=== PATIENT | male | born 1970 | race Two or more races ===

== ENCOUNTER 2025-07-19 03:53 | Inpatient (IN) | payer MEDICAID, OTHER ==
[~2025-07-19] VITALS: Ht 182.9 cm; Wt 95.5 kg
--- NOTE | 2025-07-19 04:25 | ED.PDOC ---
Musculoskeletal HPI Comments 55-year-old male who came to ER for wound check. Patient denies any medical problems. States 3 days ago, he was working on somebody's yard, cleaning up the yard of debris, when he had multiple cuts/lacerations on his legs due to the debris. Claims he became febrile, and he had episodes of nausea vomiting and diarrhea afterwards. Noted also gradually worsening bipedal edema, left > right, with weeping wounds on the left lower extremity. Chief Complaint: Wound Check Time Seen by MD: 04:24 Reviewed Notes: Nurses Notes Allergies: Coded Allergies: Ciprofloxacin (Verified Allergy, Unknown, 07/19/25) Moxifloxacin (Verified Allergy, Unknown, 07/19/25) Quinolones (Verified Allergy, Unknown, 07/19/25) Information Source: Patient Mode of Arrival: Wheelchair Location: Bilateral Extremity Location: Leg Timing: Days (2) Past Medical History PAST MEDICAL HISTORY: Denies Surgical History: Denies all surgeries Family History Family History: Reviewed,noncontributory to illness Social History Smoker: Non-Smoker Alcohol: Denies ETOH Use Drugs: Denies Drug Use Lives In: Home Constitutional: denies: chills, diaphoresis, fatigue, fever, malaise, sweats, weakness, others EENTM: denies: blurred vision, double vision, ear bleeding, ear discharge, ear drainage, ear pain, ear ringing, eye pain, eye redness, hearing loss, mouth pain, mouth swelling, nasal discharge, nose bleeding, nose congestion, nose pain, photophobia, tearing, throat pain, throat swelling, voice changes, others Respiratory: denies: cough, hemoptysis, orthopnea, SOB at rest, shortness of breath, SOB with excertion, stridor, wheezing, others Cardiovascular: denies: chest pain, dizzy spells, diaphoresis, Dyspnea on exertion, edema, irregular heart beat, left arm pain, lightheadedness, palpitations, PND, syncope, others Gastrointestinal: denies: abdomen distended, abdominal pain, blood streaked bowels, constipated, diarrhea, dysphagia, difficulty swallowing, hematemesis, melena, nausea, poor appetite, poor fluid intake, rectal bleeding, rectal pain, vomiting, others Genitourinary: denies: burning, dysuria, flank pain, frequency, hematuria, incontinence, penile discharge, penile sore, pain, testicle pain, testicle swelling, urgency, others Neurological: denies: dizziness, fainting, headache, left sided numbness, left sided weakness, numbness, paresthesia, pre-existing deficit, right sided numbness, right sided weakness, seizure, speech problems, tingling, tremors, weakness, others Musculoskeletal: reports: others (Bilateral leg edema left >right); denies: back pain, gout, joint pain, joint swelling, muscle pain, muscle stiffness, neck pain Integumetry: reports: wounds (Weeping wounds left lower leg); denies: bruises, change in color, change in hair/nails, dryness, laceration, lesions, lumps, rash, others Allergic/Immunocompromised: denies: Difficulty Healing, Frequent Infections, Hives, Itching, others Hematologic/Lymphatic: denies: anemia, blood clots, easy bleeding, easy bruising, swollen glands, others Endocrine: denies: excessive hunger, excessive sweating, excessive thirst, excessive urination, flushing, intolerance to cold, intolerance to heat, unexplained weight gain, unexplained weight loss, others Psychiatric: denies: anxiety, bipolar disorder, depression, hopeless, panic disorder, schizophrenia, sleepless, suicidal, others Physical Exam General Appearance: No Apparent Distress, Normal HEENT: Normal ENT Inspection, Pharynx Normal, TMs Normal Neck: Full Range of Motion, Non-Tender, Normal, Normal Inspection Respiratory: Chest Non-Tender, Lungs Clear, No Accessory Muscle Use, No Respiratory Distress, Normal Breath Sounds Cardiovascular: No Edema, No JVD, No Murmur, No Gallop, Normal Peripheral Pulses, Regular Rate/Rhythm Breast Exam: Deferred Gastrointestinal: No Organomegaly, Non Tender, No Pulsatile Mass, Normal Bowel Sounds, Soft Genitalia: Deferred Pelvic: Deferred Rectal: Deferred Extremities: Leg edema (Bilateral), No calf tenderness, Normal capillary refill, Normal range of motion, Pedal edema, Swelling (Bilateral legs), Other (Weeping wounds left lower leg) Musculoskeletal : Apperance: Normal Neurologic: Alert, collateral specialist II-XII nml as Tested, No Motor Deficits, Normal Affect, Normal Mood, No Sensory Deficits Cerebellar Function: Normal Reflexes: Normal Skin: Dry, Normal Color, Warm Lymphatic: No Adenopathy Was a procedure done? Was a procedure done?: No Differential Diagnosis EXT Differential Diagnosis: Cellulitis, CHF, Deep Vein Thrombosis, Septic X-Ray, Labs, Meds, VS Vital Signs Date Time Temp Pulse Resp B/P (MAP) Pulse Ox O2 Delivery O2 Flow Rate FiO2 07/19/25 03:55 98.7 104 18 114/83 93 98.7 Lab Test 07/19/25 04:33 Range/Units White Blood Count 19.8 H 4.4-10.8 10^3/uL Red Blood Count 5.25 4.5-5.90 10^6/uL Hemoglobin 14.4 13.5-17.5 g/dL Hematocrit 43.5 41.0-53.0 % Mean Corpuscular Volume 82.9 80.0-100.0 fL Mean Corpuscular Hemoglobin 27.4 L 28.0-32.0 pg Mean Corpuscular Hemoglobin Concent 33.0 32.0-36.0 g/dL Red Cell Distribution Width 15.0 H 11.8-14.3 % Platelet Count 546 H 140-450 10^3/uL Mean Platelet Volume 7.0 6.9-10.8 fL Neutrophils (%) (Auto) 37.0-80.0 % Lymphocytes (%) (Auto) 10.0-50.0 % Monocytes (%) (Auto) 0.0-12.0 % Basophils (%) (Auto) 0.0-2.0 % Neutrophils # (Auto) 1.6-8.6 10 ^3/uL Lymphocytes # (Auto) 0.4-5.4 10 ^3/uL Monocytes # (Auto) 0-1.3 10 ^3/uL Differential Total Cells Counted Pending Neutrophils % (Manual) Pending Band Neutrophils % (Manual) Pending Lymphocytes % (Manual) Pending Monocytes % (Manual) Pending Eosinophils % (Manual) Pending Basophils % (Manual) Pending Metamyelocytes % (manual) Pending Myelocytes % (Manual) Pending Promyelocytes % (Manual) Pending Blast Cells % (Manual) Pending Reactive Lymphocytes Pending Platelet Estimate Pending Prothrombin Time 11.8 9.3-11.8 sec Prothrombin Time INR 1.13 0.9-1.15 Activated Partial Thromboplast Time 26.2 24.5-34.5 SEC Sodium Level 134 L 136-145 mmol/L Potassium Level 3.6 3.5-5.1 mmol/L Chloride Level 96 L 98-107 mmol/L Carbon Dioxide Level 27 20-31 mmol/L Anion Gap 11 5-15 Blood Urea Nitrogen 16 9-23 mg/dL Creatinine 0.87 0.700-1.30 mg/dL Glomerular Filtration Rate Calc 101 >90 mL/min BUN/Creatinine Ratio 18.4 10.0-20.0 Serum Glucose 105 74-106 mg/dL Lactic Acid Level 2.6 *H 0.4-2.0 mmol/L Calcium Level 8.8 8.7-10.4 mg/dL Magnesium Level 2.5 1.6-2.6 mg/dL Total Bilirubin 0.3 0.2-1.0 mg/dL Aspartate Amino Transferase (AST) 30 13-40 U/L Alanine Aminotransferase (ALT) 25 7-40 U/L Alkaline Phosphatase 139 H 46-116 U/L Troponin I High Sensitivity < 3 L </=54 ng/L B-Type Natriuretic Peptide 10.31 0-100 pg/mL Total Protein 7.8 5.7-8.2 g/dL Albumin 4.0 3.2-4.8 g/dL Time of 1ST Reevaluation: 04:18 Reevaluation 1ST: Unchanged Patient Education/Counseling: Diagnosis, Treatment Family Education/Counseling: No Family Present Sepsis Sepsis Reasesment Focused Exam Orders: Laboratory Tests 07/19/25 04:33: Lactic Acid Level 2.6 Departure 1 Departure Time of Disposition: 05:34 Impression: Primary Impression: Cellulitis of left leg Additional Impression: Venous stasis dermatitis of both lower extremities Disposition: ADMITTED INPATIENT Admit to: Med Surg Condition: Guarded Comments 55-year-old male with a history of venous stasis dermatitis now with left leg redness and swelling for the last few days with some skin breakdown. Lab review shows a high white blood cell count of 19.8. Lactic acid is elevated 2.6. Patient was given IV fluids and IV antibiotics Ancef and vancomycin. Patient will need admission for supportive care and further workup. Critical Care Note Critical Care Time?: Yes (35 min-critical care time only) Critical care comment: Total critical care time: Approximately 36 minutes Due to a high probability of clinically significant, life threatening deterioration, the patient required my highest level of preparedness to intervene emergently and I personally spent this critical care time directly and personally managing the patient. This critical care time included obtaining a history; examining the patient; pulse oximetry; ordering and review of studies; arranging urgent treatment with development of a management plan; evaluation of patient's response to treatment; frequent reassessment; and, discussions with other providers. This critical care time was performed to assess and manage the high probability of imminent, life-threatening deterioration that could result in multi-organ failure. It was exclusive of separately billable procedures and treating other patients. Stability Stability form required: No Heart Score Heart Score: Heart Score Response (Comments) Value History N/A 0 EKG N/A 0 Age N/A 0 Risk Factors N/A 0 Troponin N/A 0 Total 0 I personally scribed for JESUS ALBERTO LANDON MD ([email or web address]) on 07/19/25 at 04:25. Electronically submitted by Francis Rubin ([email or web address]). JESUS ALBERTO LANDON MD Jul 19, 2025 04:25
[2025-07-19 04:53] LABS: Mean Corpuscular Hemoglobin 27.4 pg (28.0-32.0); Mean Corpuscular Volume 82.9 fL (80.0-100.0)
[2025-07-19 04:54] LABS: Hematocrit 43.5 % (41.0-53.0); Hemoglobin 14.4 g/dL (13.5-17.5)
[2025-07-19 05:12] LABS: Alanine Aminotransferase 25 U/L (7-40); Albumin 4.0 g/dL (3.2-4.8); Anion Gap 11 (5-15); BUN/Creatinine Ratio 18.4 (10.0-20.0); Blood Urea Nitrogen 16 mg/dL (9-23); Calcium 8.8 mg/dL (8.7-10.4); Carbon Dioxide 27 mmol/L (20-31); Glucose 105 mg/dL (74-106); INR 1.13 (0.9-1.15); Magnesium 2.5 mg/dL (1.6-2.6); Partial Thromboplastin Time 26.2 SEC (24.5-34.5); Potassium 3.6 mmol/L (3.5-5.1); Prothrombin Time 11.8 sec (9.3-11.8); Total Protein 7.8 g/dL (5.7-8.2)
[2025-07-19 05:17] LABS: Alkaline Phosphatase 139 U/L (46-116); Bilirubin, Total 0.3 mg/dL (0.2-1.0); Chloride 96 mmol/L (98-107); Lactic Acid w/Reflex 2.6 mmol/L (0.4-2.0); Sodium 134 mmol/L (136-145)
[2025-07-19 06:30] LABS: Total Cells Counted 100.0 (100)
--- NOTE | 2025-07-19 07:26 | DVH ---
Left lower extremity venous duplex Clinical History: swelling pain Comparison: None Findings: Duplex Doppler evaluation of the deep venous systems of both left lower extremity from the common fem oral veins to the popliteal veins including color Doppler and spectral/pulsed waveform analysis was p erformed. LEFT SIDE: The common femoral vein demonstrates appropriate compressibility and waveform variability. There is compressibility/patency of the great saphenous vein at the proximal thigh. The femoral vein demonstrates appropriate compressibility and waveform variability. The deep femoral vein demonstrates appropriate compressibility and waveform variability. The popliteal vein demonstrates appropriate compressibility and waveform variability. There is normal compressibility at the tibioperoneal trunk. There is a calcified structure causing shadowing in the left popliteal fossa. There is a left groin lymph node which is enlarged measuring 4.2 x 1.3 x 3.5 cm. Impression: 1. No left femoropopliteal venous thrombosis. 2. Enlarged left groin lymph node measuring 4.2 x 1.3 x 3.5 cm. 3. Calcified structure causing shadowing in the left popliteal fossa.
[2025-07-19] MEDS: ceFAZolin 1GM/50ML 50 ML IV ONE (07:48)
[2025-07-19 08:00] VITALS: PULSE 104; RESP 13
[2025-07-19] MEDS: SODIUM CHLORIDE 0.9% 2,450 ML IV ONE (08:22)
[2025-07-19] MEDS: VANCOMYCIN 1GM/250ML KIT 250 ML IV ONE (08:22)
[2025-07-19] MEDS: SODIUM CHLORIDE 0.9% 1,000 ML IV ONE (12:02)
[2025-07-19 13:05] VITALS: PULSE 92; RESP 18
[2025-07-19] MEDS ORDERED: ACETAMINOPHEN 325 MG TAB PO PRN (13:30)
[2025-07-19] MEDS ORDERED: DOCUSATE SOD 100 MG CAP PO PRN (13:30)
[2025-07-19] MEDS ORDERED: ONDANSETRON HCL 4 MG/2 ML VIAL IV PRN (13:30)
[2025-07-19] MEDS ORDERED: MORPHINE SULFATE INJ 2 MG/ml SYRG IV PRN (13:30)
--- NOTE | 2025-07-19 13:44 | DVHHP2 ---
History of Present Illness Reason for Visit: bilateral lower extremity swelling History of Present Illness Bob Srivastava is a 55-year-old male with no significant past medical history, who came to the hospital for bilateral lower extremities swelling and wounds. Patient states he was cleaning up a friend's yard on Tuesday or Tuesday, when he scratched his left leg. He states the swelling started a couple days later and continued to worsen prompting him to come to the hospital. Heme/Onc: Cancer (left testicle) Past Surgical History: Other (left testicle, right eye, bilateral knees), Tonsillectomy Smoke: <1 pack per day (vape) ALCOHOL: occassional Drugs: Marijuana, Other (methamphetamine, fentanyl) Lives: Alone Domestic Violence: Neg Review of Systems Constitutional: No: Fever, Chills, Sweats, Weakness, Malaise, Other Eyes: No: Pain, Vision change, Conjunctivae inflammation, Eyelid inflammation, Other, Redness ENT: No: Ear pain, Ear discharge, Nose pain, Nose discharge, Nose congestion, Mouth pain, Mouth swelling, Throat pain, Throat swelling, Other Respiratory: No: Cough, Dry, Shortness of breath, SOB with excertion, Wheezing, Hemoptysis, Pleuritic Pain, Sputum, Wheezing, Other Cardiovascular: Edema (bilateral lower extremities, redness); No: Chest Pain, Palpitations, Orthopnea, Paroxysmal Noc. Dyspnea, Lt Headedness, Other Gastrointestinal: No: Nausea, Vomiting, Abdominal Pain, Diarrhea, Constipation, Melena, Hematochezia, Other Genitourinary: No Dysuria, No Frequency, No Incontinence, No Hematuria, No Retention, No Other Musculoskeletal: No: other, neck pain, shoulder pain, arm pain, back pain, hand pain, leg pain, foot pain Skin: Lesions (bilateral lower extremities redness, edema, open wounds, blisters); No: Rash, Jaundice, Bruising, Other Neurological: No: Weakness, Numbness, Incoordination, Change in speech, Confusion, Seizures, Other Allergies: Coded Allergies: Ciprofloxacin (Verified Allergy, Unknown, 07/19/25) Moxifloxacin (Verified Allergy, Unknown, 07/19/25) Quinolones (Verified Allergy, Unknown, 07/19/25) Exam Vital Signs Vital Signs Date Time Temp Pulse Resp B/P (MAP) Pulse Ox O2 Delivery O2 Flow Rate FiO2 07/19/25 08:00 98.5 104 13 142/78 (99) 98.5 07/19/25 08:00 Room Air* 0 21 07/19/25 03:55 93 General Appearance: Alert, Oriented X3, Cooperative, moderate distress HEENT: Atraumatic, PERRLA Respiratory: Clear to auscultation, Normal air movement Cardiovascular: Regular rate, Normal S1, Normal S2, No murmurs Abdominal: Normal bowel sounds, Soft, No tenderness Extremities: No clubbing, No cyanosis, Other (bilateral lower extremities redness, edema, open wounds, blisters) Skin: No rashes, No breakdown, No significant lesion (bilateral lower extremity edema, redness, and open wounds. blisters to left foot. wound to left arm) Neuro: Normal gait, Normal speech, Strength at 5/5 X4 ext Psych/Mental Status: Mental status NL Labs/Xrays Labs Test 07/19/25 08:13 07/19/25 05:32 07/19/25 04:33 Range/Units Troponin I High Sensitivity < 3 L </=54 ng/L Lactic Acid Level 2.7 *H 0.4-2.0 mmol/L White Blood Count 19.8 H 4.4-10.8 10^3/uL Red Blood Count 5.25 4.5-5.90 10^6/uL Hemoglobin 14.4 13.5-17.5 g/dL Hematocrit 43.5 41.0-53.0 % Mean Corpuscular Volume 82.9 80.0-100.0 fL Mean Corpuscular Hemoglobin 27.4 L 28.0-32.0 pg Mean Corpuscular Hemoglobin Concent 33.0 32.0-36.0 g/dL Red Cell Distribution Width 15.0 H 11.8-14.3 % Platelet Count 546 H 140-450 10^3/uL Mean Platelet Volume 7.0 6.9-10.8 fL Neutrophils (%) (Auto) 37.0-80.0 % Lymphocytes (%) (Auto) 10.0-50.0 % Monocytes (%) (Auto) 0.0-12.0 % Basophils (%) (Auto) 0.0-2.0 % Neutrophils # (Auto) 1.6-8.6 10 ^3/uL Lymphocytes # (Auto) 0.4-5.4 10 ^3/uL Monocytes # (Auto) 0-1.3 10 ^3/uL Differential Total Cells Counted 100.0 100 Neutrophils % (Manual) 76 37.0-80.0 Band Neutrophils % (Manual) 1 Lymphocytes % (Manual) 18 10.0-50.0 Monocytes % (Manual) 5 0-12 Eosinophils % (Manual) 0 0-7 Basophils % (Manual) 0 0.0-2.0 Metamyelocytes % (manual) 0 Myelocytes % (Manual) 0 Promyelocytes % (Manual) 0 Blast Cells % (Manual) 0 Reactive Lymphocytes 0 Platelet Estimate Increased Prothrombin Time 11.8 9.3-11.8 sec Prothrombin Time INR 1.13 0.9-1.15 Activated Partial Thromboplast Time 26.2 24.5-34.5 SEC Sodium Level 134 L 136-145 mmol/L Potassium Level 3.6 3.5-5.1 mmol/L Chloride Level 96 L 98-107 mmol/L Carbon Dioxide Level 27 20-31 mmol/L Anion Gap 11 5-15 Blood Urea Nitrogen 16 9-23 mg/dL Creatinine 0.87 0.700-1.30 mg/dL Glomerular Filtration Rate Calc 101 >90 mL/min BUN/Creatinine Ratio 18.4 10.0-20.0 Serum Glucose 105 74-106 mg/dL Calcium Level 8.8 8.7-10.4 mg/dL Magnesium Level 2.5 1.6-2.6 mg/dL Total Bilirubin 0.3 0.2-1.0 mg/dL Aspartate Amino Transferase (AST) 30 13-40 U/L Alanine Aminotransferase (ALT) 25 7-40 U/L Alkaline Phosphatase 139 H 46-116 U/L B-Type Natriuretic Peptide 10.31 0-100 pg/mL Total Protein 7.8 5.7-8.2 g/dL Albumin 4.0 3.2-4.8 g/dL Left lower extremity venous duplex LEFT SIDE: The common femoral vein demonstrates appropriate compressibility and waveform variability. There is compressibility/patency of the great saphenous vein at the proximal thigh. The femoral vein demonstrates appropriate compressibility and waveform variability. The deep femoral vein demonstrates appropriate compressibility and waveform variability. The popliteal vein demonstrates appropriate compressibility and waveform variability. There is normal compressibility at the tibioperoneal trunk. There is a calcified structure causing shadowing in the left popliteal fossa. There is a left groin lymph node which is enlarged measuring 4.2 x 1.3 x 3.5 cm. Impression: 1. No left femoropopliteal venous thrombosis. 2. Enlarged left groin lymph node measuring 4.2 x 1.3 x 3.5 cm. 3. Calcified structure causing shadowing in the left popliteal fossa. SEPSIS Sepsis Screen Date sepsis recognized/suspect: Jul 19, 2025 Time Sepsis recognized/suspect: 08 Recent Procedure: No On Antibiotic Therapy: No Respiratory Rate >20: No Heart Rate >90: Yes Temp<36 C (96.8 F) or >38.3 C: No SBP <90 or MAP <65 mmHG: No New Acute Mental Status Change: No Is the patient on CPAP, BIPAP,: No Physician Orders Drug Screen (07/19/25 13:17) Admit (07/19/25 13:17) Code Status (07/19/25 13:17) 2 Gm Sodium Diet (07/19/25 Lunch) Hydrocodone-Acet 5/325mg Tab ([place] 5/32 (07/19/25 13:30) Ondansetron Hcl (Zofran) (07/19/25 13:30) Docusate Sodium Capsule (Colace Capsule) (07/19/25 13:30) Enoxaparin Sodium (Lovenox) (07/20/25 10:00) Complete Blood Count (07/20/25 04:00) Comprehensive Metabolic Panel (07/20/25 04:00) Condition: Serious (07/19/25 13:17) Acetaminophen Tablet (Tylenol Tablet) (07/19/25 13:30) Morphine Sulfate Injection (07/19/25 13:30) Furosemide Injection (Lasix Injection) (07/19/25 13:30) Furosemide Injection (Lasix Injection) (07/20/25 10:00) Ceftriaxone Ivpb Rocephin (07/20/25 09:00) Clindamycin Ivpb Cleocin (07/19/25 14:00) Vital Signs Date Time Temp Pulse Resp B/P (MAP) Pulse Ox O2 Delivery O2 Flow Rate FiO2 07/19/25 08:00 98.5 104 13 142/78 (99) 98.5 07/19/25 08:00 104 13 Room Air* 0 21 Laboratory Tests Test 07/19/25 04:33 07/19/25 05:32 Lactic Acid Level 2.6 mmol/L (0.4-2.0) *H 2.7 mmol/L (0.4-2.0) *H White Blood Count 19.8 10^3/uL (4.4-10.8) H Medications Medications Dose Ordered Sig/Mustapha Route Start Time Stop Time Status Last Admin Dose Admin Cefazolin Sodium 50 ml @ 100 mls/hr ONCE ONCE IV 07/19/25 04:30 07/19/25 04:59 DC 07/19/25 07:48 100 MLS/HR Sodium Chloride 1,000 ml @ 150 mls/hr Q6H40M ONCE IV 07/19/25 06:45 07/19/25 13:24 DC 07/19/25 12:02 150 MLS/HR Sodium Chloride 2,450 ml @ 2,450 mls/hr ONCE ONCE IV 07/19/25 06:45 07/19/25 07:44 DC 07/19/25 08:22 2,450 MLS/HR Vancomycin HCl 250 ml @ 250 mls/hr ONCE ONCE IV 07/19/25 04:30 07/19/25 05:29 DC 07/19/25 08:22 250 MLS/HR Assessment/Plan Assessment/Plan Assessment: Cellulitis of both lower extremities, Leukocytosis, Lactic acidosis, Plan: Admit to Med-Surg, Wound care consult, Wound culture, IV antibiotics, IV hydration, Consider infectious disease consult, Plan discussed with: Patient My Orders Orders - CESAR RAMIREZ Procedure Category Date Status Time Drug Screen LAB 07/19/25 Verified 13:17 Admit ADMIT 07/19/25 Verified 13:17 Code Status CODE 07/19/25 Verified 13:17 2 Gm Sodium Diet DIET 07/19/25 Verified Lunch Hydrocodone-Acet PHA 07/19/25 Verified 5/325mg Tab ([place] 13:30 Ondansetron Hcl PHA 07/19/25 Verified (Zofran) 13:30 Docusate Sodium PHA 07/19/25 Verified Capsule (Colace 13:30 Enoxaparin Sodium PHA 07/20/25 Verified (Lovenox) 10:00 Complete Blood Count LAB 07/20/25 Verified 04:00 Comprehensive LAB 07/20/25 Verified Metabolic Panel 04:00 Condition: Serious CHANTEL 07/19/25 Verified 13:17 Acetaminophen Tablet PHA 07/19/25 Verified (Tylenol Tablet) 13:30 Morphine Sulfate PHA 07/19/25 Verified Injection 13:30 Furosemide Injection PHA 07/19/25 Verified (Lasix Injection) 13:30 Furosemide Injection PHA 07/20/25 Verified (Lasix Injection) 10:00 Ceftriaxone Ivpb PHA 07/20/25 Verified Rocephin 09:00 Clindamycin Ivpb PHA 07/19/25 Verified Cleocin 14:00 Date of Service: Jul 19, 2025 Billing Provider: CESAR RAMIREZ Common Visit Codes: [id number] INP/OBS CARE (MOD) CESAR RAMIREZ Jul 19, 2025 13:44
[2025-07-19 13:59] LABS: Amphetamine Screen, Urine Pos (NEGATIVE); Barbiturate Scree,Urine Neg (NEGATIVE); Benzodiazephine Screen, Urine Neg (NEGATIVE); Cocaine Screen, Urine Neg (NEGATIVE); Opiate Scree,Urine Neg (NEGATIVE); Phencyclidine Screen, Urine Neg (NEGATIVE)
[2025-07-19 14:00] LABS: Cannabinoid Screen, Urine Neg (NEGATIVE)
[2025-07-19] MEDS: CLINDAMYCIN 300MG IV 50 ML IV SCH (15:19)
[2025-07-19] MEDS: FUROSEMIDE 40 MG/4 ML VIAL IV ONE (15:22)
[2025-07-19 18:30] VITALS: BP 101/68; PULSE 106; RESP 18; TEMP 99; O2SAT 94; O2SAT 97
[2025-07-19] MEDS: HYDROcodone-ACET 5/325MG TAB PO PRN (18:56)
[2025-07-19 21:00] VITALS: BP 122/69; PULSE 100; RESP 18; TEMP 98.4; O2SAT 97
[2025-07-20 00:47] VITALS: BP 124/83; PULSE 94; RESP 18; TEMP 98.5; O2SAT 98
[2025-07-20 04:58] VITALS: BP 110/70; PULSE 103; RESP 19; TEMP 98.5; O2SAT 100
[2025-07-20 06:29] LABS: Alanine Aminotransferase 20 U/L (7-40); Alkaline Phosphatase 107 U/L (46-116); Anion Gap 9 (5-15); BUN/Creatinine Ratio 15.9 (10.0-20.0); Bilirubin, Total 0.3 mg/dL (0.2-1.0); Blood Urea Nitrogen 11 mg/dL (9-23); Carbon Dioxide 26 mmol/L (20-31); Chloride 101 mmol/L (98-107); Potassium 3.7 mmol/L (3.5-5.1); Total Protein 6.5 g/dL (5.7-8.2)
[2025-07-20 06:31] LABS: Albumin 3.2 g/dL (3.2-4.8); Calcium 8.2 mg/dL (8.7-10.4); Glucose 115 mg/dL (74-106); Hematocrit 37.7 % (41.0-53.0); Hemoglobin 12.4 g/dL (13.5-17.5); Mean Corpuscular Hemoglobin 27.0 pg (28.0-32.0); Mean Corpuscular Volume 82.0 fL (80.0-100.0); Nucleated Red Blood Cells % 0.0 %; Sodium 136 mmol/L (136-145)
[2025-07-20 08:00] VITALS: PULSE 89; RESP 100; O2SAT 100
[2025-07-20 08:10] VITALS: BP 124/78; PULSE 89; RESP 18; TEMP 98.8; O2SAT 100
[2025-07-20] MEDS: FUROSEMIDE 40 MG/4 ML VIAL IV SCH (10:00)
[2025-07-20] MEDS: ENOXAPARIN SOD 40 MG/0.4 ML SYRINGE SC SCH (10:02)
[2025-07-20 11:12] LABS: Lactic Acid w/Reflex 2.2 mmol/L (0.4-2.0)
[2025-07-20 12:10] VITALS: BP 127/77; PULSE 97; RESP 18; TEMP 98; O2SAT 96
--- NOTE | 2025-07-20 14:08 | DVHPN2 ---
Changes from previous H/P or p: No Changes Eyes: No Pain, No Vision change, No Conjunctivae inflammation, No Eyelid inflammation, No Other, No Redness ENT: No Ear pain, No Ear discharge, No Nose pain, No Nose discharge, No Nose congestion, No Mouth pain, No Mouth swelling, No Throat pain, No Throat swelling, No Other Cardiovascular: No Chest Pain, No Palpitations, No Orthopnea, No Paroxysmal Noc. Dyspnea; Edema (bilateral lower extremities, redness); No Lt Headedness, No Other Respiratory: No Cough, No Dry, No Shortness of breath, No SOB with excertion, No Wheezing, No Hemoptysis, No Pleuritic Pain, No Sputum, No Other Gastrointestinal: No Nausea, No Vomiting, No Abdominal Pain, No Diarrhea, No Constipation, No Melena, No Hematochezia, No Other Genitourinary: No Dysuria, No Frequency, No Incontinence, No Hematuria, No Retention, No Other Musculoskeletal: No other, No neck pain, No shoulder pain, No arm pain, No back pain, No hand pain, No leg pain, No foot pain Skin: No Rash; Lesions (bilateral lower extremities redness, edema, open wounds, blisters); No Jaundice, No Bruising, No Other Objective Vitals Vital Signs Date Time Temp Pulse Resp B/P (MAP) Pulse Ox O2 Delivery O2 Flow Rate FiO2 07/20/25 12:10 98.0 97 18 127/77 (94) 96 98.0 07/20/25 08:00 Nasal Cannula* 2 28 Intake/Output Intake and Output 07/20/25 06:59 Intake Total 3250 ml Output Total 300 ml Balance 2950 ml Intake Oral 250 ml IV Total 3000 ml Output Urine Total 300 ml Medications Current Medications Medications Dose Ordered Sig/Mustapha Route Start Time Stop Time Status Last Admin Dose Admin Acetaminophen/ Hydrocodone Bitart 1 tab Q4HP PRN PO 07/19/25 13:30 07/20/25 02:49 1 TAB Ondansetron HCl 4 mg Q4HP PRN IV 07/19/25 13:30 Docusate Sodium 100 mg BIDPRN PRN PO 07/19/25 13:30 Enoxaparin Sodium 40 mg DAILY SC 07/20/25 10:00 07/20/25 10:02 40 MG Acetaminophen 650 mg Q6HP PRN PO 07/19/25 13:30 Morphine Sulfate 2 mg Q4HPRN PRN IV 07/19/25 13:30 Furosemide 40 mg DAILY IV 07/20/25 10:00 07/20/25 10:00 40 MG Ceftriaxone Sodium 50 ml @ 100 mls/hr DAILY@09 IV 07/20/25 09:00 07/20/25 09:58 100 MLS/HR Clindamycin Phosphate 50 ml @ 50 mls/hr Q8HR IV 07/19/25 14:00 07/20/25 05:42 50 MLS/HR Laboratory Results Laboratory Tests 07/20/25 05:48 Chemistry Test 07/20/25 05:48 Albumin 3.2 g/dL (3.2-4.8) Calcium Level 8.2 mg/dL (8.7-10.4) L Total Protein 6.5 g/dL (5.7-8.2) LFT Test 07/20/25 05:48 Alanine Aminotransferase (ALT) 20 U/L (7-40) Alkaline Phosphatase 107 U/L (46-116) Aspartate Amino Transferase (AST) 22 U/L (13-40) Total Bilirubin 0.3 mg/dL (0.2-1.0) Microbiology Microbiology Date/Time Source Procedure Growth Status 07/19/25 04:33 Blood Blood Culture - Preliminary NO GROWTH AFTER 24 HOURS OF INCUBATION. Resulted Labs and/or images reviewed: Labs reviewed by me, Image(s) reviewed by me Assessment/Plan Assessment/Plan Cellulitis bilateral lower extremities: Rocephin clindamycin Acute dehydration: IV fluids Acute metabolic and lactic acidosis Amphetamine positive: Counseled Time spent 50 minutes Patient is thinking of leaving AMA Consequences and complications explained to the patient Plan discussed with: Patient Date of Service: Jul 20, 2025 Billing Provider: SUSHILA NOLAN MD Common Visit Codes: [id number] INP/OBS CARE(HIGH) SUSHILA NOLAN MD Jul 20, 2025 14:08
--- NOTE | 2025-07-21 08:20 | DVHDS2 ---
Discharge Summary Date of Admission Jul 19, 2025 at 13:17 Date of Discharge: Jul 20, 2025 Admitting Diagnosis Cellulitis bilateral lower extremities Wounds: Cellulitis bilateral lower extremities Labs/Diagnostic Data: Laboratory Results Test 07/20/25 10:18 07/20/25 05:48 07/19/25 13:31 07/19/25 08:13 Lactic Acid Level 2.2 mmol/L (0.4-2.0) White Blood Count 16.9 10^3/uL (4.4-10.8) Red Blood Count 4.60 10^6/uL (4.5-5.90) Hemoglobin 12.4 g/dL (13.5-17.5) Hematocrit 37.7 % (41.0-53.0) Mean Corpuscular Volume 82.0 fL (80.0-100.0) Mean Corpuscular Hemoglobin 27.0 pg (28.0-32.0) Mean Corpuscular Hemoglobin Concent 32.9 g/dL (32.0-36.0) Red Cell Distribution Width 14.6 % (11.8-14.3) Platelet Count 549 10^3/uL (140-450) Mean Platelet Volume 6.8 fL (6.9-10.8) Neutrophils (%) (Auto) 80.3 % (37.0-80.0) Lymphocytes (%) (Auto) 11.5 % (10.0-50.0) Monocytes (%) (Auto) 7.5 % (0.0-12.0) Eosinophils (%) (Auto) 0.4 % (0.0-7.0) Basophils (%) (Auto) 0.3 % (0.0-2.0) Neutrophils # (Auto) 13.5 10 ^3/uL (1.6-8.6) Lymphocytes # (Auto) 1.9 10 ^3/uL (0.4-5.4) Monocytes # (Auto) 1.3 10 ^3/uL (0-1.3) Eosinophils # (Auto) 0.1 10 ^3/uL (0-0.8) Basophils # (Auto) 0.1 10 ^3/uL (0-0.2) Nucleated Red Blood Cells 0.0 % Sodium Level 136 mmol/L (136-145) Potassium Level 3.7 mmol/L (3.5-5.1) Chloride Level 101 mmol/L (98-107) Carbon Dioxide Level 26 mmol/L (20-31) Anion Gap 9 (5-15) Blood Urea Nitrogen 11 mg/dL (9-23) Creatinine 0.69 mg/dL (0.700-1.30) Glomerular Filtration Rate Calc 108 mL/min (>90) BUN/Creatinine Ratio 15.9 (10.0-20.0) Serum Glucose 115 mg/dL (74-106) Calcium Level 8.2 mg/dL (8.7-10.4) Total Bilirubin 0.3 mg/dL (0.2-1.0) Aspartate Amino Transferase (AST) 22 U/L (13-40) Alanine Aminotransferase (ALT) 20 U/L (7-40) Alkaline Phosphatase 107 U/L (46-116) Total Protein 6.5 g/dL (5.7-8.2) Albumin 3.2 g/dL (3.2-4.8) Urine Opiates Screen Neg (NEGATIVE) Urine Fentanyl Screen Pos (NEGATIVE) Urine Barbiturates Screen Neg (NEGATIVE) Urine Phencyclidine Screen Neg (NEGATIVE) Urine Amphetamines Screen Pos (NEGATIVE) Urine Benzodiazepines Screen Neg (NEGATIVE) Urine Cocaine Screen Neg (NEGATIVE) Urine Cannabinoids Screen Neg (NEGATIVE) Troponin I High Sensitivity < 3 ng/L (</=54) Test 07/19/25 04:33 Differential Total Cells Counted 100.0 (100) Neutrophils % (Manual) 76 (37.0-80.0) Band Neutrophils % (Manual) 1 Lymphocytes % (Manual) 18 (10.0-50.0) Monocytes % (Manual) 5 (0-12) Eosinophils % (Manual) 0 (0-7) Basophils % (Manual) 0 (0.0-2.0) Metamyelocytes % (manual) 0 Myelocytes % (Manual) 0 Promyelocytes % (Manual) 0 Blast Cells % (Manual) 0 Reactive Lymphocytes 0 Platelet Estimate Increased Prothrombin Time 11.8 sec (9.3-11.8) Prothrombin Time INR 1.13 (0.9-1.15) Activated Partial Thromboplast Time 26.2 SEC (24.5-34.5) Magnesium Level 2.5 mg/dL (1.6-2.6) B-Type Natriuretic Peptide 10.31 pg/mL (0-100) Other Laboratory Tests 07/20/25 05:48 Brief Hx & Hospital Course: 55-year-old male admitted for bilateral lower extremities found to [place] the [place] [id number] patient has had severe cellulitis bilateral lower extremities also metabolic acidosis started on Rocephin and clindamycin tested positive for amphetamine patient was counseled. The patient expressed a desire to leave AMA. Consequences and complications including possible explained to the patient and he verbalized understanding and he left AMA General condition satisfactory at the time of leaving AMA Consults/Reason for consult None Operations or Procedures None Condition at Discharge: Fair Final Diagnosis/Problems List Sepsis secondary to Cellulitis bilateral lower extremities: Rocephin clindamycin Acute dehydration: IV fluids Acute metabolic and lactic acidosis Amphetamine positive: Counseled Discharge Disposition: AMA Discharge Instruct/Medications Diet comment: Not applicable Patient left AMA Activity comment: Not applicable Patient left Follow Up/Referral: Not applicable Patient left AMA Medications: Not applicable Patient left AMA 39 (Time taken for discharge summary 39 minutes) Discharge Statement: "Patient was advised to return to the ER or call 911 if any headaches, dizziness, shortness of breath, chest pain, abdominal pain, bleeding, fevers, or worsening of medical condition. Patient was counseled about treatment plan, medications, possible side effects, patientverbalized understanding. All questions were answered to the best of my ability. This discharge took greater then 30 minutes in planning, reviewing documentation, counseling the patient, and discussing with other team members." ASSESSMENT ASSESSMENT Hospital Course Left AMA Assessment Date of Service: Jul 21, 2025 Billing Provider: SUSHILA NOLAN MD Common Visit Codes: 63355-LBN/OBS DISCH DAY >30min SUSHILA NOLAN MD Jul 21, 2025 08:20
== END 2025-07-20 14:38 | disposition left against medical advice (07) | DRG 720 ==
LOC: ER 03:53 → OVERFLOW 13:17 → WEST WING 18:30
PROVIDERS: ADMIT Nurse Practitioner Family; ATTEND Nurse Practitioner Family
DX: A41.9 Sepsis, unspecified organism (principal); E87.21 Acute metabolic acidosis; L03.115 Cellulitis of right lower limb; E86.0 Dehydration; L03.116 Cellulitis of left lower limb; Z53.29 Procedure and treatment not carried out because of patient's decision for other reasons; I87.2 Venous insufficiency (chronic) (peripheral); Z88.1 Allergy status to other antibiotic agents; Z87.891 Personal history of nicotine dependence
CPT/HCPCS: 36415; 80053; 80307; 83605; 83735; 83880; 84484; 85007; 85025; 85027; 85610; 85730; 87040; 93971; 96361; 96365; 99291; G0378; J3490

== ENCOUNTER 2025-08-02 21:07 | Inpatient (IN) | payer MEDICAID ==
[~2025-08-02] VITALS: Ht 182.9 cm; Wt 83.6 kg
--- NOTE | 2025-08-02 21:22 | ED.PDOC ---
GI ASSESSMENT HPI Comments 55 y/o M is BIBA from private residence for c/c of GI bleed. Per EMS personnel report, neighbor called after checking on the patient, again, after last seeing him well 3x days ago for bilateral leg swelling. On scene, EMS states on finding the patient on the floor covered in black vomitus and stools, which the patient reports on having for the past few days. Patient also c/o of chest pain and shortness of breath. Additional history of patient leaving AMA for a recent hospital admission for cellulitis. Past medical history: Testicular cancer, COPD, hernia, current cellulitis Past surgical history: bilateral shoulder and knee orthopedic surgeries July 19, 2025 Admission for Cellulitis of both lower extremities. 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 Brought in by ambulance from home after the neighbor found him on the floor with black stool everywhere around him. Patient appeared pale tachycardic. Patient was slightly combative. Upon arrival to the ED EKGs shows some ischemic findings and slight tachycardia. Patient appears very pale and complains of some nonspecific abdominal pain. Patient left the hospital against medical advice few days ago. Patient is awake Alert and was consented for blood transfusion. Emergency blood transfusion was initiated given the patient's vitals and color and history of GI bleed. Unknown if the patient is on blood thinners or not. Insole And Outsole Preparer were unable to draw blood. IV access was established for blood transfusion but no blood was collected. Phlebotomy said they can not collect blood until 2 hours after the blood transfusion is completed. REVIEW OF SYSTEMS: CONSTITUTIONAL: Denies acute: fever, diaphoresis, chills, HEAD: Denies acute: headache, photophobia Eyes: Denies acute: Double vision, vision loss, eye pain, eye discharge. EARS: Denies acute: tinnitus, hearing loss, ear discharge, ear pain, THROAT: Denies acute: sore throat, swelling, difficulty swallowing , pain with swallowing, change in voice. NECK: Denies acute: neck pain, neck swelling, stiff neck. HEART: Denies acute : chest pain, palpitations, LUNGS: Denies acute: wheezing, cough, hemoptysis ABDOMEN: Denies acute: , Nausea, Vomiting, diarrhea, , hematemesis, SKIN: Denies acute: rash, redness, lesions, itchiness. EXTREMITIES: Denies acute: calf pain, numbness, tingling, weakness, denies pain in extremity. Denies acute: Low back pain. Neuro: Denies acute: focal neurological deficit, motor or sensory focal neurological deficit, tremors, seizure like activity, confusion, dizziness, change in mental status, loss of bowel or bladder function, cauda equina like symptoms. : Denies acute: dysuria, hematuria, flank pain, increase in urinary frequency. PSYCH: Denies acute: hallucination, suicidal ideation, homicidal ideation. PHYSICAL EXAM: General: ---moderate to severe-----acute distress, awake and alert. Head: normocephalic, atraumatic. No raccoon's eyes, no walsh sign. Neck: supple, trachea is midline, no swelling. Throat: Normal phonation. Dry oral mucosa Eyes:, no erythema, no purulent discharge, no proptosis, no icterus. Heart: regular tachycardic, no significant murmur appreciated. Lungs: moderate apparent respiratory distress, Able to speak in full sentences. No wheezing, no rhonchi, no crackles. No stridors Clear to auscultation bilaterally. Abdomen: Right lower quadrant tender to palpation, non distended, soft, no guarding, no rebound, + bowel sounds. Neuro: Awake, Alert, oriented to name, combative and not cooperative. Pulling off his non-rebreather mask. Skin: no petechia, no purpura, no cyanosis, noted-pale, not jaundice. Lower extremities: --2/4 bilateral - Pitting edema no deformity, no focal swelling, no calf TTP. Makes eye contact. moves all four extremities. Face: no apparent facial droop. ED COURSE: DISCLAIMER: This medical document was created using an electronic medical record system with voice recognition software and computerized dictation system. Although this document has been carefully reviewed, there might still be some phonetic and typographical errors. Occasional wrong-word or "sound-alike" substitutions may have occurred due to the inherent limitations of voice recognition software. These areas are purely typographical due to imperfections of the software programs and do not reflect any compromise in the patient's medical care. Please read the chart carefully and recognize, using context, where these substitutions have occurred. Time Seen by MD: 21:15 Reviewed Notes: Nurses Notes, Medications, Allergies Allergies: Coded Allergies: Ciprofloxacin (Verified Allergy, Unknown, 07/19/25) Moxifloxacin (Verified Allergy, Unknown, 07/19/25) Quinolones (Verified Allergy, Unknown, 07/19/25) Information Source: Patient, Emergency Med Personnel Mode of Arrival: EMS Past Medical History PAST MEDICAL HISTORY: Denies Surgical History: Denies all surgeries Family History Family History: Reviewed,noncontributory to illness Social History Smoker: Non-Smoker Alcohol: Denies ETOH Use Drugs: Denies Drug Use Lives In: Home Was a procedure done? Was a procedure done?: Yes Sedation Sedation?: Yes Informed consent obtained: Yes Sedation start time: 00:00 Sedation end time: 00:00 Sedation total time: Ongoing Sedation provider statement: Etomidate 20 mg and rocuronium 100 mg were used for intubation Intubation Indication: Respiratory Insufficiency, Altered Mental Status Prep: Preoxygenation Pretreated with: Sedation Medicated with: Other (Rocuronium and etomidate) Intubation Approach: Orotracheal Informed consent obtained: No Risks/benefits/alt described: No UTO Consent Patient is somewhat altered and in respiratory distress and hypoxic GI differential Dx Differential Diagnosis: Other (As far as dyspnea: DDx include ACS, unstable angina, anxiety, PE, pneumothroax, neoplasm, cardiac ischemia, COPD, asthma, CHF, pleural effusion, tobacco abuse, pneumonia, hypoxia, hypercapnia, anemia., infection/sepsis., pulmonary edema. Asthma, Cardiac tamponade, infection. As far as abdominal pain: Insert abdominal pain as far as rectal bleeding: Diverticulitis, colitis, fistula, neoplasm, hemorrhoids, anal fissures, constipation, Crohn's disease, ulcerative colitis) X-Ray, Labs, Meds, VS Vital Signs Date Time Temp Pulse Resp B/P (MAP) Pulse Ox O2 Delivery O2 Flow Rate FiO2 08/02/25 23:30 116 20 149/66 (93) 99 08/02/25 23:17 139/76 08/02/25 23:15 139/76 08/02/25 23:15 118 15 141/78 (99) 99 08/02/25 23:00 147/87 (107) 08/02/25 22:50 118 20 139/76 (97) 100 100 08/02/25 22:00 111 36 141/78 (99) 91 08/02/25 21:53 98.0 108 21 112/72 (85) 95 98.0 08/02/25 21:45 97.8 106 34 111/62 (78) 90 97.8 08/02/25 21:36 97.7 112 35 92/53 (66) 87 97.7 08/02/25 21:30 89 Simple Mask* 10 99 08/02/25 21:22 94.6 106 24 96/89 86 94.6 08/02/25 21:13 110 Lab Test 08/02/25 21:30 08/02/25 00:00 Range/Units Blood Gas Specimen Type Arterial Blood Gas Sample Site Right radial Blood Gas Patient Temperature 37.0 Arterial Blood Date Drawn [id number] Arterial Blood pH 7.398 7.350-7.450 Arterial Blood Partial Pressure CO2 < 14.1 *L 35.0-48.0 mmHg Arterial Blood Partial Pressure O2 281.1 H 83.0-108.0 mmHg Aleksandr Test Modified Blood Gas Total Hemoglobin < 4.90 *L 13.5-17.5 g/dL Blood Gas Modality Mask - nrb FiO2 % 100.0 Blood Gas Critical Value Read Back Yes Blood Gas Notified Whom adarsh Au Blood Gas Notified Time [id number] Blood Gas Notified By Elsa thompson, abdi Urine Color Light-yellow Yellow Urine Clarity Clear Clear Urine pH 5.0 5.0-9.0 Urine Specific [place] 1.018 1.001-1.035 Urine Protein 1+ H Negative Urine Ketones 1+ H Negative Urine Blood 1+ H Negative /uL Urine Nitrite Negative Negative Urine Bilirubin Negative Negative Urine Urobilinogen Normal Negative mg/dL Urine Leukocyte Esterase Negative Negative /uL Urine RBC 5 0 - 3 /hpf Urine Microscopic WBC 4 H 0-3 /HPF Urine Squamous Epithelial Cells None seen <5 /hpf Urine Bacteria None seen None Seen /hpf Urine Hyaline Casts Mod 0 - 2 /lpf Urine Mucus Few None Seen Urine Glucose Normal Normal mg/dL Current Medications Medications (Trade) Dose Ordered Sig/Mustapha Route Start Time Stop Time Status Last Admin Sodium Chloride 1,000 ml @ 1,000 mls/hr Q1H ONCE IV 1031/25 21:30 08/02/25 22:29 DC 08/02/25 21:30 Pantoprazole Sodium (Protonix) 80 mg ONCE ONCE IV 08/02/25 21:30 08/02/25 21:31 DC 08/02/25 21:35 Octreotide Acetate 100 mcg/ Sodium Chloride 51 ml @ 204 mls/hr ONCE ONCE IV 08/02/25 21:30 08/02/25 21:44 DC 08/03/25 01:25 Octreotide Acetate 500 mcg/ Sodium Chloride 100 ml @ 10 mls/hr Q10H IV 08/02/25 21:30 08/03/25 02:05 Sodium Chloride (Saline Lock Ns) 10 ml Q8HR IV 08/02/25 22:00 08/02/25 22:00 Lorazepam (Ativan Inj) 0.5 mg ONCE ONCE IV 08/02/25 22:00 08/02/25 22:01 DC 08/02/25 22:05 Midazolam HCl 100 ml @ 1 mls/hr Q24H IV 08/02/25 23:15 08/02/25 23:17 Rocuronium [place] 100 mg ONCE ONCE IV 08/02/25 23:15 08/02/25 23:16 DC 08/02/25 23:15 Etomidate 20 mg ONCE ONCE IV 08/02/25 23:15 08/02/25 23:16 DC 08/02/25 23:15 Time of 1ST Reevaluation: 21:15 Reevaluation 1ST: Unchanged Patient Education/Counseling: Diagnosis, Treatment Family Education/Counseling: No Family Present Comments MDM: patient presented with the above HPI.--rectal bleeding and respiratory distress----workup was initiated. patient was found with the above mentioned diagnosis. the following medications were ordered: please refer to order lists of meds and tests obtained by myself Dr. Fofana. Patient ED course and VS have been stabilized. Patient has been reassessed in the ED and remained in a stable condition. Pertinent incidental findings were discussed with the patient and/or family. Patient/family voices understanding and is agreeable with plan. Patient has been observed in the ED adequate length of time to insure improvement/stability. Escalation of care considered: Consideration of escalation to observation or admission Sepsis protocol was initiated. In the setting of rectal bleeding and patient is looking very pale, Protonix and octreotide were ordered and fluids. Patient was given emergent blood transfusion at least 2 units of packed red blood cells. Labs draws were delayed. Patient was placed on non-rebreather mask but continued to be agitated and not cooperative. Ativan was given to help him with his agitation. A decision was made to intubate the patient to secure his airway and for better oxygenation. Etomidate and rocuronium were used. Patient was intubated with a GlideScope successful intubation from 1st attempt. No complications. Sepsis protocol initiated including Zosyn. Patient was placed on Versed drip for sedation. CT scan of the abdomen and pelvis obtained. Later a central line was placed in right femoral vein with ultrasound guidance. Please see the resident's notes. Patient was ADMITTED to the medicine team for further evaluation and treatment of their presentation. All the reports of any imaging studies that were ordered by myself were reviewed by myself. SEPSIS Sepsis Screen Physician Orders Chest Portable (08/02/25 21:18) Accucheck (08/02/25:18) Blood Culture (08/02/25:18) Notify Md If Map <65 Or Bp<90 (08/02/25 21:18) If Map<65 Start Vasopressor (08/02/25 21:18) Sepsis Reassesment After Fluid (08/02/25 22:18) Type And Screen (08/02/25:19) Ct Ab Pel Wo Con-No Oral Or Iv (08/02/25 21:19) Sodium Chl 0.9% (So... W/Octreotide Acet (08/02/25 21:30) Abg W/ Co-Ox (08/02/25 21:22) Allergies (08/02/25 21:42) Code Status (08/02/25 21:42) Sodium Chloride Lock (Saline Lock Ns) (08/02/25 22:00) Oxygen Per Hour (08/02/25 21:42) Hydrocodone-Acet 5/325mg Tab ([place] 5/32 (08/02/25 21:45) Ondansetron Hcl (Zofran) (08/02/25 21:45) Docusate Sodium Capsule (Colace Capsule) (08/02/25 21:45) Condition: Serious (08/02/25 21:42) Acetaminophen Tablet (Tylenol Tablet) (08/02/25 21:45) Clear Liq Diet (08/03/25 Breakfast) Bedrest With Bathroom Privileg (08/02/25 21:42) Maintain Bed Rest (08/02/25 21:42) Sequential Compression Device (08/02/25 ) Midazolam Drip 100 Mg/100ml Ns (Versed D (08/02/25 23:15) Rass Sedation Scale Q1HR (08/02/25 23:08) Chest Portable (08/02/25 23:08) Ventilator Orders (08/02/25 23:10) Abg W/ Co-Ox (08/02/25 23:55) Respiratory Culture W/ Gs (08/02/25 23:10) Communication Order (08/02/25 23:18) Vital Signs Date Time Temp Pulse Resp B/P (MAP) Pulse Ox O2 Delivery O2 Flow Rate FiO2 08/02/25 23:30 116 20 149/66 (93) 99 08/02/25 23:17 139/76 08/02/25 23:15 139/76 08/02/25 23:15 118 15 141/78 (99) 99 08/02/25 23:00 147/87 (107) 08/02/25 22:50 118 20 139/76 (97) 100 100 08/02/25 22:00 111 36 141/78 (99) 91 08/02/25 21:53 98.0 108 21 112/72 (85) 95 98.0 08/02/25 21:45 97.8 106 34 111/62 (78) 90 97.8 08/02/25 21:36 97.7 112 35 92/53 (66) 87 97.7 08/02/25 21:30 89 Simple Mask* 10 99 08/02/25 21:22 94.6 106 24 96/89 86 94.6 08/02/25 21:13 110 Medications Medications Dose Ordered Sig/Mustapha Route Start Time Stop Time Status Last Admin Dose Admin Etomidate 20 mg ONCE ONCE IV 08/02/25 23:15 08/02/25 23:16 DC 08/02/25 23:15 Lorazepam 0.5 mg ONCE ONCE IV 08/02/25 22:00 08/02/25 22:01 DC 08/02/25 22:05 Midazolam HCl 100 ml @ 1 mls/hr Q24H IV 08/02/25 23:15 08/02/25 23:17 Octreotide Acetate 100 mcg/ Sodium Chloride 51 ml @ 204 mls/hr ONCE ONCE IV 08/02/25 21:30 08/02/25 21:44 DC 08/03/25 01:25 Octreotide Acetate 500 mcg/ Sodium Chloride 100 ml @ 10 mls/hr Q10H IV 08/02/25 21:30 08/03/25 02:05 Pantoprazole Sodium 80 mg ONCE ONCE IV 08/02/25 21:30 08/02/25 21:31 DC 08/02/25 21:35 Rocuronium [place] 100 mg ONCE ONCE IV 08/02/25 23:15 08/02/25 23:16 DC 08/02/25 23:15 Sodium Chloride 10 ml Q8HR IV 08/02/25 22:00 08/02/25 22:00 Sodium Chloride 1,000 ml @ 1,000 mls/hr Q1H ONCE IV 08/02/25 21:30 08/02/25 22:29 DC 08/02/25 21:30 Departure 1 Departure Time of Disposition: 22:53 Impression: Primary Impression: Acute respiratory distress Additional Impressions: Symptomatic anemia GI bleed Sepsis Elevated lactic acid level Leukocytosis Elevated brain natriuretic peptide (BNP) level Disposition: ADMITTED INPATIENT Admit to: ICU Condition: Critical Discharged With: Self Critical Care Note Critical Care Time?: Yes (90 min-critical care time only) Heart Score Heart Score: Heart Score Response (Comments) Value History Moderate Suspicious 1 EKG Normal 0 Age 45-64 1 Risk Factors >3 or Hx ASHD 2 Troponin Normal limit 0 Total 4 I personally scribed for ARNIE FOFANA DO ([email or web address]) on 08/02/25 at 21:22. Electronically submitted by Rodo Singh ([email or web address]). I personally scribed for ARNIE FOFANA DO ([email or web address]) on 08/02/25 at 21:47. Electronically submitted by Rodo Singh ([email or web address]). I personally scribed for ARNIE FOFANA DO ([email or web address]) on 08/02/25 at 21:57. Electronically submitted by Rodo Singh ([email or web address]). I personally scribed for ARNIE FOFANA DO ([email or web address]) on 08/02/25 at 22:34. Electronically submitted by Rodo Singh ([email or web address]). ARNIE FOFANA DO Aug 02, 2025 21:22
[2025-08-02 21:30] VITALS: O2SAT 89
[2025-08-02] MEDS: SODIUM CHLORIDE 0.9% 1,000 ML IV ONE (21:30)
[2025-08-02] MEDS: PANTOPRAZOLE 40 MG/10 ML VIAL INJ IV ONE (21:35)
[2025-08-02] MEDS ORDERED: HYDROcodone-ACET 5/325MG TAB PO PRN (21:45)
[2025-08-02] MEDS ORDERED: DOCUSATE SOD 100 MG CAP PO PRN (21:45)
[2025-08-02] MEDS ORDERED: ONDANSETRON HCL 4 MG/2 ML VIAL IV PRN (21:45)
[2025-08-02] MEDS: SODIUM CHLOR 0.9% PF (SALINE LOCK) 10ML VIAL/SYR IV SCH (22:00)
[2025-08-02] MEDS: LORazepam 2MG/ML-1ML VIAL ONE (22:02)
[2025-08-02] MEDS: LORazepam 2MG/ML-1ML VIAL IV ONE (22:05)
--- NOTE | 2025-08-02 22:38 | DVH ---
CHEST RADIOGRAPH Indication: sepsis Technique: Single frontal view of the chest was obtained COMPARISON: None FINDINGS: Cardiac silhouette is mildly enlarged. Mild diffuse prominence of the pulmonary vasculature. Bones a nd soft tissues demonstrate no significant abnormality. IMPRESSION: Cardiomegaly with pulmonary venous congestion. No evidence for a lobar pneumonia.
[2025-08-02 22:50] VITALS: BP 139/76; PULSE 118; RESP 20; O2SAT 100
[2025-08-02] MEDS: MIDAZOLAM DRIP 100 mg/100mL NS 100 ML IV ONE (23:13)
[2025-08-02] MEDS: ETOMIDATE (2MG/ML) 20ML VIAL IV ONE ×2 (23:13→23:15)
[2025-08-02] MEDS: ROCURONIUM 10MG/ML 10ML VIAL IV ONE ×2 (23:13→23:15)
[2025-08-02] MEDS ORDERED: ROCURONIUM 10MG/ML 10ML VIAL IV ONE (23:15)
[2025-08-02] MEDS ORDERED: ETOMIDATE (2MG/ML) 20ML VIAL IV ONE (23:15)
[2025-08-02] MEDS: MIDAZOLAM DRIP 100 mg/100mL NS 100 ML IV SCH (23:17)
[2025-08-02 23:37] LABS: Urine Protein, UAD 1+ (Negative)
--- NOTE | 2025-08-02 23:43 | DVHHP2 ---
History of Present Illness Reason for Visit: Acute respiratory distress History of Present Illness The patient is a 55-year-old male with past medical history of hernia, cellulitis, COPD, and testicular cancer presented to [facility] ED for evaluation GI bleed. As reported by EMS, patient was found on the floor with black vomitus and stool everywhere around him, became pale, tachycardia, bilateral leg swelling, so neighbor called 911. Patient left against medical advice for a recent hospital admission for cellulitis. Patient is awake Alert and was consented for blood transfusion. Emergency blood transfusion was initiated given the patient's vitals, pale skin color, and history of GI bleed. Patient was seen and evaluated in the ED combative, pulling of IV lines, hitting staff, unstable and was subsequently intubated. Laboratory data shows WBC 22.7, hemoglobin 5.5, hematocrit 18.4, platelets 453, sodium 142, potassium 4.0, BUN 27, creatinine 0.94, glucose 131, calcium 7.6, BNP 779.49, lactic acid 7.1, AST 61, ALT 30, PT 14.0, INR 1.36, APTT 22.3, blood pressure 96/89, heart rate 106, temperature 95, O2 saturation 92% on oxygen. Chest x-ray revealing cardiomegaly with pulmonary vascular congestion, no evidence for lobar pneumonia. Please see medication orders section in the computer. On my assessment, patient is fully intubated, no diaphoresis, diarrhea, vomiting, fever, no chills. Patient was admitted for further evaluation and medical management. Past Medical History Testicular cancer, COPD, Hernia, Current cellulitis Past Surgical History Bilateral shoulder and knee orthopedic surgeries Family History Reviewed, noncontributory to the management of this case. Past Social History The patient lives at home, denies smoking, alcohol or illicit drugs abuse. Review of Systems Constitutional: Yes: Weakness; No: Fever, Chills, Sweats, Malaise, Other Eyes: No: Pain, Vision change, Conjunctivae inflammation, Eyelid inflammation, Other, Redness ENT: No: Ear pain, Ear discharge, Nose pain, Nose discharge, Nose congestion, Mouth pain, Mouth swelling, Throat pain, Throat swelling, Other Respiratory: Shortness of breath; No: Cough, Dry, SOB with excertion, Wheezing, Hemoptysis, Pleuritic Pain, Sputum, Wheezing, Other Cardiovascular: No: Chest Pain, Palpitations, Orthopnea, Paroxysmal Noc. Dyspnea, Edema, Lt Headedness, Other Gastrointestinal: No: Nausea, Vomiting, Abdominal Pain, Diarrhea, Constipation, Melena, Hematochezia, Other Genitourinary: No Dysuria, No Frequency, No Incontinence, No Hematuria, No Retention, No Other Musculoskeletal: No: other, neck pain, shoulder pain, arm pain, back pain, hand pain, leg pain, foot pain Skin: No: Rash, Lesions, Jaundice, Bruising, Other Neurological: No: Weakness, Numbness, Incoordination, Change in speech, Confusion, Seizures, Other Allergies: Coded Allergies: Ciprofloxacin (Verified Allergy, Unknown, 07/19/25) Moxifloxacin (Verified Allergy, Unknown, 07/19/25) Quinolones (Verified Allergy, Unknown, 07/19/25) Medications Current Medications Medications Dose Ordered Sig/Mustapha Route Start Time Stop Time Status Last Admin Dose Admin Octreotide Acetate 500 mcg/ Sodium Chloride 100 ml @ 10 mls/hr Q10H IV 08/02/25 21:30 Sodium Chloride 10 ml Q8HR IV 08/02/25 22:00 08/02/25 22:00 10 ML Acetaminophen/ Hydrocodone Bitart 1 tab Q4HP PRN PO 08/02/25 21:45 Ondansetron HCl 4 mg Q4HP PRN IV 08/02/25 21:45 Docusate Sodium 100 mg BIDPRN PRN PO 08/02/25 21:45 Acetaminophen 650 mg Q6HP PRN PO 08/02/25 21:45 Midazolam HCl 100 ml @ 1 mls/hr Q24H IV 08/02/25 23:15 08/02/25 23:17 5 MLS/HR Exam Vital Signs Vital Signs Date Time Temp Pulse Resp B/P (MAP) Pulse Ox O2 Delivery O2 Flow Rate FiO2 08/02/25 23:17 139/76 08/02/25 22:50 118 20 100 100 08/02/25 21:22 94.6 94.6 General Appearance: Other (Patient is fully intubated) HEENT: Atraumatic, PERRLA, EOMI, Mucous membr. moist/pink Respiratory: Normal air movement, Other (On ventilator) Cardiovascular: Regular rate, Normal S1, Normal S2, No murmurs Abdominal: Normal bowel sounds, Soft, No tenderness, No hepatospenomegaly, No masses Extremities: No clubbing, No cyanosis, No edema, Normal pulses, No tendernes s/swelling Skin: No rashes, No breakdown Neuro: Normal tone, Reflexes 2+, Other (Generalized weakness) Psych/Mental Status: Mood NL, Other (Altered mental status) Labs/Xrays Labs Test 08/02/25 21:30 08/02/25 00:00 Range/Units Blood Gas Specimen Type Arterial Blood Gas Sample Site Right radial Blood Gas Patient Temperature 37.0 Arterial Blood Date Drawn [id number] Arterial Blood pH 7.398 7.350-7.450 Arterial Blood Partial Pressure CO2 < 14.1 *L 35.0-48.0 mmHg Arterial Blood Partial Pressure O2 281.1 H 83.0-108.0 mmHg Aleksandr Test Modified Blood Gas Total Hemoglobin < 4.90 *L 13.5-17.5 g/dL Blood Gas Modality Mask - nrb FiO2 % 100.0 Blood Gas Critical Value Read Back Yes Blood Gas Notified Whom adarsh Au Blood Gas Notified Time [id number] Blood Gas Notified By Elsa thompson rrt Urine Color Light-yellow Yellow Urine Clarity Clear Clear Urine pH 5.0 5.0-9.0 Urine Specific [place] 1.018 1.001-1.035 Urine Protein 1+ H Negative Urine Ketones 1+ H Negative Urine Blood 1+ H Negative /uL Urine Nitrite Negative Negative Urine Bilirubin Negative Negative Urine Urobilinogen Normal Negative mg/dL Urine Leukocyte Esterase Negative Negative /uL Urine RBC 5 0 - 3 /hpf Urine Microscopic WBC 4 H 0-3 /HPF Urine Squamous Epithelial Cells None seen <5 /hpf Urine Bacteria None seen None Seen /hpf Urine Hyaline Casts Mod 0 - 2 /lpf Urine Mucus Few None Seen Urine Glucose Normal Normal mg/dL PATIENT: JESUS ALBERTO MCDONNELL ACCT: [id number] UNIT: [id number] : 1970 LOC: ER ROOM / BED: / AGE / SEX: 55 / M ADM STATUS: REG ER SERVICE 17 ORDERING PHYSICIAN: ARNIE FOFANA DO PROCEDURE(s): CXRP - CHEST PORTABLE REASON: sepsis ORDER NUMBER(s): [id number], ACCESSION NUMBER(s): [id number] CHEST RADIOGRAPH Indication: sepsis Technique: Single frontal view of the chest was obtained COMPARISON: None FINDINGS: Cardiac silhouette is mildly enlarged. Mild diffuse prominence of the pulmonary vasculature. Bones and soft tissues demonstrate no significant abnormality. IMPRESSION: Cardiomegaly with pulmonary venous congestion. No evidence for a lobar pneumonia. SEPSIS Sepsis Screen Date sepsis recognized/suspect: Aug 02, 2025 Time Sepsis recognized/suspect: 2125 Recent Procedure: No On Antibiotic Therapy: No Respiratory Rate >20: Yes Heart Rate >90: Yes Temp<36 C (96.8 F) or >38.3 C: No SBP <90 or MAP <65 mmHG: No New Acute Mental Status Change: No Is the patient on CPAP, BIPAP,: No Physician Orders Complete Blood Count (08/02/25 21:18) Comprehensive Metabolic Panel (08/02/25 21:18) PTPTT (08/02/25 21:18) Chest Portable (08/02/25:18) Accucheck (08/02/25:18) Blood Culture (08/02/25:18) Lactic Acid W/ Reflex Order (08/02/25 22:00) Lactic Acid W/ Reflex Order (08/03/25 00:00) Notify Md If Map <65 Or Bp<90 (08/02/25 21:18) If Map<65 Start Vasopressor (08/02/25 21:18) Sepsis Reassesment After Fluid (08/02/25 22:18) Type And Screen (08/02/25 21:19) Ct Ab Pel Wo Con-No Oral Or Iv (08/02/25 21:19) Sodium Chl 0.9% (So... W/Octreotide Acet (08/02/25 21:30) B-Type Natriuretic Peptide (08/02/25 21:20) Abg W/ Co-Ox (08/02/25 21:22) Electrocardigram (08/02/25 21:37) Electrocardigram (08/02/25 22:37) Allergies (08/02/25 21:42) Code Status (08/02/25 21:42) Sodium Chloride Lock (Saline Lock Ns) (08/02/25 22:00) Oxygen Per Hour (08/02/25 21:42) Hydrocodone-Acet 5/325mg Tab ([place] 5/32 (08/02/25 21:45) Ondansetron Hcl (Zofran) (08/02/25 21:45) Docusate Sodium Capsule (Colace Capsule) (08/02/25 21:45) Complete Blood Count (08/03/25 04:00) Comprehensive Metabolic Panel (08/03/25 04:00) Condition: Serious (08/02/25 21:42) Acetaminophen Tablet (Tylenol Tablet) (08/02/25 21:45) Clear Liq Diet (08/03/25 Breakfast) Bedrest With Bathroom Privileg (08/02/25 21:42) Maintain Bed Rest (08/02/25 21:42) Sequential Compression Device (08/02/25 ) Packedcells -Active Bleeding (08/02/25:25) Midazolam Drip 100 Mg/100ml Ns (Vers[place] D (08/02/25 23:15) Rass Sedation Scale Q1HR (08/02/25 23:08) Chest Portable (08/02/25 23:08) Ventilator Orders (08/02/25 23:10) Abg W/ Co-Ox (08/02/25 23:55) Respiratory Culture W/ Gs (08/02/25 23:10) Communication Order (08/02/25 23:18) Admit (08/02/25 23:42) Nitroglycerin Sublingual (Ntrostat Subli (08/02/25 23:45) Morphine Sulfate Injection (08/02/25 23:45) Stat Ekg For Chest Pain (08/02/25 23:42) Notify Md Of Changes From Base (08/02/25 23:42) Material Handler Floorperson For 24 Hours (08/02/25 23:42) Emergency Dysrhythmia Protocol (08/02/25 23:42) Rhythm Strips Once Every Shift (08/02/25 23:42) Oxygen By Nasal Cannula (08/02/25 23:42) Vital Signs Date Time Temp Pulse Resp B/P (MAP) Pulse Ox O2 Delivery O2 Flow Rate FiO2 08/02/25 23:17 139/76 08/02/25 23:15 139/76 08/02/25 22:50 118 20 139/76 (97) 100 100 08/02/25 21:22 94.6 106 24 96/89 86 94.6 08/02/25 21:13 110 Medications Medications Dose Ordered Sig/Mustapha Route Start Time Stop Time Status Last Admin Dose Admin Etomidate 20 mg ONCE ONCE IV 08/02/25 23:15 08/02/25 23:16 DC 08/02/25 23:15 20 MG Lorazepam 0.5 mg ONCE ONCE IV 08/02/25 22:00 08/02/25 22:01 DC 08/02/25 22:05 0.5 MG Midazolam HCl 100 ml @ 1 mls/hr Q24H IV 08/02/25 23:15 08/02/25 23:17 5 MLS/HR Pantoprazole Sodium 80 mg ONCE ONCE IV 08/02/25 21:30 08/02/25 21:31 DC 08/02/25 21:35 80 MG Rocuronium [place] 100 mg ONCE ONCE IV 08/02/25 23:15 08/02/25 23:16 DC 08/02/25 23:15 100 MG Sodium Chloride 10 ml Q8HR IV 08/02/25 22:00 08/02/25 22:00 10 ML Sodium Chloride 1,000 ml @ 1,000 mls/hr Q1H ONCE IV 08/02/25 21:30 08/02/25 22:29 DC 08/02/25 21:30 1,000 MLS/HR Assessment/Plan Assessment/Plan Acute respiratory distress Symptomatic anemia GI bleed Electrolyte imbalance Sepsis, unspecified organism Cellulitis of both lower extremities Generalized weakness Acute exacerbation of congestive heart failure Plan 1. Admit to intensive care unit 2. Breathing treatment 3. Pain control management 4. IV antibiotic management 5. Management of fluids and electrolytes 6. Consultation for pulmonology 7. Diagnostic test chest x-ray 8. DVT prophylaxis-on SCDs 9. Repeat labs CBC, CMP in a.m. 10. Home medication reviewed and reconciled 11. Continue with current medical management 12. Treatment plan discussed with patient and RN. Patient verbalized understanding. Plan discussed with: Patient, Other (RN) My Orders Orders - JONG WARREN DNP Procedure Category Date Status Time Allergies CHANTEL 08/02/25 In Process 21:42 Code Status CODE 08/02/25 Transmitted 21:42 Sodium Chloride Lock PHA 08/02/25 In Process (Saline Lock Ns) 22:00 Oxygen Per Hour RT 08/02/25 Transmitted 21:42 Hydrocodone-Acet PHA 08/02/25 In Process 5/325mg Tab ([place] 21:[address] [facility] 08/02/25 In Process (Zofran) 21:[address] [facility] 08/02/25 In Process Capsule (Colace 21:45 Complete Blood Count LAB 08/03/25 Verified 04:00 Comprehensive LAB 08/03/25 Verified Metabolic Panel 04:00 Condition: Serious [facility] 08/02/25 In Process 21:[address] [facility] 08/02/25 In Process (Tylenol Tablet) 21:45 Clear Liq Diet DIET 08/03/25 Transmitted Breakfast Bedrest With Bathroom [facility] 08/02/25 In Process Privileg 21:42 Maintain Bed Rest [facility] 08/02/25 In Process 21:42 Sequential [facility] 08/02/25 In Process Compression Device Admit ADMIT 08/02/25 Verified 23:[address] [facility] 08/02/25 Verified Sublingual (Ntrostat 23:[address] [facility] 08/02/25 Verified Injection 23:45 Stat Ekg For Chest [facility] 08/02/25 Verified Pain 23:42 Notify Md Of Changes [facility] 08/02/25 Verified From Base 23:42 Material Handler Floorperson For [facility] 08/02/25 Verified 24 Hours 23:42 Emergency Dysrhythmia [facility] 08/02/25 Verified Protocol 23:42 Rhythm Strips Once [facility] 08/02/25 Verified Every Shift 23:42 Oxygen By Nasal 08/02/25 Verified Cannula 23:42 Problem List: (1) Acute respiratory distress (2) Symptomatic anemia (3) GI bleed (4) Electrolyte imbalance (5) Sepsis, unspecified organism (6) Cellulitis of both lower extremities (7) Generalized weakness (8) Acute exacerbation of congestive heart failure Date of Service: Aug 02, 2025 Billing Provider: JONG WARREN DNP Common Visit Codes: [id number] INP/OBS CARE (HIGH) JONG WARREN DNP Aug 02, 2025 23:43
[2025-08-02] MEDS ORDERED: MORPHINE SULFATE INJ 2 MG/ml SYRG IV PRN (23:45)
[2025-08-02] MEDS ORDERED: NITROGLYCERIN 0.4 MG SL TAB SL PRN (23:45)
--- NOTE | 2025-08-02 23:47 | DVH ---
CHEST RADIOGRAPH Indication: POST INTUBATION Technique: Single frontal view of the chest was obtained COMPARISON: XY CHEST PORTABLE on DOS: 08/02/25 FINDINGS: Tracheostomy tube tip terminates approximately 5.9 cm above the demarco. Mild patchy opacity along the periphery of the left lung, minimally changed. Cardiac silhouette and h tuan are within normal limits. Bones and soft tissues demonstrate no significant abnormality. IMPRESSION: Tracheostomy tube in appropriate position.
[2025-08-03] VITALS (41 sets, daily range): BP systolic 93–145; BP diastolic 56–91; PULSE 71–112; RESP 19–80; TEMP 96.9–99.1; O2SAT 100
[2025-08-03 00:08] LABS: Base Excess -13.2 mmol/L (-2.0-3.0)
[2025-08-03] MEDS: OCTREOTIDE ACETATE 100 MCG in SODIUM CHL 0.9% 50 ML IV ONE (01:25)
[2025-08-03 01:30] LABS: Hematocrit 18.4 % (41.0-53.0); Mean Corpuscular Hemoglobin 28.6 pg (28.0-32.0); Mean Corpuscular Volume 94.8 fL (80.0-100.0); Nucleated Red Blood Cells % 1.0 %
[2025-08-03] MEDS: OCTREOTIDE ACETATE 100 MCG/ML VL ONE (01:36)
[2025-08-03] MEDS: OCTREOTIDE ACETATE 500 MCG/ML VL ONE (01:36)
[2025-08-03 01:43] LABS: Alanine Aminotransferase 30 U/L (7-40); Albumin 3.3 g/dL (3.2-4.8); Alkaline Phosphatase 75 U/L (46-116); Anion Gap 16 (5-15); BUN/Creatinine Ratio 28.7 (10.0-20.0); Potassium 4.0 mmol/L (3.5-5.1); Sodium 142 mmol/L (136-145); Total Protein 6.0 g/dL (5.7-8.2)
[2025-08-03 01:44] LABS: Bilirubin, Total 0.4 mg/dL (0.2-1.0); INR 1.36 (0.9-1.15); Partial Thromboplastin Time 22.3 SEC (24.5-34.5); Prothrombin Time 14.0 sec (9.3-11.8)
[2025-08-03 01:46] LABS: Blood Urea Nitrogen 27 mg/dL (9-23); Calcium 7.6 mg/dL (8.7-10.4); Carbon Dioxide 17 mmol/L (20-31); Chloride 109 mmol/L (98-107); Glucose 131 mg/dL (74-106)
[2025-08-03 01:47] LABS: Lactic Acid w/Reflex 7.1 mmol/L (0.4-2.0)
[2025-08-03] MEDS ORDERED: VANCOMYCIN PER PHARMACY 0 MG IV SCH (02:00)
[2025-08-03 02:04] LABS: Hemoglobin 5.5 g/dL (13.5-17.5)
[2025-08-03] MEDS: OCTREOTIDE ACETATE 500 MCG in SODIUM CHL 0.9% 99 ML IV SCH (02:05)
[2025-08-03] MEDS: PROPOFOL 100 ML IV SCH (02:44)
--- NOTE | 2025-08-03 03:59 | ECG ---
[facility] Test Date: 2025-08-02 Test Time: 21:11:52 Pat Name: JESUS ALBERTO MCDONNELL Department: [facility] ED Room: [address] [place] [address] Gender: M Marketing Account Manager: ALY : 1970 Requested By: ARNEI FOFANA Order Number: [id number] Reading MD: Roel Stanley Measurements Intervals [place] Rate: 106 P: 59 MA: 150 QRS: 55 QRSD: 105 T: 61 QT: 354 QTc: 471 Interpretive Statements Sinus tachycardia Ventricular premature complex Aberrant conduction of SV complex(es) Posterior infarct, old Borderline ST depression, anterolateral leads Electronically Signed On 08-06-2025 13:30:50 PST by Roel Stanley Please click the below link to view image of tracing.
--- NOTE | 2025-08-03 03:59 | ECG ---
[facility] Test Date: 2025-08-02 Test Time: 21:13:18 Pat Name: JESUS ALBERTO MCDONNELL Department: [facility] ED Room: [address] [place] [address] Gender: M [employer] Furnace Operator: ALY : 1970 Requested By: ARNIE FOFANA Order Number: [id number] Reading MD: Roel Stanley Measurements Intervals [place] Rate: 110 P: 59 IL: 145 QRS: 63 QRSD: 101 T: 67 QT: 354 QTc: 480 Interpretive Statements Sinus tachycardia Multiple premature complexes, vent & supraven Nonspecific ST depression, anterior leads Borderline prolonged QT interval Electronically Signed On 08-06-2025 13:30:53 PST by Roel Stanley Please click the below link to view image of tracing.
[2025-08-03] MEDS: VANCOMYCIN 1GM/250ML KIT 250 ML IV ONE ×2 (04:00→05:07)
[2025-08-03] MEDS: fentaNYL Drip 2500mCg/250mlNS 250 ML IV SCH (04:00)
[2025-08-03 04:07] LABS: Hematocrit 14.9 % (41.0-53.0); Mean Corpuscular Hemoglobin 28.7 pg (28.0-32.0); Mean Corpuscular Volume 90.8 fL (80.0-100.0); Nucleated Red Blood Cells % 1.1 %
[2025-08-03 04:08] LABS: Hemoglobin 4.7 g/dL (13.5-17.5)
[2025-08-03 04:22] LABS: Alanine Aminotransferase 25 U/L (7-40); Alkaline Phosphatase 67 U/L (46-116); Anion Gap 11 (5-15); BUN/Creatinine Ratio 30.2 (10.0-20.0); Bilirubin, Total 0.4 mg/dL (0.2-1.0); Carbon Dioxide 22 mmol/L (20-31); Potassium 4.2 mmol/L (3.5-5.1); Sodium 142 mmol/L (136-145)
[2025-08-03 04:39] LABS: Albumin 3.0 g/dL (3.2-4.8); Blood Urea Nitrogen 29 mg/dL (9-23); Calcium 7.3 mg/dL (8.7-10.4); Chloride 109 mmol/L (98-107); Glucose 128 mg/dL (74-106); Total Protein 5.4 g/dL (5.7-8.2)
[2025-08-03] MEDS: FUROSEMIDE 40 MG/4 ML VIAL IV ONE (05:14)
[2025-08-03] MEDS: PIPERACILLIN-TAZOB 3.375GM 100 ML IV ONE (05:19)
[2025-08-03] MEDS: PIPERACILLIN-TAZOB 3.375GM 100 ML IV SCH (06:25)
[2025-08-03] MEDS: FUROSEMIDE 40 MG/4 ML VIAL IV SCH (09:55)
--- NOTE | 2025-08-03 10:12 | DVHINCON2 ---
Date Seen: Aug 03, 2025 Referring Physician SHERYL Del Castillo Reason for Consultation CHF exacerbation History of Present Illness This is a 55-year-old male patient who presents to emergency room with chief complaint of gastrointestinal bleed. At the time of assessment, the patient is mechanically ventilated and chemically sedated thus unable to answer any questions. History obtained from medical records and bedside RN as there is no family at bedside. Per documentation, the patient was brought in via EMS after a neighbor called 911 after finding the patient altered and on the floor covered in black vomitus and stool. Upon emergency room arrival, patient was intubated for airway protection. Cardiology has been consulted at this time for CHF exacerbation. Initial twelve lead electrocardiogram reveals sinus tachycardia with nonspecific ST segment depression to anteroseptal leads, PACs, and baseline wander (in lead V1). Initial BNP level of 779.49pg/mL. Significant past medical history includes COPD, recurrence of cellulitis, testicular cancer, and polysubstance abuse. No further medical history able to be obtained at this time given patient is intubated and sedated and no family contacts are listed in patient's chart. Of note, the patient was seen at this facility on 07/19/2025 for lower extremity cellulitis but left against medical advice. Past Medical History Past medical history reviewed. No other significant than mentioned above. Past Surgical History Bilateral shoulder and knee orthopedic surgeries Family History: Patient reports no known family medical history. Family History Unable to obtain Social History Previous visit on 07/19/2025 reveals a toxicology screen positive for amphetamines and fentanyl Allergies: Coded Allergies: Ciprofloxacin (Verified Allergy, Unknown, 07/19/25) Moxifloxacin (Verified Allergy, Unknown, 07/19/25) Quinolones (Verified Allergy, Unknown, 07/19/25) Home Meds Unable to obtain Current Medications Current Medications Medications (Trade) Dose Ordered Sig/Mustapha Route PRN Reason Start Time Stop Time Status Last Admin Octreotide Acetate 500 mcg/ Sodium Chloride 100 ml @ 10 mls/hr Q10H IV 08/02/25 21:30 08/03/25 02:05 Sodium Chloride (Saline Lock Ns) 10 ml Q8HR IV 08/02/25 22:00 08/03/25 05:55 Acetaminophen/ Hydrocodone Bitart ([place] 5/325MG Tab) 1 tab Q4HP PRN PO MODERATE PAIN (4-6 PAIN SCALE) 08/02/25 21:45 Ondansetron HCl (Zofran) 4 mg Q4HP PRN IV NAUSEA / VOMITING 08/02/25 21:45 Docusate Sodium (Colace Capsule) 100 mg BIDPRN PRN PO FOR CONSTIPATION 08/02/25 21:45 Acetaminophen (Tylenol Tablet) 650 mg Q6HP PRN PO PAIN SCALE 1-3 OR TEMP>100.4 08/02/25 21:45 Midazolam HCl 100 ml @ 1 mls/hr Q24H IV 08/02/25 23:15 08/03/25 06:32 Nitroglycerin (Ntrostat Sublingual) 0.4 mg Q5MINP PRN SL FOR CHEST PAIN 08/02/25 23:45 Morphine Sulfate 2 mg Q30M PRN IV FOR CHEST PAIN 08/02/25 23:45 Piperacillin Sod/ Tazobactam Sod 100 ml @ 25 mls/hr Q8HR IV 08/03/25 06:00 08/03/25 06:25 Vancomycin HCl 0 ml @ 0 mls/hr PER PHARMACY IV 08/03/25 02:00 Furosemide (Lasix Injection) 40 mg DAILY IV 08/03/25 10:00 Propofol 100 ml @ 2.886 mls/ hr Q24H IV 08/03/25 02:30 08/03/25 06:05 Fentanyl Citrate 250 ml @ 2.5 mls/hr Q24H IV 08/03/25 04:00 08/03/25 04:00 Vancomycin HCl 100 ml @ 100 mls/hr Q12H IV 08/03/25 16:00 Review of Systems Constitutional: No symptom reported Ears, Nose, & Throat: No symptom reported Eyes: No symptom reported Neurological: ALOC Pulmonary/Respiratory: No symptoms reported Cardiovascular: No symptom reported Gastrointestinal: No symptom reported Genitourinary: No symptom reported Musculoskeletal: No symptom reported Skin: No symptom reported Psychiatric: No symptom reported Endocrine: No symptom reported Hematologic/Lymphatic: No symptom reported Vital Signs Vital Signs Date Time Temp Pulse Resp B/P (MAP) Pulse Ox O2 Delivery O2 Flow Rate FiO2 08/03/25 09:00 110/70 08/03/25 08:15 97.4 88 22 97.4 08/03/25 08:02 100 50 08/02/25 21:30 Simple Mask* 10 Physical Exam General Appearance: Calm, relaxed. Pulmonary/Respiratory: Clear, bilateral breaths sounds. Cardiovascular/Chest: Regular rate and rhythm. Peripheral Pulses: 2+ Radial (R). 2+ Radial (L). Abdominal Exam: Normal bowel sounds. Ankle Exam: 2+ pitting edema Lower extremities: 2+ pitting edema Neuro/Mental Status: Chemically sedated Thoughts/Psych: Deferred Appearance: No acute distress. Skin Exam: Bilateral lower extremity redness Labs/Diagnostic Data Labs Test 08/03/25 03:35 08/03/25 03:31 08/03/25 02:54 08/03/25 00:55 Range/Units White Blood Count 18.8 H 4.4-10.8 10^3/uL Red Blood Count 1.65 L 4.5-5.90 10^6/uL Hemoglobin 4.7 *L 13.5-17.5 g/dL Hematocrit 14.9 #L 41.0-53.0 % Mean Corpuscular Volume 90.8 # 80.0-100.0 fL Mean Corpuscular Hemoglobin 28.7 28.0-32.0 pg Mean Corpuscular Hemoglobin Concent 31.6 L 32.0-36.0 g/dL Red Cell Distribution Width 16.1 H 11.8-14.3 % Platelet Count 414 140-450 10^3/uL Mean Platelet Volume 6.7 L 6.9-10.8 fL Neutrophils (%) (Auto) 81.2 H 37.0-80.0 % Lymphocytes (%) (Auto) 9.8 L 10.0-50.0 % Monocytes (%) (Auto) 8.8 0.0-12.0 % Eosinophils (%) (Auto) 0.0 0.0-7.0 % Basophils (%) (Auto) 0.2 0.0-2.0 % Neutrophils # (Auto) 15.2 H 1.6-8.6 10 ^3/uL Lymphocytes # (Auto) 1.8 0.4-5.4 10 ^3/uL Monocytes # (Auto) 1.7 H 0-1.3 10 ^3/uL Eosinophils # (Auto) 0 0-0.8 10 ^3/uL Basophils # (Auto) 0 0-0.2 10 ^3/uL Nucleated Red Blood Cells 1.1 % Sodium Level 142 136-145 mmol/L Potassium Level 4.2 3.5-5.1 mmol/L Chloride Level 109 H 98-107 mmol/L Carbon Dioxide Level 22 20-31 mmol/L Anion Gap 11 5-15 Blood Urea Nitrogen 29 H 9-23 mg/dL Creatinine 0.96 0.700-1.30 mg/dL Glomerular Filtration Rate Calc 92 >90 mL/min BUN/Creatinine Ratio 30.2 H 10.0-20.0 Serum Glucose 128 H 74-106 mg/dL Calcium Level 7.3 L 8.7-10.4 mg/dL Total Bilirubin 0.4 0.2-1.0 mg/dL Aspartate Amino Transferase (AST) 53 H 13-40 U/L Alanine Aminotransferase (ALT) 25 7-40 U/L Alkaline Phosphatase 67 46-116 U/L Creatine Kinase 783 H 46-171 U/L Total Protein 5.4 L 5.7-8.2 g/dL Albumin 3.0 L 3.2-4.8 g/dL Lactic Acid Level 4.0 *H 0.4-2.0 mmol/L Prothrombin Time 14.0 H 9.3-11.8 sec Prothrombin Time INR 1.36 H 0.9-1.15 Activated Partial Thromboplast Time 22.3 L 24.5-34.5 SEC B-Type Natriuretic Peptide 779.49 0-100 pg/mL Test 08/02/25 23:55 08/02/25 00:00 Range/Units Blood Gas Specimen Type Arterial Blood Gas Sample Site Right radial Blood Gas Patient Temperature 37.0 Arterial Blood Date Drawn [id number] Arterial Blood pH 7.222 *L 7.350-7.450 Arterial Blood Partial Pressure CO2 33.1 L 35.0-48.0 mmHg Arterial Blood Partial Pressure O2 448.5 *H 83.0-108.0 mmHg Arterial Blood HCO3 13.3 L 21.0-28.0 mmol/L Arterial Blood Oxygen Saturation 99.7 H 94.0-98.0 % Arterial Blood Base Excess -13.2 L -2.0-3.0 mmol/L Arterial Blood Oxyhemoglobin 97.7 94.0-98.0 % Arterial Blood Carboxyhemoglobin 1.1 0.5-1.5 % Arterial Blood Methemoglobin 0.9 0.0-1.5 % Aleksandr Test Modified Blood Gas Total Hemoglobin 5.50 *L 13.5-17.5 g/dL Blood Gas Set Respiration Rate 20.0 Blood Gas Modality Vent - ac Blood Gas Spontaneous Rate 20 FiO2 % 100.0 Blood Gas Tidal Volume 500.0 Blood Gas PEEP or CPAP 5.0 Blood Gas Critical Value Read Back Yes Blood Gas Notified Whom adarsh Au Blood Gas Notified Time [id number] Blood Gas Notified By Elsa thompson, abdi Urine Color Light-yellow Yellow Urine Clarity Clear Clear Urine pH 5.0 5.0-9.0 Urine Specific [place] 1.018 1.001-1.035 Urine Protein 1+ H Negative Urine Ketones 1+ H Negative Urine Blood 1+ H Negative /uL Urine Nitrite Negative Negative Urine Bilirubin Negative Negative Urine Urobilinogen Normal Negative mg/dL Urine Leukocyte Esterase Negative Negative /uL Urine RBC 5 0 - 3 /hpf Urine Microscopic WBC 4 H 0-3 /HPF Urine Squamous Epithelial Cells None seen <5 /hpf Urine Bacteria None seen None Seen /hpf Urine Hyaline Casts Mod 0 - 2 /lpf Urine Mucus Few None Seen Urine Glucose Normal Normal mg/dL Assessment Rule out structural heart disease Severe anemia Sepsis COPD Polysubstance abuse Plan/Recommendation We will continue with the following plan/recommendations (Dr. Doe): We will proceed with obtaining a transthoracic echocardiogram to evaluate cardiac function. Patient's hemoglobin severely low at this time, patient currently receiving 1 unit of PRBCs at time of assessment. We will recommend to closely monitor hemoglobin and hematocrit and transfuse as needed. Pending stool occult, consider GI consultation. Chest x-ray reveals cardiomegaly with pulmonary venous congestion, diurese as tolerated. Continue with close cardiac surveillance. Antibiotics per primary care team. Further recommendations per clinical course and progression. Thank you for allowing us to care for this patient. Please call with any questions or concerns. Critical care time spent: 44 minutes This medical document was created using an electronic medical record system with voice recognition software and computerized dictation system. Although this document has been carefully reviewed, there might still be some phonetic and typographical errors. Occasional wrong-word or ``sound-alike substitutions may have occurred due to the inherent limitations of voice recognition software. These areas are purely typographical due to imperfections of the software programs and do not reflect any compromise in the patient's medical care. Please read the chart carefully and recognize, using context, where these subst itutions have occurred. Plan discussed with: Other (Bedside RN) NYHA Physical activity limitations: NA Date of Service: Aug 03, 2025 Billing Provider: JOSE BLAIR Cardiology Common Codes: [id number] INP/OBS CARE (High) Cardiology Consultation Codes: [id number] CONSULT <45MIN JOSE BLAIR Aug 03, 2025 10:12
[2025-08-03 10:20] LABS: Cholesterol 136.0 mg/dL (< 200)
[2025-08-03 10:22] LABS: HDL Cholesterol 25.0 mg/dL (40-59); Magnesium 2.7 mg/dL (1.6-2.6)
--- NOTE | 2025-08-03 10:24 | DVH ---
Exam: CT CT AB PEL WO CON-NO ORAL OR IV History: GI bleed. Comparison Study: None Technique: Multidetector spiral CT of the abdomen and pelvis was performed from lung bases to pubic s ymphysis. Imaging was performed without intravenous contrast. Coronal and sagittal multiplanar reform ats were obtained from the axial data set by the technologist. Radiation Dose : 1. Abdomen/Pelvis: CTDIvol 19.91 mGy, DLP 1059.3 mGy*cm. Findings: Evaluation of vasculature and solid organs is limited due to lack of intravenous contrast use. Lung Bases: Bilateral lower lobe atelectasis. Visualized portions of the heart and pericardium are un remarkable. Liver: The liver is normal in size. No focal lesions. Gallbladder and Biliary Tree: The gallbladder is unremarkable. No intrahepatic or extrahepatic biliar y ductal dilatation. Spleen: Unremarkable Pancreas: The pancreas is grossly unremarkable. Adrenal Glands: Unremarkable Kidneys: Kidneys are unremarkable without calculi or hydronephrosis. GI tract: The enteric tube terminates in the stomach. No evidence of small bowel wall thickening or a bnormal dilatation to suggest bowel obstruction. Colonic diverticulosis without acute diverticulitis. There is a catheter or wire in the rectosigmoid colon. The appendix is dilated measuring 10 mm with mild Fat stranding. Peritoneum/mesentery/retroperitoneum. No evidence of free intraperitoneal air. No ascites. No evidenc e of suspicious lymphadenopathy. Abdominal Wall: Fat containing umbilical and paraumbilical hernias noted. There is a fat containing l eft inguinal hernia. Vasculature: The visualized abdominal aorta is normal in size and caliber. Evaluation of abdominal a nd pelvic vessels is limited due to lack of intravenous contrast. Urinary Bladder: There is a [place] catheter present. Pelvic Organs: Unremarkable Musculoskeletal: No aggressive focal bony lesions, acute fractures or dislocation. IMPRESSION: 1. Dilated appendix with mild fat stranding. Findings could represent acute appendicitis. Correlati on with clinical symptoms and laboratory volumes recommended. CT with enteric contrast may be obtaine d if clinically warranted. 2. Colonic diverticulosis without acute diverticulitis.
[2025-08-03 13:08] LABS: Base Excess -0.8 mmol/L (-2.0-3.0)
[2025-08-03 14:30] LABS: Hematocrit 21.7 % (41.0-53.0); Hemoglobin 7.1 g/dL (13.5-17.5); Mean Corpuscular Hemoglobin 29.6 pg (28.0-32.0); Mean Corpuscular Volume 90.2 fL (80.0-100.0); Nucleated Red Blood Cells % 1.1 %
[2025-08-03 14:40] LABS: Triglycerides 182.0 mg/dL (< 150)
--- NOTE | 2025-08-03 15:05 | DVH ---
CHEST RADIOGRAPH Indication: OG TUBE PLACEMENT VERIFICATION MECHANICALLY VENTILATED PT Technique: Single frontal view of the chest was obtained COMPARISON: XY CHEST PORTABLE on DOS: 08/02/25, XY CHEST PORTABLE on DOS: 08/02/25 FINDINGS: Lines and Tubes: Endotracheal tube and enteric catheter in satisfactory position. Lungs: Clear Pleura: No effusion.No pneumothorax. Cardiomediastinal contours: Unremarkable Bones: Unremarkable IMPRESSION: Endotracheal tube and enteric catheter in satisfactory position.
[2025-08-03] MEDS: VANCOMYCIN 750MG KIT 100 ML IV SCH (16:00)
--- NOTE | 2025-08-03 19:14 | DVHPN2 ---
Subjective In bed intubated and sedated Reviewed: H&P Changes from previous H/P or p: No Changes Eyes: No Pain, No Vision change, No Conjunctivae inflammation, No Eyelid inflammation, No Other, No Redness ENT: No Ear pain, No Ear discharge, No Nose pain, No Nose discharge, No Nose congestion, No Mouth pain, No Mouth swelling, No Throat pain, No Throat swelling, No Other Cardiovascular: No Chest Pain, No Palpitations, No Orthopnea, No Paroxysmal Noc. Dyspnea, No Edema, No Lt Headedness, No Other Respiratory: No Cough, No Dry; Shortness of breath; No SOB with excertion, No Wheezing, No Hemoptysis, No Pleuritic Pain, No Sputum, No Other Gastrointestinal: No Nausea, No Vomiting, No Abdominal Pain, No Diarrhea, No Constipation, No Melena, No Hematochezia, No Other Genitourinary: No Dysuria, No Frequency, No Incontinence, No Hematuria, No Retention, No Other Musculoskeletal: No other, No neck pain, No shoulder pain, No arm pain, No back pain, No hand pain, No leg pain, No foot pain Skin: No Rash, No Lesions, No Jaundice, No Bruising, No Other Objective Vitals Vital Signs Date Time Temp Pulse Resp B/P (MAP) Pulse Ox O2 Delivery O2 Flow Rate FiO2 08/03/25 17:30 79 20 106/64 (78) 100 08/03/25 16:03 30 08/03/25 12:00 98.0 98.0 08/03/25 07:30 Mechanical Ventilator+ 08/02/25 21:30 10 Intake/Output Intake and Output 08/03/25 05:00 Intake Total 1351 ml Output Total 0 ml Balance 1351 ml Intake Oral 0 ml IV Total 151 ml Tube Feeding 0 ml Blood Product 1200 ml Other 0 ml Output Urine Total 0 ml Stool Total 0 ml Urine/Stool Mix 0 ml Gastric Drainage Total 0 ml Emesis 0 ml Chest Tube Drainage Total 0 ml Drainage Total 0 ml Other 0 ml General Appearance: Other (intubated and sedated) Lungs: Clear to auscultation Cardiovascular: Regular rate, Normal S1, Normal S2 Abdomen: Normal bowel sounds Medications Current Medications Medications Dose Ordered Sig/[place] Route Start Time Stop Time Status Last Admin Dose Admin Octreotide Acetate 500 mcg/ Sodium Chloride 100 ml @ 10 mls/hr Q10H IV 08/02/25 21:30 08/03/25 17:30 10 MLS/HR Sodium Chloride 10 ml Q8HR IV 08/02/25 22:00 08/03/25 14:00 10 ML Acetaminophen/ Hydrocodone Bitart 1 tab Q4HP PRN PO 08/02/25 21:45 Ondansetron HCl 4 mg Q4HP PRN IV 08/02/25 21:45 Docusate Sodium 100 mg BIDPRN PRN PO 08/02/25 21:45 Acetaminophen 650 mg Q6HP PRN PO 08/02/25 21:45 Midazolam HCl 100 ml @ 1 mls/hr Q24H IV 08/02/25 23:15 08/03/25 06:32 9 MLS/HR Nitroglycerin 0.4 mg Q5MINP PRN SL 08/02/25 23:45 Morphine Sulfate 2 mg Q30M PRN IV 08/02/25 23:45 Piperacillin Sod/ Tazobactam Sod 100 ml @ 25 mls/hr Q8HR IV 08/03/25 06:00 08/03/25 14:00 25 MLS/HR Vancomycin HCl 0 ml @ 0 mls/hr PER PHARMACY IV 08/03/25 02:00 Furosemide 40 mg DAILY IV 08/03/25 10:00 08/03/25 09:55 40 MG Propofol 100 ml @ 2.886 mls/ hr Q24H IV 08/03/25 02:30 08/03/25 14:43 17.316 MLS/HR Fentanyl Citrate 250 ml @ 2.5 mls/hr Q24H IV 08/03/25 04:00 08/03/25 04:00 5 MLS/HR Vancomycin HCl 100 ml @ 100 mls/hr Q12H IV 08/03/25 16:00 08/03/25 16:00 100 MLS/HR Pantoprazole Sodium 40 mg BID IV 08/03/25 22:00 Laboratory Results Laboratory Tests 08/03/25 03:35 08/03/25 14:13 Chemistry Test 08/03/25 00:55 08/03/25 03:35 Albumin 3.3 g/dL (3.2-4.8) 3.0 g/dL (3.2-4.8) L Calcium Level 7.6 mg/dL (8.7-10.4) L 7.3 mg/dL (8.7-10.4) L Total Protein 6.0 g/dL (5.7-8.2) 5.4 g/dL (5.7-8.2) L Magnesium Level 2.7 mg/dL (1.6-2.6) H Coagulation Test 08/03/25 00:55 Prothrombin Time 14.0 sec (9.3-11.8) H Prothrombin Time INR 1.36 (0.9-1.15) H Activated Partial Thromboplast Time 22.3 SEC (24.5-34.5) L Lipid panel Test 08/03/25 03:35 Cholesterol Level 136 mg/dL (< 200) HDL Cholesterol 25 mg/dL (40-59) L Triglycerides Level 182 mg/dL (< 150) H Cardiac Markers Test 08/03/25 00:55 B-Type Natriuretic Peptide 779.49 pg/mL (0-100) LFT Test 08/03/25 00:55 08/03/25 03:35 Alanine Aminotransferase (ALT) 30 U/L (7-40) 25 U/L (7-40) Alkaline Phosphatase 75 U/L (46-116) 67 U/L (46-116) Aspartate Amino Transferase (AST) 61 U/L (13-40) H 53 U/L (13-40) H Total Bilirubin 0.4 mg/dL (0.2-1.0) 0.4 mg/dL (0.2-1.0) HgA1c, TSH Test 08/03/25 03:31 08/03/25 03:35 Hemoglobin A1c 5.3 % A1C (<5.7) Thyroid Stimulating Hormone (TSH) 0.36 uIU/mL (0.55-4.78) L Urinalysis Test 08/02/25 00:00 Urine Color Light-yellow (Yellow) Urine Clarity Clear (Clear) Urine pH 5.0 (5.0-9.0) Urine Specific [place] 1.018 (1.001-1.035) Urine Protein 1+ (Negative) H Urine Ketones 1+ (Negative) H Urine Blood 1+ /uL (Negative) H Urine Nitrite Negative (Negative) Urine Bilirubin Negative (Negative) Urine Urobilinogen Normal mg/dL (Negative) Urine Leukocyte Esterase Negative /uL (Negative) Urine RBC 5 /hpf (0 - 3) Urine Microscopic WBC 4 /HPF (0-3) H Urine Squamous Epithelial Cells None seen /hpf (<5) Urine Bacteria None seen /hpf (None Seen) Urine Hyaline Casts Mod /lpf (0 - 2) Urine Mucus Few (None Seen) Urine Glucose Normal mg/dL (Normal) Blood Gas Results Test 08/02/25 21:30 08/02/25 23:55 08/03/25 13:04 Arterial Blood pH 7.398 (7.350-7.450) 7.222 (7.350-7.450) 7.473 (7.350-7.450) FiO2 % 100.0 100.0 40.0 Assessment/Plan Assessment/Plan Acute respiratory distress Symptomatic anemia GI bleed Electrolyte imbalance Sepsis, unspecified organism Cellulitis of both lower extremities Generalized weakness Acute exacerbation of congestive heart failure Continue mechanical intubation S/P 2 U PRBC repeat CBC GI consulted IV vanco and zosyn IV protonix IV octreotide Critical care time 90 minutes Plan discussed with: Other (nurse) My Orders Orders - AIDA ACOSTA MD Procedure Category Date Status Time * Gi [facility] CONS 08/03/25 Transmitted 13:03 Chest Portable XY 08/03/25 Resulted 14:32 Date of Service: Aug 03, 2025 Billing Provider: AIDA ACOSTA MD Common Visit Codes: [id number] CARE 30-74 MIN AIDA ACOSTA MD Aug 03, 2025 19:14
--- NOTE | 2025-08-03 21:50 | DVHINCON2 ---
Date of service: Aug 03, 2025 Referring Physician SHERYL Del Castillo Reason for Consultation Acute hypoxic respiratory failure requiring mechanical ventilator History of Present Illness A 55-year-old man with past medical history of COPD, testicular cancer, hernia and cellulitis who presented to the ED on 08/02/25 for evaluation of GI bleed. As reported by EMS, patient was found on the floor with black vomitus and stool everywhere around him, became pale, tachycardic, bilateral leg swelling noted, so neighbor called 911. Of note, pt left against medical advice during a recent hospital admission for cellulitis. Patient was awake, alert on presentation and was consented for blood transfusion. Emergency blood transfusion was initiated given the patient's vitals, pale skin color, and history of GI bleed. He was seen and evaluated in the ED combative, pulling of IV lines, hitting staff, unstable and was subsequently intubated. Laboratory data shows WBC 22.7, hemoglobin 5.5, hematocrit 18.4, platelets 453, sodium 142, potassium 4.0, BUN 27, creatinine 0.94, glucose 131, calcium 7.6, BNP 779.49, lactic acid 7.1, AST 61, ALT 30, PT 14.0, INR 1.36, APTT 22.3. Initial vitals showing blood pressure 96/89, heart rate 106, temperature 95, O2 saturation 92% on oxygen. Chest x-ray revealing cardiomegaly with pulmonary vascular congestion, no evidence for lobar pneumonia. Patient was admitted for further care. Pulmonary consultation is requested for evaluation and management of acute hypoxic respiratory failure requiring mechanical ventilator. Review of Systems: Unable to obtain d/t intubated status Past Medical History Testicular cancer, COPD, Hernia, Current cellulitis Past Surgical History Bilateral shoulder and knee orthopedic surgeries Medications: Reviewed. Allergies: Ciprofloxacin Moxifloxacin Quinolones Family History: No family history of premature CAD. No family history of lung disorders. Social History: Nonsmoker. No alcohol or illicit drug use. Family History: Patient reports no known family medical history. Allergies: Coded Allergies: Ciprofloxacin (Verified Allergy, Unknown, 07/19/25) Moxifloxacin (Verified Allergy, Unknown, 07/19/25) Quinolones (Verified Allergy, Unknown, 07/19/25) Current Medications Current Medications Medications (Trade) Dose Ordered Sig/[place]apha Route PRN Reason Start Time Stop Time Status Last Admin Sodium Chloride (Saline Lock Ns) 10 ml Q8HR IV 08/02/25 22:00 08/03/25 14:00 Acetaminophen/ Hydrocodone Bitart ([place] 5/325MG Tab) 1 tab Q4HP PRN PO MODERATE PAIN (4-6 PAIN SCALE) 08/02/25 21:45 Ondansetron HCl (Zofran) 4 mg Q4HP PRN IV NAUSEA / VOMITING 08/02/25 21:45 Docusate Sodium (Colace Capsule) 100 mg BIDPRN PRN PO FOR CONSTIPATION 08/02/25 21:45 Acetaminophen (Tylenol Tablet) 650 mg Q6HP PRN PO PAIN SCALE 1-3 OR TEMP>100.4 08/02/25 21:45 Midazolam HCl 100 ml @ 1 mls/hr Q24H IV 08/02/25 23:15 08/03/25 06:32 Nitroglycerin (Ntrostat Sublingual) 0.4 mg Q5MINP PRN SL FOR CHEST PAIN 08/02/25 23:45 Morphine Sulfate 2 mg Q30M PRN IV FOR CHEST PAIN 08/02/25 23:45 Piperacillin Sod/ Tazobactam Sod 100 ml @ 25 mls/hr Q8HR IV 08/03/25 06:00 08/03/25 14:00 Vancomycin HCl 0 ml @ 0 mls/hr PER PHARMACY IV 08/03/25 02:00 Furosemide (Lasix Injection) 40 mg DAILY IV 08/03/25 10:00 08/03/25 09:55 Propofol 100 ml @ 2.886 mls/ hr Q24H IV 08/03/25 02:30 08/03/25 20:54 Fentanyl Citrate 250 ml @ 2.5 mls/hr Q24H IV 08/03/25 04:00 08/03/25 04:00 Vancomycin HCl 100 ml @ 100 mls/hr Q12H IV 08/03/25 16:00 08/03/25 16:00 Pantoprazole Sodium (Protonix) 40 mg BID IV 08/03/25 22:00 Vital Signs Vital Signs Date Time Temp Pulse Resp B/P (MAP) Pulse Ox O2 Delivery O2 Flow Rate FiO2 08/03/25 20:01 76 20 104/66 (79) 100 30 08/03/25 12:00 98.0 98.0 08/03/25 07:30 Mechanical Ventilator+ 08/02/25 21:30 10 Physical Exam Gen.: Patient lying in bed in medical ICU. Sedated, intubated on mechanical v entilator. Head: Normocephalic, atraumatic. Eyes: PERRLA. Ears: Normal external anatomy. Throat: Endotracheal tube and orogastric tube in place. Neck: Supple, trachea midline. Chest: Transmitted breath sounds bilaterally. Decreased air entry bilaterally. N o wheezing. Bibasilar crackles. Cardiovascular: Positive S1, positive S2. Regular rate and rhythm. Abdomen: Positive bowel sounds in all 4 quadrants. Soft, nontender, nondistended. : [place] in place. Normal external genitalia. Rectal: Deferred. Skin: Warm, dry. Intact. Extremities: 2+ radial pulses bilaterally. No lower extremity edema. Neuro: Sedated. Labs/Diagnostic Data Labs Test 08/03/25 14:13 08/03/25 13:04 08/03/25 03:35 08/03/25 03:31 Range/Units White Blood Count 13.0 #H 4.4-10.8 10^3/uL Red Blood Count 2.41 L 4.5-5.90 10^6/uL Hemoglobin 7.1 #L 13.5-17.5 g/dL Hematocrit 21.7 #L 41.0-53.0 % Mean Corpuscular Volume 90.2 80.0-100.0 fL Mean Corpuscular Hemoglobin 29.6 28.0-32.0 pg Mean Corpuscular Hemoglobin Concent 32.8 32.0-36.0 g/dL Red Cell Distribution Width 15.6 H 11.8-14.3 % Platelet Count 377 140-450 10^3/uL Mean Platelet Volume 6.4 L 6.9-10.8 fL Neutrophils (%) (Auto) 79.4 37.0-80.0 % Lymphocytes (%) (Auto) 13.4 10.0-50.0 % Monocytes (%) (Auto) 6.9 0.0-12.0 % Eosinophils (%) (Auto) 0.2 0.0-7.0 % Basophils (%) (Auto) 0.1 0.0-2.0 % Neutrophils # (Auto) 10.3 H 1.6-8.6 10 ^3/uL Lymphocytes # (Auto) 1.7 0.4-5.4 10 ^3/uL Monocytes # (Auto) 0.9 0-1.3 10 ^3/uL Eosinophils # (Auto) 0 0-0.8 10 ^3/uL Basophils # (Auto) 0 0-0.2 10 ^3/uL Nucleated Red Blood Cells 1.1 % Blood Gas Specimen Type Arterial Blood Gas Sample Site Left radial Blood Gas Patient Temperature 37.0 Arterial Blood Date Drawn [id number] Arterial Blood pH 7.473 H 7.350-7.450 Arterial Blood Partial Pressure CO2 31.5 L 35.0-48.0 mmHg Arterial Blood Partial Pressure O2 136.6 H 83.0-108.0 mmHg Arterial Blood HCO3 22.6 21.0-28.0 mmol/L Arterial Blood Oxygen Saturation 98.5 H 94.0-98.0 % Arterial Blood Base Excess -0.8 -2.0-3.0 mmol/L Arterial Blood Oxyhemoglobin 96.4 94.0-98.0 % Arterial Blood Carboxyhemoglobin 1.2 0.5-1.5 % Arterial Blood Methemoglobin 0.9 0.0-1.5 % Aleksandr Test Modified Blood Gas Total Hemoglobin 7.00 L 13.5-17.5 g/dL Blood Gas Set Respiration Rate 20.0 Blood Gas Modality Vent - ac FiO2 % 40.0 Blood Gas Tidal Volume 500.0 Blood Gas PEEP or CPAP 5.0 Sodium Level 142 136-145 mmol/L Potassium Level 4.2 3.5-5.1 mmol/L Chloride Level 109 H 98-107 mmol/L Carbon Dioxide Level 22 20-31 mmol/L Anion Gap 11 5-15 Blood Urea Nitrogen 29 H 9-23 mg/dL Creatinine 0.96 0.700-1.30 mg/dL Glomerular Filtration Rate Calc 92 >90 mL/min BUN/Creatinine Ratio 30.2 H 10.0-20.0 Serum Glucose 128 H 74-106 mg/dL Calcium Level 7.3 L 8.7-10.4 mg/dL Magnesium Level 2.7 H 1.6-2.6 mg/dL Total Bilirubin 0.4 0.2-1.0 mg/dL Aspartate Amino Transferase (AST) 53 H 13-40 U/L Alanine Aminotransferase (ALT) 25 7-40 U/L Alkaline Phosphatase 67 46-116 U/L Creatine Kinase 783 H 46-171 U/L Total Protein 5.4 L 5.7-8.2 g/dL Albumin 3.0 L 3.2-4.8 g/dL Triglycerides Level 182 H < 150 mg/dL Cholesterol Level 136 < 200 mg/dL LDL Cholesterol 90 < 100 mg/dL HDL Cholesterol 25 L 40-59 mg/dL Thyroid Stimulating Hormone (TSH) 0.36 L 0.55-4.78 uIU/mL Hemoglobin A1c 5.3 <5.7 % A1C Test 08/03/25 02:54 08/03/25 00:55 08/02/25 23:55 08/02/25 00:00 Range/Units Lactic Acid Level 4.0 *H 0.4-2.0 mmol/L Prothrombin Time 14.0 H 9.3-11.8 sec Prothrombin Time INR 1.36 H 0.9-1.15 Activated Partial Thromboplast Time 22.3 L 24.5-34.5 SEC B-Type Natriuretic Peptide 779.49 0-100 pg/mL Blood Gas Spontaneous Rate 20 Blood Gas Critical Value Read Back Yes Blood Gas Notified Whom adarsh Au Blood Gas Notified Time [id number] Blood Gas Notified By Elsa thompson rrt Urine Color Light-yellow Yellow Urine Clarity Clear Clear Urine pH 5.0 5.0-9.0 Urine Specific [place] 1.018 1.001-1.035 Urine Protein 1+ H Negative Urine Ketones 1+ H Negative Urine Blood 1+ H Negative /uL Urine Nitrite Negative Negative Urine Bilirubin Negative Negative Urine Urobilinogen Normal Negative mg/dL Urine Leukocyte Esterase Negative Negative /uL Urine RBC 5 0 - 3 /hpf Urine Microscopic WBC 4 H 0-3 /HPF Urine Squamous Epithelial Cells None seen <5 /hpf Urine Bacteria None seen None Seen /hpf Urine Hyaline Casts Mod 0 - 2 /lpf Urine Mucus Few None Seen Urine Glucose Normal Normal mg/dL Microbiology Date/Time Source Procedure Growth Status 08/03/25 00:30 Blood Blood Culture - Preliminary Resulted Assessment Impression: Acute hypoxic respiratory failure On mechanical ventilator Gastrointestinal hemorrhage Sepsis Cellulitis Acute CHF exacerbation Plan: s/p intubation on mechanical ventilator. On AC mode; RR 20, VT 500, PEEP 5, FiO2 40% Titrate FIO2 to keep O2 saturation above 90%. VAP bundle. Daily ABG and CXR while intubated Sedate for ventilator synchrony - on Versed, Propofol, Fentanyl Obtain STAT ABG. Continue bronchodilators. Continue antibiotics. Follow up cultures. Pressors for hemodynamic support Titrate to keep mean arterial pressure greater than 65 mmHg. S/p 2 units PRBC transfusion Monitor hemoglobin Transfuse if less than 7.0 g/dL. Follow up Cardiology recommendations Follow up GI recommendations. On Sandostatin drip + Protonix 40 mg IVP BID Monitor renal function Monitor electrolytes. Supplement as necessary. Monitor ins and outs. GI prophylaxis. DVT prophylaxis. Prognosis: Poor given patient's multiple co-morbidities. Condition: Critical Rest of plan per hospitalist and other consultants. A total of 35 minutes of critical care time was spent reviewing the patient record, examining the patient, making a diagnostic and therapeutic plan, discussing this plan with the medical personnel, following up on diagnostic studies and following the patient for clinical stability excluding any and all procedures. At least 50% of this time was spent in direct, [id number] contact. Thank you, SHERYL Del Castillo, for allowing me to participate in this patient's care. Further recommendations will depend on the patient's clinical course. Please do not hesitate to contact me if you have any questions or concerns. This medical document was created using an electronic medical record system with [employer] computerized dictation system. Although these documentations are being carefully reviewed, there may still be some phonetic and typographical changes. The errors are purely typographical, due to imperfection on the software program, and do not reflect any compromise in the patient's medical care. Plan discussed with: Other (MADDY Rowe/SHERYL Del Castillo/) Visit Coding Pulmonary Billing Provider: KARL CORONADO MD Date of Service if different f: Aug 03, 2025 Common Visit Codes: 73078-[id number] CARE 30-74 MIN KARL CORONADO MD Aug 03, 2025 21:50
[2025-08-03] MEDS: PANTOPRAZOLE 40 MG/10 ML VIAL INJ IV SCH (22:02)
--- NOTE | 2025-08-03 22:07 | DVHSR ---
APPROVED REPORT EXAM: Two-dimensional and M-mode echocardiogram with Doppler and color Doppler. Blood Pressure: 107/68 mmHg INDICATION CHF exacerbation RISK FACTORS Height: 6'0", Weight: 212 DIMENSIONS LVDd5.5 (3.8-5.7cm)LA (2D)4.5 (1.9-4.0cm)Aortic Root4.1 (2.0-3.7cm) LVDs4.2 (2.5-4.0cm)LA (MM) (1.9-4.0cm)Aortic Cusp Exc1.7 (1.5-2.0cm) EF (%) 50.0 (55-70%)Rt. Atrium4.4 (1.9-4.0cm)Asc. Aorta cm IVSd1.2 (0.7-1.1cm)RV (D) (1.8-2.4cm) PWd1.1 (0.7-1.1cm) Mitral Valve MitralMitral Stenosis E wave1.20m/sMV Mean GR.mmHg A wave1.06m/sMV Peak GR.mmHg E/A ratio1.12D MVAcm2 DECEL [id number] 1/2 Tim[place] Aortic Valve Aortic ValveAortic Stenosis V10.87m/Giselle Mean GR.4mmHg V21.45m/Giselle Peak GR.8mmHg LVOT Diameter2.4 (1.8-2.4cm)Doppler AVA2.71cm2 Pulmonic Valve V20.98m/s Tricuspid Valve TR Velocity2.63m/s [id number] Other Information Technically limited study due to body habitus, patient position and on vent. Conclusion MILD LVH AND MILD LV DIASTOLIC DYSFUNCTION LV EF IS 50% AND IS LOW NORMAL MODERATELY DILATED RV AND RA MILD PULMONARY HYPERTENSION RVSP IS 36 MM OF HG AND IS HIGH STUDY REVEAL RV FAILURE NORMAL VALVES MODERATE DEGREE MR NO EFFUSION
--- NOTE | 2025-08-03 22:42 | DVHINCON2 ---
Date Seen: Aug 03, 2025 Referring Physician SHERYL Del Castillo Reason for Consultation CHF exacerbation History of Present Illness This is a 55-year-old male with a past medical history of COPD, recurrence of cellulitis, testicular cancer, and polysubstance abuse who presents to ED with complaint of gastrointestinal bleed. At the time of assessment, the patient is mechanically ventilated and chemically sedated thus unable to answer any questions. History obtained from medical records and bedside RN as there is no family at bedside. Per documentation, the patient was brought in via EMS after a neighbor called 911 after finding the patient altered and on the floor covered in black vomitus and stool. Upon arrival, patient was intubated for airway protection. Initial twelve lead electrocardiogram reveals sinus tachycardia with nonspecific ST segment depression to anteroseptal leads, PACs, and baseline wander (in lead V1). Initial BNP level of 779.49pg/mL. Chest x-ray showed cardiomegaly with pulmonary venous congestion. No further medical history able to be obtained at this time given patient is intubated and sedated and no family contacts are listed in patient's chart. Of note, the patient was seen at this facility on 07/19/2025 for lower extremity cellulitis but left against medical advice.Cardiology has been consulted at this time for CHF exacerbation. Past Medical History Past medical history reviewed. No other significant than mentioned above. Family History: Patient reports no known family medical history. Allergies: Coded Allergies: Ciprofloxacin (Verified Allergy, Unknown, 07/19/25) Moxifloxacin (Verified Allergy, Unknown, 07/19/25) Quinolones (Verified Allergy, Unknown, 07/19/25) Current Medications Current Medications Medications (Trade) Dose Ordered Sig/[place] Route PRN Reason Start Time Stop Time Status Last Admin Octreotide Acetate 500 mcg/ Sodium Chloride 100 ml @ 10 mls/hr Q10H IV 08/02/25 21:30 08/03/25 02:05 Sodium Chloride (Saline Lock Ns) 10 ml Q8HR IV 08/02/25 22:00 08/03/25 05:55 Acetaminophen/ Hydrocodone Bitart ([place] 5/325MG Tab) 1 tab Q4HP PRN PO MODERATE PAIN (4-6 PAIN SCALE) 08/02/25 21:45 Ondansetron HCl (Zofran) 4 mg Q4HP PRN IV NAUSEA / VOMITING 08/02/25 21:45 Docusate Sodium (Colace Capsule) 100 mg BIDPRN PRN PO FOR CONSTIPATION 08/02/25 21:45 Acetaminophen (Tylenol Tablet) 650 mg Q6HP PRN PO PAIN SCALE 1-3 OR TEMP>100.4 08/02/25 21:45 Midazolam HCl 100 ml @ 1 mls/hr Q24H IV 08/02/25 23:15 08/03/25 06:32 Nitroglycerin (Ntrostat Sublingual) 0.4 mg Q5MINP PRN SL FOR CHEST PAIN 08/02/25 23:45 Morphine Sulfate 2 mg Q30M PRN IV FOR CHEST PAIN 08/02/25 23:45 Piperacillin Sod/ Tazobactam Sod 100 ml @ 25 mls/hr Q8HR IV 08/03/25 06:00 08/03/25 06:25 Vancomycin HCl 0 ml @ 0 mls/hr PER PHARMACY IV 08/03/25 02:00 Furosemide (Lasix Injection) 40 mg DAILY IV 08/03/25 10:00 08/03/25 09:55 Propofol 100 ml @ 2.886 mls/ hr Q24H IV 08/03/25 02:30 08/03/25 10:00 Fentanyl Citrate 250 ml @ 2.5 mls/hr Q24H IV 08/03/25 04:00 08/03/25 04:00 Vancomycin HCl 100 ml @ 100 mls/hr Q12H IV 08/03/25 16:00 Review of Systems Constitutional: No symptom reported Ears, Nose, & Throat: No symptom reported Eyes: No symptom reported Neurological: ALOC Pulmonary/Respiratory: No symptoms reported Cardiovascular: No symptom reported Gastrointestinal: No symptom reported Genitourinary: No symptom reported Musculoskeletal: No symptom reported Skin: No symptom reported Psychiatric: No symptom reported Endocrine: No symptom reported Hematologic/Lymphatic: No symptom reported Vital Signs Vital Signs Date Time Temp Pulse Resp B/P (MAP) Pulse Ox O2 Delivery O2 Flow Rate FiO2 08/03/25 10:00 99/60 08/03/25 08:15 97.4 88 22 97.4 08/03/25 08:02 100 50 08/02/25 21:30 Simple Mask* 10 Physical Exam GENERAL: Ill appearing, intubated on ventilator. EYES: PERRL, EOMI. Anicteric. HENT: Moist mucous membranes. LUNGS: Decreased breath sounds. CARDIOVASCULAR: Regular rate and rhythm. ABDOMEN: Soft, nontender and nondistended. EXTREMITIES: 2+ BLE pitting edema. SKIN: Warm, dry. Bilateral lower extremity redness Labs/Diagnostic Data Labs Test 08/03/25 03:35 08/03/25 03:31 08/03/25 02:54 08/03/25 00:55 Range/Units White Blood Count 18.8 H 4.4-10.8 10^3/uL Red Blood Count 1.65 L 4.5-5.90 10^6/uL Hemoglobin 4.7 *L 13.5-17.5 g/dL Hematocrit 14.9 #L 41.0-53.0 % Mean Corpuscular Volume 90.8 # 80.0-100.0 fL Mean Corpuscular Hemoglobin 28.7 28.0-32.0 pg Mean Corpuscular Hemoglobin Concent 31.6 L 32.0-36.0 g/dL Red Cell Distribution Width 16.1 H 11.8-14.3 % Platelet Count 414 140-450 10^3/uL Mean Platelet Volume 6.7 L 6.9-10.8 fL Neutrophils (%) (Auto) 81.2 H 37.0-80.0 % Lymphocytes (%) (Auto) 9.8 L 10.0-50.0 % Monocytes (%) (Auto) 8.8 0.0-12.0 % Eosinophils (%) (Auto) 0.0 0.0-7.0 % Basophils (%) (Auto) 0.2 0.0-2.0 % Neutrophils # (Auto) 15.2 H 1.6-8.6 10 ^3/uL Lymphocytes # (Auto) 1.8 0.4-5.4 10 ^3/uL Monocytes # (Auto) 1.7 H 0-1.3 10 ^3/uL Eosinophils # (Auto) 0 0-0.8 10 ^3/uL Basophils # (Auto) 0 0-0.2 10 ^3/uL Nucleated Red Blood Cells 1.1 % Sodium Level 142 136-145 mmol/L Potassium Level 4.2 3.5-5.1 mmol/L Chloride Level 109 H 98-107 mmol/L Carbon Dioxide Level 22 20-31 mmol/L Anion Gap 11 5-15 Blood Urea Nitrogen 29 H 9-23 mg/dL Creatinine 0.96 0.700-1.30 mg/dL Glomerular Filtration Rate Calc 92 >90 mL/min BUN/Creatinine Ratio 30.2 H 10.0-20.0 Serum Glucose 128 H 74-106 mg/dL Calcium Level 7.3 L 8.7-10.4 mg/dL Magnesium Level 2.7 H 1.6-2.6 mg/dL Total Bilirubin 0.4 0.2-1.0 mg/dL Aspartate Amino Transferase (AST) 53 H 13-40 U/L Alanine Aminotransferase (ALT) 25 7-40 U/L Alkaline Phosphatase 67 46-116 U/L Creatine Kinase 783 H 46-171 U/L Total Protein 5.4 L 5.7-8.2 g/dL Albumin 3.0 L 3.2-4.8 g/dL Cholesterol Level 136 < 200 mg/dL LDL Cholesterol 90 < 100 mg/dL HDL Cholesterol 25 L 40-59 mg/dL Thyroid Stimulating Hormone (TSH) 0.36 L 0.55-4.78 uIU/mL Hemoglobin A1c 5.3 <5.7 % A1C Lactic Acid Level 4.0 *H 0.4-2.0 mmol/L Prothrombin Time 14.0 H 9.3-11.8 sec Prothrombin Time INR 1.36 H 0.9-1.15 Activated Partial Thromboplast Time 22.3 L 24.5-34.5 SEC B-Type Natriuretic Peptide 779.49 0-100 pg/mL Test 08/02/25 23:55 08/02/25 00:00 Range/Units Blood Gas Specimen Type Arterial Blood Gas Sample Site Right radial Blood Gas Patient Temperature 37.0 Arterial Blood Date Drawn [id number] Arterial Blood pH 7.222 *L 7.350-7.450 Arterial Blood Partial Pressure CO2 33.1 L 35.0-48.0 mmHg Arterial Blood Partial Pressure O2 448.5 *H 83.0-108.0 mmHg Arterial Blood HCO3 13.3 L 21.0-28.0 mmol/L Arterial Blood Oxygen Saturation 99.7 H 94.0-98.0 % Arterial Blood Base Excess -13.2 L -2.0-3.0 mmol/L Arterial Blood Oxyhemoglobin 97.7 94.0-98.0 % Arterial Blood Carboxyhemoglobin 1.1 0.5-1.5 % Arterial Blood Methemoglobin 0.9 0.0-1.5 % Aleksandr Test Modified Blood Gas Total Hemoglobin 5.50 *L 13.5-17.5 g/dL Blood Gas Set Respiration Rate 20.0 Blood Gas Modality Vent - ac Blood Gas Spontaneous Rate 20 FiO2 % 100.0 Blood Gas Tidal Volume 500.0 Blood Gas PEEP or CPAP 5.0 Blood Gas Critical Value Read Back Yes Blood Gas Notified Whom adarsh Au Blood Gas Notified Time [id number] Blood Gas Notified By Elsa thompson rrt Urine Color Light-yellow Yellow Urine Clarity Clear Clear Urine pH 5.0 5.0-9.0 Urine Specific [place] 1.018 1.001-1.035 Urine Protein 1+ H Negative Urine Ketones 1+ H Negative Urine Blood 1+ H Negative /uL Urine Nitrite Negative Negative Urine Bilirubin Negative Negative Urine Urobilinogen Normal Negative mg/dL Urine Leukocyte Esterase Negative Negative /uL Urine RBC 5 0 - 3 /hpf Urine Microscopic WBC 4 H 0-3 /HPF Urine Squamous Epithelial Cells None seen <5 /hpf Urine Bacteria None seen None Seen /hpf Urine Hyaline Casts Mod 0 - 2 /lpf Urine Mucus Few None Seen Urine Glucose Normal Normal mg/dL Assessment Rule out structural heart disease. Severe anemia. Sepsis. COPD. Polysubstance abuse. Plan/Recommendation I agree with your ongoing assessment and care of plan. Patient has been seen by Lilia Corea NP on my behalf, her and I discussed the plan with the patient. We will proceed with obtaining a transthoracic echocardiogram to evaluate cardiac function. Patient's hemoglobin severely low at this time, patient currently receiving 1 unit of PRBCs at time of assessment. We will recommend to closely monitor hemoglobin and hematocrit and transfuse as needed. Pending stool occult, consider GI consultation. Chest x-ray reveals cardiomegaly with pulmonary venous congestion, diurese as tolerated. Continue with close cardiac surveillance. Antibiotics per primary care team. Further recommendations per clinical course and progression. Additional plan as per the hospital course. Plan discussed with: Other NYHA Physical activity limitations: NA Date of Service: Aug 03, 2025 Billing Provider: ADAM MELO MD Cardiology Common Codes: 56897-[id number] INP/OBS CARE (High), [id number] CARE 30-74 MIN, [id number] CARE-EACH +30MIN ADAM MELO MD Aug 03, 2025 12:41
[2025-08-04] VITALS (113 sets, daily range): BP systolic 86–124; BP diastolic 53–81; PULSE 72–100; RESP 18–22; TEMP 97.3–100; O2SAT 98–100
[2025-08-04] MEDS: OCTREOTIDE ACETATE 100 MCG/ML VL ONE (03:07)
[2025-08-04 04:41] LABS: Hematocrit 19.1 % (41.0-53.0); Mean Corpuscular Hemoglobin 29.5 pg (28.0-32.0); Mean Corpuscular Volume 87.4 fL (80.0-100.0); Nucleated Red Blood Cells % 0.7 %
[2025-08-04 04:44] LABS: Hemoglobin 6.5 g/dL (13.5-17.5)
[2025-08-04 05:05] LABS: Alanine Aminotransferase 21 U/L (7-40); Alkaline Phosphatase 71 U/L (46-116); Anion Gap 9 (5-15); BUN/Creatinine Ratio 16.8 (10.0-20.0); Blood Urea Nitrogen 16 mg/dL (9-23); Carbon Dioxide 24 mmol/L (20-31); Sodium 144 mmol/L (136-145)
[2025-08-04 05:06] LABS: Bilirubin, Total 0.6 mg/dL (0.2-1.0)
[2025-08-04 05:20] LABS: Albumin 2.8 g/dL (3.2-4.8); Calcium 6.9 mg/dL (8.7-10.4); Chloride 111 mmol/L (98-107); Glucose 112 mg/dL (74-106); Potassium 3.5 mmol/L (3.5-5.1); Total Protein 5.2 g/dL (5.7-8.2)
--- NOTE | 2025-08-04 05:29 | DVH ---
CHEST RADIOGRAPH Indication: intubated Technique: Single frontal view of the chest was obtained Comparison: XY CHEST PORTABLE on DOS: 08/03/25, XY CHEST PORTABLE on DOS: 08/02/25, XY CHEST PORTABLE on DOS: 08/02/25 IMPRESSION: Heart is prominent size with mild pulmonary vascular congestion. No sizable effusion or pneumothorax. Support lines and tubes appear unchanged in satisfactory position. No significant interval change.
[2025-08-04 09:25] LABS: Base Excess -0.9 mmol/L (-2.0-3.0)
[2025-08-04] MEDS ORDERED: DOCUSATE ORAL LIQUID 100 MG/10 ML UD GT PRN (11:30)
[2025-08-04] MEDS: CALCIUM GLUC 1,000mg/50ml-NS 50 ML IV SCH (13:13)
[2025-08-04 13:51] LABS: Hematocrit 30.6 % (41.0-53.0); Hemoglobin 9.7 g/dL (13.5-17.5)
--- NOTE | 2025-08-04 13:57 | DVHINCON2 ---
Date of service: Aug 04, 2025 History of Present Illness Per HPI - "55-year-old male with past medical history of hernia, cellulitis, COPD, and testicular cancer presented to [facility] ED for evaluation GI bleed. As reported by EMS, patient was found on the floor with black vomitus and stool everywhere around him, became pale, tachycardia, bilateral leg swelling, so neighbor called 911. Patient left against medical advice for a recent hospital admission for cellulitis. Patient is awake Alert and was consented for blood transfusion. Emergency blood transfusion was initiated given the patient's vitals, pale skin color, and history of GI bleed. Patient was seen and evaluated in the ED combative, pulling of IV lines, hitting staff, unstable and was subsequently intubated. Laboratory data shows WBC 22.7, hemoglobin 5.5, hematocrit 18.4, platelets 453, sodium 142, potassium 4.0, BUN 27, creatinine 0.94, glucose 131, calcium 7.6, BNP 779.49, lactic acid 7.1, AST 61, ALT 30, PT 14.0, INR 1.36, APTT 22.3, blood pressure 96/89, heart rate 106, temperature 95, O2 saturation 92% on oxygen. Chest x-ray revealing cardiomegaly with pulmonary vascular congestion, no evidence for lobar pneumonia" RN bedside. Hx obtained from RN and chart review. No evidence of GI bleed since admission. No BM and OGT suction has no residual per RN. He was intubated due to resp distress. Has hx of polysubstance abuse. Hb 5.5 on admission, had 2U PRBC transfusion Past Medical History Reviewed Past Surgical History Reviewed Family History: Patient reports no known family medical history. Allergies: Coded Allergies: Ciprofloxacin (Verified Allergy, Unknown, 07/19/25) Moxifloxacin (Verified Allergy, Unknown, 07/19/25) Quinolones (Verified Allergy, Unknown, 07/19/25) Current Medications Current Medications Medications (Trade) Dose Ordered Sig/[place]apha Route PRN Reason Start Time Stop Time Status Last Admin Vancomycin HCl 100 ml @ 100 mls/hr Q12H IV 08/03/25 16:00 08/04/25 04:12 Pantoprazole Sodium (Protonix) 40 mg BID IV 08/03/25 22:00 08/04/25 09:43 Docusate Sodium (Colace Liquid) 100 mg BID PRN GT FOR CONSTIPATION 08/04/25 11:30 Furosemide (Lasix Injection) 20 mg DAILY IV 08/05/25 10:00 Mupirocin (Bactroban 2% Ointment) 1 applic BID EACHNOSTRI 08/04/25 22:00 08/09/25 21:59 Calcium Gluconate/ Sodium Chloride 50 ml @ 100 mls/hr Q30M IV 08/04/25 13:00 08/04/25 13:59 08/04/25 13:37 Review of Systems Unable to obtain due to clinical condition Vital Signs Vital Signs Date Time Temp Pulse Resp B/P (MAP) Pulse Ox O2 Delivery O2 Flow Rate FiO2 08/04/25 13:19 105/53 08/04/25 13:15 77 20 100 08/04/25 11:54 98.2 98.2 08/04/25 09:51 30 08/04/25 09:40 Mechanical Ventilator+ 08/02/25 21:30 10 Physical Exam GE: intubated and sedated CVS: S1S2+ Lungs - clear Abdomen: soft, nondistended, BS+ Labs/Diagnostic Data Labs Test 08/04/25 13:35 08/04/25 07:32 08/04/25 03:42 08/03/25 03:35 Range/Units Blood Gas Specimen Type Arterial Blood Gas Sample Site Right radial Blood Gas Patient Temperature 37.0 Arterial Blood Date Drawn [id number] Arterial Blood pH 7.461 H 7.350-7.450 Arterial Blood Partial Pressure CO2 32.5 L 35.0-48.0 mmHg Arterial Blood Partial Pressure O2 108.6 H 83.0-108.0 mmHg Arterial Blood HCO3 22.6 21.0-28.0 mmol/L Arterial Blood Oxygen Saturation 97.5 94.0-98.0 % Arterial Blood Base Excess -0.9 -2.0-3.0 mmol/L Arterial Blood Oxyhemoglobin 95.9 94.0-98.0 % Arterial Blood Carboxyhemoglobin 0.9 0.5-1.5 % Arterial Blood Methemoglobin 0.7 0.0-1.5 % Aleksandr Test Modified Blood Gas Total Hemoglobin 7.20 L 13.5-17.5 g/dL Blood Gas Set Respiration Rate 20.0 Blood Gas Modality Vent - ac FiO2 % 30.0 Blood Gas Tidal Volume 500.0 Blood Gas PEEP or CPAP 5.0 White Blood Count 11.0 H 4.4-10.8 10^3/uL Red Blood Count 2.19 L 4.5-5.90 10^6/uL Mean Corpuscular Volume 87.4 80.0-100.0 fL Mean Corpuscular Hemoglobin 29.5 28.0-32.0 pg Mean Corpuscular Hemoglobin Concent 33.8 32.0-36.0 g/dL Red Cell Distribution Width 15.4 H 11.8-14.3 % Platelet Count 356 140-450 10^3/uL Mean Platelet Volume 6.4 L 6.9-10.8 fL Neutrophils (%) (Auto) 79.6 37.0-80.0 % Lymphocytes (%) (Auto) 12.3 10.0-50.0 % Monocytes (%) (Auto) 7.0 0.0-12.0 % Eosinophils (%) (Auto) 0.6 0.0-7.0 % Basophils (%) (Auto) 0.5 0.0-2.0 % Neutrophils # (Auto) 8.7 H 1.6-8.6 10 ^3/uL Lymphocytes # (Auto) 1.3 0.4-5.4 10 ^3/uL Monocytes # (Auto) 0.8 0-1.3 10 ^3/uL Eosinophils # (Auto) 0.1 0-0.8 10 ^3/uL Basophils # (Auto) 0.1 0-0.2 10 ^3/uL Nucleated Red Blood Cells 0.7 % Sodium Level 144 136-145 mmol/L Potassium Level 3.5 3.5-5.1 mmol/L Chloride Level 111 H 98-107 mmol/L Carbon Dioxide Level 24 20-31 mmol/L Anion Gap 9 5-15 Blood Urea Nitrogen 16 # 9-23 mg/dL Creatinine 0.95 0.700-1.30 mg/dL Glomerular Filtration Rate Calc 93 >90 mL/min BUN/Creatinine Ratio 16.8 10.0-20.0 Serum Glucose 112 H 74-106 mg/dL Calcium Level 6.9 L 8.7-10.4 mg/dL Total Bilirubin 0.6 0.2-1.0 mg/dL Aspartate Amino Transferase (AST) 36 13-40 U/L Alanine Aminotransferase (ALT) 21 7-40 U/L Alkaline Phosphatase 71 46-116 U/L Total Protein 5.2 L 5.7-8.2 g/dL Albumin 2.8 L 3.2-4.8 g/dL Magnesium Level 2.7 H 1.6-2.6 mg/dL Creatine Kinase 783 H 46-171 U/L Triglycerides Level 182 H < 150 mg/dL Cholesterol Level 136 < 200 mg/dL LDL Cholesterol 90 < 100 mg/dL HDL Cholesterol 25 L 40-59 mg/dL Thyroid Stimulating Hormone (TSH) 0.36 L 0.55-4.78 uIU/mL Test 08/03/25 03:31 08/03/25 02:54 08/03/25 00:55 08/02/25 23:55 Range/Units Hemoglobin A1c 5.3 <5.7 % A1C Lactic Acid Level 4.0 *H 0.4-2.0 mmol/L Prothrombin Time 14.0 H 9.3-11.8 sec Prothrombin Time INR 1.36 H 0.9-1.15 Activated Partial Thromboplast Time 22.3 L 24.5-34.5 SEC B-Type Natriuretic Peptide 779.49 0-100 pg/mL Blood Gas Spontaneous Rate 20 Blood Gas Critical Value Read Back Yes Blood Gas Notified Whom adarsh Au Blood Gas Notified Time [id number] Blood Gas Notified By Elsa thompson rrt Test 08/02/25 00:00 Range/Units Urine Color Light-yellow Yellow Urine Clarity Clear Clear Urine pH 5.0 5.0-9.0 Urine Specific [place] 1.018 1.001-1.035 Urine Protein 1+ H Negative Urine Ketones 1+ H Negative Urine Blood 1+ H Negative /uL Urine Nitrite Negative Negative Urine Bilirubin Negative Negative Urine Urobilinogen Normal Negative mg/dL Urine Leukocyte Esterase Negative Negative /uL Urine RBC 5 0 - 3 /hpf Urine Microscopic WBC 4 H 0-3 /HPF Urine Squamous Epithelial Cells None seen <5 /hpf Urine Bacteria None seen None Seen /hpf Urine Hyaline Casts Mod 0 - 2 /lpf Urine Mucus Few None Seen Urine Glucose Normal Normal mg/dL Microbiology Date/Time Source Procedure Growth Status 08/04/25 06:15 Nose MRSA Screen - Final Methicillin Resistant S.aureus Complete 08/03/25 00:55 Blood Blood Culture - Preliminary NO GROWTH AFTER 24 HOURS OF INCUBATION. Resulted 08/02/25 23:50 Sputum Endotracheal Wash Gram Stain Pending Resulted 08/02/25 23:50 Sputum Endotracheal Wash Respiratory Culture - Preliminary Resulted Assessment #Melena, coffee ground emesis #Anemia #Acute encephalopathy #Acute resp failure, on vent #Dilated appendix with fat stranding on CTAP and leukocytosis #Polysubstance abuse #Umbilical & inguinal hernia Monitor Hb, keep >7 Dc Octreotide, no biochemical or radiologic evidence of cirrhosis Start PPI drip Surgery eval recommended to check CTAP findings on appendix, concern for sepsis Plan EGD, timing per Dr Alicia, based on his clinical status Care plan discussed with RN bedside in ER Thank you for the consult. Plan discussed with: Other GERSON HANNON MD Aug 04, 2025 13:56
--- NOTE | 2025-08-04 18:04 | DVHPN2 ---
Subjective In bed intubated and sedated Reviewed: H&P Changes from previous H/P or p: No Changes Eyes: No Pain, No Vision change, No Conjunctivae inflammation, No Eyelid inflammation, No Other, No Redness ENT: No Ear pain, No Ear discharge, No Nose pain, No Nose discharge, No Nose congestion, No Mouth pain, No Mouth swelling, No Throat pain, No Throat swelling, No Other Cardiovascular: No Chest Pain, No Palpitations, No Orthopnea, No Paroxysmal Noc. Dyspnea, No Edema, No Lt Headedness, No Other Respiratory: No Cough, No Dry; Shortness of breath; No SOB with excertion, No Wheezing, No Hemoptysis, No Pleuritic Pain, No Sputum, No Other Gastrointestinal: No Nausea, No Vomiting, No Abdominal Pain, No Diarrhea, No Constipation, No Melena, No Hematochezia, No Other Genitourinary: No Dysuria, No Frequency, No Incontinence, No Hematuria, No Retention, No Other Musculoskeletal: No other, No neck pain, No shoulder pain, No arm pain, No back pain, No hand pain, No leg pain, No foot pain Skin: No Rash, No Lesions, No Jaundice, No Bruising, No Other Objective Vitals Vital Signs Date Time Temp Pulse Resp B/P (MAP) Pulse Ox O2 Delivery O2 Flow Rate FiO2 08/04/25 17:45 84 20 106/67 (80) 100 08/04/25 16:17 30 08/04/25 16:15 98.3 98.3 08/04/25 15:40 Mechanical Ventilator+ 08/02/25 21:30 10 Intake/Output Intake and Output 08/04/25 04:59 Intake Total 3858.160 ml Output Total 2350 ml Balance 1508.160 ml Intake Oral 0 ml IV Total 1758.160 ml Blood Product 1200 ml Other 900 ml Output Urine Total 2350 ml General Appearance: Other (intubated and sedated) Lungs: Clear to auscultation Cardiovascular: Regular rate, Normal S1, Normal S2 Abdomen: Normal bowel sounds Medications Current Medications Medications Dose Ordered Sig/Mustapha Route Start Time Stop Time Status Last Admin Dose Admin Octreotide Acetate 500 mcg/ Sodium Chloride 100 ml @ 10 mls/hr Q10H IV 08/02/25 21:30 08/04/25 13:51 10 MLS/HR Sodium Chloride 10 ml Q8HR IV 08/02/25 22:00 08/04/25 14:13 10 ML Acetaminophen/ Hydrocodone Bitart 1 tab Q4HP PRN PO 08/02/25 21:45 Ondansetron HCl 4 mg Q4HP PRN IV 08/02/25 21:45 Acetaminophen 650 mg Q6HP PRN PO 08/02/25 21:45 Midazolam HCl 100 ml @ 1 mls/hr Q24H IV 08/02/25 23:15 08/04/25 11:06 10 MLS/HR Nitroglycerin 0.4 mg Q5MINP PRN SL 08/02/25 23:45 Morphine Sulfate 2 mg Q30M PRN IV 08/02/25 23:45 Piperacillin Sod/ Tazobactam Sod 100 ml @ 25 mls/hr Q8HR IV 08/03/25 06:00 08/04/25 14:15 25 MLS/HR Vancomycin HCl 0 ml @ 0 mls/hr PER PHARMACY IV 08/03/25 02:00 Propofol 100 ml @ 2.886 mls/ hr Q24H IV 08/03/25 02:30 08/04/25 13:19 8.658 MLS/HR Fentanyl Citrate 250 ml @ 2.5 mls/hr Q24H IV 08/03/25 04:00 08/04/25 01:56 12.5 MLS/HR Vancomycin HCl 100 ml @ 100 mls/hr Q12H IV 08/03/25 16:00 08/04/25 04:12 100 MLS/HR Pantoprazole Sodium 40 mg BID IV 08/03/25 22:00 08/04/25 09:43 40 MG Docusate Sodium 100 mg BID PRN GT 08/04/25 11:30 Furosemide 20 mg DAILY IV 08/05/25 10:00 Mupirocin 1 applic BID EACHNOSTRI 08/04/25 22:00 08/09/25 21:59 Laboratory Results Laboratory Tests 08/04/25 03:42 08/04/25 13:35 Chemistry Test 08/04/25 03:42 Albumin 2.8 g/dL (3.2-4.8) L Calcium Level 6.9 mg/dL (8.7-10.4) L Total Protein 5.2 g/dL (5.7-8.2) L LFT Test 08/04/25 03:42 Alanine Aminotransferase (ALT) 21 U/L (7-40) Alkaline Phosphatase 71 U/L (46-116) Aspartate Amino Transferase (AST) 36 U/L (13-40) Total Bilirubin 0.6 mg/dL (0.2-1.0) Urinalysis Test 08/02/25 00:00 Urine Color Light-yellow (Yellow) Urine Clarity Clear (Clear) Urine pH 5.0 (5.0-9.0) Urine Specific [place] 1.018 (1.001-1.035) Urine Protein 1+ (Negative) H Urine Ketones 1+ (Negative) H Urine Blood 1+ /uL (Negative) H Urine Nitrite Negative (Negative) Urine Bilirubin Negative (Negative) Urine Urobilinogen Normal mg/dL (Negative) Urine Leukocyte Esterase Negative /uL (Negative) Urine RBC 5 /hpf (0 - 3) Urine Microscopic WBC 4 /HPF (0-3) H Urine Squamous Epithelial Cells None seen /hpf (<5) Urine Bacteria None seen /hpf (None Seen) Urine Hyaline Casts Mod /lpf (0 - 2) Urine Mucus Few (None Seen) Urine Glucose Normal mg/dL (Normal) Blood Gas Results Test 08/04/25 07:32 Arterial Blood pH 7.461 (7.350-7.450) FiO2 % 30.0 Microbiology Microbiology Date/Time Source Procedure Growth Status 08/04/25 06:15 Nose MRSA Screen - Final Methicillin Resistant S.aureus Complete 08/03/25 00:55 Blood Blood Culture - Preliminary NO GROWTH AFTER 24 HOURS OF INCUBATION. Resulted 08/02/25 23:50 Sputum Endotracheal Wash Gram Stain Pending Resulted 08/02/25 23:50 Sputum Endotracheal Wash Respiratory Culture - Preliminary Resulted Assessment/Plan Assessment/Plan Acute respiratory distress Symptomatic anemia GI bleed Electrolyte imbalance Sepsis, unspecified organism Cellulitis of both lower extremities Generalized weakness Acute exacerbation of congestive heart failure Continue mechanical intubation S/P 2 U PRBC>Hb dropped 6.5>2U PRBC repeat CBC GI consulted IV vanco and zosyn IV protonix IV octreotide Critical care time 90 minutes Plan discussed with: Other (nurse) My Orders Orders - AIDA ACOSTA MD Procedure Category Date Status Time Docusate Sodium PHA 08/04/25 In Process Liquid (Colace Liquid) 11:30 Furosemide Injection PHA 08/05/25 In Process (Lasix Injection) 10:00 Mupirocin 2% Oint PHA 08/04/25 In Process Mrsa Nares (Bactroban 22:00 Potassium LAB 08/04/25 Logged 22:00 Date of Service: Aug 04, 2025 Billing Provider: AIDA ACOSTA MD Common Visit Codes: [id number] CARE 30-74 MIN AIDA CAOSTA MD Aug 04, 2025 18:04
[2025-08-04] MEDS: PANTOPRAZOLE 80 MG in SODIUM CHL 0.9% 100 ML IV ONE (20:13)
[2025-08-04] MEDS: PANTOPRAZOLE 40mg/50ML NS AE 50 ML IV SCH (20:56)
[2025-08-04] MEDS: MUPIROCIN 2% OINT 15gm or 22gm FOR MRSA NARES EACHNOSTRI SCH (22:14)
--- NOTE | 2025-08-04 22:59 | DVHPN2 ---
Progress Note - Dictate Date Seen: Aug 04, 2025 Medical Necessity Reason Pt with a Central, PICC or Fol: No Subjective Patient was seen and evaluated in follow up in the ICU. Patient is intubated and sedated on ventilator. 30% FiO2. HGB 9.7, HCT 30.6, WBC 11, CA 6.9. Chest x-ray shows heart is prominent size with mild pulmonary vascular congestion. vital signs Vital Sign Date Time Temp Pulse Resp B/P (MAP) Pulse Ox O2 Delivery O2 Flow Rate FiO2 08/04/25 20:41 113/79 08/04/25 20:18 79 20 100 30 08/04/25 17:40 Mechanical Ventilator+ 08/04/25 16:15 98.3 98.3 08/02/25 21:30 10 Total Intake and Output 08/03/25 08/03/25 08/04/25 15:00 23:00 07:00 Intake Total 2230.528 ml 532.632 ml 527.0 ml Output Total 2350 ml 1100 ml Balance -119.472 ml 532.632 ml -573.0 ml medications Current Medications Medications Dose Ordered Sig/Mustapha Route Start Time Stop Time Status Last Admin Dose Admin Sodium Chloride 10 ml Q8HR IV 08/02/25 22:00 08/04/25 14:13 10 ML Acetaminophen/ Hydrocodone Bitart 1 tab Q4HP PRN PO 08/02/25 21:45 Ondansetron HCl 4 mg Q4HP PRN IV 08/02/25 21:45 Acetaminophen 650 mg Q6HP PRN PO 08/02/25 21:45 Midazolam HCl 100 ml @ 1 mls/hr Q24H IV 08/02/25 23:15 08/04/25 20:38 10 MLS/HR Nitroglycerin 0.4 mg Q5MINP PRN SL 08/02/25 23:45 Morphine Sulfate 2 mg Q30M PRN IV 08/02/25 23:45 Piperacillin Sod/ Tazobactam Sod 100 ml @ 25 mls/hr Q8HR IV 08/03/25 06:00 08/04/25 14:15 25 MLS/HR Vancomycin HCl 0 ml @ 0 mls/hr PER PHARMACY IV 08/03/25 02:00 Propofol 100 ml @ 2.886 mls/ hr Q24H IV 08/03/25 02:30 08/04/25 20:12 8.658 MLS/HR Fentanyl Citrate 250 ml @ 2.5 mls/hr Q24H IV 08/03/25 04:00 08/04/25 20:41 12.5 MLS/HR Vancomycin HCl 100 ml @ 100 mls/hr Q12H IV 08/03/25 16:00 08/04/25 04:12 100 MLS/HR Pantoprazole Sodium 40 mg BID IV 08/03/25 22:00 08/04/25 09:43 40 MG Docusate Sodium 100 mg BID PRN GT 08/04/25 11:30 Furosemide 20 mg DAILY IV 08/05/25 10:00 Mupirocin 1 applic BID EACHNOSTRI 08/04/25 22:00 08/09/25 21:59 Pantoprazole Sodium 50 ml @ 10 mls/hr Q5H IV 08/04/25 18:45 08/04/25 20:56 10 MLS/HR objective GENERAL: Ill appearing, intubated on ventilator. EYES: PERRL, EOMI. Anicteric. HENT: Moist mucous membranes. LUNGS: Decreased breath sounds. CARDIOVASCULAR: Regular rate and rhythm. ABDOMEN: Soft, nontender and nondistended. EXTREMITIES: 2+ BLE pitting edema. SKIN: Warm, dry. Bilateral lower extremity redness laboratory and microbiology Laboratory Tests 08/04/25 13:35 08/04/25 03:42 Test 08/04/25 03:42 Range/Units Serum Glucose 112 H 74-106 mg/dL Problem List Rule out structural heart disease. Severe anemia. Sepsis. COPD. Polysubstance abuse. Assessment/Plan Continued all current supportive medical care. Morphine and [place] for pain management. Diuretics with Lasix. Nitro SL. GI prophylactics. IV antibiotics as ordered. Additional plan as per the hospital course. Critical care time of 45 minutes provided to include time spent evaluation of patient at bedside, when appropriate patient/family education for diagnosis, treatment plan, review of pertinent medical information and discussion of care with specialty providers and PCP. Mechanical ventilator parameters, treatment and adjustments have personally been reviewed by me and treatment plan by multiple coil winder has also been reviewed. Plan discussed with: Other CC Plasma Assessment Blood Product Administration S: [id number] ADAM MELO MD Aug 04, 2025 21:15
--- NOTE | 2025-08-04 23:54 | DVHPN2 ---
Subjective DOS: 08/04/2025 Patient seen and examined at bedside. Sedated, intubated on mechanical ventilator. Overnight events reviewed. Reviewed: H&P Changes from previous H/P or p: No Changes Eyes: No Pain, No Vision change, No Conjunctivae inflammation, No Eyelid inflammation, No Other, No Redness ENT: No Ear pain, No Ear discharge, No Nose pain, No Nose discharge, No Nose congestion, No Mouth pain, No Mouth swelling, No Throat pain, No Throat swelling, No Other Cardiovascular: No Chest Pain, No Palpitations, No Orthopnea, No Paroxysmal Noc. Dyspnea, No Edema, No Lt Headedness, No Other Respiratory: No Cough, No Dry; Shortness of breath; No SOB with excertion, No Wheezing, No Hemoptysis, No Pleuritic Pain, No Sputum, No Other Gastrointestinal: No Nausea, No Vomiting, No Abdominal Pain, No Diarrhea, No Constipation, No Melena, No Hematochezia, No Other Genitourinary: No Dysuria, No Frequency, No Incontinence, No Hematuria, No Retention, No Other Musculoskeletal: No other, No neck pain, No shoulder pain, No arm pain, No back pain, No hand pain, No leg pain, No foot pain Skin: No Rash, No Lesions, No Jaundice, No Bruising, No Other Objective Vitals Vital Signs Date Time Temp Pulse Resp B/P (MAP) Pulse Ox O2 Delivery O2 Flow Rate FiO2 08/04/25 23:30 84 20 96/58 (71) 100 08/04/25 22:20 30 08/04/25 22:00 Mechanical Ventilator+ 08/04/25 20:00 97.3 97.3 08/02/25 21:30 10 Intake/Output Intake and Output 08/04/25 07:00 Intake Total 3290.160 ml Output Total 3450 ml Balance -159.840 ml Intake Oral 0 ml IV Total 1490.160 ml Blood Product 1200 ml Other 600 ml Output Urine Total 3450 ml Exam Gen.: Patient lying in bed in medical ICU. Sedated, intubated on mechanical ventilator. Head: Normocephalic, atraumatic. Eyes: PERRLA. Ears: Normal external anatomy. Throat: Endotracheal tube and orogastric tube in place. Neck: Supple, trachea midline. Chest: Transmitted breath sounds bilaterally. Decreased air entry bilaterally. No wheezing. Bibasilar crackles. Cardiovascular: Positive S1, positive S2. Regular rate and rhythm. Abdomen: Positive bowel sounds in all 4 quadrants. Soft, nontender, nondistended. : O[place] in place. Normal external genitalia. Rectal: Deferred. Skin: Warm, dry. Intact. Extremities: 2+ radial pulses bilaterally. No lower extremity edema. Neuro: Sedated. General Appearance: Other (intubated and sedated) Lungs: Clear to auscultation Cardiovascular: Regular rate, Normal S1, Normal S2 Abdomen: Normal bowel sounds Medications Current Medications Medications Dose Ordered Sig/Mustapha Route Start Time Stop Time Status Last Admin Dose Admin Sodium Chloride 10 ml Q8HR IV 08/02/25 22:00 08/04/25 22:13 10 ML Acetaminophen/ Hydrocodone Bitart 1 tab Q4HP PRN PO 08/02/25 21:45 Ondansetron HCl 4 mg Q4HP PRN IV 08/02/25 21:45 Acetaminophen 650 mg Q6HP PRN PO 08/02/25 21:45 Midazolam HCl 100 ml @ 1 mls/hr Q24H IV 08/02/25 23:15 08/04/25 20:38 10 MLS/HR Nitroglycerin 0.4 mg Q5MINP PRN SL 08/02/25 23:45 Morphine Sulfate 2 mg Q30M PRN IV 08/02/25 23:45 Piperacillin Sod/ Tazobactam Sod 100 ml @ 25 mls/hr Q8HR IV 08/03/25 06:00 08/04/25 22:13 25 MLS/HR Vancomycin HCl 0 ml @ 0 mls/hr PER PHARMACY IV 08/03/25 02:00 Propofol 100 ml @ 2.886 mls/ hr Q24H IV 08/03/25 02:30 08/04/25 20:12 8.658 MLS/HR Fentanyl Citrate 250 ml @ 2.5 mls/hr Q24H IV 08/03/25 04:00 08/04/25 20:41 12.5 MLS/HR Vancomycin HCl 100 ml @ 100 mls/hr Q12H IV 08/03/25 16:00 08/04/25 04:12 100 MLS/HR Pantoprazole Sodium 40 mg BID IV 08/03/25 22:00 08/04/25 22:15 40 MG Docusate Sodium 100 mg BID PRN GT 08/04/25 11:30 Furosemide 20 mg DAILY IV 08/05/25 10:00 Mupirocin 1 applic BID EACHNOSTRI 08/04/25 22:00 08/09/25 21:59 08/04/25 22:14 1 APPLIC Pantoprazole Sodium 50 ml @ 10 mls/hr Q5H IV 08/04/25 18:45 08/04/25 20:56 10 MLS/HR Laboratory Results Laboratory Tests 08/04/25 03:42 08/04/25 13:35 08/04/25 22:11 Chemistry Test 08/04/25 03:42 Albumin 2.8 g/dL (3.2-4.8) L Calcium Level 6.9 mg/dL (8.7-10.4) L Total Protein 5.2 g/dL (5.7-8.2) L LFT Test 08/04/25 03:42 Alanine Aminotransferase (ALT) 21 U/L (7-40) Alkaline Phosphatase 71 U/L (46-116) Aspartate Amino Transferase (AST) 36 U/L (13-40) Total Bilirubin 0.6 mg/dL (0.2-1.0) Urinalysis Test 08/02/25 00:00 Urine Color Light-yellow (Yellow) Urine Clarity Clear (Clear) Urine pH 5.0 (5.0-9.0) Urine Specific [place] 1.018 (1.001-1.035) Urine Protein 1+ (Negative) H Urine Ketones 1+ (Negative) H Urine Blood 1+ /uL (Negative) H Urine Nitrite Negative (Negative) Urine Bilirubin Negative (Negative) Urine Urobilinogen Normal mg/dL (Negative) Urine Leukocyte Esterase Negative /uL (Negative) Urine RBC 5 /hpf (0 - 3) Urine Microscopic WBC 4 /HPF (0-3) H Urine Squamous Epithelial Cells None seen /hpf (<5) Urine Bacteria None seen /hpf (None Seen) Urine Hyaline Casts Mod /lpf (0 - 2) Urine Mucus Few (None Seen) Urine Glucose Normal mg/dL (Normal) Blood Gas Results Test 08/04/25 07:32 Arterial Blood pH 7.461 (7.350-7.450) FiO2 % 30.0 Microbiology Microbiology Date/Time Source Procedure Growth Status 08/04/25 06:15 Nose MRSA Screen - Final Methicillin Resistant S.aureus Complete 08/03/25 00:55 Blood Blood Culture - Preliminary NO GROWTH AFTER 24 HOURS OF INCUBATION. Resulted 08/02/25 23:50 Sputum Endotracheal Wash Gram Stain Pending Resulted 08/02/25 23:50 Sputum Endotracheal Wash Respiratory Culture - Preliminary Resulted Assessment/Plan Assessment/Plan Impression: Acute hypoxic respiratory failure On mechanical ventilator Gastrointestinal hemorrhage Sepsis Cellulitis Acute CHF exacerbation Events: Remains on vent support On AC mode; RR 20, VT 500, PEEP 5, FiO2 30% Sedated on Propofol, Versed, Fentanyl S/p 2 units PRBC transfusion Monitor hemoglobin Transfuse if less than 7.0 g/dL. On Sandostatin drip + Protonix 40 mg IVP BID GI recommendations appreciated. Lasix 40 mg IVP given - put out 3 liters. Monitor BP Monitor renal function Continue bronchodilators. Continue antibiotics. Follow up cultures. Labs and imaging reviewed. Rest of plan as noted below. Plan: s/p intubation on mechanical ventilator. On AC mode; RR 20, VT 500, PEEP 5, FiO2 30% Titrate FIO2 to keep O2 saturation above 90%. VAP bundle. Daily ABG and CXR while intubated Sedate for ventilator synchrony - on Versed, Propofol, Fentanyl Obtain STAT ABG. Continue bronchodilators. Continue antibiotics. Follow up cultures. Pressors for hemodynamic support Titrate to keep mean arterial pressure greater than 65 mmHg. Monitor hemoglobin Transfuse if less than 7.0 g/dL. Follow up Cardiology recommendations Follow up GI recommendations. On Sandostatin drip + Protonix 40 mg IVP BID Monitor renal function Monitor electrolytes. Supplement as necessary. Monitor ins and outs. GI prophylaxis. DVT prophylaxis. Prognosis: Poor given patient's multiple co-morbidities. Condition: Critical Rest of plan per hospitalist and other consultants. A total of 35 minutes of critical care time was spent reviewing the patient record, examining the patient, making a diagnostic and therapeutic plan, discussing this plan with the medical personnel, following up on diagnostic studies and following the patient for clinical stability excluding any and all procedures. At least 50% of this time was spent in direct, [id number] contact. Thank you, SHERYL Del Castillo, for allowing me to participate in this patient's care. Further recommendations will depend on the patient's clinical course. Please do not hesitate to contact me if you have any questions or concerns. This medical document was created using an electronic medical record system with [address] dictation system. Although these documentations are being carefully reviewed, there may still be some phonetic and typographical changes. The errors are purely typographical, due to imperfection on the software program, and do not reflect any compromise in the patient's medical care. Plan discussed with: Other (MADDY Pappas) My Orders Orders - KARL CORONADO MD Procedure Category Date Status Time Abg W/ Co-Ox RT 08/04/25 Logged 05:11 Visit Coding Pulmonary Billing Provider: KARL CORONADO MD Date of Service if different f: Aug 04, 2025 Common Visit Codes: [id number] INP/OBS CARE(HIGH), 03011-[id number] CARE 30-74 MIN KARL CORONADO MD Aug 04, 2025 23:54
[2025-08-05] VITALS (109 sets, daily range): BP systolic 88–120; BP diastolic 54–77; PULSE 73–92; RESP 11–24; TEMP 97.3–99.7; O2SAT 96–100
[2025-08-05 07:24] LABS: Base Excess -0.1 mmol/L (-2.0-3.0)
[2025-08-05] MEDS: FUROSEMIDE 40 MG/4 ML VIAL IV SCH (11:17)
[2025-08-05 11:39] LABS: Hematocrit 29.4 % (41.0-53.0); Hemoglobin 9.5 g/dL (13.5-17.5); Mean Corpuscular Hemoglobin 28.8 pg (28.0-32.0); Mean Corpuscular Volume 89.5 fL (80.0-100.0); Nucleated Red Blood Cells % 0.3 %
[2025-08-05 11:48] LABS: Chloride 112 mmol/L (98-107); Potassium 3.4 mmol/L (3.5-5.1); Sodium 149 mmol/L (136-145)
[2025-08-05 11:50] LABS: Calcium 7.2 mg/dL (8.7-10.4)
[2025-08-05 11:53] LABS: BUN/Creatinine Ratio 18.4 (10.0-20.0); Blood Urea Nitrogen 16 mg/dL (9-23); Glucose 94 mg/dL (74-106)
[2025-08-05 11:59] LABS: Anion Gap 12 (5-15); Carbon Dioxide 25 mmol/L (20-31)
[2025-08-05] MEDS: VANCOMYCIN 1GM/250ML KIT 250 ML IV SCH (13:00)
[2025-08-05 13:27] LABS: Free T4 (Free Thyroxine) 0.84 ng/dL (0.89-1.76)
[2025-08-05 13:29] LABS: Free T3 1.68 pg/mL (2.3-4.2)
--- NOTE | 2025-08-05 14:49 | DVHPN2 ---
Consult Progress Note Date Seen: Aug 05, 2025 Subjective Other Systems: No overnight cardiac events reported Objective vital signs Vital Sign Date Time Temp Pulse Resp B/P (MAP) Pulse Ox O2 Delivery O2 Flow Rate FiO2 08/05/25 12:44 85 08/05/25 12:30 18 102/66 (78) 100 08/05/25 12:24 30 08/05/25 12:00 Mechanical Ventilator+ 08/05/25 12:00 98.8 98.8 Total Intake and Output 08/04/25 08/04/25 08/05/25 15:00 23:00 07:00 Intake Total 1382.316 ml 312.790 ml 496.264 ml Output Total 3500 ml 450 ml Balance 1382.316 ml -3187.210 ml 46.264 ml medications Current Medications Medications Dose Ordered Sig/Mustapha Route Start Time Stop Time Status Last Admin Dose Admin Sodium Chloride 10 ml Q8HR IV 08/02/25 22:00 08/05/25 14:26 Acetaminophen 650 mg Q6HP PRN PO 08/02/25 21:45 Midazolam HCl 100 ml @ 1 mls/hr Q24H IV 08/02/25 23:15 08/05/25 02:55 Piperacillin Sod/ Tazobactam Sod 100 ml @ 25 mls/hr Q8HR IV 08/03/25 06:00 08/05/25 14:26 Vancomycin HCl 0 ml @ 0 mls/hr PER PHARMACY IV 08/03/25 02:00 Propofol 100 ml @ 2.886 mls/ hr Q24H IV 08/03/25 02:30 08/05/25 06:27 Fentanyl Citrate 250 ml @ 2.5 mls/hr Q24H IV 08/03/25 04:00 08/04/25 20:41 Docusate Sodium 100 mg BID PRN GT 08/04/25 11:30 Furosemide 20 mg DAILY IV 08/05/25 10:00 08/05/25 11:17 Mupirocin 1 applic BID EACHNOSTRI 08/04/25 22:00 08/09/25 21:59 08/05/25 10:00 Pantoprazole Sodium 50 ml @ 10 mls/hr Q5H IV 08/04/25 18:45 08/05/25 11:15 Vancomycin HCl 250 ml @ 250 mls/hr Q8H IV 08/05/25 13:00 08/05/25 13:00 Dextrose 1,000 ml @ 60 mls/hr [id number] IV 08/05/25 13:45 Examination: GENERAL:Abnormal, LUNGS:Abnormal (Endotracheally intubated 30% FiO2), CVS:Normal (NSR. Off vasopressors), NEURO:Abnormal (Chemically sedated) laboratory and microbiology Laboratory Tests 08/05/25 10:50 Test 08/05/25 10:50 Range/Units Serum Glucose 94 74-106 mg/dL Problem List/Assessment/Plan Problem List/Assessment/Plan Sepsis with associated lower extremity cellulitis D novel decompensated HFpEF, NYHA Class III Mitral valve regurgitation, moderate degree Acute on chronic hypoxic respiratory failure Severe anemia status post multiple PRBCs transfusions Gastrointestinal hemorrhage Dyslipidemia, newly diagnosed Polysubstance abuse Plan/Recommendation (Dr. Doe) A transthoracic echocardiogram revealed revealed LVEF 50% with mild LVH and mild LV diastolic dysfunction, moderately dilated RV and RA, study revealed RV failure, moderate degree of mitral regurgitation. [place] criteria is positive for the diagnosis of heart failure. Continue preload reduction as tolerated strict I&Os, daily weight, and fluid restrictions. Replete electrolytes as necessary. Initiate lipid-lowering agent. Continue to monitor hemoglobin and hematocrit closely and transfuse as needed. Continue GI recommendations. Antibiotics per primary care team. Not a candidate for invasive cardiac ischemic workup. Kindly call if in need of further recommendations. Thank you for allowing us to care for this patient. Critical care time spent: 30 minutes. This medical document was created using an electronic medical record system with voice recognition software and computerized dictation system. Although this document has been carefully reviewed, there might still be some phonetic and typographical errors. Occasional wrong-word or ``sound-alike substitutions may have occurred due to the inherent limitations of voice recognition software. These areas are purely typographical due to imperfections of the software programs and do not reflect any compromise in the patient's medical care. Please read the chart carefully and recognize, using context, where these substitutions have occurred. Plan discussed with: Other CC Plasma Assessment Blood Product Administration S: 08:00 Date of Service: Aug 05, 2025 Billing Provider: PÉREZ SANDHU Cardiology Common Codes: 99373-[id number] CARE 30-74 MIN PÉREZ SANDHU Aug 05, 2025 14:49
[2025-08-05] MEDS: POTASSIUM CHL 20MEQ/100ML 100 ML IV ONE (15:31)
[2025-08-05] MEDS: D5W 5% 1,000 ML IV SCH (15:34)
--- NOTE | 2025-08-05 16:00 | DVHPN2 ---
Progress Note Date Seen: Aug 05, 2025 Resident Creating Document: DANIELITO SUAREZ RESIDENT Medical Necessity Reason Pt with a Central, PICC or Fol: No Subjective Review of Systems Patient seen and examined at bedside Sedated and on mechanical ventilation H&H improved after transfusion yesterday, a total of 5 PRBC transfusions have been given Objective vital signs Vital Sign Date Time Temp Pulse Resp B/P (MAP) Pulse Ox O2 Delivery O2 Flow Rate FiO2 08/05/25 14:22 86 18 102/71 (81) 98 30 08/05/25 12:00 Mechanical Ventilator+ 08/05/25 12:00 98.8 98.8 Total Intake and Output 08/04/25 08/04/25 08/05/25 14:59 22:59 06:59 Intake Total 1426.316 ml 273.632 ml 508.264 ml Output Total 3500 ml 450 ml Balance 1426.316 ml -3226.368 ml 58.264 ml medications Current Medications Medications Dose Ordered Sig/Mustapha Route Start Time Stop Time Status Last Admin Dose Admin Sodium Chloride 10 ml Q8HR IV 08/02/25 22:00 08/05/25 14:26 10 ML Acetaminophen 650 mg Q6HP PRN PO 08/02/25 21:45 Midazolam HCl 100 ml @ 1 mls/hr Q24H IV 08/02/25 23:15 08/05/25 02:55 7 MLS/HR Piperacillin Sod/ Tazobactam Sod 100 ml @ 25 mls/hr Q8HR IV 08/03/25 06:00 08/05/25 14:26 25 MLS/HR Vancomycin HCl 0 ml @ 0 mls/hr PER PHARMACY IV 08/03/25 02:00 Propofol 100 ml @ 2.886 mls/ hr Q24H IV 08/03/25 02:30 08/05/25 06:27 8.658 MLS/HR Fentanyl Citrate 250 ml @ 2.5 mls/hr Q24H IV 08/03/25 04:00 08/04/25 20:41 12.5 MLS/HR Docusate Sodium 100 mg BID PRN GT 08/04/25 11:30 Mupirocin 1 applic BID EACHNOSTRI 08/04/25 22:00 08/09/25 21:59 08/05/25 10:00 1 APPLIC Pantoprazole Sodium 50 ml @ 10 mls/hr Q5H IV 08/04/25 18:45 08/05/25 11:15 10 MLS/HR Vancomycin HCl 250 ml @ 250 mls/hr Q8H IV 08/05/25 13:00 08/05/25 13:00 250 MLS/HR Dextrose 1,000 ml @ 60 mls/hr [id number] IV 08/05/25 13:45 Examination Gen - mild conjunctival pallor, no scleral icterus Skin - Patients skin is warm and dry. HEENT - normocephalic, atraumatic, dry mucous membranes. Neck - supple, no lymphadenopathy Pulmonary - B/L equal breath sounds cardiovascular - regular S1,S2 heard GI - soft abdomen. Bowel sounds normoactive. Neurological - Patient is sedated and on mechanical ventilation laboratory and microbiology Laboratory Tests 08/05/25 10:50 Test 08/05/25 10:50 Range/Units Serum Glucose 94 74-106 mg/dL Microbiology Date/Time Source Procedure Growth Status 08/04/25 06:15 Nose MRSA Screen - Final Methicillin Resistant S.aureus Complete 08/03/25 00:55 Blood Blood Culture - Preliminary NO GROWTH AFTER 48 HOURS OF INCUBATION. Resulted 08/02/25 23:50 Sputum Endotracheal Wash Gram Stain - Final Resulted 08/02/25 23:50 Respiratory Culture - Preliminary Methicillin Resistant S.aureus Resulted Problem List/Assessment/Plan Problem List/Assessment/Plan Coffee-ground emesis Melena Severe anemia likely from GI bleed Possible peptic ulcer disease Possible appendicitis Colonic diverticulosis Containing Umbilical hernia and left inguinal hernia MRSA pneumonia History of COPD Polysubstance use Hypernatremia ? Euthyroid sick syndrome Plan - continue on Protonix drip - monitor H&H and keep hemoglobin above 7 and transfuse PRBC as needed - keep NPO - we will plan EGD later this week likely on Tuesday when the patient is hemodynamically stable Rest of the management as per the primary team Plan discussed with Dr. Alicia Plan discussed with: Other (MADDY Chaudhari) CC Plasma Assessment Blood Product Administration S: 08:00 DANIELITO SUAREZ RESIDENT Aug 05, 2025 16:00
[2025-08-05] MEDS: FUROSEMIDE 20 MG/2 ML VIAL IV ONE (16:18)
[2025-08-05] MEDS: D5W/SOD CHL 0.45% 1,000 ML IV SCH (16:55)
--- NOTE | 2025-08-05 19:12 | DVHPNRES ---
Progress Note Date Seen: Aug 05, 2025 Resident Creating Document: LEANNA GONZALEZ RESIDENT Medical Necessity Reason Pt with a Central, PICC or Fol: No Subjective Review of Systems Patient is a 55-year-old male with past medical history of cellulitis, testicular cancer, history of hernia, recurrent pneumonia, diastolic CHF presented to the ED with neighbor who brought him after he found him unconscious covered in black vomitus, stool everywhere. Patient was recently hospitalized for cellulitis and left AMA. Patient lives in a trailer, he was combative in the ED, unstable and was intubated on 08/03. According to father patient had recent hernia repair which was unsuccessful, patient also had multiple surgeries on shoulder, knee. Surgical history: Multiple surgeries on shoulder, knee, hernia repair Family history: Reviewed, noncontributory Personal history: Patient lives alone in a trailer, as per father denied smoking, alcohol use but used oxycodone after surgeries Patient seen in the ED. Patient is intubated, sedated, on no pressors, on propofol, Versed, fentanyl, Protonix drip. GI is consulted, possible EGD on Tuesday, lengthy discussion was made with father regarding patient's condition, and prognosis. Ordered hepatitis panel, ammonia. Objective vital signs Vital Sign Date Time Temp Pulse Resp B/P (MAP) Pulse Ox O2 Delivery O2 Flow Rate FiO2 08/05/25 17:30 86 19 120/77 (91) 99 08/05/25 16:05 30 08/05/25 16:00 98.5 98.5 08/05/25 16:00 Mechanical Ventilator+ Total Intake and Output 08/04/25 08/04/25 08/05/25 15:00 23:00 07:00 Intake Total 1382.316 ml 312.790 ml 531.264 ml Output Total 3500 ml 450 ml Balance 1382.316 ml -3187.210 ml 81.264 ml medications Current Medications Medications Dose Ordered Sig/Mustapha Route Start Time Stop Time Status Last Admin Dose Admin Sodium Chloride 10 ml Q8HR IV 08/02/25 22:00 08/05/25 14:26 10 ML Acetaminophen 650 mg Q6HP PRN PO 08/02/25 21:45 Midazolam HCl 100 ml @ 1 mls/hr Q24H IV 08/02/25 23:15 08/05/25 02:55 7 MLS/HR Piperacillin Sod/ Tazobactam Sod 100 ml @ 25 mls/hr Q8HR IV 08/03/25 06:00 08/05/25 14:26 25 MLS/HR Vancomycin HCl 0 ml @ 0 mls/hr PER PHARMACY IV 08/03/25 02:00 Propofol 100 ml @ 2.886 mls/ hr Q24H IV 08/03/25 02:30 08/05/25 16:54 8.658 MLS/HR Fentanyl Citrate 250 ml @ 2.5 mls/hr Q24H IV 08/03/25 04:00 08/05/25 16:12 2.5 MLS/HR Docusate Sodium 100 mg BID PRN GT 08/04/25 11:30 Mupirocin 1 applic BID EACHNOSTRI 08/04/25 22:00 08/09/25 21:59 08/05/25 10:00 1 APPLIC Pantoprazole Sodium 50 ml @ 10 mls/hr Q5H IV 08/04/25 18:45 08/05/25 16:15 10 MLS/HR Vancomycin HCl 250 ml @ 250 mls/hr Q8H IV 08/05/25 13:00 08/05/25 13:00 250 MLS/HR Atorvastatin Calcium 20 mg HS GT 08/05/25 22:00 Furosemide 20 mg DAILY IV 08/06/25 10:00 Dextrose/Sodium Chloride 1,000 ml @ 60 mls/hr [id number] IV 08/05/25 16:45 08/05/25 16:55 60 MLS/HR Examination General: Intubated, sedated HEENT: Normocephalic, atraumatic, moist mucous membranes Respiratory/pulmonary: Clear lungs bilaterally, vesicular murmurs present in almost all lung farr, no associated crackles or wheezes. Cardiovascular: Normal heart sounds S1 and S2 with no associated murmurs Abdomen: Abdomen nondistended, there is no pain to palpation in any of the abdominal quadrants, no palpable masses. Surgical scar Extremities: Bilateral pitting edema Peripheral Pulses: 3+ Radial (R). 3+ Radial (L). 3+ Dorsalis pedis (R). 3+ Dorsalis pedis(L) Skin: Bilateral lower extremity cellulitis, wound on left lower medial side. Neurological: Right eye blind, left eye 2+ and sluggish, gag and cough reflex present laboratory and microbiology Laboratory Tests 08/05/25 10:50 Test 08/05/25 10:50 Range/Units Serum Glucose 94 74-106 mg/dL Microbiology Date/Time Source Procedure Growth Status 08/04/25 06:15 Nose MRSA Screen - Final Methicillin Resistant S.aureus Complete 08/03/25 00:55 Blood Blood Culture - Preliminary NO GROWTH AFTER 48 HOURS OF INCUBATION. Resulted 08/02/25 23:50 Sputum Endotracheal Wash Gram Stain - Final Resulted 08/02/25 23:50 Respiratory Culture - Preliminary Methicillin Resistant S.aureus Resulted Problem List/Assessment/Plan Problem List/Assessment/Plan Neurology Acute metabolic encephalopathy likely due to sepsis - intubated, sedated Cardiology Acute decompensated HFpEF, NYHA Class III. Mitral valve regurgitation, moderate degree. Dyslipidemia - Echo showed EF of 50% with mild diastolic dysfunction, mild LVH, RVSP of 36 - Lasix 20 - Atorvastatin 20mg Respiratory Sepsis likely due to MRSA pneumonia Acute hypoxic respiratory failure MRSA pneumonia History of COPD -ventilator setting: AC mode, RR 18, TV 450, FiO2 30, peep 5 -MRSA positive in nares, sputum -IV vancomycin, Zosyn -blood, urine culture ordered GI upper GI bleed Sepsis likely from possible appendicitis Possible peptic ulcer disease Possible appendicitis Colonic diverticulosis Containing Umbilical hernia and left inguinal hernia - IV fluid - Protonix drip - GI consulted - possible EGD Planned on Tuesday - hepatitis panel ordered - ammonia ordered - CT abdomen is pelvis showed possible appendicitis, Colonic diverticulosis without acute diverticulitis. - Total of 5 PRBC given - monitor H&H - transfuse if hemoglobin less than 7 Renal/electrolytes Hypokalemia Hypernatremia Hypermagnesemia - monitor labs - replete potassium as needed Hematology Normocytic normochromic anemia Acute blood loss anemia due to upper GI bleed, hematemesis -GI on board -monitor H&H -transfuse if hemoglobin less than 7 -NPO Endocrine Hypothyroidism SKin/MSK Lower extremity cellulitis -IV vancomycin, Zosyn - wound consult Polysubstance abuse History of testicular cancer Lines / Tubes / Devices Airway: Intubated via ETT on 08/03 Vascular Access: Femoral line 08/03 Drips: Versed, Protonix, fentanyl, propofol Prophylaxis / Supportive Care DVT Prophylaxis: SCD GI Prophylaxis: Protonix Goals of care discussed with the patient family for more than 29 minutes: Full code state Patient care updated to father , addressed all concerns. Critical care time spent excluding procedures 81 minutes Plan discussed with Dr. Metz and RN Plan discussed with: Other (Father) My Orders My Orders Orders - LEANNA GONZALEZ Procedure Category Date Status Time Urine Bacterial JACQUELINE 08/05/25 Logged Culture 09:53 Ventilator Orders RT 08/05/25 Transmitted 12:00 D5w/Sod Chl 0.45% PHA 08/05/25 In Process (D5w 1/2ns) 16:45 Comprehensive LAB 08/05/25 In Process Hepatitis Panel 16:32 Ammonia LAB 08/05/25 In Process 16:32 CC Plasma Assessment Blood Product Administration S: 08:00 Date of Service: Aug 05, 2025 Billing Provider: SONIA METZ MD Common Visit Codes: 24430-UPYIFECQ CARE 30-74 MIN, 11815-[id number] CARE-EACH +30MIN LEANNA GONZALEZ Aug 05, 2025 19:12 SONIA METZ MD Aug 11, 2025 16:18
[2025-08-05] MEDS: ATORVASTATIN 20 MG TAB GT SCH (21:11)
[2025-08-06] VITALS (101 sets, daily range): BP systolic 80–126; BP diastolic 42–79; PULSE 68–92; RESP 15–43; TEMP 97.9–99.3; O2SAT 93–100
--- NOTE | 2025-08-06 00:20 | DVH ---
CHEST RADIOGRAPH Indication: on vent Technique: Single frontal view of the chest was obtained COMPARISON: XY CHEST PORTABLE on DOS: 08/04/25, XY CHEST PORTABLE on DOS: 08/03/25, XY CHEST PORTABLE o n DOS: 08/02/25, XY CHEST PORTABLE on DOS: 08/02/25 FINDINGS: Lines and Tubes: Slight interval advancement of endotracheal tube such that the tip now projects appr oximately 3.1 cm above the level of the demarco. Enteric catheter unchanged. Lungs: Clear Pleura: No effusion. No pneumothorax. Cardiomediastinal contours: Unremarkable Bones: Unremarkable IMPRESSION: 1. Interval advancement of endotracheal tube such that the tip now projects approximately 3.1 cm abov e the level of the demarco. Enteric catheter unchanged. 2. No evidence of acute cardiopulmonary process.
--- NOTE | 2025-08-06 00:31 | DVHPN2 ---
Consult Progress Note Date Seen: Aug 05, 2025 Subjective Other Systems: Patient was seen and evaluated in follow up in the ICU. Patient is intubated and sedated on ventilator. 30% FiO2. HGB 9.5, HCT 29.4, NA 149, K 3.4, CA 7.2. Serology panel is pending. MRSA is positive. Chest x-ray shows NAD. Objective vital signs Vital Sign Date Time Temp Pulse Resp B/P (MAP) Pulse Ox O2 Delivery O2 Flow Rate FiO2 08/05/25 22:45 80 15 103/70 (81) 100 08/05/25 22:27 30 08/05/25 22:00 Mechanical Ventilator+ 08/05/25 20:00 99.7 99.7 Total Intake and Output 08/05/25 08/05/25 08/06/25 15:00 23:00 07:00 Intake Total 629.264 ml 419.242 ml Output Total 2000 ml Balance 629.264 ml -1580.758 ml medications Current Medications Medications Dose Ordered Sig/Mustapha Route Start Time Stop Time Status Last Admin Dose Admin Sodium Chloride 10 ml Q8HR IV 08/02/25 22:00 08/05/25 21:11 10 ML Acetaminophen 650 mg Q6HP PRN PO 08/02/25 21:45 Midazolam HCl 100 ml @ 1 mls/hr Q24H IV 08/02/25 23:15 08/05/25 02:55 7 MLS/HR Piperacillin Sod/ Tazobactam Sod 100 ml @ 25 mls/hr Q8HR IV 08/03/25 06:00 08/05/25 21:11 25 MLS/HR Vancomycin HCl 0 ml @ 0 mls/hr PER PHARMACY IV 08/03/25 02:00 Propofol 100 ml @ 2.886 mls/ hr Q24H IV 08/03/25 02:30 08/05/25 20:53 17.316 MLS/HR Fentanyl Citrate 250 ml @ 2.5 mls/hr Q24H IV 08/03/25 04:00 08/05/25 16:12 2.5 MLS/HR Docusate Sodium 100 mg BID PRN GT 08/04/25 11:30 Mupirocin 1 applic BID EACHNOSTRI 08/04/25 22:00 08/09/25 21:59 08/05/25 21:11 1 APPLIC Pantoprazole Sodium 50 ml @ 10 mls/hr Q5H IV 08/04/25 18:45 08/05/25 21:42 10 MLS/HR Vancomycin HCl 250 ml @ 250 mls/hr Q8H IV 08/05/25 13:00 08/05/25 20:56 250 MLS/HR Atorvastatin Calcium 20 mg HS GT 08/05/25 22:00 08/05/25 21:11 20 MG Furosemide 20 mg DAILY IV 08/06/25 10:00 Dextrose/Sodium Chloride 1,000 ml @ 60 mls/hr [id number] IV 08/05/25 16:45 08/05/25 16:55 60 MLS/HR Examination: GENERAL:Abnormal, HEENT:Normal, NECK:Normal, LUNGS:Abnormal (Endotracheally intubated 30% FiO2), CVS:Normal (SR. Off vasopressors), ABDOMEN:Normal, MSK:Normal, NEURO:Abnormal (Chemically sedated) laboratory and microbiology Laboratory Tests 08/05/25 10:50 Test 08/05/25 10:50 Range/Units Serum Glucose 94 74-106 mg/dL Problem List/Assessment/Plan Problem List/Assessment/Plan Sepsis with associated lower extremity cellulitis. D novel decompensated HFpEF, NYHA Class III. Mitral valve regurgitation, moderate degree. Acute on chronic hypoxic respiratory failure. Severe anemia status post multiple PRBCs transfusions. Gastrointestinal hemorrhage. Dyslipidemia, newly diagnosed. Polysubstance abuse. Plan/Recommendation Continued all current supportive medical care. Patient has been seen by Tatianna Agudelo NP on my behalf. We have discussed the plan with the patient. A transthoracic echocardiogram revealed revealed LVEF 50% with mild LVH and mild LV diastolic dysfunction, moderately dilated RV and RA, study revealed RV failure, moderate degree of mitral regurgitation. [place] criteria is positive for the diagnosis of heart failure. Continue preload reduction as tolerated strict I&Os, daily weight, and fluid restrictions. Replete electrolytes as necessary. Initiate lipid-lowering agent. Continue to monitor hemoglobin and hematocrit closely and transfuse as needed. Continue GI recommendations. Antibiotics per primary care team. Not a candidate for invasive cardiac ischemic workup. Additional plan as per the hospital course. Plan discussed with: Other CC Plasma Assessment Blood Product Administration S: 08:00 Date of Service: Aug 05, 2025 Billing Provider: ADAM MELO MD Cardiology Common Codes: 69747-[facility] ADAM MELO MD Aug 06, 2025 00:31
[2025-08-06 04:47] LABS: Hematocrit 27.7 % (41.0-53.0); Hemoglobin 9.0 g/dL (13.5-17.5); Mean Corpuscular Hemoglobin 28.2 pg (28.0-32.0); Mean Corpuscular Volume 86.1 fL (80.0-100.0); Nucleated Red Blood Cells % 0.1 %
[2025-08-06 04:59] LABS: Alanine Aminotransferase 25 U/L (7-40); Alkaline Phosphatase 74 U/L (46-116); Anion Gap 7 (5-15); BUN/Creatinine Ratio 22.2 (10.0-20.0); Bilirubin, Total 0.7 mg/dL (0.2-1.0); Blood Urea Nitrogen 16 mg/dL (9-23); Carbon Dioxide 27 mmol/L (20-31); Magnesium 2.6 mg/dL (1.6-2.6); Sodium 144 mmol/L (136-145)
[2025-08-06 05:59] LABS: Albumin 2.9 g/dL (3.2-4.8); Calcium 7.7 mg/dL (8.7-10.4); Chloride 110 mmol/L (98-107); Glucose 120 mg/dL (74-106); Potassium 3.2 mmol/L (3.5-5.1); Total Protein 5.5 g/dL (5.7-8.2)
[2025-08-06 07:14] LABS: Base Excess 2.9 mmol/L (-2.0-3.0)
--- NOTE | 2025-08-06 07:57 | DVH ---
Bilateral Upper Extremity Arterial Duplex Clinical History: PURPLE/ BLUE FINGER TIPS Comparison: US LT LOWER DVT on DOS: 07/19/25 Technique: Duplex Doppler evaluation including color Doppler and spectral/pulsed waveform analysis of the upper extremity arteries was performed. Findings: RIGHT: Peak systolic velocities are as follows: Subclavian 126 cm/s Axillary 50 cm/s Brachial 72 cm/s Prox Radial n/a cm/s Distal Radial 58 cm/s Prox Ulnar n/a cm/s Distal Ulnar 40 cm/s The waveforms are triphasic with diastolic flow. LEFT: Peak systolic velocities are as follows: Subclavian 89 cm/s Axillary 53 cm/s Brachial 74 cm/s Prox Radial n/a cm/s Distal Radial 58 cm/s Prox Ulnar n/a cm/s Distal Ulnar 38 cm/s The waveforms are triphasic with diastolic flow. IMPRESSION: No hemodynamically significant stenosis based on peak systolic velocity criteria. REFERENCE VALUES, [facility] ([facility]) vascular Imaging Lab Criteria: Peak systolic velocity ranges (in cm/sec) are as follows: <150 cm/s - <20 % stenosis 150-200 cm/s - 20-49% stenosis 200-300 cm/s - 50-75% stenosis >300 cm/s -> 75% stenosis
[2025-08-06] MEDS: POTASSIUM PHOSPHATE 44 MEQ in D5W 5% 250 ML IV ONE (09:00)
[2025-08-06] MEDS ORDERED: FUROSEMIDE 20 MG/2 ML VIAL IV SCH (10:00)
[2025-08-06] MEDS: NOREPINEPHRINE 8 MG/250ML KIT 250 ML IV SCH (13:00)
--- NOTE | 2025-08-06 16:42 | DVHPNRES ---
Progress Note Date Seen: Aug 06, 2025 Resident Creating Document: LEANNA GONZALEZ RESIDENT Medical Necessity Reason Pt with a Central, PICC or Fol: No Subjective Review of Systems Patient is a 55-year-old male with past medical history of cellulitis, testicular cancer, history of hernia, recurrent pneumonia, diastolic CHF presented to the ED with neighbor who brought him after he found him unconscious covered in black vomitus, stool everywhere. Patient was recently hospitalized for cellulitis and left AMA. Patient lives in a trailer, he was combative in the ED, unstable and was intubated on 08/03. According to father patient had recent hernia repair which was unsuccessful, patient also had multiple surgeries on shoulder, knee. Surgical history: Multiple surgeries on shoulder, knee, hernia repair Family history: Reviewed, noncontributory Personal history: Patient lives alone in a trailer, as per father denied smoking, alcohol use but used oxycodone after surgeries 08/05/25:Patient seen in the ED. Patient is intubated, sedated, on no pressors, on propofol, Versed, fentanyl, Protonix drip. GI is consulted, possible EGD on Tuesday, lengthy discussion was made with father regarding patient's condition, and prognosis. Ordered hepatitis panel, ammonia. 08/06/2024: Patient seen in the ED. Patient is intubated, sedated, is on no pressors, patient's hands turned blue, black in the morning patient has return of blood flow but still fingers are blue. Patient is having green thick secretion on suction. Patient is on Protonix drip, Versed, fentanyl, propofol. Possible EGD tomorrow. Objective vital signs Vital Sign Date Time Temp Pulse Resp B/P (MAP) Pulse Ox O2 Delivery O2 Flow Rate FiO2 08/06/25 16:30 89 18 102/70 (81) 100 08/06/25 16:00 98.8 98.8 08/06/25 16:00 30 08/06/25 16:00 Mechanical Ventilator+ Total Intake and Output 08/05/25 08/05/25 08/06/25 14:59 22:59 06:59 Intake Total 642.264 ml 1197.080 ml 1151.416 ml Output Total 2000 ml 375 ml Balance 642.264 ml -802.920 ml 776.416 ml medications Current Medications Medications Dose Ordered Sig/Mustapha Route Start Time Stop Time Status Last Admin Dose Admin Sodium Chloride 10 ml Q8HR IV 08/02/25 22:00 08/06/25 13:40 10 ML Acetaminophen 650 mg Q6HP PRN PO 08/02/25 21:45 Midazolam HCl 100 ml @ 1 mls/hr Q24H IV 08/02/25 23:15 08/06/25 10:52 7 MLS/HR Piperacillin Sod/ Tazobactam Sod 100 ml @ 25 mls/hr Q8HR IV 08/03/25 06:00 08/06/25 13:49 25 MLS/HR Vancomycin HCl 0 ml @ 0 mls/hr PER PHARMACY IV 08/03/25 02:00 Propofol 100 ml @ 2.886 mls/ hr Q24H IV 08/03/25 02:30 08/06/25 15:55 17.316 MLS/HR Fentanyl Citrate 250 ml @ 2.5 mls/hr Q24H IV 08/03/25 04:00 08/06/25 05:53 17.5 MLS/HR Docusate Sodium 100 mg BID PRN GT 08/04/25 11:30 Mupirocin 1 applic BID EACHNOSTRI 08/04/25 22:00 08/09/25 21:59 08/06/25 08:57 1 APPLIC Pantoprazole Sodium 50 ml @ 10 mls/hr Q5H IV 08/04/25 18:45 08/06/25 14:51 10 MLS/HR Vancomycin HCl 250 ml @ 250 mls/hr Q8H IV 08/05/25 13:00 08/06/25 12:37 250 MLS/HR Atorvastatin Calcium 20 mg HS GT 08/05/25 22:00 08/05/25 21:11 20 MG Dextrose/Sodium Chloride 1,000 ml @ 60 mls/hr [id number] IV 08/05/25 16:45 08/06/25 08:55 60 MLS/HR Norepinephrine Bitartrate 250 ml @ 3.75 mls/hr Q24H IV 08/06/25 13:00 Examination General: Intubated, sedated HEENT: Normocephalic, atraumatic, moist mucous membranes Respiratory/pulmonary: Clear lungs bilaterally, vesicular murmurs present in almost all lung farr, no associated crackles or wheezes. Cardiovascular: Normal heart sounds S1 and S2 with no associated murmurs Abdomen: Abdomen nondistended, there is no pain to palpation in any of the abdominal quadrants, no palpable masses. Surgical scar Extremities: Bilateral pitting edema Peripheral Pulses: 3+ Radial (R). 3+ Radial (L). 3+ Dorsalis pedis (R). 3+ Dorsalis pedis(L) Skin: Bilateral lower extremity cellulitis, wound on left lower medial side. Neurological: Right eye blind, left eye 2+ and sluggish, gag and cough reflex present laboratory and microbiology Laboratory Tests 08/06/25 11:54 08/06/25 03:54 Test 08/06/25 03:54 Range/Units Serum Glucose 120 H 74-106 mg/dL Microbiology Date/Time Source Procedure Growth Status 08/05/25 10:00 Blood Blood Culture - Preliminary NO GROWTH AFTER 24 HOURS OF INCUBATION. Resulted 08/04/25 06:15 Nose MRSA Screen - Final Methicillin Resistant S.aureus Complete 08/02/25 23:50 Sputum Endotracheal Wash Gram Stain - Final Resulted 08/02/25 23:50 Respiratory Culture - Preliminary Methicillin Resistant S.aureus Resulted Problem List/Assessment/Plan Problem List/Assessment/Plan Neurology Acute metabolic encephalopathy likely due to sepsis - intubated, sedated Cardiology Acute decompensated HFpEF, NYHA Class III. Mitral valve regurgitation, moderate degree. Dyslipidemia - Echo showed EF of 50% with mild diastolic dysfunction, mild LVH, RVSP of 36 - Lasix 20 - Atorvastatin 20mg Respiratory Sepsis likely due to MRSA pneumonia Acute hypoxic respiratory failure MRSA pneumonia History of COPD -ventilator setting: AC mode, RR 18, TV 450, FiO2 30, peep 5 -MRSA positive in nares, sputum -IV vancomycin, Zosyn -blood, urine culture ordered GI upper GI bleed Sepsis likely from possible appendicitis Possible peptic ulcer disease Possible appendicitis Colonic diverticulosis Containing Umbilical hernia and left inguinal hernia - IV fluid - Protonix drip - GI consulted - possible EGD Planned on Tuesday - hepatitis panel ordered - ammonia ordered - CT abdomen is pelvis showed possible appendicitis, Colonic diverticulosis without acute diverticulitis. - Total of 5 PRBC given - monitor H&H - transfuse if hemoglobin less than 7 Renal/electrolytes Hypokalemia Hypernatremia Hypermagnesemia - monitor labs - replete potassium as needed Hematology Normocytic normochromic anemia Acute blood loss anemia due to upper GI bleed, hematemesis -GI on board -monitor H&H -transfuse if hemoglobin less than 7 -NPO Endocrine Hypothyroidism SKin/MSK Lower extremity cellulitis -IV vancomycin, Zosyn - wound consult Polysubstance abuse History of testicular cancer Lines / Tubes / Devices Airway: Intubated via ETT on 08/03 Vascular Access: Femoral line 08/03 Drips: Versed, Protonix, fentanyl, propofol Prophylaxis / Supportive Care DVT Prophylaxis: SCD GI Prophylaxis: Protonix Goals of care discussed with the patient family for more than 29 minutes: Full code state Patient care updated to father , addressed all concerns. Critical care time spent excluding procedures 82 minutes Plan discussed with Dr. Metz and RN Plan discussed with: Other (father) My Orders My Orders Orders - LEANNA GONZALEZ Procedure Category Date Status Time Abg W/ Co-Ox RT 08/06/25 Logged 04:00 Chest Xray 1 View XY 08/06/25 Resulted 04:00 * Wound Consult CONS 08/06/25 Transmitted CC Plasma Assessment Blood Product Administration S: 08:00 Date of Service: Aug 06, 2025 Billing Provider: SONIA METZ MD Common Visit Codes: 23275-[id number] CARE 30-74 MIN, [id number] CARE-EACH +30MIN LEANNA GONZALEZ Aug 06, 2025 16:42 SONIA METZ MD Aug 07, 2025 14:56
[2025-08-06] MEDS: SODIUM CHLORIDE 0.9% 250 ML IV ONE (17:08)
--- NOTE | 2025-08-06 17:42 | DVHPN2 ---
Progress Note Date Seen: Aug 06, 2025 Resident Creating Document: DANIELITO SUAREZ RESIDENT Medical Necessity Reason Pt with a Central, PICC or Fol: Yes The following are medically ne: Central Line, Otoole Catheter Subjective Review of Systems Patient seen and examined at the bedside H&H dropped slightly but no signs of active bleeding No vasopressors Minimal vent settings No bowel movement reported Objective vital signs Vital Sign Date Time Temp Pulse Resp B/P (MAP) Pulse Ox O2 Delivery O2 Flow Rate FiO2 08/06/25 17:30 88 18 102/66 (78) 100 08/06/25 16:00 98.8 98.8 08/06/25 16:00 30 08/06/25 16:00 Mechanical Ventilator+ Total Intake and Output 08/05/25 08/05/25 08/06/25 15:00 23:00 07:00 Intake Total 629.264 ml 1284.722 ml 1178.932 ml Output Total 2000 ml 375 ml Balance 629.264 ml -715.278 ml 803.932 ml medications Current Medications Medications Dose Ordered Sig/Mustapha Route Start Time Stop Time Status Last Admin Dose Admin Sodium Chloride 10 ml Q8HR IV 08/02/25 22:00 08/06/25 13:40 10 ML Acetaminophen 650 mg Q6HP PRN PO 08/02/25 21:45 Midazolam HCl 100 ml @ 1 mls/hr Q24H IV 08/02/25 23:15 08/06/25 10:52 7 MLS/HR Piperacillin Sod/ Tazobactam Sod 100 ml @ 25 mls/hr Q8HR IV 08/03/25 06:00 08/06/25 13:49 25 MLS/HR Vancomycin HCl 0 ml @ 0 mls/hr PER PHARMACY IV 08/03/25 02:00 Propofol 100 ml @ 2.886 mls/ hr Q24H IV 08/03/25 02:30 08/06/25 15:55 17.316 MLS/HR Fentanyl Citrate 250 ml @ 2.5 mls/hr Q24H IV 08/03/25 04:00 08/06/25 17:08 20 MLS/HR Docusate Sodium 100 mg BID PRN GT 08/04/25 11:30 Mupirocin 1 applic BID EACHNOSTRI 08/04/25 22:00 08/09/25 21:59 08/06/25 08:57 1 APPLIC Pantoprazole Sodium 50 ml @ 10 mls/hr Q5H IV 08/04/25 18:45 08/06/25 14:51 10 MLS/HR Vancomycin HCl 250 ml @ 250 mls/hr Q8H IV 08/05/25 13:00 08/06/25 12:37 250 MLS/HR Atorvastatin Calcium 20 mg HS GT 08/05/25 22:00 08/05/25 21:11 20 MG Dextrose/Sodium Chloride 1,000 ml @ 60 mls/hr [id number] IV 08/05/25 16:45 08/06/25 08:55 60 MLS/HR Norepinephrine Bitartrate 250 ml @ 3.75 mls/hr Q24H IV 08/06/25 13:00 Examination Gen - mild conjunctival pallor, no scleral icterus Skin - Patients skin is warm and dry. HEENT - normocephalic, atraumatic, dry mucous membranes. Neck - supple, no lymphadenopathy Pulmonary - B/L equal breath sounds cardiovascular - regular S1,S2 heard GI - soft abdomen. Bowel sounds normoactive. Neurological - Patient is sedated and on mechanical ventilation laboratory and microbiology Laboratory Tests 08/06/25 11:54 08/06/25 03:54 Test 08/06/25 03:54 Range/Units Serum Glucose 120 H 74-106 mg/dL Microbiology Date/Time Source Procedure Growth Status 08/05/25 10:00 Blood Blood Culture - Preliminary NO GROWTH AFTER 24 HOURS OF INCUBATION. Resulted 08/04/25 06:15 Nose MRSA Screen - Final Methicillin Resistant S.aureus Complete 08/02/25 23:50 Sputum Endotracheal Wash Gram Stain - Final Resulted 08/02/25 23:50 Respiratory Culture - Preliminary Methicillin Resistant S.aureus Resulted Problem List/Assessment/Plan Problem List/Assessment/Plan Coffee-ground emesis Melena Severe anemia likely from GI bleed Possible peptic ulcer disease Possible appendicitis Colonic diverticulosis Containing Umbilical hernia and left inguinal hernia MRSA pneumonia History of COPD Polysubstance use Hypernatremia ? Euthyroid sick syndrome Plan - continue on Protonix drip - monitor H&H and keep hemoglobin above 7 and transfuse PRBC as needed - keep NPO - EGD likely tomorrow Rest of the management as per the primary team Plan discussed with Dr. Alicia Plan discussed with: Other (RN Venus) CC Plasma Assessment Blood Product Administration S: 08:00 DANIELITO SUAERZ RESIDENT Aug 06, 2025 17:42
[2025-08-07] VITALS (95 sets, daily range): BP systolic 84–126; BP diastolic 51–77; PULSE 78–108; RESP 11–29; TEMP 93–100.4; O2SAT 93–100
--- NOTE | 2025-08-07 00:02 | DVHPN2 ---
Progress Note - Dictate Date Seen: Aug 06, 2025 Medical Necessity Reason Pt with a Central, PICC or Fol: Yes The following are medically ne: Central Line, Otoole Catheter Subjective Patient was seen and evaluated in follow up in the ICU. Patient is intubated and sedated on ventilator. 30% FiO2. WBC 14, HGB 9, HCT 27.7, K 3.2, CL 110, CA 7.7, AST 50. Chest x-ray is unchanged. vital signs Vital Sign Date Time Temp Pulse Resp B/P (MAP) Pulse Ox O2 Delivery O2 Flow Rate FiO2 08/06/25 19:00 88 20 105/62 (76) 100 08/06/25 18:00 Mechanical Ventilator+ 30 30 08/06/25 16:00 98.8 98.8 Total Intake and Output 08/05/25 08/05/25 08/06/25 15:00 23:00 07:00 Intake Total 629.264 ml 1284.722 ml 1178.932 ml Output Total 2000 ml 375 ml Balance 629.264 ml -715.278 ml 803.932 ml medications Current Medications Medications Dose Ordered Sig/Mustapha Route Start Time Stop Time Status Last Admin Dose Admin Sodium Chloride 10 ml Q8HR IV 08/02/25 22:00 08/06/25 13:40 10 ML Acetaminophen 650 mg Q6HP PRN PO 08/02/25 21:45 Midazolam HCl 100 ml @ 1 mls/hr Q24H IV 08/02/25 23:15 08/06/25 10:52 7 MLS/HR Piperacillin Sod/ Tazobactam Sod 100 ml @ 25 mls/hr Q8HR IV 08/03/25 06:00 08/06/25 13:49 25 MLS/HR Vancomycin HCl 0 ml @ 0 mls/hr PER PHARMACY IV 08/03/25 02:00 Propofol 100 ml @ 2.886 mls/ hr Q24H IV 08/03/25 02:30 08/06/25 15:55 17.316 MLS/HR Fentanyl Citrate 250 ml @ 2.5 mls/hr Q24H IV 08/03/25 04:00 08/06/25 17:08 20 MLS/HR Docusate Sodium 100 mg BID PRN GT 08/04/25 11:30 Mupirocin 1 applic BID EACHNOSTRI 08/04/25 22:00 08/09/25 21:59 08/06/25 08:57 1 APPLIC Pantoprazole Sodium 50 ml @ 10 mls/hr Q5H IV 08/04/25 18:45 08/06/25 14:51 10 MLS/HR Vancomycin HCl 250 ml @ 250 mls/hr Q8H IV 08/05/25 13:00 08/06/25 12:37 250 MLS/HR Atorvastatin Calcium 20 mg HS GT 08/05/25 22:00 08/05/25 21:11 20 MG Dextrose/Sodium Chloride 1,000 ml @ 60 mls/hr [id number] IV 08/05/25 16:45 08/06/25 08:55 60 MLS/HR Norepinephrine Bitartrate 250 ml @ 3.75 mls/hr Q24H IV 08/06/25 13:00 objective GENERAL: Ill appearing, intubated on ventilator. EYES: PERRL, EOMI. Anicteric. HENT: Moist mucous membranes. LUNGS: Decreased breath sounds. CARDIOVASCULAR: Regular rate and rhythm. ABDOMEN: Soft, nontender and nondistended. EXTREMITIES: 2+ BLE pitting edema. SKIN: Warm, dry. Bilateral lower extremity redness laboratory and microbiology Laboratory Tests 08/06/25 11:54 08/06/25 03:54 Test 08/06/25 03:54 Range/Units Serum Glucose 120 H 74-106 mg/dL Problem List Sepsis with associated lower extremity cellulitis. D novel decompensated HFpEF, NYHA Class III. Mitral valve regurgitation, moderate degree. Acute on chronic hypoxic respiratory failure. Severe anemia status post multiple PRBCs transfusions. Gastrointestinal hemorrhage. Dyslipidemia, newly diagnosed. Polysubstance abuse. Plan/Recommendation Continued all current supportive medical care. Patient has been seen by Tatianna Agudelo NP on my behalf. We have discussed the plan with the patient. A transthoracic echocardiogram revealed revealed LVEF 50% with mild LVH and mild LV diastolic dysfunction, moderately dilated RV and RA, study revealed RV failure, moderate degree of mitral regurgitation. [place] criteria is positive for the diagnosis of heart failure. Continue preload reduction as tolerated strict I&Os, daily weight, and fluid restrictions. Replete electrolytes as necessary. Initiate lipid-lowering agent. Continue to monitor hemoglobin and hematocrit closely and transfuse as needed. Continue GI recommendations. Antibiotics per primary care team. Not a candidate for invasive cardiac ischemic workup. Additional plan as per the hospital course. Assessment/Plan Continued all current supportive medical care. Morphine and [place] for pain management. Nitro SL. GI prophylactics. IV antibiotics as ordered. Additional plan as per the hospital course. Critical care time of 45 minutes provided to include time spent evaluation of patient at bedside, when appropriate patient/family education for diagnosis, treatment plan, review of pertinent medical information and discussion of care with specialty providers and PCP. Mechanical ventilator parameters, treatment and adjustments have personally been reviewed by me and treatment plan by outreach educator has also been reviewed. Plan discussed with: Other CC Plasma Assessment Blood Product Administration S: 08:00 ADAM MELO MD Aug 06, 2025 19:27
[2025-08-07 03:30] LABS: Hematocrit 28.1 % (41.0-53.0); Hemoglobin 9.1 g/dL (13.5-17.5); Mean Corpuscular Hemoglobin 28.2 pg (28.0-32.0); Mean Corpuscular Volume 86.8 fL (80.0-100.0); Nucleated Red Blood Cells % 0.1 %
[2025-08-07 03:53] LABS: Alanine Aminotransferase 23 U/L (7-40); Alkaline Phosphatase 78 U/L (46-116); Anion Gap 11 (5-15); BUN/Creatinine Ratio 16.9 (10.0-20.0); Blood Urea Nitrogen 12 mg/dL (9-23); Carbon Dioxide 26 mmol/L (20-31); Glucose 91 mg/dL (74-106); Sodium 144 mmol/L (136-145)
[2025-08-07 03:54] LABS: Bilirubin, Total 0.6 mg/dL (0.2-1.0)
[2025-08-07 03:57] LABS: Albumin 2.6 g/dL (3.2-4.8); Calcium 7.5 mg/dL (8.7-10.4); Chloride 107 mmol/L (98-107); Potassium 3.5 mmol/L (3.5-5.1); Total Protein 5.1 g/dL (5.7-8.2)
--- NOTE | 2025-08-07 04:51 | DVH ---
CHEST RADIOGRAPH Indication: on vent Technique: Single frontal view of the chest was obtained COMPARISON: XY CHEST XRAY 1 VIEW on DOS: 08/05/25, XY CHEST PORTABLE on DOS: 08/04/25, XY CHEST PORTABLE on DOS: 08/03/25, US ECHO 2D MODE CARDIAC DOP on DOS: 08/03/25, XY CHEST PORTABLE on DOS: 08/02/25 FINDINGS: Lines and Tubes: Slight interval retraction of endotracheal tube such that the tip now projects approximately 4.6 cm above level of the demarco. Enteric catheter unchanged. Lungs: Minimal left pleural effusion and minor left basilar pulmonary airspace disease. No pneumothorax. Cardiomediastinal contours: Unremarkable Bones: Unremarkable IMPRESSION: 1. Slight interval retraction of endotracheal tube such that the tip now projects approximately 4.6 cm above level of the demarco. Enteric catheter unchanged. 2. Minimal left pleural effusion and basilar pulmonary airspace disease.
[2025-08-07 06:18] LABS: Base Excess -0.2 mmol/L (-2.0-3.0)
[2025-08-07 10:35] LABS: INR 1.03 (0.9-1.15); Partial Thromboplastin Time 27.7 SEC (24.5-34.5); Prothrombin Time 10.9 sec (9.3-11.8)
[2025-08-07 11:08] LABS: Magnesium 2.3 mg/dL (1.6-2.6)
[2025-08-07 12:16] LABS: Hepatitis A Total Antibody Positive (Negative); Hepatitis B Surface Antigen Negative (Negative); Hepatitis C Antibody Negative (Negative)
[2025-08-07] MEDS ORDERED: EPINEPHrine HCL 1 MG/10 ML SYRG ONE (12:19)
[2025-08-07] MEDS ORDERED: SODIUM CHLORIDE LOCK 0 ML ONE (12:20)
[2025-08-07] MEDS ORDERED: MIDAZOLAM HCL 5 MG/ML-1ML VIAL ONE (12:20)
[2025-08-07] MEDS ORDERED: diphenhydrAMINE HCL 50 MG/1 ML VL ONE (12:20)
[2025-08-07] MEDS ORDERED: fentaNYL CITRATE 100 MCG/2 ML VL ONE (12:21)
[2025-08-07] MEDS: LIDOCAINE 1% (LOCAL ANESTH.) PF 5ml SDV ID ONE (12:40)
--- NOTE | 2025-08-07 13:17 | DVHPNRES ---
Progress Note Date Seen: Aug 07, 2025 Resident Creating Document: LEANNA GONZALEZ RESIDENT Medical Necessity Reason Pt with a Central, PICC or Fol: Yes The following are medically ne: Central Line, Otoole Catheter Subjective Review of Systems Patient is a 55-year-old male with past medical history of cellulitis, testicular cancer, history of hernia, recurrent pneumonia, diastolic CHF presented to the ED with neighbor who brought him after he found him unconscious covered in black vomitus, stool everywhere. Patient was recently hospitalized for cellulitis and left AMA. Patient lives in a trailer, he was combative in the ED, unstable and was intubated on 08/03. According to father patient had recent hernia repair which was unsuccessful, patient also had multiple surgeries on shoulder, knee. Surgical history: Multiple surgeries on shoulder, knee, hernia repair Family history: Reviewed, noncontributory Personal history: Patient lives alone in a trailer, as per father denied smoking, alcohol use but used oxycodone after surgeries 08/05/25:Patient seen in the ED. Patient is intubated, sedated, on no pressors, on propofol, Versed, fentanyl, Protonix drip. GI is consulted, possible EGD on Tuesday, lengthy discussion was made with father regarding patient's condition, and prognosis. Ordered hepatitis panel, ammonia. 08/06/2025: Patient seen in the ED. Patient is intubated, sedated, is on no pressors, patient's hands turned blue, black in the morning patient has return of blood flow but still fingers are blue. Patient is having green thick secretion on suction. Patient is on Protonix drip, Versed, fentanyl, propofol. Possible EGD tomorrow. 08/07/25: Patient seen in ICU. Patient is intubated, sedated is not on any pressors, patient is on Pradaxa., Versed, fentanyl. Bedside EGD done today, PICC line was placed. Lasix 20 give, and urinalysis. Cpap in the morning. Objective vital signs Vital Sign Date Time Temp Pulse Resp B/P (MAP) Pulse Ox O2 Delivery O2 Flow Rate FiO2 08/07/25 13:02 84 20 95/55 (68) 100 30 08/07/25 12:30 98.6 209.5 08/07/25 10:00 Mechanical Ventilator+ Total Intake and Output 08/06/25 08/06/25 08/07/25 15:00 23:00 07:00 Intake Total 1199.528 ml 1069.528 ml 667.212 ml Output Total 350 ml 760 ml Balance 1199.528 ml 719.528 ml -92.788 ml medications Current Medications Medications Dose Ordered Sig/Mustapha Route Start Time Stop Time Status Last Admin Dose Admin Sodium Chloride 10 ml Q8HR IV 08/02/25 22:00 08/07/25 06:00 10 ML Acetaminophen 650 mg Q6HP PRN PO 08/02/25 21:45 Midazolam HCl 100 ml @ 1 mls/hr Q24H IV 08/02/25 23:15 08/07/25 10:49 8 MLS/HR Piperacillin Sod/ Tazobactam Sod 100 ml @ 25 mls/hr Q8HR IV 08/03/25 06:00 08/07/25 05:26 25 MLS/HR Vancomycin HCl 0 ml @ 0 mls/hr PER PHARMACY IV 08/03/25 02:00 Propofol 100 ml @ 2.886 mls/ hr Q24H IV 08/03/25 02:30 08/07/25 11:36 17.316 MLS/HR Fentanyl Citrate 250 ml @ 2.5 mls/hr Q24H IV 08/03/25 04:00 08/07/25 05:03 22.5 MLS/HR Docusate Sodium 100 mg BID PRN GT 08/04/25 11:30 Mupirocin 1 applic BID EACHNOSTRI 08/04/25 22:00 08/09/25 21:59 08/07/25 09:16 1 APPLIC Pantoprazole Sodium 50 ml @ 10 mls/hr Q5H IV 08/04/25 18:45 08/07/25 11:36 10 MLS/HR Vancomycin HCl 250 ml @ 250 mls/hr Q8H IV 08/05/25 13:00 08/07/25 05:21 250 MLS/HR Atorvastatin Calcium 20 mg HS GT 08/05/25 22:00 08/06/25 22:39 20 MG Dextrose/Sodium Chloride 1,000 ml @ 60 mls/hr [id number] IV 08/05/25 16:45 08/07/25 03:11 60 MLS/HR Norepinephrine Bitartrate 250 ml @ 3.75 mls/hr Q24H IV 08/06/25 13:00 Examination General: Intubated, sedated HEENT: Normocephalic, atraumatic, moist mucous membranes Respiratory/pulmonary: Clear lungs bilaterally, vesicular murmurs present in almost all lung farr, no associated crackles or wheezes. Cardiovascular: Normal heart sounds S1 and S2 with no associated murmurs Abdomen: Abdomen nondistended, there is no pain to palpation in any of the abdominal quadrants, no palpable masses. Surgical scar Extremities: Bilateral pitting edema Peripheral Pulses: 3+ Radial (R). 3+ Radial (L). 3+ Dorsalis pedis (R). 3+ Dorsalis pedis(L) Skin: Bilateral lower extremity cellulitis, wound on left lower medial side. Neurological: Right eye blind, left eye 2+ and sluggish, gag and cough reflex present laboratory and microbiology Laboratory Tests 08/07/25 11:50 08/07/25 03:00 Test 08/07/25 03:00 Range/Units Serum Glucose 91 74-106 mg/dL Microbiology Date/Time Source Procedure Growth Status 08/05/25 10:00 Blood Blood Culture - Preliminary NO GROWTH AFTER 48 HOURS OF INCUBATION. Resulted 08/04/25 06:15 Nose MRSA Screen - Final Methicillin Resistant S.aureus Complete 08/02/25 23:50 Sputum Endotracheal Wash Gram Stain - Final Complete 08/02/25 23:50 Respiratory Culture - Final Methicillin Resistant S.aureus Presumptive Christy albicans Complete Problem List/Assessment/Plan Problem List/Assessment/Plan Neurology Acute metabolic encephalopathy likely due to sepsis - intubated, sedated Cardiology Acute decompensated HFpEF, NYHA Class III. Mitral valve regurgitation, moderate degree. Dyslipidemia - Echo showed EF of 50% with mild diastolic dysfunction, mild LVH, RVSP of 36 - Lasix 20 - Atorvastatin 20mg Respiratory Sepsis likely due to MRSA pneumonia Acute hypoxic respiratory failure MRSA pneumonia History of COPD -ventilator setting: AC mode, RR 18, TV 450, FiO2 30, peep 5 -MRSA positive in nares, sputum -IV vancomycin, Zosyn -blood, urine culture ordered GI upper GI bleed Sepsis likely from possible appendicitis Possible peptic ulcer disease Possible appendicitis Colonic diverticulosis Containing Umbilical hernia and left inguinal hernia - IV fluid - Protonix drip - GI consulted - possible EGD Planned on Tuesday - hepatitis panel ordered - ammonia ordered - CT abdomen is pelvis showed possible appendicitis, Colonic diverticulosis without acute diverticulitis. 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 Renal/electrolytes Neurology Acute metabolic encephalopathy likely due to sepsis - intubated, sedated Cardiology Acute decompensated HFpEF, NYHA Class III. Mitral valve regurgitation, moderate degree. Dyslipidemia - Echo showed EF of 50% with mild diastolic dysfunction, mild LVH, RVSP of 36 - Lasix 20 - Atorvastatin 20mg Respiratory Sepsis likely due to MRSA pneumonia Acute hypoxic respiratory failure MRSA pneumonia History of COPD -ventilator setting: AC mode, RR 18, TV 450, FiO2 30, peep 5 -MRSA positive in nares, sputum -IV vancomycin, Zosyn -blood, urine culture ordered GI upper GI bleed Sepsis likely from possible appendicitis Possible peptic ulcer disease Possible appendicitis Colonic diverticulosis Containing Umbilical hernia and left inguinal hernia - IV fluids - Protonix drip - GI consulted - possible EGD Planned on Tuesday - hepatitis panel ordered - ammonia ordered - CT abdomen is pelvis showed possible appendicitis, Colonic diverticulosis without acute diverticulitis. - Total of 5 PRBC given - monitor H&H - transfuse if hemoglobin less than 7 Renal/electrolytes Hypokalemia Hypernatremia Hypermagnesemia - monitor labs - replete potassium as needed Hematology Normocytic normochromic anemia Acute blood loss anemia due to upper GI bleed, hematemesis -GI on board -monitor H&H -transfuse if hemoglobin less than 7 -NPO Endocrine Hypothyroidism SKin/MSK Lower extremity cellulitis -IV vancomycin, Zosyn -wound consult Polysubstance abuse History of testicular cancer Lines / Tubes / Devices Airway: Intubated via ETT on 08/03 Vascular Access: Femoral line 08/03, PICC line placed(11/5) Drips: Versed, Protonix, fentanyl, propofol Prophylaxis / Supportive Care DVT Prophylaxis: SCD GI Prophylaxis: Protonix Goals of care discussed with the patient family for more than 29 minutes: Full code state Patient care updated to father , addressed all concerns. Critical care time spent excluding procedures 81 minutes Plan discussed with Dr. Metz and RN Plan discussed with: Other (Father, RN ) My Orders My Orders Orders - LEANNA GONZALEZ Procedure Category Date Status Time Chest Xray 1 View XY 08/07/25 Resulted 04:00 Abg W/ Co-Ox RT 08/07/25 Logged 04:00 * Picc Line Consult CONS 08/07/25 Transmitted 08:56 Dietary Evaluation Review Comments: 1. Tube feeding if GI accessible, Vital High Protein@60ml/hr providing 126g Protein, 1440kcal, 1204ml free water. 2. TPN per pharmacy to meet Pt's energy and protein needs, if GI/EN not medically feasible. 3. Advance to diet texture as tolerated after extubation and passing CONSERVATION TECHNICIAN eval 4. Offer Ensure Clear TID, if pt is can tolerate PO clear liquid diet Expected Outcomes/Goals: Replenish serum protein through nutrition support. Increaed physical strength CC Plasma Assessment Blood Product Administration S: 08:00 Date of Service: Aug 07, 2025 Billing Provider: SONIA METZ MD Common Visit Codes: 78648-[id number] CARE 30-74 MIN, [id number] CARE-EACH +30MIN LEANNA GONZALEZ Aug 07, 2025 13:17 SONIA METZ MD Aug 08, 2025 11:46
--- NOTE | 2025-08-07 13:27 | DVHOP2 ---
Operative Report DATE OF OPERATION: 08/07/25 PROCEDURE: Upper Endoscopy with biopsy. PREOPERATIVE INDICATION: The patient is a 55 -year-old male undergoing endoscopy for upper GI bleed and anemia POSTOPERATIVE DIAGNOSES: 1. 4 cm sliding-type hiatal hernia with acute erosive esophagitis long segment Barretts extending into the distal 8-10 cm of the esophagus from which biopsies were obtained 2. Moderate gastroduodenitis with multiple erosions 3. There was a 1 cm duodenal bulb ulcer Hai classification C with no visible vessel and another 5 mm pre-pyloric antral gastric ulcer 4. Otherwise normal examination up to the 2nd and 3rd part of the duodenum with good bile drainage and no active bleeding at this time except for oozing from scope pressure PROCEDURE PERFORMED BY: Melonie Alicia GI NURSE: Lesli SCOPE: Olympus videoendoscope. ASA CLASS: 3 PREOPERATIVE MEDICATIONS: Patient was previously sedated and intubated PROCEDURE IN DETAIL: After obtaining an informed consent, the patient was placed on left lateral decubitus position. The patient was then sedated with the above medications. A bite block was placed between his teeth. The endoscope was then passed through the oropharynx, into the esophagus, and through the stomach and pylorus up to the second and third part of the duodenum. The endoscope was then withdrawn. The 2nd and 3rd part of the duodenum were normal. Duodenal bulb and postbulbar area showed duodenitis with erosions There was a 1 cm duodenal bulb ulcer on the posterior superior surface Hai classification C with no visible vessel except for some oozing at the edges from scope pressure The pre-pyloric area antrum showed gastritis with erosions and there was a 5 mm pre-pyloric antral gastric ulcer. This was Hai classification C with no visible vessel There was no fresh or old blood in the upper GI tract and there was good bile drainage. Duodenal and gastric biopsies were obtained. The endoscope was then withdrawn into distal esophagus where he had a 4 cm sliding-type hiatal hernia with some acute erosive esophagitis from which biopsies were obtained Patient also had long segment Barretts extending into distal 8 cm of the esopha joceline from which biopsies were obtained. The remaining proximal esophagus and oropharynx were unremarkable The patient tolerated the procedure well without difficulty. COMPLICATIONS : None SPECIMENS: Duodenal biopsies Gastric biopsies Esophageal biopsies DISPOSITION: Stable Continue to monitor in ICU PLAN: 1. Await for biopsy result 2. Continue Protonix drip for another 24 hours and then change to Protonix 40 IV q.12 3. Monitor labs 4. Okay to reinsert NG tube and start trickle tube feedings 5. Carafate suspension 1 g via NG tube 4 times a day 6. Attempt at extubation pending his respiratory stabilization MELONIE ALICIA MD Aug 07, 2025 13:27
[2025-08-07] MEDS: FUROSEMIDE 20 MG/2 ML VIAL IV ONE (15:37)
[2025-08-07] MEDS: PANTOPRAZOLE 40mg/50ML NS AE 50 ML IV SCH (15:37)
--- NOTE | 2025-08-07 15:37 | DVH ---
CHEST RADIOGRAPH Indication: OG TUbe Placement. Technique: XY CHEST PORTABLE COMPARISON: None FINDINGS: Nasogastric tube projects towards the distal stomach/ pylorus. Endotracheal tube tip projects 4.5 cm above the demarco. Right PICC line tip projects over SVC. The cardiac silhouette is enlarged. The lungs demonstrate bilateral patchy airspace opacities. The pulmonary vasculature is prominent. Small to moderate left pleural effusion. There is no pneumothorax. IMPRESSION: As above
[2025-08-07 15:46] LABS: Urine Protein, UAD TRACE (Negative)
[2025-08-07] MEDS: SUCRALFATE 1 GM/10 ML ORAL SUSP GT SCH (16:36)
[2025-08-07] MEDS: SODIUM CHLOR 0.9% PF (SALINE LOCK) 10ML VIAL/SYR IV SCH (20:35)
[2025-08-08] VITALS (64 sets, daily range): BP systolic 104–150; BP diastolic 56–90; PULSE 97–115; RESP 12–29; TEMP 98.6–99.8; O2SAT 94–100
--- NOTE | 2025-08-08 | DVHPN2 ---
Progress Note - Dictate Date Seen: Aug 07, 2025 Medical Necessity Reason Pt with a Central, PICC or Fol: Yes The following are medically ne: Central Line, Otoole Catheter Subjective Patient was seen and evaluated in follow up in the ICU. Patient is intubated and sedated on ventilator. 30% FiO2. Patient is pending EGD with Dr.N Alicia. WBC 13, HGB 9.1, HCT 28.1, CA 7.5. Chest x-ray shows slight interval retraction of endotracheal tube such that the tip now projects approximately 4.6 cm above level of the demarco, minimal left pleural effusion and basilar pulmonary airspace disease. vital signs Vital Sign Date Time Temp Pulse Resp B/P (MAP) Pulse Ox O2 Delivery O2 Flow Rate FiO2 08/07/25 12:30 98.6 81 16 95/59 (71) 98 209.5 08/07/25 12:00 30 08/07/25 10:00 Mechanical Ventilator+ Total Intake and Output 08/06/25 08/06/25 08/07/25 15:00 23:00 07:00 Intake Total 1199.528 ml 1069.528 ml 667.212 ml Output Total 350 ml 760 ml Balance 1199.528 ml 719.528 ml -92.788 ml medications Current Medications Medications Dose Ordered Sig/Mustapha Route Start Time Stop Time Status Last Admin Dose Admin Sodium Chloride 10 ml Q8HR IV 08/02/25 22:00 08/07/25 06:00 10 ML Acetaminophen 650 mg Q6HP PRN PO 08/02/25 21:45 Midazolam HCl 100 ml @ 1 mls/hr Q24H IV 08/02/25 23:15 08/07/25 10:49 8 MLS/HR Piperacillin Sod/ Tazobactam Sod 100 ml @ 25 mls/hr Q8HR IV 08/03/25 06:00 08/07/25 05:26 25 MLS/HR Vancomycin HCl 0 ml @ 0 mls/hr PER PHARMACY IV 08/03/25 02:00 Propofol 100 ml @ 2.886 mls/ hr Q24H IV 08/03/25 02:30 08/07/25 11:36 17.316 MLS/HR Fentanyl Citrate 250 ml @ 2.5 mls/hr Q24H IV 08/03/25 04:00 08/07/25 05:03 22.5 MLS/HR Docusate Sodium 100 mg BID PRN GT 08/04/25 11:30 Mupirocin 1 applic BID EACHNOSTRI 08/04/25 22:00 08/09/25 21:59 08/07/25 09:16 1 APPLIC Pantoprazole Sodium 50 ml @ 10 mls/hr Q5H IV 08/04/25 18:45 08/07/25 11:36 10 MLS/HR Vancomycin HCl 250 ml @ 250 mls/hr Q8H IV 08/05/25 13:00 08/07/25 05:21 250 MLS/HR Atorvastatin Calcium 20 mg HS GT 08/05/25 22:00 08/06/25 22:39 20 MG Dextrose/Sodium Chloride 1,000 ml @ 60 mls/hr [id number] IV 08/05/25 16:45 08/07/25 03:11 60 MLS/HR Norepinephrine Bitartrate 250 ml @ 3.75 mls/hr Q24H IV 08/06/25 13:00 objective GENERAL: Ill appearing, intubated on ventilator. EYES: PERRL, EOMI. Anicteric. HENT: Moist mucous membranes. LUNGS: Decreased breath sounds. CARDIOVASCULAR: Regular rate and rhythm. ABDOMEN: Soft, nontender and nondistended. EXTREMITIES: 2+ BLE pitting edema. SKIN: Warm, dry. Bilateral lower extremity redness laboratory and microbiology Laboratory Tests 08/07/25 03:00 Test 08/07/25 03:00 Range/Units Serum Glucose 91 74-106 mg/dL Problem List Sepsis with associated lower extremity cellulitis. D novel decompensated HFpEF, NYHA Class III. Mitral valve regurgitation, moderate degree. Acute on chronic hypoxic respiratory failure. Severe anemia status post multiple PRBCs transfusions. Gastrointestinal hemorrhage. Dyslipidemia, newly diagnosed. Polysubstance abuse. Plan/Recommendation Continued all current supportive medical care. Patient has been seen by Tatianna Agudelo NP on my behalf. We have discussed the plan with the patient. A transthoracic echocardiogram revealed revealed LVEF 50% with mild LVH and mild LV diastolic dysfunction, moderately dilated RV and RA, study revealed RV failure, moderate degree of mitral regurgitation. [place] criteria is positive for the diagnosis of heart failure. Continue preload reduction as tolerated strict I&Os, daily weight, and fluid restrictions. Replete electrolytes as necessary. Initiate lipid-lowering agent. Continue to monitor hemoglobin and hematocrit closely and transfuse as needed. Continue GI recommendations. Antibiotics per primary care team. Not a candidate for invasive cardiac ischemic workup. Additional plan as per the hospital course. Assessment/Plan Continued all current supportive medical care. Morphine and [place] for pain management. Nitro SL. GI prophylactics. IV antibiotics as ordered. Additional plan as per the hospital course. Critical care time of 45 minutes provided to include time spent evaluation of patient at bedside, when appropriate patient/family education for diagnosis, treatment plan, review of pertinent medical information and discussion of care with specialty providers and PCP. Mechanical ventilator parameters, treatment and adjustments have personally been reviewed by me and treatment plan by wood room supervisor has also been reviewed. Dietary Evaluation Review Comments: 1. Tube feeding if GI accessible, Vital High Protein@60ml/hr providing 126g Protein, 1440kcal, 1204ml free water. 2. TPN per pharmacy to meet Pt's energy and protein needs, if GI/EN not medically feasible. 3. Advance to diet texture as tolerated after extubation and passing DIAMOND MERCHANT eval 4. Offer Ensure Clear TID, if pt is can tolerate PO clear liquid diet Expected Outcomes/Goals: Replenish serum protein through nutrition support. Increaed physical strength Plan discussed with: Other CC Plasma Assessment Blood Product Administration S: 08:00 ADAM MELO MD Aug 07, 2025 12:51
[2025-08-08 03:11] LABS: Alanine Aminotransferase 27 U/L (7-40); Alkaline Phosphatase 79 U/L (46-116); Anion Gap 8 (5-15); BUN/Creatinine Ratio 12.7 (10.0-20.0); Carbon Dioxide 26 mmol/L (20-31); Glucose 100 mg/dL (74-106); Magnesium 2.4 mg/dL (1.6-2.6); Potassium 3.5 mmol/L (3.5-5.1); Total Protein 6.0 g/dL (5.7-8.2)
[2025-08-08 03:12] LABS: Bilirubin, Total 0.5 mg/dL (0.2-1.0)
[2025-08-08 03:13] LABS: Albumin 3.1 g/dL (3.2-4.8); Blood Urea Nitrogen 9 mg/dL (9-23); Calcium 8.0 mg/dL (8.7-10.4); Chloride 113 mmol/L (98-107); Sodium 147 mmol/L (136-145)
[2025-08-08 03:17] LABS: Hematocrit 30.6 % (41.0-53.0); Hemoglobin 9.8 g/dL (13.5-17.5); Mean Corpuscular Hemoglobin 27.8 pg (28.0-32.0); Mean Corpuscular Volume 86.8 fL (80.0-100.0); Nucleated Red Blood Cells % 0.1 %
--- NOTE | 2025-08-08 06:00 | DVH ---
CHEST RADIOGRAPH Indication: on vent Technique: Single frontal view of the chest was obtained COMPARISON: XY CHEST PORTABLE on DOS: 08/07/25, XY CHEST XRAY 1 VIEW on DOS: 08/07/25, XY CHEST XRAY 1 VIEW on DOS: 08/05/25, XY CHEST PORTABLE on DOS: 08/04/25, XY CHEST PORTABLE on DOS: 08/03/25 FINDINGS: Lines and Tubes: Unchanged. Lungs: Clear Pleura: No effusion. No pneumothorax. Cardiomediastinal contours: Unremarkable Bones: Unremarkable IMPRESSION: 1. No acute cardiopulmonary disease. 2. Lines and tubes unchanged.
[2025-08-08 06:39] LABS: Base Excess 1.6 mmol/L (-2.0-3.0)
[2025-08-08] MEDS: PANTOPRAZOLE 40 MG/10 ML VIAL INJ IV SCH (09:02)
[2025-08-08 11:16] LABS: Base Excess 1.3 mmol/L (-2.0-3.0)
--- NOTE | 2025-08-08 11:42 | DVHPN2 ---
Progress Note Date Seen: Aug 08, 2025 Resident Creating Document: DANIELITO SUAREZ RESIDENT Medical Necessity Reason Pt with a Central, PICC or Fol: Yes The following are medically ne: Central Line, Otoole Catheter Subjective Review of Systems Patient seen and examined at the bedside Status post EGD yesterday H&H is stable and improving, no signs of active bleeding Spontaneous breathing trial today Objective vital signs Vital Sign Date Time Temp Pulse Resp B/P (MAP) Pulse Ox O2 Delivery O2 Flow Rate FiO2 08/08/25 10:45 99.0 110 18 137/84 (101) 97 210.2 08/08/25 10:00 Mechanical Ventilator+ 30 30 Total Intake and Output 08/07/25 08/07/25 08/08/25 15:00 23:00 07:00 Intake Total 742.528 ml 685.756 ml 463.974 ml Output Total 3700 ml 1800 ml Balance 742.528 ml -3014.244 ml -1336.026 ml medications Current Medications Medications Dose Ordered Sig/Mustapha Route Start Time Stop Time Status Last Admin Dose Admin Sodium Chloride 10 ml Q8HR IV 08/02/25 22:00 08/08/25 04:37 10 ML Acetaminophen 650 mg Q6HP PRN PO 08/02/25 21:45 Midazolam HCl 100 ml @ 1 mls/hr Q24H IV 08/02/25 23:15 08/08/25 00:23 6 MLS/HR Piperacillin Sod/ Tazobactam Sod 100 ml @ 25 mls/hr Q8HR IV 08/03/25 06:00 08/08/25 04:37 25 MLS/HR Vancomycin HCl 0 ml @ 0 mls/hr PER PHARMACY IV 08/03/25 02:00 Propofol 100 ml @ 2.886 mls/ hr Q24H IV 08/03/25 02:30 08/08/25 07:46 2.886 MLS/HR Fentanyl Citrate 250 ml @ 2.5 mls/hr Q24H IV 08/03/25 04:00 08/08/25 05:29 7.5 MLS/HR Docusate Sodium 100 mg BID PRN GT 08/04/25 11:30 Mupirocin 1 applic BID EACHNOSTRI 08/04/25 22:00 08/09/25 21:59 08/08/25 09:02 1 APPLIC Atorvastatin Calcium 20 mg HS GT 08/05/25 22:00 08/07/25 20:29 20 MG Dextrose/Sodium Chloride 1,000 ml @ 60 mls/hr [id number] IV 08/05/25 16:45 08/07/25 16:39 60 MLS/HR Norepinephrine Bitartrate 250 ml @ 3.75 mls/hr Q24H IV 08/06/25 13:00 Sucralfate 1 gm QID@0600,1130,1700,2200 GT 08/07/25 17:00 08/08/25 04:37 1 GM Pantoprazole Sodium 40 mg BID IV 08/08/25 10:00 08/08/25 09:02 40 MG Sodium Chloride 10 ml QSHIFT@10,22 IV 08/07/25 22:00 08/08/25 09:02 10 ML Vancomycin HCl 250 ml @ 250 mls/hr Q12H IV 08/08/25 11:00 Examination Gen - mild conjunctival pallor, no scleral icterus Skin - Patients skin is warm and dry. HEENT - normocephalic, atraumatic, dry mucous membranes. Neck - supple, no lymphadenopathy Pulmonary - B/L equal breath sounds cardiovascular - regular S1,S2 heard GI - soft abdomen. Bowel sounds normoactive. Neurological - Patient is sedated and on mechanical ventilation laboratory and microbiology Laboratory Tests 08/08/25 02:36 Test 08/08/25 02:36 Range/Units Serum Glucose 100 74-106 mg/dL Microbiology Date/Time Source Procedure Growth Status 08/07/25 00:05 Urine - Catheterized Urine Culture - Preliminary No growth Resulted 08/05/25 10:00 Blood Blood Culture - Preliminary NO GROWTH AFTER 72 HOURS OF INCUBATION. Resulted 08/04/25 06:15 Nose MRSA Screen - Final Methicillin Resistant S.aureus Complete 08/02/25 23:50 Sputum Endotracheal Wash Gram Stain - Final Complete 08/02/25 23:50 Respiratory Culture - Final Methicillin Resistant S.aureus Presumptive Christy albicans Complete Problem List/Assessment/Plan Problem List/Assessment/Plan Coffee-ground emesis and melena Hiatal hernia with a acute erosive esophagitis long segment Bolanos's Duodenal bulb ulcer for jen classification C Pre-pyloric antral gastric ulcer Severe anemia likely from duodenal ulcer Possible appendicitis Colonic diverticulosis MRSA pneumonia History of COPD Polysubstance use Hypernatremia ?Euthyroid sick syndrome Plan - continue on Protonix 40 mg IV b.i.d. - monitor H&H and keep hemoglobin above 7 and transfuse PRBC as needed - with the patient is extubated, swallow evaluation to be done and patient will be started on clear liquid diet, if fails CPAP trial can be started on tube feedings at 10 mL/hour and advanced as tolerated Rest of the management as per the primary team Plan discussed with Dr. Alicia Plan discussed with: Other (MADDY Ceja) Dietary Evaluation Review Comments: 1. Tube feeding if GI accessible, Vital High Protein@60ml/hr providing 126g Protein, 1440kcal, 1204ml free water. 2. TPN per pharmacy to meet Pt's energy and protein needs, if GI/EN not medically feasible. 3. Advance to diet texture as tolerated after extubation and passing FOOTWEAR SALES ASSOCIATE eval 4. Offer Ensure Clear TID, if pt is can tolerate PO clear liquid diet Expected Outcomes/Goals: Replenish serum protein through nutrition support. Increaed physical strength CC Plasma Assessment Blood Product Administration S: 08:00 DANIELITO SUAREZ RESIDENT Aug 08, 2025 11:42
[2025-08-08] MEDS: FUROSEMIDE 20 MG/2 ML VIAL ONE (12:08)
[2025-08-08] MEDS: FUROSEMIDE 20 MG/2 ML VIAL IV ONE (12:09)
[2025-08-08] MEDS: POTASSIUM CHL 20MEQ/100ML 100 ML IV SCH (12:39)
[2025-08-08] MEDS: VANCOMYCIN 1GM/250ML KIT 250 ML IV SCH (12:39)
--- NOTE | 2025-08-08 13:15 | DVHPN2 ---
Progress Note - Dictate Date Seen: Aug 08, 2025 Medical Necessity Reason Pt with a Central, PICC or Fol: Yes The following are medically ne: Central Line, Otoole Catheter Subjective Patient was seen and evaluated in follow up in the ICU. Patient is intubated and sedated on ventilator. 30% FiO2. Patient underwent upper endoscopy with biopsy by Dr. Bessie Alicia which showed 4 cm sliding-type hiatal hernia with acute erosive esophagitis long segment Barretts extending into the distal 8-10 cm of the esophagus from which biopsies were obtained, moderate gastroduodenitis with multiple erosions, 1 cm duodenal bulb ulcer Hai classification C with no visible vessel and another 5 mm pre-pyloric antral gastric ulcer. Otherwise normal examination up to the 2nd and 3rd part of the duodenum with good bile drainage and no active bleeding at this time except for oozing from scope pressure. WBC 11.4, HGB 9.8, HCT 30.6, NA 147, AST 44. Chest x-ray shows NAD. vital signs Vital Sign Date Time Temp Pulse Resp B/P (MAP) Pulse Ox O2 Delivery O2 Flow Rate FiO2 08/08/25 12:09 135/82 08/08/25 12:04 98 08/08/25 12:03 17 08/08/25 10:45 99.0 110 210.2 08/08/25 10:00 Mechanical Ventilator+ 30 30 Total Intake and Output 08/07/25 08/07/25 08/08/25 15:00 23:00 07:00 Intake Total 742.528 ml 685.756 ml 463.974 ml Output Total 3700 ml 1800 ml Balance 742.528 ml -3014.244 ml -1336.026 ml medications Current Medications Medications Dose Ordered Sig/Mustapha Route Start Time Stop Time Status Last Admin Dose Admin Sodium Chloride 10 ml Q8HR IV 08/02/25 22:00 08/08/25 04:37 10 ML Acetaminophen 650 mg Q6HP PRN PO 08/02/25 21:45 Midazolam HCl 100 ml @ 1 mls/hr Q24H IV 08/02/25 23:15 08/08/25 00:23 6 MLS/HR Piperacillin Sod/ Tazobactam Sod 100 ml @ 25 mls/hr Q8HR IV 08/03/25 06:00 08/08/25 04:37 25 MLS/HR Vancomycin HCl 0 ml @ 0 mls/hr PER PHARMACY IV 08/03/25 02:00 Propofol 100 ml @ 2.886 mls/ hr Q24H IV 08/03/25 02:30 08/08/25 07:46 2.886 MLS/HR Fentanyl Citrate 250 ml @ 2.5 mls/hr Q24H IV 08/03/25 04:00 08/08/25 05:29 7.5 MLS/HR Docusate Sodium 100 mg BID PRN GT 08/04/25 11:30 Mupirocin 1 applic BID EACHNOSTRI 08/04/25 22:00 08/09/25 21:59 08/08/25 09:02 1 APPLIC Atorvastatin Calcium 20 mg HS GT 08/05/25 22:00 08/07/25 20:29 20 MG Norepinephrine Bitartrate 250 ml @ 3.75 mls/hr Q24H IV 08/06/25 13:00 Sucralfate 1 gm QID@0600,1130,1700,2200 GT 08/07/25 17:00 08/08/25 04:37 1 GM Pantoprazole Sodium 40 mg BID IV 08/08/25 10:00 08/08/25 09:02 40 MG Sodium Chloride 10 ml QSHIFT@10,22 IV 08/07/25 22:00 08/08/25 09:02 10 ML Vancomycin HCl 250 ml @ 250 mls/hr Q12H IV 08/08/25 11:00 Potassium Chloride 100 ml @ 50 mls/hr Q2H IV 08/08/25 11:45 08/08/25 15:44 objective GENERAL: Ill appearing, intubated on ventilator. EYES: PERRL, EOMI. Anicteric. HENT: Moist mucous membranes. LUNGS: Decreased breath sounds. CARDIOVASCULAR: Regular rate and rhythm. ABDOMEN: Soft, nontender and nondistended. EXTREMITIES: 2+ BLE pitting edema. SKIN: Warm, dry. Bilateral lower extremity redness laboratory and microbiology Laboratory Tests 08/08/25 02:36 Test 08/08/25 02:36 Range/Units Serum Glucose 100 74-106 mg/dL Problem List Sepsis with associated lower extremity cellulitis. D novel decompensated HFpEF, NYHA Class III. Mitral valve regurgitation, moderate degree. Acute on chronic hypoxic respiratory failure. Severe anemia status post multiple PRBCs transfusions. Gastrointestinal hemorrhage. Dyslipidemia, newly diagnosed. Polysubstance abuse. Plan/Recommendation Continued all current supportive medical care. Patient has been seen by Tatianna Agudelo NP on my behalf. We have discussed the plan with the patient. A transthoracic echocardiogram revealed revealed LVEF 50% with mild LVH and mild LV diastolic dysfunction, moderately dilated RV and RA, study revealed RV failure, moderate degree of mitral regurgitation. Brewster criteria is positive for the diagnosis of heart failure. Continue preload reduction as tolerated strict I&Os, daily weight, and fluid restrictions. Replete electrolytes as necessary. Initiate lipid-lowering agent. Continue to monitor hemoglobin and hematocrit closely and transfuse as needed. Continue GI recommendations. Antibiotics per primary care team. Not a candidate for invasive cardiac ischemic workup. Additional plan as per the hospital course. Assessment/Plan Continued all current supportive medical care. Lipitor. Vasopressors for hemodynamic support. GI prophylactics. IV antibiotics as ordered. Additional plan as per the hospital course. Critical care time of 45 minutes provided to include time spent evaluation of patient at bedside, when appropriate patient/family education for diagnosis, treatment plan, review of pertinent medical information and discussion of care with specialty providers and PCP. Mechanical ventilator parameters, treatment and adjustments have personally been reviewed by me and treatment plan by telegraphic instrument supervisor has also been reviewed. Dietary Evaluation Review Comments: 1. Tube feeding if GI accessible, Vital High Protein@60ml/hr providing 126g Protein, 1440kcal, 1204ml free water. 2. TPN per pharmacy to meet Pt's energy and protein needs, if GI/EN not medically feasible. 3. Advance to diet texture as tolerated after extubation and passing HOT DIP PLATER eval 4. Offer Ensure Clear TID, if pt is can tolerate PO clear liquid diet Expected Outcomes/Goals: Replenish serum protein through nutrition support. Increaed physical strength Plan discussed with: Other CC Plasma Assessment Blood Product Administration S: 08:00 ADAM MELO MD Aug 08, 2025 12:33
--- NOTE | 2025-08-08 17:12 | DVHPNRES ---
Progress Note Date Seen: Aug 08, 2025 Resident Creating Document: LEANNA GONZALEZ RESIDENT Medical Necessity Reason Pt with a Central, PICC or Fol: Yes The following are medically ne: Central Line, Otoole Catheter Subjective Review of Systems Patient is a 55-year-old male with past medical history of cellulitis, testicular cancer, history of hernia, recurrent pneumonia, diastolic CHF presented to the ED with neighbor who brought him after he found him unconscious covered in black vomitus, stool everywhere. Patient was recently hospitalized for cellulitis and left AMA. Patient lives in a trailer, he was combative in the ED, unstable and was intubated on 08/03. According to father patient had recent hernia repair which was unsuccessful, patient also had multiple surgeries on shoulder, knee. Surgical history: Multiple surgeries on shoulder, knee, hernia repair Family history: Reviewed, noncontributory Personal history: Patient lives alone in a trailer, as per father denied smoking, alcohol use but used oxycodone after surgeries 08/05/25:Patient seen in the ED. Patient is intubated, sedated, on no pressors, on propofol, Versed, fentanyl, Protonix drip. GI is consulted, possible EGD on Tuesday, lengthy discussion was made with father regarding patient's condition, and prognosis. Ordered hepatitis panel, ammonia. 08/06/2025: Patient seen in the ED. Patient is intubated, sedated, is on no pressors, patient's hands turned blue, black in the morning patient has return of blood flow but still fingers are blue. Patient is having green thick secretion on suction. Patient is on Protonix drip, Versed, fentanyl, propofol. Possible EGD tomorrow. 08/07/25: Patient seen in ICU. Patient is intubated, sedated is not on any pressors, patient is on Pradaxa., Versed, fentanyl. Bedside EGD done today, PICC line was placed. Lasix 20 give, and urinalysis. Cpap in the morning. 08/08/2025: Patient seen in ICU. Patient was extubated today successfully, on 3 L oxygen. Off pressors, Lasix 20 given, patient is more alert following commands. Objective vital signs Vital Sign Date Time Temp Pulse Resp B/P (MAP) Pulse Ox O2 Delivery O2 Flow Rate FiO2 08/08/25 16:15 99.5 111 20 136/87 (103) 98 211.1 08/08/25 16:00 Nasal Cannula* 3 32 Total Intake and Output 08/07/25 08/07/25 08/08/25 15:00 23:00 07:00 Intake Total 742.528 ml 685.756 ml 463.974 ml Output Total 3700 ml 1800 ml Balance 742.528 ml -3014.244 ml -1336.026 ml medications Current Medications Medications Dose Ordered Sig/Mustapha Route Start Time Stop Time Status Last Admin Dose Admin Sodium Chloride 10 ml Q8HR IV 08/02/25 22:00 08/08/25 14:03 10 ML Acetaminophen 650 mg Q6HP PRN PO 08/02/25 21:45 Midazolam HCl 100 ml @ 1 mls/hr Q24H IV 08/02/25 23:15 08/08/25 00:23 6 MLS/HR Piperacillin Sod/ Tazobactam Sod 100 ml @ 25 mls/hr Q8HR IV 08/03/25 06:00 08/08/25 14:12 25 MLS/HR Vancomycin HCl 0 ml @ 0 mls/hr PER PHARMACY IV 08/03/25 02:00 Propofol 100 ml @ 2.886 mls/ hr Q24H IV 08/03/25 02:30 08/08/25 07:46 2.886 MLS/HR Fentanyl Citrate 250 ml @ 2.5 mls/hr Q24H IV 08/03/25 04:00 08/08/25 05:29 7.5 MLS/HR Docusate Sodium 100 mg BID PRN GT 08/04/25 11:30 Mupirocin 1 applic BID EACHNOSTRI 08/04/25 22:00 08/09/25 21:59 08/08/25 09:02 1 APPLIC Atorvastatin Calcium 20 mg HS GT 08/05/25 22:00 08/07/25 20:29 20 MG Norepinephrine Bitartrate 250 ml @ 3.75 mls/hr Q24H IV 08/06/25 13:00 Sucralfate 1 gm QID@0600,1130,1700,2200 GT 08/07/25 17:00 08/08/25 04:37 1 GM Pantoprazole Sodium 40 mg BID IV 08/08/25 10:00 11/6/25 09:02 40 MG Sodium Chloride 10 ml QSHIFT@10,22 IV 08/07/25 22:00 08/08/25 09:02 10 ML Vancomycin HCl 250 ml @ 250 mls/hr Q12H IV 08/08/25 11:00 08/08/25 12:39 250 MLS/HR Examination General: Extubated, opening eyes and following commands HEENT: Normocephalic, atraumatic, moist mucous membranes Respiratory/pulmonary: Clear lungs bilaterally, vesicular murmurs present in almost all lung farr, no associated crackles or wheezes. Cardiovascular: Normal heart sounds S1 and S2 with no associated murmurs Abdomen: Abdomen nondistended, there is no pain to palpation in any of the abdominal quadrants, no palpable masses. Surgical scar Extremities: Bilateral pitting edema Peripheral Pulses: 3+ Radial (R). 3+ Radial (L). 3+ Dorsalis pedis (R). 3+ Dorsalis pedis(L) Skin: Bilateral lower extremity cellulitis, wound on left lower medial side. Neurological: Right eye blind, left eye 2+ and sluggish, gag and cough reflex present laboratory and microbiology Laboratory Tests 08/08/25 02:36 Test 08/08/25 02:36 Range/Units Serum Glucose 100 74-106 mg/dL Microbiology Date/Time Source Procedure Growth Status 08/07/25 00:05 Urine - Catheterized Urine Culture - Preliminary No growth Resulted 08/05/25 10:00 Blood Blood Culture - Preliminary NO GROWTH AFTER 72 HOURS OF INCUBATION. Resulted 08/04/25 06:15 Nose MRSA Screen - Final Methicillin Resistant S.aureus Complete 08/02/25 23:50 Sputum Endotracheal Wash Gram Stain - Final Complete 08/02/25 23:50 Respiratory Culture - Final Methicillin Resistant S.aureus Presumptive Christy albicans Complete Problem List/Assessment/Plan Problem List/Assessment/Plan Neurology Acute metabolic encephalopathy likely due to sepsis - intubated, sedated Cardiology Acute decompensated HFpEF, NYHA Class III. Mitral valve regurgitation, moderate degree. Dyslipidemia - Echo showed EF of 50% with mild diastolic dysfunction, mild LVH, RVSP of 36 - Lasix 20 - Atorvastatin 20mg Respiratory Sepsis likely due to MRSA pneumonia Acute hypoxic respiratory failure MRSA pneumonia History of COPD -ventilator setting: AC mode, RR 18, TV 450, FiO2 30, peep 5 -MRSA positive in nares, sputum -IV vancomycin, Zosyn -blood, urine culture ordered GI upper GI bleed Sepsis likely from possible appendicitis Possible peptic ulcer disease Possible appendicitis Colonic diverticulosis Containing Umbilical hernia and left inguinal hernia - IV fluid - Protonix drip - GI consulted - possible EGD Planned on Tuesday - hepatitis panel ordered - ammonia ordered - CT abdomen is pelvis showed possible appendicitis, Colonic diverticulosis without acute diverticulitis. 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 Renal/electrolytes Neurology Acute metabolic encephalopathy likely due to sepsis - intubated, sedated Cardiology Acute decompensated HFpEF, NYHA Class III. Mitral valve regurgitation, moderate degree. Dyslipidemia - Echo showed EF of 50% with mild diastolic dysfunction, mild LVH, RVSP of 36 - Lasix 20 - Atorvastatin 20mg Respiratory Sepsis likely due to MRSA pneumonia Acute hypoxic respiratory failure MRSA pneumonia History of COPD -ventilator setting: AC mode, RR 18, TV 450, FiO2 30, peep 5 -MRSA positive in nares, sputum -IV vancomycin, Zosyn -blood, urine culture ordered GI upper GI bleed Sepsis likely from possible appendicitis Possible peptic ulcer disease Possible appendicitis Colonic diverticulosis Containing Umbilical hernia and left inguinal hernia - IV fluids - Protonix drip - GI consulted - possible EGD Planned on Tuesday - hepatitis panel ordered - ammonia ordered - CT abdomen is pelvis showed possible appendicitis, Colonic diverticulosis without acute diverticulitis. - Total of 5 PRBC given - monitor H&H - transfuse if hemoglobin less than 7 Renal/electrolytes Hypokalemia Hypernatremia Hypermagnesemia - monitor labs - replete potassium as needed Hematology Normocytic normochromic anemia Acute blood loss anemia due to upper GI bleed, hematemesis -GI on board -monitor H&H -transfuse if hemoglobin less than 7 -NPO Endocrine Hypothyroidism SKin/MSK Lower extremity cellulitis -IV vancomycin, Zosyn -wound consult Polysubstance abuse History of testicular cancer Lines / Tubes / Devices Airway: Intubated via ETT on 08/03 Vascular Access: Femoral line 08/03, PICC line placed(08/07) Drips: Versed, Protonix, fentanyl, propofol Prophylaxis / Supportive Care DVT Prophylaxis: SCD GI Prophylaxis: Protonix Extubated (08/08) Goals of care discussed with the patient family for more than 29 minutes: Full code state Patient care updated to father , addressed all concerns. Critical care time spent excluding procedures and icluding cpap trial and extubation was 86 minutes Plan discussed with Dr. Metz and RN Plan discussed with: Other (father, RN ) My Orders My Orders Orders - LEANNA GONZALEZ Procedure Category Date Status Time Abg W/ Co-Ox RT 08/08/25 Logged 11:07 Dietary Evaluation Review Comments: 1. Tube feeding if GI accessible, Vital High Protein@60ml/hr providing 126g Protein, 1440kcal, 1204ml free water. 2. TPN per pharmacy to meet Pt's energy and protein needs, if GI/EN not medically feasible. 3. Advance to diet texture as tolerated after extubation and passing AUTOMOBILE SERVICE STATION ATTENDANT eval 4. Offer Ensure Clear TID, if pt is can tolerate PO clear liquid diet Expected Outcomes/Goals: Replenish serum protein through nutrition support. Increaed physical strength CC Plasma Assessment Blood Product Administration S: 08:00 Date of Service: Aug 08, 2025 Billing Provider: SONIA METZ MD Common Visit Codes: 53095-[id number] CARE 30-74 MIN, 04002-[id number] CARE-EACH +30MIN LEANNA GONZALEZ Aug 08, 2025 17:12 SONIA METZ MD Aug 11, 2025 16:27
[2025-08-09] VITALS (25 sets, daily range): BP systolic 107–144; BP diastolic 63–83; PULSE 55–103; RESP 14–23; TEMP 97.6–99.6; O2SAT 96–100
[2025-08-09 03:43] LABS: Hematocrit 29.2 % (41.0-53.0); Hemoglobin 9.6 g/dL (13.5-17.5); Mean Corpuscular Hemoglobin 28.0 pg (28.0-32.0); Mean Corpuscular Volume 85.4 fL (80.0-100.0); Nucleated Red Blood Cells % 0.0 %
[2025-08-09 04:13] LABS: Alkaline Phosphatase 78 U/L (46-116); Anion Gap 11 (5-15); BUN/Creatinine Ratio 16.9 (10.0-20.0); Bilirubin, Total 0.4 mg/dL (0.2-1.0); Blood Urea Nitrogen 11 mg/dL (9-23); Carbon Dioxide 25 mmol/L (20-31); Total Protein 6.0 g/dL (5.7-8.2)
[2025-08-09 04:14] LABS: Alanine Aminotransferase 51 U/L (7-40); Albumin 3.0 g/dL (3.2-4.8); Calcium 7.9 mg/dL (8.7-10.4); Chloride 113 mmol/L (98-107); Glucose 106 mg/dL (74-106); Potassium 3.2 mmol/L (3.5-5.1); Sodium 149 mmol/L (136-145)
[2025-08-09] MEDS: POTASSIUM CHL 20MEQ/100ML 100 ML IV SCH (05:22)
--- NOTE | 2025-08-09 05:58 | DVH ---
CHEST RADIOGRAPH Indication: post extubation Technique: Single frontal view of the chest was obtained COMPARISON: XY CHEST XRAY 1 VIEW on DOS: 08/08/25, XY CHEST PORTABLE on DOS: 08/07/25, XY CHEST XRAY 1 VIEW on DOS: 08/07/25, XY CHEST XRAY 1 VIEW on DOS: 08/05/25, XY CHEST PORTABLE on DOS: 08/04/25 FINDINGS: Lines and Tubes: Status post interval extubation and removal of enteric catheter. Right PICC unchanged. Lungs: Mild diffuse increased prominence of the pulmonary vasculature without evidence of focal consolidation. Pleura: No effusion. No pneumothorax. Cardiomediastinal contours: Unremarkable Bones: Unremarkable IMPRESSION: 1. Status post interval extubation and removal of enteric catheter. Right PICC unchanged. 2. Mild diffuse increased prominence of the pulmonary vasculature.
--- NOTE | 2025-08-09 06:08 | DVH ---
Exam: US US GUIDED VASCULAR ACCESS Clinical History: PICC LINE PLACEMENT Comparison: US BILAT UPPER EXT ART DUPLEX on DOS: 08/06/25, US ECHO 2D MODE CARDIAC DOP on DOS: 08/03/25, US LT LOWER DVT on DOS: 07/19/25 Findings: Targeted sonographic evaluation of the arm vein was obtained utilizing grayscale and color Doppler imaging. IMPRESSION: Sonographic assistance for peripherally inserted central line placement. Please refer to procedural report for detailed findings.
--- NOTE | 2025-08-09 13:02 | DVHPNRES ---
Progress Note Date Seen: Aug 09, 2025 Resident Creating Document: LEANNA GONZALEZ RESIDENT Medical Necessity Reason Pt with a Central, PICC or Fol: Yes The following are medically ne: Central Line, Otoole Catheter Subjective Review of Systems Patient is a 55-year-old male with past medical history of cellulitis, testicular cancer, history of hernia, recurrent pneumonia, diastolic CHF presented to the ED with neighbor who brought him after he found him unconscious covered in black vomitus, stool everywhere. Patient was recently hospitalized for cellulitis and left AMA. Patient lives in a trailer, he was combative in the ED, unstable and was intubated on 08/03. According to father patient had recent hernia repair which was unsuccessful, patient also had multiple surgeries on shoulder, knee. Surgical history: Multiple surgeries on shoulder, knee, hernia repair Family history: Reviewed, noncontributory Personal history: Patient lives alone in a trailer, as per father denied smoking, alcohol use but used oxycodone after surgeries 08/05/25:Patient seen in the ED. Patient is intubated, sedated, on no pressors, on propofol, Versed, fentanyl, Protonix drip. GI is consulted, possible EGD on Tuesday, lengthy discussion was made with father regarding patient's condition, and prognosis. Ordered hepatitis panel, ammonia. 08/06/2025: Patient seen in the ED. Patient is intubated, sedated, is on no pressors, patient's hands turned blue, black in the morning patient has return of blood flow but still fingers are blue. Patient is having green thick secretion on suction. Patient is on Protonix drip, Versed, fentanyl, propofol. Possible EGD tomorrow. 08/07/25: Patient seen in ICU. Patient is intubated, sedated is not on any pressors, patient is on Pradaxa., Versed, fentanyl. Bedside EGD done today, PICC line was placed. Lasix 20 give, and urinalysis. Cpap in the morning. 08/08/2025: Patient seen in ICU. Patient was extubated today successfully, on 3 L oxygen. Off pressors, Lasix 20 given, patient is more alert following commands. : patient seen in ICU. Patient was extubated yesterday, is on room air, off pressors, discontinued Protonix drip, patient is more alert today opening his eyes and following commands. Swallow eval and if pass give full liquid diet. PT eval. Blood Culture showed Acinetobacter lwoffi. Objective vital signs Vital Sign Date Time Temp Pulse Resp B/P (MAP) Pulse Ox O2 Delivery O2 Flow Rate FiO2 08/09/25 09:40 93 08/09/25 09:40 16 99 Room Air* 0 21 08/09/25 09:00 107/80 (89) 08/09/25 08:00 99.6 99.6 Total Intake and Output 08/08/25 08/08/25 08/09/25 15:00 23:00 07:00 Intake Total 645.772 ml 50 ml 350 ml Output Total 2200 ml 500 ml Balance 645.772 ml -2150 ml -150 ml medications Current Medications Medications Dose Ordered Sig/Mustapha Route Start Time Stop Time Status Last Admin Dose Admin Sodium Chloride 10 ml Q8HR IV 08/02/25 22:00 08/09/25 05:14 10 ML Acetaminophen 650 mg Q6HP PRN PO 08/02/25 21:45 Piperacillin Sod/ Tazobactam Sod 100 ml @ 25 mls/hr Q8HR IV 08/03/25 06:00 08/09/25 05:14 25 MLS/HR Vancomycin HCl 0 ml @ 0 mls/hr PER PHARMACY IV 08/03/25 02:00 Docusate Sodium 100 mg BID PRN GT 08/04/25 11:30 Mupirocin 1 applic BID EACHNOSTRI 08/04/25 22:00 08/09/25 21:59 08/09/25 07:22 1 APPLIC Atorvastatin Calcium 20 mg HS GT 08/05/25 22:00 08/07/25 20:29 20 MG Sucralfate 1 gm QID@0600,1130,1700,2200 GT 08/07/25 17:00 08/08/25 04:37 1 GM Pantoprazole Sodium 40 mg BID IV 08/08/25 10:00 08/09/25 07:21 40 MG Sodium Chloride 10 ml QSHIFT@10,22 IV 08/07/25 22:00 08/09/25 07:21 10 ML Vancomycin HCl 250 ml @ 250 mls/hr Q12H IV 08/08/25 11:00 08/09/25 10:49 250 MLS/HR Examination General: Extubated, opening eyes and following commands HEENT: Normocephalic, atraumatic, moist mucous membranes Respiratory/pulmonary: Clear lungs bilaterally, vesicular murmurs present in almost all lung farr, no associated crackles or wheezes. Cardiovascular: Normal heart sounds S1 and S2 with no associated murmurs Abdomen: Abdomen nondistended, there is no pain to palpation in any of the abdominal quadrants, no palpable masses. Surgical scar Extremities: Bilateral pitting edema Peripheral Pulses: 3+ Radial (R). 3+ Radial (L). 3+ Dorsalis pedis (R). 3+ Dorsalis pedis(L) Skin: Bilateral lower extremity cellulitis, wound on left lower medial side. Neurological: Right eye blind, left eye 2+ and sluggish, gag and cough reflex present laboratory and microbiology Laboratory Tests 08/09/25 03:10 Test 08/09/25 03:10 Range/Units Serum Glucose 106 74-106 mg/dL Microbiology Date/Time Source Procedure Growth Status 08/07/25 00:05 Urine - Catheterized Urine Culture - Final Complete 08/05/25 10:00 Blood Blood Culture - Preliminary NO GROWTH AFTER 72 HOURS OF INCUBATION. Resulted 08/04/25 06:15 Nose MRSA Screen - Final Methicillin Resistant S.aureus Complete 08/02/25 23:50 Sputum Endotracheal Wash Gram Stain - Final Complete 08/02/25 23:50 Respiratory Culture - Final Methicillin Resistant S.aureus Presumptive Christy albicans Complete Problem List/Assessment/Plan Problem List/Assessment/Plan Neurology Acute metabolic encephalopathy likely due to sepsis - intubated, sedated Cardiology Acute decompensated HFpEF, NYHA Class III. Mitral valve regurgitation, moderate degree. Dyslipidemia - Echo showed EF of 50% with mild diastolic dysfunction, mild LVH, RVSP of 36 - Lasix 20 - Atorvastatin 20mg Respiratory Sepsis likely due to MRSA pneumonia Acute hypoxic respiratory failure MRSA pneumonia History of COPD -ventilator setting: AC mode, RR 18, TV 450, FiO2 30, peep 5 -MRSA positive in nares, sputum -IV vancomycin, Zosyn -blood, urine culture ordered GI upper GI bleed Sepsis likely from possible appendicitis Possible peptic ulcer disease Possible appendicitis Colonic diverticulosis Containing Umbilical hernia and left inguinal hernia - IV fluid - Protonix drip - GI consulted - possible EGD Planned on Tuesday - hepatitis panel ordered - ammonia ordered - CT abdomen is pelvis showed possible appendicitis, Colonic diverticulosis without acute diverticulitis. 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 Renal/electrolytes Neurology Acute metabolic encephalopathy likely due to sepsis - intubated, sedated Cardiology Acute decompensated HFpEF, NYHA Class III. Mitral valve regurgitation, moderate degree. Dyslipidemia - Echo showed EF of 50% with mild diastolic dysfunction, mild LVH, RVSP of 36 - Lasix 20 - Atorvastatin 20mg Respiratory Sepsis likely due to MRSA pneumonia Acute hypoxic respiratory failure MRSA pneumonia History of COPD -ventilator setting: AC mode, RR 18, TV 450, FiO2 30, peep 5 -MRSA positive in nares, sputum -IV vancomycin, Zosyn -blood, urine culture ordered GI upper GI bleed Sepsis likely from possible appendicitis Possible peptic ulcer disease Possible appendicitis Colonic diverticulosis Containing Umbilical hernia and left inguinal hernia - IV fluids - Protonix drip - GI consulted - possible EGD Planned on Tuesday - hepatitis panel ordered - ammonia ordered - CT abdomen is pelvis showed possible appendicitis, Colonic diverticulosis without acute diverticulitis. - Total of 5 PRBC given - monitor H&H - transfuse if hemoglobin less than 7 Renal/electrolytes Hypokalemia Hypernatremia Hypermagnesemia - monitor labs - replete potassium as needed Hematology Normocytic normochromic anemia Acute blood loss anemia due to upper GI bleed, hematemesis -GI on board -monitor H&H -transfuse if hemoglobin less than 7 -NPO Endocrine Hypothyroidism SKin/MSK Lower extremity cellulitis - IV vancomycin, Zosyn -wound consult - blood culture showed Acinetobacter lwoffi.(08/03) Polysubstance abuse History of testicular cancer Lines / Tubes / Devices Airway: Intubated via ETT on 08/03 Vascular Access: Femoral line 08/03, PICC line placed(08/07) Drips: Versed, Protonix, fentanyl, propofol Prophylaxis / Supportive Care DVT Prophylaxis: SCD GI Prophylaxis: Protonix Extubated (08/08) Goals of care discussed with the patient family for more than 29 minutes: Full code state Patient care updated to father , addressed all concerns. Critical care time spent excluding procedures 85 minutes Plan discussed with Dr. Oliveira and RN Plan discussed with: Other (Father, RN ) My Orders My Orders Orders - LEANNA GONZALEZ RESIDENT Procedure Category Date Status Time Chest Xray 1 View XY 08/09/25 Resulted 04:00 Dietary Evaluation Review Comments: 1. Tube feeding if GI accessible, Vital High Protein@60ml/hr providing 126g Protein, 1440kcal, 1204ml free water. 2. TPN per pharmacy to meet Pt's energy and protein needs, if GI/EN not medically feasible. 3. Advance to diet texture as tolerated after extubation and passing COMPUTER FORENSIC SPECIALIST eval 4. Offer Ensure Clear TID, if pt is can tolerate PO clear liquid diet Expected Outcomes/Goals: Replenish serum protein through nutrition support. Increaed physical strength CC Plasma Assessment Blood Product Administration S: 08:00 LEANNA GONZALEZ RESIDENT Aug 09, 2025 13:02
[2025-08-09 15:03] LABS: Anion Gap 11 (5-15); Carbon Dioxide 24 mmol/L (20-31)
[2025-08-09 15:08] LABS: BUN/Creatinine Ratio 29.4 (10.0-20.0); Blood Urea Nitrogen 20 mg/dL (9-23)
[2025-08-09 15:09] LABS: Calcium 7.4 mg/dL (8.7-10.4); Chloride 113 mmol/L (98-107); Glucose 147 mg/dL (74-106); Potassium 3.5 mmol/L (3.5-5.1); Sodium 148 mmol/L (136-145)
--- NOTE | 2025-08-09 16:57 | DVHPN2 ---
Progress Note Date Seen: Aug 09, 2025 Resident Creating Document: DANIELITO SUAREZ RESIDENT Medical Necessity Reason Pt with a Central, PICC or Fol: Yes The following are medically ne: Central Line, Otoole Catheter Subjective Review of Systems Patient extubated yesterday Alert and oriented x1 Swallow evaluation to be done No other acute complaints Denies nausea, vomiting, abdominal pain Objective vital signs Vital Sign Date Time Temp Pulse Resp B/P (MAP) Pulse Ox O2 Delivery O2 Flow Rate FiO2 08/09/25 14:00 101 08/09/25 14:00 18 143/79 (100) 99 08/09/25 14:00 Room Air* 0 21 08/09/25 12:00 98.6 98.6 Total Intake and Output 08/08/25 08/08/25 08/09/25 15:00 23:00 07:00 Intake Total 645.772 ml 50 ml 350 ml Output Total 2200 ml 500 ml Balance 645.772 ml -2150 ml -150 ml medications Current Medications Medications Dose Ordered Sig/Mustapha Route Start Time Stop Time Status Last Admin Dose Admin Sodium Chloride 10 ml Q8HR IV 08/02/25 22:00 08/09/25 14:47 10 ML Acetaminophen 650 mg Q6HP PRN PO 08/02/25 21:45 Piperacillin Sod/ Tazobactam Sod 100 ml @ 25 mls/hr Q8HR IV 08/03/25 06:00 08/09/25 14:47 25 MLS/HR Vancomycin HCl 0 ml @ 0 mls/hr PER PHARMACY IV 08/03/25 02:00 Docusate Sodium 100 mg BID PRN GT 08/04/25 11:30 Mupirocin 1 applic BID EACHNOSTRI 08/04/25 22:00 08/09/25 21:59 08/09/25 07:22 1 APPLIC Atorvastatin Calcium 20 mg HS GT 08/05/25 22:00 08/07/25 20:29 20 MG Sucralfate 1 gm QID@0600,1130,1700,2200 GT 08/07/25 17:00 08/08/25 04:37 1 GM Pantoprazole Sodium 40 mg BID IV 08/08/25 10:00 08/09/25 07:21 40 MG Sodium Chloride 10 ml QSHIFT@, IV 08/07/25 22:00 08/09/25 07:21 10 ML Vancomycin HCl 250 ml @ 250 mls/hr Q12H IV 08/08/25 11:00 08/09/25 10:49 250 MLS/HR Purified Water 200 ml Q6HR GT 08/09/25 18:00 Examination Gen - mild conjunctival pallor, no scleral icterus Skin - Patients skin is warm and dry. HEENT - normocephalic, atraumatic, dry mucous membranes. Neck - supple, no lymphadenopathy Pulmonary - B/L equal breath sounds cardiovascular - regular S1,S2 heard GI - soft abdomen. Bowel sounds normoactive. Neurological - Patient is extubated, alert and oriented x1 laboratory and microbiology Laboratory Tests 08/09/25 14:10 08/09/25 03:10 Test 08/09/25 14:10 Range/Units Serum Glucose 147 H 74-106 mg/dL Microbiology Date/Time Source Procedure Growth Status 08/07/25 00:05 Urine - Catheterized Urine Culture - Final Complete 08/05/25 10:00 Blood Blood Culture - Preliminary NO GROWTH AFTER 72 HOURS OF INCUBATION. Resulted 08/04/25 06:15 Nose MRSA Screen - Final Methicillin Resistant S.aureus Complete 08/02/25 23:50 Sputum Endotracheal Wash Gram Stain - Final Complete 08/02/25 23:50 Respiratory Culture - Final Methicillin Resistant S.aureus Presumptive Christy albicans Complete Problem List/Assessment/Plan Problem List/Assessment/Plan Coffee-ground emesis and melena Hiatal hernia with a acute erosive esophagitis long segment Bolanos's Duodenal bulb ulcer for jen classification C Pre-pyloric antral gastric ulcer Severe anemia likely from duodenal ulcer Possible appendicitis Colonic diverticulosis MRSA pneumonia History of COPD Polysubstance use Hypernatremia ?Euthyroid sick syndrome Plan - continue on Protonix 40 mg IV b.i.d. - monitor H&H and keep hemoglobin above 7 and transfuse PRBC as needed - swallow evaluation to be done and patient will be started on clear liquid diet Rest of the management as per the primary team Plan discussed with Dr. Alicia Plan discussed with: Other (MADDY Garcia) Dietary Evaluation Review Comments: 1. Tube feeding if GI accessible, Vital High Protein@60ml/hr providing 126g Protein, 1440kcal, 1204ml free water. 2. TPN per pharmacy to meet Pt's energy and protein needs, if GI/EN not medically feasible. 3. Advance to diet texture as tolerated after extubation and passing FORGE TENDER eval 4. Offer Ensure Clear TID, if pt is can tolerate PO clear liquid diet Expected Outcomes/Goals: Replenish serum protein through nutrition support. Increaed physical strength CC Plasma Assessment Blood Product Administration S: 08:00 DANIELITO SUAREZ RESIDENT Aug 09, 2025 16:56
[2025-08-09] MEDS: FREE WATER GT SCH (17:11)
--- NOTE | 2025-08-09 17:49 | DVHPN2 ---
Progress Note - Dictate Date Seen: Aug 09, 2025 Medical Necessity Reason Pt with a Central, PICC or Fol: Yes The following are medically ne: Central Line, Otoole Catheter Subjective Patient was seen and evaluated in follow up in the ICU. Patient was successfully extubated yesterday. Patient is stable on room air. WBC 11.7, HGB 9.6, HCT 29.2, NA 149, K 3.2, CA 7.9, AST 67, ALT 51. Chest x-ray shows mild diffuse increased prominence of the pulmonary vasculature. vital signs Vital Sign Date Time Temp Pulse Resp B/P (MAP) Pulse Ox O2 Delivery O2 Flow Rate FiO2 08/09/25 09:40 93 08/09/25 09:40 16 99 Room Air* 0 21 08/09/25 09:00 107/80 (89) 08/09/25 08:00 99.6 99.6 Total Intake and Output 08/08/25 08/08/25 08/09/25 15:00 23:00 07:00 Intake Total 645.772 ml 50 ml 350 ml Output Total 2200 ml 500 ml Balance 645.772 ml -2150 ml -150 ml medications Current Medications Medications Dose Ordered Sig/Mustapha Route Start Time Stop Time Status Last Admin Dose Admin Sodium Chloride 10 ml Q8HR IV 08/02/25 22:00 08/09/25 05:14 10 ML Acetaminophen 650 mg Q6HP PRN PO 08/02/25 21:45 Piperacillin Sod/ Tazobactam Sod 100 ml @ 25 mls/hr Q8HR IV 08/03/25 06:00 08/09/25 05:14 25 MLS/HR Vancomycin HCl 0 ml @ 0 mls/hr PER PHARMACY IV 08/03/25 02:00 Docusate Sodium 100 mg BID PRN GT 08/04/25 11:30 Mupirocin 1 applic BID EACHNOSTRI 08/04/25 22:00 08/09/25 21:59 08/09/25 07:22 1 APPLIC Atorvastatin Calcium 20 mg HS GT 08/05/25 22:00 08/07/25 20:29 20 MG Sucralfate 1 gm QID@0600,1130,1700,2200 GT 08/07/25 17:00 08/08/25 04:37 1 GM Pantoprazole Sodium 40 mg BID IV 08/08/25 10:00 08/09/25 07:21 40 MG Sodium Chloride 10 ml QSHIFT@10,22 IV 08/07/25 22:00 08/09/25 07:21 10 ML Vancomycin HCl 250 ml @ 250 mls/hr Q12H IV 08/08/25 11:00 08/09/25 10:49 250 MLS/HR objective GENERAL: Ill appearing, awake. EYES: PERRL, EOMI. Anicteric. HENT: Moist mucous membranes. LUNGS: Decreased breath sounds. CARDIOVASCULAR: Regular rate and rhythm. ABDOMEN: Soft, nontender and nondistended. EXTREMITIES: 2+ BLE pitting edema. SKIN: Warm, dry. Bilateral lower extremity redness laboratory and microbiology Laboratory Tests 08/09/25 03:10 Test 08/09/25 03:10 Range/Units Serum Glucose 106 74-106 mg/dL Problem List Sepsis with associated lower extremity cellulitis. D novel decompensated HFpEF, NYHA Class III. Mitral valve regurgitation, moderate degree. Acute on chronic hypoxic respiratory failure. Severe anemia status post multiple PRBCs transfusions. Gastrointestinal hemorrhage. Dyslipidemia, newly diagnosed. Polysubstance abuse. Plan/Recommendation Continued all current supportive medical care. Patient has been seen by Tatianna Agudelo NP on my behalf. We have discussed the plan with the patient. A transthoracic echocardiogram revealed revealed LVEF 50% with mild LVH and mild LV diastolic dysfunction, moderately dilated RV and RA, study revealed RV failure, moderate degree of mitral regurgitation. [place] criteria is positive for the diagnosis of heart failure. Continue preload reduction as tolerated strict I&Os, daily weight, and fluid restrictions. Replete electrolytes as necessary. Initiate lipid-lowering agent. Continue to monitor hemoglobin and hematocrit closely and transfuse as needed. Continue GI recommendations. Antibiotics per primary care team. Not a candidate for invasive cardiac ischemic workup. Additional plan as per the hospital course. Assessment/Plan Continued all current supportive medical care. GI prophylactics. IV antibiotics as ordered. Tylenol for pain management. Additional plan as per the hospital course. Critical care time of 45 minutes provided to include time spent evaluation of patient at bedside, when appropriate patient/family education for diagnosis, treatment plan, review of pertinent medical information and discussion of care with specialty providers and PCP. Dietary Evaluation Review Comments: 1. Tube feeding if GI accessible, Vital High Protein@60ml/hr providing 126g Protein, 1440kcal, 1204ml free water. 2. TPN per pharmacy to meet Pt's energy and protein needs, if GI/EN not medically feasible. 3. Advance to diet texture as tolerated after extubation and passing HEALTH COMPANION eval 4. Offer Ensure Clear TID, if pt is can tolerate PO clear liquid diet Expected Outcomes/Goals: Replenish serum protein through nutrition support. Increaed physical strength Plan discussed with: Patient CC Plasma Assessment Blood Product Administration S: 08:00 ADAM MELO MD Aug 09, 2025 12:29
[2025-08-09] MEDS: POTASSIUM CHL 20MEQ/100ML 100 ML IV ONE (17:55)
--- NOTE | 2025-08-09 23:02 | DVHPN2 ---
Subjective DOS: 08/09/2025 Patient seen and examined at bedside. Breathing comfortably on room air. Overnight events reviewed. Reviewed: H&P Changes from previous H/P or p: Changes Eyes: No Pain, No Vision change, No Conjunctivae inflammation, No Eyelid inflammation, No Other, No Redness ENT: No Ear pain, No Ear discharge, No Nose pain, No Nose discharge, No Nose congestion, No Mouth pain, No Mouth swelling, No Throat pain, No Throat swelling, No Other Cardiovascular: No Chest Pain, No Palpitations, No Orthopnea, No Paroxysmal Noc. Dyspnea, No Edema, No Lt Headedness, No Other Respiratory: No Cough, No Dry; Shortness of breath; No SOB with excertion, No Wheezing, No Hemoptysis, No Pleuritic Pain, No Sputum, No Other Gastrointestinal: No Nausea, No Vomiting, No Abdominal Pain, No Diarrhea, No Constipation, No Melena, No Hematochezia, No Other Genitourinary: No Dysuria, No Frequency, No Incontinence, No Hematuria, No Retention, No Other Musculoskeletal: No other, No neck pain, No shoulder pain, No arm pain, No back pain, No hand pain, No leg pain, No foot pain Skin: No Rash, No Lesions, No Jaundice, No Bruising, No Other Objective Vitals Vital Signs Date Time Temp Pulse Resp B/P (MAP) Pulse Ox O2 Delivery O2 Flow Rate FiO2 08/09/25 21:00 97.6 55 16 136/68 (90) 97 97.6 08/09/25 20:00 Room Air* 0 21 Intake/Output Intake and Output 08/09/25 07:00 Intake Total 1045.772 ml Output Total 2700 ml Balance -1654.228 ml Intake Oral 0 ml IV Total 1045.772 ml Output Urine Total 2700 ml Exam Gen.: Patient lying in bed in no apparent distress. Breathing on room air. Head: Normocephalic, atraumatic. Eyes: EOMI/PERRLA. Ears: Normal hearing. Normal anatomy. Neck/trachea: Trachea midline, supple. Nose: Normal external anatomy. Mouth: Moist mucous membranes. Chest: Decreased air entry bilaterally. No wheezing or rhonchi. Cardiovascular: Positive S1, positive S2. Regular rate and rhythm. Abdomen: Positive bowel sounds in all 4 quadrants. Soft, non-tender, non- distended. : Deferred. Rectal: Deferred. Skin: Warm, dry. Intact. Extremities: 2+ radial pulses bilaterally. No lower extremity edema. Neuro: Awake, alert, oriented x3. No gross motor or sensory deficits. Cranial nerves II through XII intact. Gait not assessed. Lungs: Clear to auscultation Cardiovascular: Regular rate, Normal S1, Normal S2 Abdomen: Normal bowel sounds Medications Current Medications Medications Dose Ordered Sig/Mustapha Route Start Time Stop Time Status Last Admin Dose Admin Sodium Chloride 10 ml Q8HR IV 08/02/25 22:00 08/09/25 22:04 10 ML Acetaminophen 650 mg Q6HP PRN PO 08/02/25 21:45 Piperacillin Sod/ Tazobactam Sod 100 ml @ 25 mls/hr Q8HR IV 08/03/25 06:00 08/09/25 22:04 25 MLS/HR Vancomycin HCl 0 ml @ 0 mls/hr PER PHARMACY IV 08/03/25 02:00 Docusate Sodium 100 mg BID PRN GT 08/04/25 11:30 Atorvastatin Calcium 20 mg HS GT 08/05/25 22:00 08/09/25 22:04 20 MG Sucralfate 1 gm QID@0600,1130,1700,2200 GT 08/07/25 17:00 08/09/25 22:00 1 GM Pantoprazole Sodium 40 mg BID IV 08/08/25 10:00 08/09/25 22:04 40 MG Sodium Chloride 10 ml QSHIFT@10,22 IV 08/07/25 22:00 08/09/25 22:04 10 ML Vancomycin HCl 250 ml @ 250 mls/hr Q12H IV 08/08/25 11:00 08/09/25 10:49 250 MLS/HR Purified Water 200 ml Q6HR GT 08/09/25 18:00 08/09/25 17:11 200 ML Laboratory Results Laboratory Tests 08/09/25 03:10 08/09/25 14:10 Chemistry Test 08/09/25 03:10 08/09/25 14:10 Albumin 3.0 g/dL (3.2-4.8) L Calcium Level 7.9 mg/dL (8.7-10.4) L 7.4 mg/dL (8.7-10.4) L Magnesium Level 2.6 mg/dL (1.6-2.6) Total Protein 6.0 g/dL (5.7-8.2) LFT Test 08/09/25 03:10 Alanine Aminotransferase (ALT) 51 U/L (7-40) H Alkaline Phosphatase 78 U/L (46-116) Aspartate Amino Transferase (AST) 67 U/L (13-40) H Total Bilirubin 0.4 mg/dL (0.2-1.0) Urinalysis Test 08/02/25 00:00 08/07/25 15:15 Urine Hyaline Casts Mod /lpf (0 - 2) Urine Mucus Few (None Seen) Urine Color Light-yellow (Yellow) Urine Clarity Clear (Clear) Urine pH 6.5 (5.0-9.0) Urine Specific [place] 1.008 (1.001-1.035) Urine Protein Trace (Negative) H Urine Ketones Negative (Negative) Urine Blood Negative /uL (Negative) Urine Nitrite Negative (Negative) Urine Bilirubin Negative (Negative) Urine Urobilinogen Normal mg/dL (Negative) Urine Leukocyte Esterase Negative /uL (Negative) Urine RBC 1 /hpf (0 - 3) Urine Microscopic WBC 4 /HPF (0-3) H Urine Squamous Epithelial Cells None seen /hpf (<5) Urine Bacteria Few /hpf (None Seen) H Urine Glucose Normal mg/dL (Normal) Microbiology Microbiology Date/Time Source Procedure Growth Status 08/07/25 00:05 Urine - Catheterized Urine Culture - Final Complete 08/05/25 10:00 Blood Blood Culture - Preliminary NO GROWTH AFTER 72 HOURS OF INCUBATION. Resulted 08/04/25 06:15 Nose MRSA Screen - Final Methicillin Resistant S.aureus Complete 08/02/25 23:50 Sputum Endotracheal Wash Gram Stain - Final Complete 08/02/25 23:50 Respiratory Culture - Final Methicillin Resistant S.aureus Presumptive Christy albicans Complete Assessment/Plan Assessment/Plan Impression: Acute hypoxic respiratory failure, resolved Gastrointestinal hemorrhage Anemia 2/2 gastrointestinal hemorrhage Sepsis Cellulitis Acute CHF exacerbation Events: Patient was seen and evaluated at bedside Patient tolerated CPAP, was successfully extubated yesterday. Currently breathing on room air. No distress. Labs reviewed; WBC 11.7, HGB 9.6, HCT 29.2, NA 149, K 3.2, CA 7.9, AST 67, ALT 51. Chest x-ray shows mild diffuse increased prominence of the pulmonary vasculature. Patient passed swallow evaluation. Head of bed elevation Aspiration precautions Continue antibiotics - Zosyn, vancomycin. Incentive spirometry FOBT positive GI recs appreciated. Monitor hemoglobin Transfuse if less than 7.0 g/dL. Protonix 40 mg IVP BID Sucralfate Monitor blood pressure Monitor renal function Monitor electrolytes. Supplement as necessary. Potassium supplementation Monitor ins and outs. Labs and imaging reviewed. Rest of plan as noted below. Plan: S/p extubation on 08/08/25 Supplemental oxygen PRN Titrate to keep O2 sats above 92%. Continue bronchodilators PRN. Continue antibiotics. Follow up cultures. Pressors as necessary for hemodynamic support Titrate to keep mean arterial pressure greater than 65 mmHg. Follow up Cardiology recommendations Follow up GI recommendations. Protonix 40 mg IVP BID Sucralfate Monitor hemoglobin Transfuse if less than 7.0 g/dL Monitor renal function Monitor electrolytes. Supplement as necessary. Monitor ins and outs. GI prophylaxis. DVT prophylaxis. Prognosis: Poor given patient's multiple co-morbidities. Condition: Critical Rest of plan per hospitalist and other consultants. A total of 35 minutes of critical care time was spent reviewing the patient record, examining the patient, making a diagnostic and therapeutic plan, discussing this plan with the medical personnel, following up on diagnostic studies and following the patient for clinical stability excluding any and all procedures. At least 50% of this time was spent in direct, [id number] contact. Thank you, SHERYL Del Castillo, for allowing me to participate in this patient's care. Further recommendations will depend on the patient's clinical course. Please do not hesitate to contact me if you have any questions or concerns. This medical document was created using an electronic medical record system with [employer] dictation system. Although these documentations are being carefully reviewed, there may still be some phonetic and typographical changes. The errors are purely typographical, due to imperfection on the software program, and do not reflect any compromise in the patient's medical care. Plan discussed with: Patient, Other (MADDY Garcia) Visit Coding Pulmonary Billing Provider: KARL CORONADO MD Date of Service if different f: Aug 09, 2025 Common Visit Codes: 68109-[id number] INP/OBS CARE(HIGH), 74023-[id number] CARE 30-74 MIN KARL CORONADO MD Aug 09, 2025 23:02
[2025-08-10] VITALS (8 sets, daily range): BP systolic 121–164; BP diastolic 71–88; PULSE 71–108; RESP 12–20; TEMP 97.6–99.9; O2SAT 94–99
--- NOTE | 2025-08-10 05:51 | DVH ---
CHEST RADIOGRAPH Indication: post extubation Technique: Single frontal view of the chest was obtained COMPARISON: XY CHEST XRAY 1 VIEW on DOS: 08/09/25, XY CHEST XRAY 1 VIEW on DOS: 08/08/25, XY CHEST PORTABLE on DOS: 08/07/25, XY CHEST XRAY 1 VIEW on DOS: 08/07/25, XY CHEST XRAY 1 VIEW on DOS: 08/05/25 FINDINGS: Lines and Tubes: Right peripherally inserted central catheter unchanged. Lungs: Clear Pleura: No effusion. No pneumothorax. Cardiomediastinal contours: Unremarkable Bones: Unremarkable IMPRESSION: 1. No acute cardiopulmonary disease. 2. Right PICC unchanged.
[2025-08-10 06:31] LABS: Hematocrit 29.3 % (41.0-53.0); Hemoglobin 9.7 g/dL (13.5-17.5); Mean Corpuscular Hemoglobin 28.5 pg (28.0-32.0); Mean Corpuscular Volume 85.7 fL (80.0-100.0); Nucleated Red Blood Cells % 0.0 %
[2025-08-10 06:36] LABS: Alkaline Phosphatase 75 U/L (46-116); Anion Gap 9 (5-15); BUN/Creatinine Ratio 25.4 (10.0-20.0); Bilirubin, Total 0.3 mg/dL (0.2-1.0); Blood Urea Nitrogen 16 mg/dL (9-23); Carbon Dioxide 22 mmol/L (20-31); Sodium 142 mmol/L (136-145); Total Protein 6.0 g/dL (5.7-8.2)
[2025-08-10 06:40] LABS: Chloride 111 mmol/L (98-107); Glucose 130 mg/dL (74-106); Potassium 3.4 mmol/L (3.5-5.1)
[2025-08-10 06:41] LABS: Alanine Aminotransferase 55 U/L (7-40); Albumin 3.1 g/dL (3.2-4.8); Calcium 7.8 mg/dL (8.7-10.4)
--- NOTE | 2025-08-10 13:17 | DVHPNRES ---
Progress Note Date Seen: Aug 10, 2025 Resident Creating Document: MELVIN WAKLER RESIDENT Medical Necessity Reason Pt with a Central, PICC or Fol: Yes The following are medically ne: Central Line, Otoole Catheter Subjective Review of Systems Patient is a 55-year-old male with past medical history of cellulitis, testicular cancer, history of hernia, recurrent pneumonia, diastolic CHF presented to the ED with neighbor who brought him after he found him unconscious covered in black vomitus, stool everywhere. Patient was recently hospitalized for cellulitis and left AMA. Patient lives in a trailer, he was combative in the ED, unstable and was intubated on 08/03. According to father patient had recent hernia repair which was unsuccessful, patient also had multiple surgeries on shoulder, knee. Surgical history: Multiple surgeries on shoulder, knee, hernia repair Family history: Reviewed, noncontributory Personal history: Patient lives alone in a trailer, as per father denied smoking, alcohol use but used oxycodone after surgeries 08/05/25:Patient seen in the ED. Patient is intubated, sedated, on no pressors, on propofol, Versed, fentanyl, Protonix drip. GI is consulted, possible EGD on Tuesday, lengthy discussion was made with father regarding patient's condition, and prognosis. Ordered hepatitis panel, ammonia. 08/06/2025: Patient seen in the ED. Patient is intubated, sedated, is on no pressors, patient's hands turned blue, black in the morning patient has return of blood flow but still fingers are blue. Patient is having green thick secretion on suction. Patient is on Protonix drip, Versed, fentanyl, propofol. Possible EGD tomorrow. 08/07/25: Patient seen in ICU. Patient is intubated, sedated is not on any pressors, patient is on Pradaxa., Versed, fentanyl. Bedside EGD done today, PICC line was placed. Lasix 20 give, and urinalysis. Cpap in the morning. 08/08/2025: Patient seen in ICU. Patient was extubated today successfully, on 3 L oxygen. Off pressors, Lasix 20 given, patient is more alert following commands. : patient seen in ICU. Patient was extubated yesterday, is on room air, off pressors, discontinued Protonix drip, patient is more alert today opening his eyes and following commands. Swallow eval and if pass give full liquid diet. PT eval. Blood Culture showed Acinetobacter lwoffi. 08/10/25 patient seen at bedside. able to tolerate diet. no bleed. continue oral meds . had episode of watery diarrhea Objective vital signs Vital Sign Date Time Temp Pulse Resp B/P (MAP) Pulse Ox O2 Delivery O2 Flow Rate FiO2 08/10/25 08:54 97.6 87 18 164/84 (110) 99 97.6 08/10/25 08:00 Room Air* 0 30 21 Total Intake and Output 08/09/25 08/09/25 08/10/25 15:00 23:00 07:00 Intake Total 350 ml 500 ml 805 ml Output Total 550 ml 550 ml Balance 350 ml -50 ml 255 ml medications Current Medications Medications Dose Ordered Sig/Mustapha Route Start Time Stop Time Status Last Admin Dose Admin Sodium Chloride 10 ml Q8HR IV 08/02/25 22:00 08/10/25 05:13 Acetaminophen 650 mg Q6HP PRN PO 08/02/25 21:45 Piperacillin Sod/ Tazobactam Sod 100 ml @ 25 mls/hr Q8HR IV 08/03/25 06:00 08/10/25 05:13 Vancomycin HCl 0 ml @ 0 mls/hr PER PHARMACY IV 08/03/25 02:00 Docusate Sodium 100 mg BID PRN GT 08/04/25 11:30 Atorvastatin Calcium 20 mg HS GT 08/05/25 22:00 08/09/25 22:04 Sucralfate 1 gm QID@0600,1130,1700,2200 GT 08/07/25 17:00 08/10/25 12:52 Pantoprazole Sodium 40 mg BID IV 08/08/25 10:00 08/10/25 12:52 Sodium Chloride 10 ml QSHIFT@10,22 IV 08/07/25 22:00 08/10/25 10:00 Vancomycin HCl 250 ml @ 250 mls/hr Q12H IV 08/08/25 11:00 08/10/25 12:51 Purified Water 200 ml Q6HR GT 08/09/25 18:00 08/10/25 12:00 Saccharomyces Boulardii 250 mg BID PO 08/10/25 22:00 UNV Examination General: Alert oriented to time place and person. HEENT: Normocephalic, atraumatic, moist mucous membranes Respiratory/pulmonary: Clear lungs bilaterally, vesicular murmurs present in almost all lung farr, no associated crackles or wheezes. Cardiovascular: Normal heart sounds S1 and S2 with no associated murmurs Abdomen: Abdomen nondistended, there is no pain to palpation in any of the abdominal quadrants, no palpable masses. Surgical scar Extremities: Bilateral pitting edema Peripheral Pulses: 3+ Radial (R). 3+ Radial (L). 3+ Dorsalis pedis (R). 3+ Dorsalis pedis(L) Skin: Bilateral lower extremity cellulitis, wound on left lower medial side. Neurological: Right eye blind, left eye 2+ and sluggish, gag and cough reflex present laboratory and microbiology Laboratory Tests 08/10/25 05:23 Test 08/10/25 05:23 Range/Units Serum Glucose 130 H 74-106 mg/dL Microbiology Date/Time Source Procedure Growth Status 08/07/25 00:05 Urine - Catheterized Urine Culture - Final Complete 08/05/25 10:00 Blood Blood Culture - Final NO GROWTH AFTER 5 DAYS OF INCUBATION. Complete 08/04/25 06:15 Nose MRSA Screen - Final Methicillin Resistant S.aureus Complete 08/02/25 23:50 Sputum Endotracheal Wash Gram Stain - Final Complete 08/02/25 23:50 Respiratory Culture - Final Methicillin Resistant S.aureus Presumptive Christy albicans Complete Problem List/Assessment/Plan Problem List/Assessment/Plan Neurology Acute metabolic encephalopathy likely due to sepsis - intubated, sedated Cardiology Acute decompensated HFpEF, NYHA Class III. Mitral valve regurgitation, moderate degree. Dyslipidemia - Echo showed EF of 50% with mild diastolic dysfunction, mild LVH, RVSP of 36 - Atorvastatin 20mg Respiratory Sepsis likely due to MRSA pneumonia Acute hypoxic respiratory failure MRSA pneumonia History of COPD -MRSA positive in nares, sputum -IV vancomycin, Zosyn -blood, urine culture ordered GI upper GI bleed Sepsis likely from possible appendicitis Possible peptic ulcer disease Possible appendicitis Colonic diverticulosis Containing Umbilical hernia and left inguinal hernia - IV fluid - Protonix 40 mg po bid - CT abdomen is pelvis showed possible appendicitis, Colonic diverticulosis without acute diverticulitis. 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 Renal/electrolytes Neurology Acute metabolic encephalopathy likely due to sepsis - intubated, sedated Cardiology Acute decompensated HFpEF, NYHA Class III. Mitral valve regurgitation, moderate degree. Dyslipidemia - Echo showed EF of 50% with mild diastolic dysfunction, mild LVH, RVSP of 36 - Atorvastatin 20mg Respiratory Sepsis likely due to MRSA pneumonia Acute hypoxic respiratory failure MRSA pneumonia History of COPD -MRSA positive in nares, sputum -IV vancomycin, Zosyn -blood, urine culture ordered GI upper GI bleed Sepsis likely from possible appendicitis Possible peptic ulcer disease Possible appendicitis Colonic diverticulosis Containing Umbilical hernia and left inguinal hernia - IV fluids - Protonix 40 mg po bid - CT abdomen is pelvis showed possible appendicitis, Colonic diverticulosis without acute diverticulitis. - Total of 5 PRBC given - monitor H&H - transfuse if hemoglobin less than 7 Renal/electrolytes Hypokalemia Hypernatremia Hypermagnesemia - monitor labs - replete potassium as needed Hematology Normocytic normochromic anemia Acute blood loss anemia due to upper GI bleed, hematemesis -GI on board -monitor H&H -transfuse if hemoglobin less than 7 -NPO Endocrine Hypothyroidism SKin/MSK Lower extremity cellulitis - IV vancomycin, Zosyn -wound consult - blood culture showed Acinetobacter lwoffi.(08/03) Polysubstance abuse History of testicular cancer Lines / Tubes / Devices Airway: Intubated via ETT on 08/03 Vascular Access: Femoral line 08/03, PICC line placed(08/07) Drips: Versed, Protonix, fentanyl, propofol Prophylaxis / Supportive Care DVT Prophylaxis: SCD GI Prophylaxis: Protonix Extubated (08/08) Goals of care discussed with the patient family for more than 29 minutes: Full code state Patient care updated to father , addressed all concerns. Critical care time spent 44 min, excluding procedure. Plan discussed with: Patient, Other (RN) My Orders My Orders Orders - MELVIN WALKER RESIDENT Procedure Category Date Status Time Free Water PHA 08/09/25 In Process 18:00 Loperamide Capsule PHA 08/10/25 Logged (Imodium Capsule) 13:00 Florastor (S. PHA 08/10/25 Logged Boulardii) (Florastor) 22:00 Dietary Evaluation Review Comments: 1. Tube feeding if GI accessible, Vital High Protein@60ml/hr providing 126g Protein, 1440kcal, 1204ml free water. 2. TPN per pharmacy to meet Pt's energy and protein needs, if GI/EN not medically feasible. 3. Advance to diet texture as tolerated after extubation and passing OLEO HASHER AND RENDERER eval 4. Offer Ensure Clear TID, if pt is can tolerate PO clear liquid diet Expected Outcomes/Goals: Replenish serum protein through nutrition support. Increaed physical strength CC Plasma Assessment Blood Product Administration S: 08:00 MELVIN WALKER RESIDENT Aug 10, 2025 13:17
--- NOTE | 2025-08-10 13:39 | DVHPN2 ---
Progress Note Date Seen: Aug 10, 2025 Resident Creating Document: DANIELITO SUAREZ RESIDENT Medical Necessity Reason Pt with a Central, PICC or Fol: Yes The following are medically ne: Central Line, Otoole Catheter Subjective Review of Systems Seen and examined with the bedside Reports of mild abdominal pain Has loose bowel movements still darkish in color H&H stable Objective vital signs Vital Sign Date Time Temp Pulse Resp B/P (MAP) Pulse Ox O2 Delivery O2 Flow Rate FiO2 08/10/25 08:54 97.6 87 18 164/84 (110) 99 97.6 08/10/25 08:00 Room Air* 0 30 21 Total Intake and Output 08/09/25 08/09/25 08/10/25 15:00 23:00 07:00 Intake Total 350 ml 500 ml 805 ml Output Total 550 ml 550 ml Balance 350 ml -50 ml 255 ml medications Current Medications Medications Dose Ordered Sig/Mustapha Route Start Time Stop Time Status Last Admin Dose Admin Sodium Chloride 10 ml Q8HR IV 08/02/25 22:00 08/10/25 05:13 10 ML Acetaminophen 650 mg Q6HP PRN PO 08/02/25 21:45 Piperacillin Sod/ Tazobactam Sod 100 ml @ 25 mls/hr Q8HR IV 08/03/25 06:00 08/10/25 05:13 25 MLS/HR Vancomycin HCl 0 ml @ 0 mls/hr PER PHARMACY IV 08/03/25 02:00 Docusate Sodium 100 mg BID PRN GT 08/04/25 11:30 Atorvastatin Calcium 20 mg HS GT 08/05/25 22:00 08/09/25 22:04 20 MG Sucralfate 1 gm QID@0600,1130,1700,2200 GT 08/07/25 17:00 08/10/25 12:52 1 GM Pantoprazole Sodium 40 mg BID IV 08/08/25 10:00 08/10/25 12:52 40 MG Sodium Chloride 10 ml QSHIFT@ IV 08/07/25 22:00 08/10/25 10:00 10 ML Vancomycin HCl 250 ml @ 250 mls/hr Q12H IV 08/08/25 11:00 08/10/25 12:51 250 MLS/HR Purified Water 200 ml Q6HR GT 08/09/25 18:00 08/10/25 12:00 200 ML Saccharomyces Boulardii 250 mg BID PO 08/10/25 22:00 Examination Gen - mild conjunctival pallor, no scleral icterus Skin - Patients skin is warm and dry. HEENT - normocephalic, atraumatic, dry mucous membranes. Neck - supple, no lymphadenopathy Pulmonary - B/L equal breath sounds cardiovascular - regular S1,S2 heard GI - soft abdomen. Bowel sounds normoactive. Neurological - Patient is extubated, alert and oriented x2, following commands laboratory and microbiology Laboratory Tests 08/10/25 05:23 Test 08/10/25 05:23 Range/Units Serum Glucose 130 H 74-106 mg/dL Microbiology Date/Time Source Procedure Growth Status 08/07/25 00:05 Urine - Catheterized Urine Culture - Final Complete 08/05/25 10:00 Blood Blood Culture - Final NO GROWTH AFTER 5 DAYS OF INCUBATION. Complete 08/04/25 06:15 Nose MRSA Screen - Final Methicillin Resistant S.aureus Complete 08/02/25 23:50 Sputum Endotracheal Wash Gram Stain - Final Complete 08/02/25 23:50 Respiratory Culture - Final Methicillin Resistant S.aureus Presumptive Christy albicans Complete Problem List/Assessment/Plan Problem List/Assessment/Plan Coffee-ground emesis and melena Hiatal hernia with a acute erosive esophagitis long segment Bolanos's Duodenal bulb ulcer for jen classification C Pre-pyloric antral gastric ulcer Severe anemia likely from duodenal ulcer Possible appendicitis Colonic diverticulosis MRSA pneumonia History of COPD Polysubstance use Hypernatremia ?Euthyroid sick syndrome Plan - continue on Protonix 40 mg IV b.i.d. - monitor H&H and keep hemoglobin above 7 and transfuse PRBC as needed - stool occult blood was sent and is positive - tolerating pureed diet well Rest of the management as per the primary team Plan discussed with Dr. Alicia Plan discussed with: Patient, Other (RN ) Dietary Evaluation Review Comments: 1. Tube feeding if GI accessible, Vital High Protein@60ml/hr providing 126g Protein, 1440kcal, 1204ml free water. 2. TPN per pharmacy to meet Pt's energy and protein needs, if GI/EN not medically feasible. 3. Advance to diet texture as tolerated after extubation and passing AERONAUTICAL ENGINEERING TEACHER eval 4. Offer Ensure Clear TID, if pt is can tolerate PO clear liquid diet Expected Outcomes/Goals: Replenish serum protein through nutrition support. Increaed physical strength CC Plasma Assessment Blood Product Administration S: 08:00 DANIELITO SUAREZ RESIDENT Aug 10, 2025 13:39
[2025-08-10] MEDS: LOPERAMIDE HCL 2 MG CAP/TAB PO ONE (14:00)
[2025-08-10] MEDS: FLORASTOR (S. BOULARDII) 250 MG CAP PO SCH (21:48)
--- NOTE | 2025-08-10 22:27 | DVHPN2 ---
Subjective DOS: 08/10/2025 Patient seen and examined at bedside. Breathing comfortably on room air. Overnight events reviewed. Reviewed: H&P Changes from previous H/P or p: No Changes Eyes: No Pain, No Vision change, No Conjunctivae inflammation, No Eyelid inflammation, No Other, No Redness ENT: No Ear pain, No Ear discharge, No Nose pain, No Nose discharge, No Nose congestion, No Mouth pain, No Mouth swelling, No Throat pain, No Throat swelling, No Other Cardiovascular: No Chest Pain, No Palpitations, No Orthopnea, No Paroxysmal Noc. Dyspnea, No Edema, No Lt Headedness, No Other Respiratory: No Cough, No Dry; Shortness of breath; No SOB with excertion, No Wheezing, No Hemoptysis, No Pleuritic Pain, No Sputum, No Other Gastrointestinal: No Nausea, No Vomiting, No Abdominal Pain, No Diarrhea, No Constipation, No Melena, No Hematochezia, No Other Genitourinary: No Dysuria, No Frequency, No Incontinence, No Hematuria, No Retention, No Other Musculoskeletal: No other, No neck pain, No shoulder pain, No arm pain, No back pain, No hand pain, No leg pain, No foot pain Skin: No Rash, No Lesions, No Jaundice, No Bruising, No Other Objective Vitals Vital Signs Date Time Temp Pulse Resp B/P (MAP) Pulse Ox O2 Delivery O2 Flow Rate FiO2 08/10/25 21:00 98.4 80 19 133/81 (98) 98 98.4 08/10/25 08:00 Room Air* 0 30 21 Intake/Output Intake and Output 08/10/25 07:00 Intake Total 1655 ml Output Total 1100 ml Balance 555 ml Intake Oral 955 ml IV Total 700 ml Output Urine Total 1100 ml # Bowel Movements 4 Exam Gen.: Patient lying in bed in no apparent distress. Breathing on room air. Head: Normocephalic, atraumatic. Eyes: EOMI/PERRLA. Ears: Normal hearing. Normal anatomy. Neck/trachea: Trachea midline, supple. Nose: Normal external anatomy. Mouth: Moist mucous membranes. Chest: Decreased air entry bilaterally. No wheezing or rhonchi. Cardiovascular: Positive S1, positive S2. Regular rate and rhythm. Abdomen: Positive bowel sounds in all 4 quadrants. Soft, non-tender, non- distended. : Deferred. Rectal: Deferred. Skin: Warm, dry. Intact. Extremities: 2+ radial pulses bilaterally. No lower extremity edema. Neuro: Awake, alert, oriented x3. No gross motor or sensory deficits. Cranial nerves II through XII intact. Gait not assessed. Lungs: Clear to auscultation Cardiovascular: Regular rate, Normal S1, Normal S2 Abdomen: Normal bowel sounds Medications Current Medications Medications Dose Ordered Sig/Mustapha Route Start Time Stop Time Status Last Admin Dose Admin Sodium Chloride 10 ml Q8HR IV 08/02/25 22:00 08/10/25 21:46 10 ML Acetaminophen 650 mg Q6HP PRN PO 08/02/25 21:45 Piperacillin Sod/ Tazobactam Sod 100 ml @ 25 mls/hr Q8HR IV 08/03/25 06:00 08/10/25 21:46 25 MLS/HR Vancomycin HCl 0 ml @ 0 mls/hr PER PHARMACY IV 08/03/25 02:00 Docusate Sodium 100 mg BID PRN GT 08/04/25 11:30 Atorvastatin Calcium 20 mg HS GT 08/05/25 22:00 08/10/25 21:45 20 MG Sucralfate 1 gm QID@0600,1130,1700,2200 GT 08/07/25 17:00 08/10/25 21:44 1 GM Pantoprazole Sodium 40 mg BID IV 08/08/25 10:00 08/10/25 21:46 40 MG Sodium Chloride 10 ml QSHIFT@10,22 IV 08/07/25 22:00 08/10/25 21:46 10 ML Purified Water 200 ml Q6HR GT 08/09/25 18:00 08/10/25 17:31 200 ML Saccharomyces Boulardii 250 mg BID PO 08/10/25 22:00 08/10/25 21:48 250 MG Vancomycin HCl 250 ml @ 200 mls/hr Q12H IV 08/10/25 23:00 Laboratory Results Laboratory Tests 08/10/25 05:23 Chemistry Test 08/10/25 05:23 Albumin 3.1 g/dL (3.2-4.8) L Calcium Level 7.8 mg/dL (8.7-10.4) L Total Protein 6.0 g/dL (5.7-8.2) LFT Test 08/10/25 05:23 Alanine Aminotransferase (ALT) 55 U/L (7-40) H Alkaline Phosphatase 75 U/L (46-116) Aspartate Amino Transferase (AST) 59 U/L (13-40) H Total Bilirubin 0.3 mg/dL (0.2-1.0) Urinalysis Test 08/02/25 00:00 08/07/25 15:15 Urine Hyaline Casts Mod /lpf (0 - 2) Urine Mucus Few (None Seen) Urine Color Light-yellow (Yellow) Urine Clarity Clear (Clear) Urine pH 6.5 (5.0-9.0) Urine Specific [place] 1.008 (1.001-1.035) Urine Protein Trace (Negative) H Urine Ketones Negative (Negative) Urine Blood Negative /uL (Negative) Urine Nitrite Negative (Negative) Urine Bilirubin Negative (Negative) Urine Urobilinogen Normal mg/dL (Negative) Urine Leukocyte Esterase Negative /uL (Negative) Urine RBC 1 /hpf (0 - 3) Urine Microscopic WBC 4 /HPF (0-3) H Urine Squamous Epithelial Cells None seen /hpf (<5) Urine Bacteria Few /hpf (None Seen) H Urine Glucose Normal mg/dL (Normal) Microbiology Microbiology Date/Time Source Procedure Growth Status 08/07/25 00:05 Urine - Catheterized Urine Culture - Final Complete 08/05/25 10:00 Blood Blood Culture - Final NO GROWTH AFTER 5 DAYS OF INCUBATION. Complete 08/04/25 06:15 Nose MRSA Screen - Final Methicillin Resistant S.aureus Complete 08/02/25 23:50 Sputum Endotracheal Wash Gram Stain - Final Complete 08/02/25 23:50 Respiratory Culture - Final Methicillin Resistant S.aureus Presumptive Christy albicans Complete Assessment/Plan Assessment/Plan Impression: Acute hypoxic respiratory failure, resolved Gastrointestinal hemorrhage Anemia 2/2 gastrointestinal hemorrhage Sepsis Cellulitis Acute CHF exacerbation Events: Patient was seen and evaluated at bedside Remains on room air. No distress. Labs reviewed; WBC trended up to 13.5; HGB 9.7 g/dL - stable. Na 142, K 3.4, Ca 7.8. Chest x-ray shows no acute disease. Patient passed swallow evaluation. Tolerating puree diet. Head of bed elevation Aspiration precautions Continue antibiotics - de-escalate today Incentive spirometry FOBT positive GI recs appreciated. Monitor hemoglobin - stable Transfuse if less than 7.0 g/dL. Protonix 40 mg IVP BID Sucralfate Patient had a BM today. Monitor blood pressure Monitor renal function Monitor electrolytes. Supplement as necessary. Monitor ins and outs. Physical therapy evaluation. Labs and imaging reviewed. Rest of plan as noted below. Plan: S/p extubation on 08/08/25 Supplemental oxygen PRN Titrate to keep O2 sats above 92%. Continue bronchodilators PRN. Continue antibiotics. Follow up cultures. Pressors as necessary for hemodynamic support Titrate to keep mean arterial pressure greater than 65 mmHg. Follow up Cardiology recommendations Follow up GI recommendations. Protonix 40 mg IVP BID Sucralfate Monitor hemoglobin Transfuse if less than 7.0 g/dL Monitor renal function Monitor electrolytes. Supplement as necessary. Monitor ins and outs. GI prophylaxis. DVT prophylaxis. Prognosis: Poor given patient's multiple co-morbidities. Rest of plan per hospitalist and other consultants. Thank you, SHERYL Del Castillo, for allowing me to participate in this patient's care. Further recommendations will depend on the patient's clinical course. Please do not hesitate to contact me if you have any questions or concerns. This medical document was created using an electronic medical record system with a[employer] dictation system. Although these documentations are being carefully reviewed, there may still be some phonetic and typographical changes. The errors are purely typographical, due to imperfection on the software program, and do not reflect any compromise in the patient's medical care. Plan discussed with: Patient, Other (MADDY Webster) Visit Coding Pulmonary Billing Provider: KARL CORONADO MD Date of Service if different f: Aug 10, 2025 Common Visit Codes: 81445-[id number] INP/OBS CARE(HIGH) KARL CORONADO MD Aug 10, 2025 22:27
--- NOTE | 2025-08-10 23:30 | DVHPN2 ---
Progress Note - Dictate Date Seen: Aug 10, 2025 Medical Necessity Reason Pt with a Central, PICC or Fol: Yes The following are medically ne: Central Line, Otoole Catheter Subjective Patient was seen and evaluated in follow up. Patient downgraded to tele bed. Patient is tolerating diet. Patient has loose stools. WBC 13.5, HGB 9.7, HCT 29.3, K 3.4. Occult blood stool is positive. Telemetry reviewed. vital signs Vital Sign Date Time Temp Pulse Resp B/P (MAP) Pulse Ox O2 Delivery O2 Flow Rate FiO2 08/10/25 21:00 98.4 80 19 133/81 (98) 98 98.4 08/10/25 08:00 Room Air* 0 30 21 Total Intake and Output 08/09/25 08/09/25 08/10/25 15:00 23:00 07:00 Intake Total 350 ml 500 ml 805 ml Output Total 550 ml 550 ml Balance 350 ml -50 ml 255 ml medications Current Medications Medications Dose Ordered Sig/Mustapha Route Start Time Stop Time Status Last Admin Dose Admin Sodium Chloride 10 ml Q8HR IV 08/02/25 22:00 08/10/25 21:46 10 ML Acetaminophen 650 mg Q6HP PRN PO 08/02/25 21:45 Piperacillin Sod/ Tazobactam Sod 100 ml @ 25 mls/hr Q8HR IV 08/03/25 06:00 08/10/25 21:46 25 MLS/HR Vancomycin HCl 0 ml @ 0 mls/hr PER PHARMACY IV 08/03/25 02:00 Docusate Sodium 100 mg BID PRN GT 08/04/25 11:30 Atorvastatin Calcium 20 mg HS GT 08/05/25 22:00 08/10/25 21:45 20 MG Sucralfate 1 gm QID@0600,1130,1700,2200 GT 08/07/25 17:00 08/10/25 21:44 1 GM Pantoprazole Sodium 40 mg BID IV 08/08/25 10:00 08/10/25 21:46 40 MG Sodium Chloride 10 ml QSHIFT@10,22 IV 08/07/25 22:00 08/10/25 21:46 10 ML Purified Water 200 ml Q6HR GT 08/09/25 18:00 08/10/25 17:31 200 ML Saccharomyces Boulardii 250 mg BID PO 08/10/25 22:00 08/10/25 21:48 250 MG Vancomycin HCl 250 ml @ 200 mls/hr Q12H IV 08/10/25 23:00 objective GENERAL: Ill appearing, awake. EYES: PERRL, EOMI. Anicteric. HENT: Moist mucous membranes. LUNGS: Decreased breath sounds. CARDIOVASCULAR: Regular rate and rhythm. ABDOMEN: Soft, nontender and nondistended. EXTREMITIES: 2+ BLE pitting edema. SKIN: Warm, dry. Bilateral lower extremity redness laboratory and microbiology Laboratory Tests 08/10/25 05:23 Test 08/10/25 05:23 Range/Units Serum Glucose 130 H 74-106 mg/dL Problem List Sepsis with associated lower extremity cellulitis. D novel decompensated HFpEF, NYHA Class III. Mitral valve regurgitation, moderate degree. Acute on chronic hypoxic respiratory failure. Severe anemia status post multiple PRBCs transfusions. Gastrointestinal hemorrhage. Dyslipidemia, newly diagnosed. Polysubstance abuse. Plan/Recommendation Continued all current supportive medical care. Patient has been seen by Tatianna Agudelo NP on my behalf. We have discussed the plan with the patient. A transthoracic echocardiogram revealed revealed LVEF 50% with mild LVH and mild LV diastolic dysfunction, moderately dilated RV and RA, study revealed RV failure, moderate degree of mitral regurgitation. Friant criteria is positive for the diagnosis of heart failure. Continue preload reduction as tolerated strict I&Os, daily weight, and fluid restrictions. Replete electrolytes as necessary. Initiate lipid-lowering agent. Continue to monitor hemoglobin and hematocrit closely and transfuse as needed. Continue GI recommendations. Antibiotics per primary care team. Not a candidate for invasive cardiac ischemic workup. Additional plan as per the hospital course. Assessment/Plan Continued all current supportive medical care. Lipitor. GI prophylactics. IV antibiotics as ordered. Tylenol for pain management. Additional plan as per the hospital course. Dietary Evaluation Review Comments: 1. Tube feeding if GI accessible, Vital High Protein@60ml/hr providing 126g Protein, 1440kcal, 1204ml free water. 2. TPN per pharmacy to meet Pt's energy and protein needs, if GI/EN not medically feasible. 3. Advance to diet texture as tolerated after extubation and passing EXEC. CREATIVE DIRECTOR eval 4. Offer Ensure Clear TID, if pt is can tolerate PO clear liquid diet Expected Outcomes/Goals: Replenish serum protein through nutrition support. Increaed physical strength Plan discussed with: Patient CC Plasma Assessment Blood Product Administration S: 08:00 ADAM MELO MD Aug 10, 2025 23:30
[2025-08-11] VITALS (8 sets, daily range): BP systolic 129–144; BP diastolic 81–94; PULSE 73–93; RESP 15–19; TEMP 97.7–98.9; O2SAT 96–99
[2025-08-11] MEDS: VANCOMYCIN 1.25GM/250ML 250 ML IV SCH (00:05)
[2025-08-11 04:47] LABS: Hematocrit 28.4 % (41.0-53.0); Hemoglobin 9.3 g/dL (13.5-17.5); Mean Corpuscular Hemoglobin 27.7 pg (28.0-32.0); Mean Corpuscular Volume 84.6 fL (80.0-100.0); Nucleated Red Blood Cells % 0.0 %
[2025-08-11] MEDS: POTASSIUM EFFERVESENT TAB 25 MEQ PO ONE (11:27)
--- NOTE | 2025-08-11 11:41 | DVHPN2 ---
Progress Note - Dictate Date Seen: Aug 11, 2025 Medical Necessity Reason Pt with a Central, PICC or Fol: Yes The following are medically ne: Central Line, Otoole Catheter Subjective Patient was seen and evaluated in follow up. Patient resting in bed. Patient stable on room air. WBC is WNL. HGB 9.3, HCT 28.4, K 3.4. Telemetry reviewed. vital signs Vital Sign Date Time Temp Pulse Resp B/P (MAP) Pulse Ox O2 Delivery O2 Flow Rate FiO2 08/11/25 08:49 98.9 80 19 136/84 (101) 98 98.9 08/11/25 08:00 Room Air* 0 21 Total Intake and Output 08/10/25 08/10/25 08/11/25 15:00 23:00 07:00 Intake Total 940 ml 1250 ml Output Total 550 ml 2100 ml Balance 390 ml -850 ml medications Current Medications Medications Dose Ordered Sig/Mustapha Route Start Time Stop Time Status Last Admin Dose Admin Sodium Chloride 10 ml Q8HR IV 08/02/25 22:00 08/11/25 05:17 10 ML Acetaminophen 650 mg Q6HP PRN PO 08/02/25 21:45 Piperacillin Sod/ Tazobactam Sod 100 ml @ 25 mls/hr Q8HR IV 08/03/25 06:00 08/11/25 05:16 25 MLS/HR Vancomycin HCl 0 ml @ 0 mls/hr PER PHARMACY IV 08/03/25 02:00 Docusate Sodium 100 mg BID PRN GT 08/04/25 11:30 Atorvastatin Calcium 20 mg HS GT 08/05/25 22:00 08/10/25 21:45 20 MG Sucralfate 1 gm QID@0600,1130,1700,2200 GT 08/07/25 17:00 08/11/25 11:27 1 GM Pantoprazole Sodium 40 mg BID IV 08/08/25 10:00 08/11/25 10:15 40 MG Sodium Chloride 10 ml QSHIFT@,22 IV 08/07/25 22:00 08/11/25 10:15 10 ML Purified Water 200 ml Q6HR GT 08/09/25 18:00 08/11/25 05:16 200 ML Saccharomyces Boulardii 250 mg BID PO 08/10/25 22:00 08/11/25 10:16 250 MG Vancomycin HCl 250 ml @ 200 mls/hr Q12H IV 08/10/25 23:00 08/11/25 11:27 200 MLS/HR objective GENERAL: Ill appearing, awake. EYES: PERRL, EOMI. Anicteric. HENT: Moist mucous membranes. LUNGS: Decreased breath sounds. CARDIOVASCULAR: Regular rate and rhythm. ABDOMEN: Soft, nontender and nondistended. EXTREMITIES: 2+ BLE pitting edema. SKIN: Warm, dry. Bilateral lower extremity redness laboratory and microbiology Laboratory Tests 08/11/25 04:15 08/10/25 05:23 Test 08/10/25 05:23 Range/Units Serum Glucose 130 H 74-106 mg/dL Problem List Sepsis with associated lower extremity cellulitis. D novel decompensated HFpEF, NYHA Class III. Mitral valve regurgitation, moderate degree. Acute on chronic hypoxic respiratory failure. Severe anemia status post multiple PRBCs transfusions. Gastrointestinal hemorrhage. Dyslipidemia, newly diagnosed. Polysubstance abuse. Plan/Recommendation Continued all current supportive medical care. Patient has been seen by Tatianna Agudelo NP on my behalf. We have discussed the plan with the patient. A transthoracic echocardiogram revealed revealed LVEF 50% with mild LVH and mild LV diastolic dysfunction, moderately dilated RV and RA, study revealed RV failure, moderate degree of mitral regurgitation. Burnside criteria is positive for the diagnosis of heart failure. Continue preload reduction as tolerated strict I&Os, daily weight, and fluid restrictions. Replete electrolytes as necessary. Initiate lipid-lowering agent. Continue to monitor hemoglobin and hematocrit closely and transfuse as needed. Continue GI recommendations. Antibiotics per primary care team. Not a candidate for invasive cardiac ischemic workup. Additional plan as per the hospital course. Assessment/Plan Continued all current supportive medical care. Lipitor. GI prophylactics. IV antibiotics as ordered. Tylenol for pain management. Additional plan as per the hospital course. Dietary Evaluation Review Comments: 1. Tube feeding if GI accessible, Vital High Protein@60ml/hr providing 126g Protein, 1440kcal, 1204ml free water. 2. TPN per pharmacy to meet Pt's energy and protein needs, if GI/EN not medically feasible. 3. Advance to diet texture as tolerated after extubation and passing IMPORT CUSTOMER SERVICE MANAGER eval 4. Offer Ensure Clear TID, if pt is can tolerate PO clear liquid diet Expected Outcomes/Goals: Replenish serum protein through nutrition support. Increaed physical strength Plan discussed with: Patient CC Plasma Assessment Blood Product Administration S: 08:00 ADAM MELO MD Aug 11, 2025 11:41
--- NOTE | 2025-08-11 14:39 | DVHPN2 ---
Progress Note - Dictate Date Seen: Aug 11, 2025 Medical Necessity Reason Pt with a Central, PICC or Fol: Yes The following are medically ne: Central Line, Otoole Catheter Subjective Patient has been having loose bowel movements for the last two days Yesterday he was incontinent of some dark stool Stool was occult positive Patient had been on antibiotics vital signs Vital Sign Date Time Temp Pulse Resp B/P (MAP) Pulse Ox O2 Delivery O2 Flow Rate FiO2 08/11/25 12:33 98.4 93 19 129/94 (106) 97 98.4 08/11/25 08:00 Room Air* 0 21 Total Intake and Output 08/10/25 08/10/25 08/11/25 15:00 23:00 07:00 Intake Total 940 ml 1250 ml Output Total 550 ml 2100 ml Balance 390 ml -850 ml medications Current Medications Medications Dose Ordered Sig/Mustapha Route Start Time Stop Time Status Last Admin Dose Admin Sodium Chloride 10 ml Q8HR IV 08/02/25 22:00 08/11/25 13:11 10 ML Acetaminophen 650 mg Q6HP PRN PO 08/02/25 21:45 Piperacillin Sod/ Tazobactam Sod 100 ml @ 25 mls/hr Q8HR IV 08/03/25 06:00 08/11/25 13:11 25 MLS/HR Vancomycin HCl 0 ml @ 0 mls/hr PER PHARMACY IV 08/03/25 02:00 Docusate Sodium 100 mg BID PRN GT 08/04/25 11:30 Atorvastatin Calcium 20 mg HS GT 08/05/25 22:00 08/10/25 21:45 20 MG Sucralfate 1 gm QID@0600,1130,1700,2200 GT 08/07/25 17:00 08/11/25 11:27 1 GM Pantoprazole Sodium 40 mg BID IV 08/08/25 10:00 08/11/25 10:15 40 MG Sodium Chloride 10 ml QSHIFT@,22 IV 08/07/25 22:00 08/11/25 10:15 10 ML Purified Water 200 ml Q6HR GT 08/09/25 18:00 08/11/25 05:16 200 ML Saccharomyces Boulardii 250 mg BID PO 08/10/25 22:00 08/11/25 10:16 250 MG Vancomycin HCl 250 ml @ 200 mls/hr Q12H IV 08/10/25 23:00 08/11/25 11:27 200 MLS/HR objective Gen - mild conjunctival pallor, no scleral icterus Skin - Patients skin is warm and dry. HEENT - normocephalic, atraumatic, dry mucous membranes. Neck - supple, no lymphadenopathy Pulmonary - B/L equal breath sounds cardiovascular - regular S1,S2 heard GI - soft abdomen. Bowel sounds normoactive. Neurological - Patient is extubated, alert and oriented x2, following commands laboratory and microbiology Laboratory Tests 08/11/25 04:15 08/10/25 05:23 Test 08/10/25 05:23 Range/Units Serum Glucose 130 H 74-106 mg/dL Problems(with codes): (1) Acute diarrhea (2) Heme + stool (3) GI bleed (4) Symptomatic anemia (5) Sepsis (6) Leukocytosis Prognosis Plan Patient was not able to cooperate with physical therapy the cause of ongoing diarrhea Otoole catheter not removed for the same reason And Flagyl 500 mg p.o. three times a day for suspected antibiotic induced diarrhea Continue probiotics Check stool for WBC Questran and Imodium Monitor labs Possible colonoscopy if symptoms persist Dietary Evaluation Review Comments: 1. Tube feeding if GI accessible, Vital High Protein@60ml/hr providing 126g Protein, 1440kcal, 1204ml free water. 2. TPN per pharmacy to meet Pt's energy and protein needs, if GI/EN not medically feasible. 3. Advance to diet texture as tolerated after extubation and passing JAVASCRIPT DEVELOPER eval 4. Offer Ensure Clear TID, if pt is can tolerate PO clear liquid diet Expected Outcomes/Goals: Replenish serum protein through nutrition support. Increaed physical strength Plan discussed with: Patient CC Plasma Assessment Blood Product Administration S: 08:00 MELONIE KUMARI MD Aug 11, 2025 14:38
[2025-08-11] MEDS: LOPERAMIDE HCL 2 MG CAP/TAB PO PRN (15:04)
[2025-08-11] MEDS: metroNIDAZOLE 500 MG TAB PO SCH (15:04)
[2025-08-11] MEDS: SUCRALFATE 1 GM/10 ML ORAL SUSP PO SCH (16:47)
--- NOTE | 2025-08-11 17:28 | DVHPNRES ---
Progress Note Date Seen: Aug 11, 2025 Resident Creating Document: LEANNA GONZALEZ RESIDENT Medical Necessity Reason Pt with a Central, PICC or Fol: Yes The following are medically ne: Central Line, Otoole Catheter Subjective Review of Systems Patient is a 55-year-old male with past medical history of cellulitis, testicular cancer, history of hernia, recurrent pneumonia, diastolic CHF presented to the ED with neighbor who brought him after he found him unconscious covered in black vomitus, stool everywhere. Patient was recently hospitalized for cellulitis and left AMA. Patient lives in a trailer, he was combative in the ED, unstable and was intubated on 08/03. According to father patient had recent hernia repair which was unsuccessful, patient also had multiple surgeries on shoulder, knee. Surgical history: Multiple surgeries on shoulder, knee, hernia repair Family history: Reviewed, noncontributory Personal history: Patient lives alone in a trailer, as per father denied smoking, alcohol use but used oxycodone after surgeries 08/05/25:Patient seen in the ED. Patient is intubated, sedated, on no pressors, on propofol, Versed, fentanyl, Protonix drip. GI is consulted, possible EGD on Tuesday, lengthy discussion was made with father regarding patient's condition, and prognosis. Ordered hepatitis panel, ammonia. 08/06/2025: Patient seen in the ED. Patient is intubated, sedated, is on no pressors, patient's hands turned blue, black in the morning patient has return of blood flow but still fingers are blue. Patient is having green thick secretion on suction. Patient is on Protonix drip, Versed, fentanyl, propofol. Possible EGD tomorrow. 08/07/25: Patient seen in ICU. Patient is intubated, sedated is not on any pressors, patient is on Pradaxa., Versed, fentanyl. Bedside EGD done today, PICC line was placed. Lasix 20 give, and urinalysis. Cpap in the morning. 08/08/2025: Patient seen in ICU. Patient was extubated today successfully, on 3 L oxygen. Off pressors, Lasix 20 given, patient is more alert following commands. : patient seen in ICU. Patient was extubated yesterday, is on room air, off pressors, discontinued Protonix drip, patient is more alert today opening his eyes and following commands. Swallow eval and if pass give full liquid diet. PT eval. Blood Culture showed Acinetobacter lwoffi. 08/10/25 patient seen at bedside. able to tolerate diet. no bleed. continue oral meds . had episode of watery diarrhea 08/11/25: Patient seen at bedside. Patient is switched to soft mechanical diet. And is able to tolerate well, had no diarrhea today. Objective vital signs Vital Sign Date Time Temp Pulse Resp B/P (MAP) Pulse Ox O2 Delivery O2 Flow Rate FiO2 08/11/25 16:31 98.2 87 18 144/94 (111) 99 98.2 08/11/25 08:00 Room Air* 0 21 Total Intake and Output 08/10/25 08/10/25 08/11/25 15:00 23:00 07:00 Intake Total 940 ml 1250 ml Output Total 550 ml 2100 ml Balance 390 ml -850 ml medications Current Medications Medications Dose Ordered Sig/Mustapha Route Start Time Stop Time Status Last Admin Dose Admin Sodium Chloride 10 ml Q8HR IV 08/02/25 22:00 08/11/25 13:11 10 ML Acetaminophen 650 mg Q6HP PRN PO 08/02/25 21:45 Piperacillin Sod/ Tazobactam Sod 100 ml @ 25 mls/hr Q8HR IV 08/03/25 06:00 08/11/25 13:11 25 MLS/HR Vancomycin HCl 0 ml @ 0 mls/hr PER PHARMACY IV 08/03/25 02:00 Docusate Sodium 100 mg BID PRN GT 08/04/25 11:30 Atorvastatin Calcium 20 mg HS GT 08/05/25 22:00 08/10/25 21:45 20 MG Pantoprazole Sodium 40 mg BID IV 08/08/25 10:00 08/11/25 10:15 40 MG Sodium Chloride 10 ml QSHIFT@10,22 IV 08/07/25 22:00 08/11/25 10:15 10 ML Purified Water 200 ml Q6HR GT 08/09/25 18:00 08/11/25 05:16 200 ML Saccharomyces Boulardii 250 mg BID PO 08/10/25 22:00 08/11/25 10:16 250 MG Vancomycin HCl 250 ml @ 200 mls/hr Q12H IV 08/10/25 23:00 08/11/25 11:27 200 MLS/HR Cholestyramine Resin 4 gm DAILY@11 PO 08/12/25 11:00 Loperamide HCl 2 mg PRN PRN PO 08/11/25 14:45 08/11/25 15:04 2 MG Metronidazole 500 mg Q8HR PO 08/11/25 14:47 08/11/25 15:04 500 MG Sucralfate 1 gm QID@0600,1130,1700,2200 PO 08/11/25 17:00 08/11/25 16:47 1 GM Examination General: Alert oriented to time place and person. HEENT: Normocephalic, atraumatic, moist mucous membranes Respiratory/pulmonary: Clear lungs bilaterally, vesicular murmurs present in almost all lung farr, no associated crackles or wheezes. Cardiovascular: Normal heart sounds S1 and S2 with no associated murmurs Abdomen: Abdomen nondistended, there is no pain to palpation in any of the abdominal quadrants, no palpable masses. Surgical scar Extremities: Bilateral pitting edema Peripheral Pulses: 3+ Radial (R). 3+ Radial (L). 3+ Dorsalis pedis (R). 3+ Dorsalis pedis(L) Skin: Bilateral lower extremity cellulitis, wound on left lower medial side. Neurological: Right eye blind, left eye 2+ and sluggish, gag and cough reflex present laboratory and microbiology Laboratory Tests 08/11/25 04:15 08/10/25 05:23 Test 08/10/25 05:23 Range/Units Serum Glucose 130 H 74-106 mg/dL Microbiology Date/Time Source Procedure Growth Status 08/10/25 10:30 Stool Stool Culture - Preliminary Resulted 08/10/25 10:30 Stool Shiga Toxin I & II - Final Resulted 08/07/25 00:05 Urine - Catheterized Urine Culture - Final Complete 08/05/25 10:00 Blood Blood Culture - Final NO GROWTH AFTER 5 DAYS OF INCUBATION. Complete 08/04/25 06:15 Nose MRSA Screen - Final Methicillin Resistant S.aureus Complete 08/02/25 23:50 Sputum Endotracheal Wash Gram Stain - Final Complete 08/02/25 23:50 Respiratory Culture - Final Methicillin Resistant S.aureus Presumptive Christy albicans Complete Problem List/Assessment/Plan Problem List/Assessment/Plan Neurology Acute metabolic encephalopathy likely due to sepsis - intubated, sedated Cardiology Acute decompensated HFpEF, NYHA Class III. Mitral valve regurgitation, moderate degree. Dyslipidemia - Echo showed EF of 50% with mild diastolic dysfunction, mild LVH, RVSP of 36 - Lasix 20 - Atorvastatin 20mg Respiratory Sepsis likely due to MRSA pneumonia Acute hypoxic respiratory failure MRSA pneumonia History of COPD -ventilator setting: AC mode, RR 18, TV 450, FiO2 30, peep 5 -MRSA positive in nares, sputum -IV vancomycin, Zosyn -blood, urine culture ordered GI upper GI bleed Sepsis likely from possible appendicitis Possible peptic ulcer disease Possible appendicitis Colonic diverticulosis Containing Umbilical hernia and left inguinal hernia - IV fluid - Protonix drip - GI consulted - possible EGD Planned on Tuesday - hepatitis panel ordered - ammonia ordered - CT abdomen is pelvis showed possible appendicitis, Colonic diverticulosis without acute diverticulitis. 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 Renal/electrolytes Neurology Acute metabolic encephalopathy likely due to sepsis - intubated, sedated Cardiology Acute decompensated HFpEF, NYHA Class III. Mitral valve regurgitation, moderate degree. Dyslipidemia - Echo showed EF of 50% with mild diastolic dysfunction, mild LVH, RVSP of 36 - Lasix 20 - Atorvastatin 20mg Respiratory Sepsis likely due to MRSA pneumonia Acute hypoxic respiratory failure MRSA pneumonia History of COPD -ventilator setting: AC mode, RR 18, TV 450, FiO2 30, peep 5 -MRSA positive in nares, sputum -IV vancomycin, Zosyn -blood, urine culture ordered GI upper GI bleed Sepsis likely from possible appendicitis Possible peptic ulcer disease Possible appendicitis Colonic diverticulosis Containing Umbilical hernia and left inguinal hernia - IV fluids - Protonix drip - GI consulted - possible EGD Planned on Tuesday - hepatitis panel ordered - ammonia ordered - CT abdomen is pelvis showed possible appendicitis, Colonic diverticulosis without acute diverticulitis. - Total of 5 PRBC given - monitor H&H - transfuse if hemoglobin less than 7 Renal/electrolytes Hypokalemia Hypernatremia Hypermagnesemia - monitor labs - replete potassium as needed Hematology Normocytic normochromic anemia Acute blood loss anemia due to upper GI bleed, hematemesis -GI on board -monitor H&H -transfuse if hemoglobin less than 7 -NPO Endocrine Hypothyroidism SKin/MSK Lower extremity cellulitis - IV vancomycin, Zosyn -wound consult - blood culture showed Acinetobacter lwoffi.(08/03) Polysubstance abuse History of testicular cancer Lines / Tubes / Devices Airway: Intubated via ETT on 08/03 Vascular Access: Femoral line 08/03, PICC line placed(08/07) Drips: Versed, Protonix, fentanyl, propofol Prophylaxis / Supportive Care DVT Prophylaxis: SCD GI Prophylaxis: Protonix Extubated (08/08) Goals of care discussed with the patient family for more than 29 minutes: Full code state Patient care updated to father , addressed all concerns. Critical care time spent excluding procedures 85 minutes Plan discussed with Dr. Oliveira and RN Plan discussed with: Patient My Orders My Orders Orders - LEANNA GONZALEZ RESIDENT Procedure Category Date Status Time Sucralfate Susp PHA 08/11/25 In Process (Carafate Susp) 17:00 Comprehensive LAB 08/12/25 Verified Metabolic Panel 04:00 Complete Blood Count LAB 08/12/25 Verified 04:00 Dietary Evaluation Review Comments: 1. Tube feeding if GI accessible, Vital High Protein@60ml/hr providing 126g Protein, 1440kcal, 1204ml free water. 2. TPN per pharmacy to meet Pt's energy and protein needs, if GI/EN not medically feasible. 3. Advance to diet texture as tolerated after extubation and passing ROLL HAULER eval 4. Offer Ensure Clear TID, if pt is can tolerate PO clear liquid diet Expected Outcomes/Goals: Replenish serum protein through nutrition support. Increaed physical strength CC Plasma Assessment Blood Product Administration S: 08:00 LEANNA GONZALEZ RESIDENT Aug 11, 2025 17:28
--- NOTE | 2025-08-11 18:31 | MEDREC ---
[facility] Intervention Section I [facility] Intervention: Duplication of therapy (PLEASE CONSIDER D/C FLAGYL SINCE BOTH ZOSYN AND COVER FOR ANAEROBE ORGANISMS (DUPLICATE) ) CHAU PURCELL PHARMACIST Aug 11, 2025 18:31
--- NOTE | 2025-08-11 22:48 | DVHPN2 ---
Subjective DOS: 08/11/2025 Patient seen and examined at bedside. Breathing comfortably on room air. Overnight events reviewed. Reviewed: H&P Changes from previous H/P or p: No Changes Eyes: No Pain, No Vision change, No Conjunctivae inflammation, No Eyelid inflammation, No Other, No Redness ENT: No Ear pain, No Ear discharge, No Nose pain, No Nose discharge, No Nose congestion, No Mouth pain, No Mouth swelling, No Throat pain, No Throat swelling, No Other Cardiovascular: No Chest Pain, No Palpitations, No Orthopnea, No Paroxysmal Noc. Dyspnea, No Edema, No Lt Headedness, No Other Respiratory: No Cough, No Dry; Shortness of breath; No SOB with excertion, No Wheezing, No Hemoptysis, No Pleuritic Pain, No Sputum, No Other Gastrointestinal: No Nausea, No Vomiting, No Abdominal Pain, No Diarrhea, No Constipation, No Melena, No Hematochezia, No Other Genitourinary: No Dysuria, No Frequency, No Incontinence, No Hematuria, No Retention, No Other Musculoskeletal: No other, No neck pain, No shoulder pain, No arm pain, No back pain, No hand pain, No leg pain, No foot pain Skin: No Rash, No Lesions, No Jaundice, No Bruising, No Other Objective Vitals Vital Signs Date Time Temp Pulse Resp B/P (MAP) Pulse Ox O2 Delivery O2 Flow Rate FiO2 08/11/25 20:51 98.2 80 15 144/81 (102) 96 98.2 08/11/25 08:00 Room Air* 0 21 Intake/Output Intake and Output 08/11/25 07:00 Intake Total 2190 ml Output Total 2650 ml Balance -460 ml Intake Oral 1940 ml IV Total 250 ml Output Urine Total 2650 ml # Bowel Movements 4 Exam Gen.: Patient lying in bed in no apparent distress. Breathing on room air. Head: Normocephalic, atraumatic. Eyes: EOMI/PERRLA. Ears: Normal hearing. Normal anatomy. Neck/trachea: Trachea midline, supple. Nose: Normal external anatomy. Mouth: Moist mucous membranes. Chest: Decreased air entry bilaterally. No wheezing or rhonchi. Cardiovascular: Positive S1, positive S2. Regular rate and rhythm. Abdomen: Positive bowel sounds in all 4 quadrants. Soft, non-tender, non- distended. : Deferred. Rectal: Deferred. Skin: Warm, dry. Intact. Extremities: 2+ radial pulses bilaterally. No lower extremity edema. Neuro: Awake, alert, oriented x3. No gross motor or sensory deficits. Cranial nerves II through XII intact. Gait not assessed. Lungs: Clear to auscultation Cardiovascular: Regular rate, Normal S1, Normal S2 Abdomen: Normal bowel sounds Medications Current Medications Medications Dose Ordered Sig/Mustapha Route Start Time Stop Time Status Last Admin Dose Admin Sodium Chloride 10 ml Q8HR IV 08/02/25 22:00 08/11/25 21:35 10 ML Acetaminophen 650 mg Q6HP PRN PO 08/02/25 21:45 Piperacillin Sod/ Tazobactam Sod 100 ml @ 25 mls/hr Q8HR IV 08/03/25 06:00 08/11/25 21:38 25 MLS/HR Vancomycin HCl 0 ml @ 0 mls/hr PER PHARMACY IV 08/03/25 02:00 Docusate Sodium 100 mg BID PRN GT 08/04/25 11:30 Atorvastatin Calcium 20 mg HS GT 08/05/25 22:00 08/11/25 21:37 20 MG Pantoprazole Sodium 40 mg BID IV 08/08/25 10:00 08/11/25 21:37 40 MG Sodium Chloride 10 ml QSHIFT@10,22 IV 08/07/25 22:00 08/11/25 21:36 10 ML Purified Water 200 ml Q6HR GT 08/09/25 18:00 08/11/25 05:16 200 ML Saccharomyces Boulardii 250 mg BID PO 08/10/25 22:00 08/11/25 21:38 250 MG Vancomycin HCl 250 ml @ 200 mls/hr Q12H IV 08/10/25 23:00 08/11/25 11:27 200 MLS/HR Cholestyramine Resin 4 gm DAILY@11 PO 08/12/25 11:00 Loperamide HCl 2 mg PRN PRN PO 08/11/25 14:45 08/11/25 15:04 2 MG Metronidazole 500 mg Q8HR PO 08/11/25 14:47 08/11/25 21:37 500 MG Sucralfate 1 gm QID@0600,1130,1700,2200 PO 08/11/25 17:00 08/11/25 21:35 1 GM Laboratory Results Laboratory Tests 08/10/25 05:23 08/11/25 04:15 Urinalysis Test 08/02/25 00:00 08/07/25 15:15 Urine Hyaline Casts Mod /lpf (0 - 2) Urine Mucus Few (None Seen) Urine Color Light-yellow (Yellow) Urine Clarity Clear (Clear) Urine pH 6.5 (5.0-9.0) Urine Specific [place] 1.008 (1.001-1.035) Urine Protein Trace (Negative) H Urine Ketones Negative (Negative) Urine Blood Negative /uL (Negative) Urine Nitrite Negative (Negative) Urine Bilirubin Negative (Negative) Urine Urobilinogen Normal mg/dL (Negative) Urine Leukocyte Esterase Negative /uL (Negative) Urine RBC 1 /hpf (0 - 3) Urine Microscopic WBC 4 /HPF (0-3) H Urine Squamous Epithelial Cells None seen /hpf (<5) Urine Bacteria Few /hpf (None Seen) H Urine Glucose Normal mg/dL (Normal) Microbiology Microbiology Date/Time Source Procedure Growth Status 08/10/25 10:30 Stool Stool Culture - Preliminary Resulted 08/10/25 10:30 Stool Shiga Toxin I & II - Final Resulted 08/07/25 00:05 Urine - Catheterized Urine Culture - Final Complete 08/05/25 10:00 Blood Blood Culture - Final NO GROWTH AFTER 5 DAYS OF INCUBATION. Complete 08/04/25 06:15 Nose MRSA Screen - Final Methicillin Resistant S.aureus Complete 08/02/25 23:50 Sputum Endotracheal Wash Gram Stain - Final Complete 08/02/25 23:50 Respiratory Culture - Final Methicillin Resistant S.aureus Presumptive Christy albicans Complete Assessment/Plan Assessment/Plan Impression: Acute hypoxic respiratory failure, resolved Gastrointestinal hemorrhage Anemia 2/2 gastrointestinal hemorrhage Sepsis Cellulitis Acute CHF exacerbation Events: Patient was seen and evaluated at bedside Remains on room air. No distress. No new respiratory complaints. Labs today reviewed; WBC within normal at 10.6 K; HGB 9.3 g/dL - stable Labs from 08/10/25 showed Na 142, K 3.4, Ca 7.8. Chest x-ray on 08/10/25 shows no acute disease. Patient passed swallow evaluation. Tolerated puree diet - switch to soft mechanical diet. Head of bed elevation Aspiration precautions Continue antibiotics Incentive spirometry Blood pressure control FOBT positive - GI recs appreciated. Monitor hemoglobin - currently stable Transfuse if less than 7.0 g/dL. Protonix 40 mg IVP BID Sucralfate Patient had a BM yesterday. Monitor renal function Monitor electrolytes. Supplement as necessary. Monitor ins and outs. Wound care Pain control Avoid oversedation Physical therapy evaluation for disposition planning. Labs and imaging reviewed. Rest of plan as noted below. Plan: S/p extubation on 08/08/25 Supplemental oxygen PRN Titrate to keep O2 sats above 92%. Continue bronchodilators PRN. Continue antibiotics. Follow up cultures. Pressors as necessary for hemodynamic support Titrate to keep mean arterial pressure greater than 65 mmHg. Follow up Cardiology recommendations Follow up GI recommendations. Protonix 40 mg IVP BID Sucralfate Monitor hemoglobin Transfuse if less than 7.0 g/dL Monitor renal function Monitor electrolytes. Supplement as necessary. Monitor ins and outs. GI prophylaxis. DVT prophylaxis. Prognosis: Poor given patient's multiple co-morbidities. Rest of plan per hospitalist and other consultants. Thank you, SHERYL Del Castillo, for allowing me to participate in this patient's care. Further recommendations will depend on the patient's clinical course. Please do not hesitate to contact me if you have any questions or concerns. This medical document was created using an electronic medical record system with [employer] computerized dictation system. Although these documentations are being carefully reviewed, there may still be some phonetic and typographical changes. The errors are purely typographical, due to imperfection on the software program, and do not reflect any compromise in the patient's medical care. Plan discussed with: Patient, Other (MADDY Merida) Visit Coding Pulmonary Billing Provider: KARL CORONADO MD Date of Service if different f: Aug 11, 2025 Common Visit Codes: 34901-[id number] INP/OBS CARE(HIGH) KARL CORONADO MD Aug 11, 2025 22:48
[2025-08-12 00:45] VITALS: BP 133/84; PULSE 82; RESP 17; TEMP 98.9; O2SAT 96
[2025-08-12] MEDS: ACETAMINOPHEN 325 MG TAB PO PRN (01:15)
[2025-08-12 04:39] VITALS: BP 126/71; PULSE 75; RESP 19; TEMP 98.2; O2SAT 96
[2025-08-12 05:20] LABS: Hematocrit 28.9 % (41.0-53.0); Hemoglobin 9.5 g/dL (13.5-17.5); Mean Corpuscular Hemoglobin 27.7 pg (28.0-32.0); Mean Corpuscular Volume 84.4 fL (80.0-100.0); Nucleated Red Blood Cells % 0.0 %
[2025-08-12 05:37] LABS: Alanine Aminotransferase 38 U/L (7-40); Alkaline Phosphatase 65 U/L (46-116); Anion Gap 9 (5-15); BUN/Creatinine Ratio 12.7 (10.0-20.0); Carbon Dioxide 21 mmol/L (20-31); Potassium 3.5 mmol/L (3.5-5.1); Sodium 141 mmol/L (136-145)
[2025-08-12 05:38] LABS: Bilirubin, Total 0.3 mg/dL (0.2-1.0)
[2025-08-12 05:48] LABS: Albumin 2.9 g/dL (3.2-4.8); Blood Urea Nitrogen 8 mg/dL (9-23); Calcium 7.7 mg/dL (8.7-10.4); Chloride 111 mmol/L (98-107); Glucose 112 mg/dL (74-106); Total Protein 5.6 g/dL (5.7-8.2)
[2025-08-12 08:00] VITALS: PULSE 80
[2025-08-12 09:00] VITALS: BP 118/83; PULSE 82; RESP 82; TEMP 98.6; O2SAT 97
[2025-08-12] MEDS: CHOLESTYRAMINE 4 GM POWDER PO SCH (11:14)
[2025-08-12 12:42] VITALS: BP 138/91; PULSE 81; RESP 20; TEMP 98.7; O2SAT 99
[2025-08-12 16:36] VITALS: BP 124/81; PULSE 96; RESP 21; TEMP 98.4; O2SAT 98
[2025-08-12] MEDS ORDERED: PANTOPRAZOLE 40 MG TAB PO SCH (17:00)
--- NOTE | 2025-08-12 17:13 | DVHPN2 ---
Progress Note - Dictate Date Seen: Aug 12, 2025 (Late entryTime of visit 2:00 p.m.) Medical Necessity Reason Pt with a Central, PICC or Fol: Yes The following are medically ne: Central Line, Otoole Catheter Subjective Patient has been having loose bowel movements for the last two days ; stool for WBC negative, stool culture negative Yesterday he was incontinent of some dark stool Stool was occult positive likely patient is passing dark stool from his recent GI bleed Patient had been on antibiotics vital signs Vital Sign Date Time Temp Pulse Resp B/P (MAP) Pulse Ox O2 Delivery O2 Flow Rate FiO2 08/12/25 16:36 98.4 96 21 124/81 (95) 98 98.4 08/12/25 08:00 Room Air* 0 21 Total Intake and Output 08/11/25 08/11/25 08/12/25 15:00 23:00 07:00 Intake Total 250 ml 640 ml 1170 ml Output Total 600 ml 2900 ml Balance 250 ml 40 ml -1730 ml medications Current Medications Medications Dose Ordered Sig/Mustapha Route Start Time Stop Time Status Last Admin Dose Admin Sodium Chloride 10 ml Q8HR IV 08/02/25 22:00 08/12/25 14:39 10 ML Acetaminophen 650 mg Q6HP PRN PO 08/02/25 21:45 08/12/25 09:24 650 MG Atorvastatin Calcium 20 mg HS GT 08/05/25 22:00 08/11/25 21:37 20 MG Sodium Chloride 10 ml QSHIFT@10,22 IV 08/07/25 22:00 08/12/25 09:25 10 ML Saccharomyces Boulardii 250 mg BID PO 08/10/25 22:00 08/12/25 09:25 250 MG Cholestyramine Resin 4 gm DAILY@11 PO 08/12/25 11:00 08/12/25 11:14 4 GM Loperamide HCl 2 mg PRN PRN PO 08/11/25 14:45 08/11/25 15:04 2 MG Metronidazole 500 mg Q8HR PO 08/11/25 14:47 08/12/25 14:39 500 MG Sucralfate 1 gm QID@0600,1130,1700,2200 PO 08/11/25 17:00 08/12/25 11:14 1 GM Doxycycline Monohydrate 100 mg Q12HR PO 08/12/25 22:00 UNV Pantoprazole Sodium 40 mg BID@0600,1700 PO 08/12/25 17:00 UNV objective Gen - mild conjunctival pallor, no scleral icterus Skin - Patients skin is warm and dry.Patient is awake and alert x4, no S/S of distress HEENT - normocephalic, atraumatic, dry mucous membranes. Neck - supple, no lymphadenopathy Pulmonary - B/L equal breath sounds cardiovascular - regular S1,S2 heard GI - soft abdomen. Bowel sounds normoactive. Neurological - Patient is extubated, alert and oriented x2, following commands laboratory and microbiology Laboratory Tests 08/12/25 04:40 Test 08/12/25 04:40 Range/Units Serum Glucose 112 H 74-106 mg/dL Problems(with codes): (1) Duodenal ulcer (2) Heme + stool (3) Acute diarrhea (4) Symptomatic anemia (5) GI bleed (6) Hiatal hernia with gastroesophageal reflux disease and esophagitis Prognosis Plan Patient decided to leave against medical advice as he wanted to go to a detox placed Outpatient follow up with GI Services for elective colonoscopy, this was advised to the patient Dietary Evaluation Review Comments: 1. Tube feeding if GI accessible, Vital High Protein@60ml/hr providing 126g Protein, 1440kcal, 1204ml free water. 2. TPN per pharmacy to meet Pt's energy and protein needs, if GI/EN not medically feasible. 3. Advance to diet texture as tolerated after extubation and passing INDUSTRIAL ENGINEER eval 4. Offer Ensure Clear TID, if pt is can tolerate PO clear liquid diet Expected Outcomes/Goals: Replenish serum protein through nutrition support. Increaed physical strength Plan discussed with: Patient, Other (Nurse) CC Plasma Assessment Blood Product Administration S: 08:00 MELONIE KUMARI MD Aug 12, 2025 17:13
--- NOTE | 2025-08-12 17:33 | DVHDSRES ---
Discharge Summary Date of Admission Resident Creating Document: LEANNA GONZALEZ RESIDENT Aug 02, 2025 at 23:42 Date of Discharge: Aug 12, 2025 Admitting Diagnosis Acute GI bleed Labs/Diagnostic Data: Laboratory Results Test 08/12/25 10:00 08/12/25 04:40 08/11/25 11:50 08/09/25 15:35 Vancomycin Level Trough 14.3 ug/mL (5-10) White Blood Count 10.6 10^3/uL (4.4-10.8) Red Blood Count 3.43 10^6/uL (4.5-5.90) Hemoglobin 9.5 g/dL (13.5-17.5) Hematocrit 28.9 % (41.0-53.0) Mean Corpuscular Volume 84.4 fL (80.0-100.0) Mean Corpuscular Hemoglobin 27.7 pg (28.0-32.0) Mean Corpuscular Hemoglobin Concent 32.9 g/dL (32.0-36.0) Red Cell Distribution Width 15.1 % (11.8-14.3) Platelet Count 387 10^3/uL (140-450) Mean Platelet Volume 7.0 fL (6.9-10.8) Neutrophils (%) (Auto) 65.2 % (37.0-80.0) Lymphocytes (%) (Auto) 22.5 % (10.0-50.0) Monocytes (%) (Auto) 8.5 % (0.0-12.0) Eosinophils (%) (Auto) 2.9 % (0.0-7.0) Basophils (%) (Auto) 0.9 % (0.0-2.0) Neutrophils # (Auto) 6.9 10 ^3/uL (1.6-8.6) Lymphocytes # (Auto) 2.4 10 ^3/uL (0.4-5.4) Monocytes # (Auto) 0.9 10 ^3/uL (0-1.3) Eosinophils # (Auto) 0.3 10 ^3/uL (0-0.8) Basophils # (Auto) 0.1 10 ^3/uL (0-0.2) Nucleated Red Blood Cells 0.0 % Sodium Level 141 mmol/L (136-145) Potassium Level 3.5 mmol/L (3.5-5.1) Chloride Level 111 mmol/L (98-107) Carbon Dioxide Level 21 mmol/L (20-31) Anion Gap 9 (5-15) Blood Urea Nitrogen 8 mg/dL (9-23) Creatinine 0.63 mg/dL (0.700-1.30) Glomerular Filtration Rate Calc 111 mL/min (>90) BUN/Creatinine Ratio 12.7 (10.0-20.0) Serum Glucose 112 mg/dL (74-106) Calcium Level 7.7 mg/dL (8.7-10.4) Total Bilirubin 0.3 mg/dL (0.2-1.0) Aspartate Amino Transferase (AST) 23 U/L (13-40) Alanine Aminotransferase (ALT) 38 U/L (7-40) Alkaline Phosphatase 65 U/L (46-116) Total Protein 5.6 g/dL (5.7-8.2) Albumin 2.9 g/dL (3.2-4.8) Stool for White Cells None seen Stool Occult Blood Positive (Negative) Stool Occult Blood Sample #3 (Negative) Test 08/09/25 03:10 08/08/25 11:00 08/08/25 06:33 08/08/25 02:36 Magnesium Level 2.6 mg/dL (1.6-2.6) Blood Gas Specimen Type Arterial Blood Gas Sample Site Left radial Blood Gas Patient Temperature 37.0 Arterial Blood Date Drawn [id number] Arterial Blood pH 7.518 (7.350-7.450) Arterial Blood Partial Pressure CO2 29.6 mmHg (35.0-48.0) Arterial Blood Partial Pressure O2 73.7 mmHg (83.0-108.0) Arterial Blood HCO3 23.5 mmol/L (21.0-28.0) Arterial Blood Oxygen Saturation 94.5 % (94.0-98.0) Arterial Blood Base Excess 1.3 mmol/L (-2.0-3.0) Arterial Blood Oxyhemoglobin 94.1 % (94.0-98.0) Arterial Blood Carboxyhemoglobin 0.1 % (0.5-1.5) Arterial Blood Methemoglobin 0.3 % (0.0-1.5) Aleksandr Test Modified Blood Gas Total Hemoglobin 11.20 g/dL (13.5-17.5) Blood Gas Modality Vent - cpap Blood Gas Spontaneous Rate 14 FiO2 % 40.0 Blood Gas Spontaneous Tidal Volume 786 Blood Gas Pressure Support 8 Blood Gas PEEP or CPAP 5.0 Blood Gas Set Respiration Rate 18.0 Blood Gas Tidal Volume 450.0 Blood Gas Critical Value Read Back yes Blood Gas Notified Whom Blood Gas Notified Time [id number] Blood Gas Notified By solar business developer manoj Phosphorus Level 2.9 mg/dL (2.4-5.1) Random Vancomycin Level 10.8 ug/mL (5-10) Test 08/07/25 15:15 08/07/25 09:50 08/06/25 07:08 08/05/25 17:05 Urine Color Light-yellow (Yellow) Urine Clarity Clear (Clear) Urine pH 6.5 (5.0-9.0) Urine Specific Peak 1.008 (1.001-1.035) Urine Protein Trace (Negative) Urine Ketones Negative (Negative) Urine Blood Negative /uL (Negative) Urine Nitrite Negative (Negative) Urine Bilirubin Negative (Negative) Urine Urobilinogen Normal mg/dL (Negative) Urine Leukocyte Esterase Negative /uL (Negative) Urine RBC 1 /hpf (0 - 3) Urine Microscopic WBC 4 /HPF (0-3) Urine Squamous Epithelial Cells None seen /hpf (<5) Urine Bacteria Few /hpf (None Seen) Urine Glucose Normal mg/dL (Normal) Prothrombin Time 10.9 sec (9.3-11.8) Prothrombin Time INR 1.03 (0.9-1.15) Activated Partial Thromboplast Time 27.7 SEC (24.5-34.5) Lactic Acid Level 1.0 mmol/L (0.4-2.0) Ammonia 11 umol/L (11-32) Hepatitis A Antibody Total Positive (Negative) Hepatitis B Surface Antigen Negative (Negative) Hepatitis B Surface Antibody Positive (Negative) Hepatitis B Core Total Antibody Negative (Negative) Hepatitis C Antibody Negative (Negative) Test 08/03/25 03:35 08/03/25 03:31 08/03/25 00:55 08/02/25 00:00 Creatine Kinase 783 U/L (46-171) Triglycerides Level 182 mg/dL (< 150) Cholesterol Level 136 mg/dL (< 200) LDL Cholesterol 90 mg/dL (< 100) HDL Cholesterol 25 mg/dL (40-59) Thyroid Stimulating Hormone (TSH) 0.36 uIU/mL (0.55-4.78) Free Thyroxine (T4) Calculated 0.84 ng/dL (0.89-1.76) Free Triiodothyronine (T3) pg/mL 1.68 pg/mL (2.3-4.2) Hemoglobin A1c 5.3 % A1C (<5.7) B-Type Natriuretic Peptide 779.49 pg/mL (0-100) Urine Hyaline Casts Mod /lpf (0 - 2) Urine Mucus Few (None Seen) Other Laboratory Tests 08/12/25 04:40 Brief Hx & Hospital Course: Patient is a 55-year-old male with past medical history of cellulitis, testicular cancer, history of hernia, recurrent pneumonia, diastolic CHF presented to the ED with neighbor who brought him after he found him unconscious covered in black vomitus, stool everywhere. Patient was recently hospitalized for cellulitis and left AMA. Patient lives in a trailer, he was combative in the ED, unstable and was intubated on 08/03. According to father patient had recent hernia repair which was unsuccessful, patient also had multiple surgeries on shoulder, knee. Surgical history: Multiple surgeries on shoulder, knee, hernia repair Family history: Reviewed, noncontributory Personal history: Patient lives alone in a trailer, as per father denied smoking, alcohol use but used oxycodone after surgeries Brief hospital course: Patient came to the hospital due to acute GI bleed, was intubated on 08/03/2025, patient was kept on Versed, Protonix drip, fentanyl, propofol. EGD done (08/07)- showed 4 cm sliding-type hiatal hernia with acute erosive esophagitis long segment Barretts extending into the distal 8-10 cm of the esophagus from which biopsies were obtained, Moderate gastroduodenitis with multiple erosionsm, There was a 1 cm duodenal bulb ulcer Hai classification C with no visible vessel and another 5 mm pre-pyloric antral gastric ulcer, Otherwise normal examination up to the 2nd and 3rd part of the duodenum with good bile drainage and no active bleeding at this time except for oozing from scope pressure. Patient was extubated on 08/08/2025 and was off pressors, Lasix was given, Protonix drip was changed to Protonix b.i.d.. IV fluids were given, GI consulted, CT abdomen and pelvis showed possible appendicitis, Colonic diverticulosis without acute diverticulitis. A total of 5 PRBC was given, monitored H and H. patient had KENNY likely due to sepsis which resolved. Patient has acute decompensated HFpEF, dyslipidemia, mitral valve regurgitation for which echo showed 50% with mild diastolic dysfunction, mild LVH, RSVP of 36. Lasix 20 was given, atorvastatin 20 mg was started. Patient had acute hypoxic respiratory failure and MRSA pneumonia and history of COPD. Patient was started on IV vancomycin, Zosyn which was converted to p.o. doxycycline. Patient has MRSA positive in sputum culture. Hypokalemia, hyponatremia, hypomagnesemia were corrected. Patient had acute blood loss anemia due to upper GI bleed, hematemesis for which monitored her H and H and patient was kept NPO then started clear liquid diet, advanced to soft mechanical diet which patient tolerated. Patient had lower extremity cellulitis, wound consult was placed. DVT prophylaxis was done with SCDs, GI prophylaxis was given with Protonix. P atient wanted to leave against medical advised to go to rehab center. Patient advised against leaving against medical advice. Patient understood the risks and benefits of leaving AMA including , patient still wanted to leave and has signed the AMA form, and left. Patient encouraged to return to nearest ED for any worsening symptoms. Operations or Procedures ORDERING PHYSICIAN: ARNIE FOFANA DO PROCEDURE(s): CXRP - CHEST PORTABLE REASON: sepsis ORDER NUMBER(s): [id number], ACCESSION NUMBER(s): [id number] CHEST RADIOGRAPH Indication: sepsis Technique: Single frontal view of the chest was obtained COMPARISON: None FINDINGS: Cardiac silhouette is mildly enlarged. Mild diffuse prominence of the pulmonary vasculature. Bones and soft tissues demonstrate no significant abnormality. IMPRESSION: Cardiomegaly with pulmonary venous congestion. No evidence for a lobar pneumonia. ATED BY: MELANI MORELOS MD DICTATED DATE/TIME: 08/02/252234 SIGNED BY: MELANI MORELOS MD SIGNED DATE/TIME: 08/02/252234 ORDERING PHYSICIAN: ARNIE FOFANA DO PROCEDURE(s): ABPL - CT AB PEL WO CON-NO ORAL OR IV REASON: gi bleed ORDER NUMBER(s): [id number], ACCESSION NUMBER(s): [id number] Exam: CT CT AB PEL WO CON-NO ORAL OR IV History: GI bleed. Comparison Study: None Technique: Multidetector spiral CT of the abdomen and pelvis was performed from lung bases to pubic symphysis. Imaging was performed without intravenous contrast. Coronal and sagittal multiplanar reformats were obtained from the axial data set by the technologist. Radiation Dose : 1. Abdomen/Pelvis: CTDIvol 19.91 mGy, DLP 1059.3 mGy*cm. Findings: Evaluation of vasculature and solid organs is limited due to lack of intravenous contrast use. Lung Bases: Bilateral lower lobe atelectasis. Visualized portions of the heart and pericardium are unremarkable. Liver: The liver is normal in size. No focal lesions. Gallbladder and Biliary Tree: The gallbladder is unremarkable. No intrahepatic or extrahepatic biliary ductal dilatation. Spleen: Unremarkable Pancreas: The pancreas is grossly unremarkable. Adrenal Glands: Unremarkable Kidneys: Kidneys are unremarkable without calculi or hydronephrosis. GI tract: The enteric tube terminates in the stomach. No evidence of small bowel wall thickening or abnormal dilatation to suggest bowel obstruction. Colonic diverticulosis without acute diverticulitis. There is a catheter or wire in the rectosigmoid colon. The appendix is dilated measuring 10 mm with mild Fat stranding. Peritoneum/mesentery/retroperitoneum. No evidence of free intraperitoneal air. No ascites. No evidence of suspicious lymphadenopathy. Abdominal Wall: Fat containing umbilical and paraumbilical hernias noted. There is a fat containing left inguinal hernia. Vasculature: The visualized abdominal aorta is normal in size and caliber. Evaluation of abdominal and pelvic vessels is limited due to lack of intravenous contrast. Urinary Bladder: There is a [place] catheter present. Pelvic Organs: Unremarkable Musculoskeletal: No aggressive focal bony lesions, acute fractures or dislocation. IMPRESSION: 1. Dilated appendix with mild fat stranding. Findings could represent acute appendicitis. Correlation with clinical symptoms and laboratory volumes recommended. CT with enteric contrast may be obtained if clinically warranted. 2. Colonic diverticulosis without acute diverticulitis. ATED BY: TOMMIE FAITH MD DICTATED DATE/TIME: 11/01/25 1022 SIGNED BY: TOMMIE FAITH MD SIGNED DATE/TIME: 08/03/251021 ORDERING PHYSICIAN: LEANNA GONZALEZ RESIDENT PROCEDURE(s): CXR1 - CHEST XRAY 1 VIEW REASON: on vent ORDER NUMBER(s): [id number], ACCESSION NUMBER(s): [id number] CHEST RADIOGRAPH Indication: on vent Technique: Single frontal view of the chest was obtained COMPARISON: XY CHEST PORTABLE on DOS: 08/04/25, XY CHEST PORTABLE on DOS: 08/03/25, XY CHEST PORTABLE on DOS: 08/02/25, XY CHEST PORTABLE on DOS: 08/02/25 FINDINGS: Lines and Tubes: Slight interval advancement of endotracheal tube such that the tip now projects approximately 3.1 cm above the level of the demarco. Enteric catheter unchanged. Lungs: Clear Pleura: No effusion. No pneumothorax. Cardiomediastinal contours: Unremarkable Bones: Unremarkable IMPRESSION: 1. Interval advancement of endotracheal tube such that the tip now projects approximately 3.1 cm above the level of the demarco. Enteric catheter unchanged. 2. No evidence of acute cardiopulmonary process. ATED BY: TANNER WHEATLEY MD DICTATED DATE/TIME: 08/06/2516 SIGNED BY: TANNER WHEATLEY MD SIGNED DATE/TIME: 08/06/2516 ORDERING PHYSICIAN: LEANNA GONZALEZ PROCEDURE(s): USGUIVASAC - US Guided Vascular Access REASON: PICC LINE PLACEMENT ORDER NUMBER(s): [id number], ACCESSION NUMBER(s): [id number] Exam: US US GUIDED VASCULAR ACCESS Clinical History: PICC LINE PLACEMENT Comparison: US BILAT UPPER EXT ART DUPLEX on DOS: 08/06/25, US ECHO 2D MODE CARDIAC DOP on DOS: 08/03/25, US LT LOWER DVT on DOS: 07/19/25 Findings: Targeted sonographic evaluation of the arm vein was obtained utilizing grayscale and color Doppler imaging. IMPRESSION: Sonographic assistance for peripherally inserted central line placement. Please refer to procedural report for detailed findings. ATED BY: SYLVESTER DE LA ROSA MD DICTATED DATE/TIME: 08/09/25604 SIGNED BY: SYLVESTER DE LA ROSA MD SIGNED DATE/TIME: 08/09/25604 ORDERING PHYSICIAN: LEANNA GONZALEZ PROCEDURE(s): CXR1 - CHEST XRAY 1 VIEW REASON: post extubation ORDER NUMBER(s): [id number], ACCESSION NUMBER(s): [id number] CHEST RADIOGRAPH Indication: post extubation Technique: Single frontal view of the chest was obtained COMPARISON: XY CHEST XRAY 1 VIEW on DOS: 08/08/25, XY CHEST PORTABLE on DOS: 08/07/25, XY CHEST XRAY 1 VIEW on DOS: 08/07/25, XY CHEST XRAY 1 VIEW on DOS: 08/05/25, XY CHEST PORTABLE on DOS: 08/04/25 FINDINGS: Lines and Tubes: Status post interval extubation and removal of enteric catheter. Right PICC unchanged. Lungs: Mild diffuse increased prominence of the pulmonary vasculature without evidence of focal consolidation. Pleura: No effusion. No pneumothorax. Cardiomediastinal contours: Unremarkable Bones: Unremarkable IMPRESSION: 1. Status post interval extubation and removal of enteric catheter. Right PICC unchanged. 2. Mild diffuse increased prominence of the pulmonary vasculature. ATED BY: TANNER WHEATLEY MD DICTATED DATE/TIME: 08/09/25554 SIGNED BY: TANNER WHEATLEY MD SIGNED DATE/TIME: 08/09/25554 ORDERING PHYSICIAN: LEANNA GONZALEZ PROCEDURE(s): CXR1 - CHEST XRAY 1 VIEW REASON: post extubation ORDER NUMBER(s): [id number], ACCESSION NUMBER(s): [id number] CHEST RADIOGRAPH Indication: post extubation Technique: Single frontal view of the chest was obtained COMPARISON: XY CHEST XRAY 1 VIEW on DOS: 08/09/25, XY CHEST XRAY 1 VIEW on DOS: 08/08/25, XY CHEST PORTABLE on DOS: 08/07/25, XY CHEST XRAY 1 VIEW on DOS: 08/07/25, XY CHEST XRAY 1 VIEW on DOS: 08/05/25 FINDINGS: Lines and Tubes: Right peripherally inserted central catheter unchanged. Lungs: Clear Pleura: No effusion. No pneumothorax. Cardiomediastinal contours: Unremarkable Bones: Unremarkable IMPRESSION: 1. No acute cardiopulmonary disease. 2. Right PICC unchanged. ATED BY: TANNER WHEATLEY MD DICTATED DATE/TIME: 08/10/25547 SIGNED BY: TANNER WHEATLEY MD SIGNED DATE/TIME: 08/10/25547 CC: DATE OF OPERATION: 08/07/25 PROCEDURE: Upper Endoscopy with biopsy. PREOPERATIVE INDICATION: The patient is a 55 -year-old male undergoing endoscopy for upper GI bleed and anemia POSTOPERATIVE DIAGNOSES: 1. 4 cm sliding-type hiatal hernia with acute erosive esophagitis long segment Barretts extending into the distal 8-10 cm of the esophagus from which biopsies were obtained 2. Moderate gastroduodenitis with multiple erosions 3. There was a 1 cm duodenal bulb ulcer Hai classification C with no visible vessel and another 5 mm pre-pyloric antral gastric ulcer 4. Otherwise normal examination up to the 2nd and 3rd part of the duodenum with good bile drainage and no active bleeding at this time except for oozing from scope pressure PROCEDURE PERFORMED BY: Melonie Kumari GI NURSE: Lesli SCOPE: Olympus videoendoscope. ASA CLASS: 3 PREOPERATIVE MEDICATIONS: Patient was previously sedated and intubated PROCEDURE IN DETAIL: After obtaining an informed consent, the patient was placed on left lateral decubitus position. The patient was then sedated with the above medications. A bite block was placed between his teeth. The endoscope was then passed through the oropharynx, into the esophagus, and through the stomach and pylorus up to the second and third part of the duodenum. The endoscope was then withdrawn. The 2nd and 3rd part of the duodenum were normal. Duodenal bulb and postbulbar area showed duodenitis with erosions There was a 1 cm duodenal bulb ulcer on the posterior superior surface Hai classification C with no visible vessel except for some oozing at the edges from scope pressure The pre-pyloric area antrum showed gastritis with erosions and there was a 5 mm pre-pyloric antral gastric ulcer. This was Hai classification C with no visible vessel There was no fresh or old blood in the upper GI tract and there was good bile drainage. Duodenal and gastric biopsies were obtained. The endoscope was then withdrawn into distal esophagus where he had a 4 cm sliding-type hiatal hernia with some acute erosive esophagitis from which biopsies were obtained Patient also had long segment Barretts extending into distal 8 cm of the esophagus from which biopsies were obtained. The remaining proximal esophagus and oropharynx were unremarkable The patient tolerated the procedure well without difficulty. COMPLICATIONS : None SPECIMENS: Duodenal biopsies Gastric biopsies Esophageal biopsies DISPOSITION: Stable Continue to monitor in ICU PLAN: 1. Await for biopsy result 2. Continue Protonix drip for another 24 hours and then change to Protonix 40 IV q.12 3. Monitor labs 4. Okay to reinsert NG tube and start trickle tube feedings 5. Carafate suspension 1 g via NG tube 4 times a day 6. Attempt at extubation pending his respiratory stabilization MELONIE KUMARI MD Aug 07, 2025 13:27 DICTATED BY:MELONIE KUMARI MD DICTATED DATE/TIME:08/07/25 1327 ELECTRONICALLY SIGNED BY:MELONIE KUMARI MD 08/07/25 1327 ELECTRONICALLY CO-SIGNED BY: Condition at Discharge: Undetermined Final Diagnosis/Problems List Acute metabolic encephalopathy likely due to sepsis Acute decompensated HFpEF, NYHA Class III. Mitral valve regurgitation, moderate degree. Dyslipidemia Sepsis likely due to MRSA pneumonia Acute hypoxic respiratory failure MRSA pneumonia History of COPD upper GI bleed Septic shock likely from peptic ulcer disease peptic ulcer disease Possible appendicitis Colonic diverticulosis Containing Umbilical hernia and left inguinal hernia Hypokalemia Hypernatremia Hypermagnesemia Normocytic normochromic anemia Acute blood loss anemia due to upper GI bleed, hematemesis Hypothyroidism Lower extremity cellulitis Polysubstance abuse History of testicular cancer Discharge Disposition: AMA Discharge Statement: "Patient was advised to return to the ER or call 911 if any headaches, dizziness, shortness of breath, chest pain, abdominal pain, bleeding, fevers, or worsening of medical condition. Patient was counseled about treatment plan, medications, possible side effects, patientverbalized understanding. All questions were answered to the best of my ability. This discharge took greater then 30 minutes in planning, reviewing documentation, counseling the patient, and discussing with other team members." ASSESSMENT ASSESSMENT Assessment LEANNA GONZALEZ RESIDENT Aug 12, 2025 17:33
[2025-08-12] MEDS ORDERED: DOXYCYCLINE 100 MG TAB/CAP PO SCH (22:00)
[2025-08-12] MEDS ORDERED: VANCOMYCIN 1.5GM/250ML 250 ML IV SCH (23:00)
--- NOTE | 2025-08-12 23:56 | DVHPN2 ---
Progress Note - Dictate Date Seen: Aug 12, 2025 Medical Necessity Reason Pt with a Central, PICC or Fol: Yes The following are medically ne: Central Line, Otoole Catheter Subjective Patient was seen and evaluated in follow up.No overnight events. Patient reports feeling well today. VS have been stable. HGB 9.5, HCT 28.9. Stool negative for WBCs. Telemetry reviewed. vital signs Vital Sign Date Time Temp Pulse Resp B/P (MAP) Pulse Ox O2 Delivery O2 Flow Rate FiO2 08/12/25 16:36 98.4 96 21 124/81 (95) 98 98.4 08/12/25 08:00 Room Air* 0 21 Total Intake and Output 08/11/25 08/11/25 08/12/25 15:00 23:00 07:00 Intake Total 250 ml 640 ml 1170 ml Output Total 600 ml 2900 ml Balance 250 ml 40 ml -1730 ml objective GENERAL: Ill appearing, awake. EYES: PERRL, EOMI. Anicteric. HENT: Moist mucous membranes. LUNGS: Decreased breath sounds. CARDIOVASCULAR: Regular rate and rhythm. ABDOMEN: Soft, nontender and nondistended. EXTREMITIES: 2+ BLE pitting edema. SKIN: Warm, dry. Bilateral lower extremity redness laboratory and microbiology Laboratory Tests 08/12/25 04:40 Test 08/12/25 04:40 Range/Units Serum Glucose 112 H 74-106 mg/dL Problem List Sepsis with associated lower extremity cellulitis. D novel decompensated HFpEF, NYHA Class III. Mitral valve regurgitation, moderate degree. Acute on chronic hypoxic respiratory failure. Severe anemia status post multiple PRBCs transfusions. Gastrointestinal hemorrhage. Dyslipidemia, newly diagnosed. Polysubstance abuse. Plan/Recommendation Continued all current supportive medical care. Patient has been seen by Tatianna Agudelo NP on my behalf. We have discussed the plan with the patient. A transthoracic echocardiogram revealed revealed LVEF 50% with mild LVH and mild LV diastolic dysfunction, moderately dilated RV and RA, study revealed RV failure, moderate degree of mitral regurgitation. Strandquist criteria is positive for the diagnosis of heart failure. Continue preload reduction as tolerated strict I&Os, daily weight, and fluid restrictions. Replete electrolytes as necessary. Initiate lipid-lowering agent. Continue to monitor hemoglobin and hematocrit closely and transfuse as needed. Continue GI recommendations. Antibiotics per primary care team. Not a candidate for invasive cardiac ischemic workup. Additional plan as per the hospital course. Assessment/Plan Continued all current supportive medical care. Lipitor. GI prophylactics. IV antibiotics as ordered. Tylenol for pain management. Additional plan as per the hospital course. Dietary Evaluation Review Comments: 1. Tube feeding if GI accessible, Vital High Protein@60ml/hr providing 126g Protein, 1440kcal, 1204ml free water. 2. TPN per pharmacy to meet Pt's energy and protein needs, if GI/EN not medically feasible. 3. Advance to diet texture as tolerated after extubation and passing DATASTAGE DEVELOPER eval 4. Offer Ensure Clear TID, if pt is can tolerate PO clear liquid diet Expected Outcomes/Goals: Replenish serum protein through nutrition support. Increaed physical strength Plan discussed with: Patient CC Plasma Assessment Blood Product Administration S: 08:00 ADAM MELO MD Aug 12, 2025 23:56
== END 2025-08-12 16:50 | disposition left against medical advice (07) | DRG 720 ==
LOC: EDBD 21:07 → ER 21:07 → EDUNIT# 21:07 → OVERFLOW 23:42 → ICU CENTRL 08-07 00:04 → TELE-EAST 08-09 20:30
PROVIDERS: ADMIT Internal Medicine; ATTEND Internal Medicine
PROC: 5A1955Z Respiratory Ventilation, Greater than 96 Consecutive Hours (ICD-10-PCS; principal; 2025-08-02)
PROC: 0BH17EZ Insertion of Endotracheal Airway into Trachea, Via Natural or Artificial Opening (ICD-10-PCS; 2025-08-02)
PROC: 30233N1 Transfusion of Nonautologous Red Blood Cells into Peripheral Vein, Percutaneous Approach (ICD-10-PCS; 2025-08-03)
PROC: 06HY33Z Insertion of Infusion Device into Lower Vein, Percutaneous Approach (ICD-10-PCS; 2025-08-03)
PROC: B54BZZZ Ultrasonography of Right Lower Extremity Veins (ICD-10-PCS; 2025-08-03)
PROC: 0DB98ZX Excision of Duodenum, Via Natural or Artificial Opening Endoscopic, Diagnostic (ICD-10-PCS; 2025-08-07)
PROC: 0DB68ZX Excision of Stomach, Via Natural or Artificial Opening Endoscopic, Diagnostic (ICD-10-PCS; 2025-08-07)
PROC: 0DB58ZX Excision of Esophagus, Via Natural or Artificial Opening Endoscopic, Diagnostic (ICD-10-PCS; 2025-08-07)
PROC: 02HV33Z Insertion of Infusion Device into Superior Vena Cava, Percutaneous Approach (ICD-10-PCS; 2025-08-07)
DX: A41.02 Sepsis due to Methicillin resistant Staphylococcus aureus (principal); R65.21 Severe sepsis with septic shock; J96.01 Acute respiratory failure with hypoxia; G93.41 Metabolic encephalopathy; J15.212 Pneumonia due to Methicillin resistant Staphylococcus aureus; I50.33 Acute on chronic diastolic (congestive) heart failure; K26.4 Chronic or unspecified duodenal ulcer with hemorrhage; J44.0 Chronic obstructive pulmonary disease with (acute) lower respiratory infection; K29.91 Gastroduodenitis, unspecified, with bleeding; L03.115 Cellulitis of right lower limb; L03.116 Cellulitis of left lower limb; K37 Unspecified appendicitis; I34.0 Nonrheumatic mitral (valve) insufficiency; F19.10 Other psychoactive substance abuse, uncomplicated; E03.9 Hypothyroidism, unspecified; E83.41 Hypermagnesemia; E87.0 Hyperosmolality and hypernatremia; D62 Acute posthemorrhagic anemia; E87.6 Hypokalemia; E86.0 Dehydration; K40.90 Unilateral inguinal hernia, without obstruction or gangrene, not specified as recurrent; E78.5 Hyperlipidemia, unspecified; Z53.29 Procedure and treatment not carried out because of patient's decision for other reasons; K44.9 Diaphragmatic hernia without obstruction or gangrene; K57.30 Diverticulosis of large intestine without perforation or abscess without bleeding; K22.70 Barrett's esophagus without dysplasia; Z88.1 Allergy status to other antibiotic agents; Z85.47 Personal history of malignant neoplasm of testis
CPT/HCPCS: 31500; 36415; 36430; 36569; 36600; 71045; 74176; 76937; 80048; 80053; 80061; 80202; 81001; 82140; 82270; 82550; 82565; 82805; 83036; 83605; 83735; 83880; 84100; 84132; 84439; 84443; 84481; 85014; 85018; 85025; 85048; 85610; 85730; 86704; 86706; 86708; 86803; 86850; 86900; 86901; 86920; 86922; 87040; 87045; 87070; 87077; 87081; 87086; 87186; 87205; 87340; 87427; 93005; 93306; 94002; 94003; 94640; 96361; 96374; 96375; 97110; 97116; 97163; 97530; 99291; 99292; G0378; J2250; J2470; J2543; J2704; J3480; J7060

== ENCOUNTER 2025-08-12 18:26 | Emergency (ER) | payer MEDICAID ==
[~2025-08-12] VITALS: Ht 182.9 cm; Wt 77.7 kg
[2025-08-12 18:34] VITALS: BP 157/91; PULSE 91; RESP 18; TEMP 98.7; O2SAT 98
== END 2025-08-12 19:28 | disposition left against medical advice (07) ==
LOC: ER 18:26
DX: M79.605 Pain in left leg (principal); Z53.21 Procedure and treatment not carried out due to patient leaving prior to being seen by health care provider

== ENCOUNTER 2025-08-13 03:45 | Inpatient (IN) | payer MEDICAID ==
[~2025-08-13] VITALS: Ht 188 cm; Wt 86.0 kg
[2025-08-13] VITALS (8 sets, daily range): BP systolic 116–135; BP diastolic 80–87; PULSE 60–112; RESP 16–20; TEMP 97.6–98.9; O2SAT 95–100
--- NOTE | 2025-08-13 04:32 | ED.PDOC ---
History of Present Illness HPI Comments 55-year-old male who came to ER for generalized weakness. Patient was admitted here that is August 02, however signed AMA yesterday. Was diagnosed withAcute metabolic encephalopathy likely due to sepsis Acute decompensated HFpEF, NYHA Class III. Mitral valve regurgitation, moderate degree. Dyslipidemia Sepsis likely due to MRSA pneumonia Acute hypoxic respiratory failure MRSA pneumonia History of COPD upper GI bleed Septic shock likely from peptic ulcer disease peptic ulcer disease Possible appendicitis Colonic diverticulosis Containing Umbilical hernia and left inguinal hernia Hypokalemia Hypernatremia Hypermagnesemia Normocytic normochromic anemia Acute blood loss anemia due to upper GI bleed, hematemesis Hypothyroidism Lower extremity cellulitis Polysubstance abuse History of testicular cancer As patient got home, patient got reprimanded by family members telling him that he should go back and finish his medical treatment REVIEW OF SYSTEMS: General: No fever, no chills, or fatigue HEENT: No sore throat, no earache, no congestion, no neck pain. Cardiac: No chest pain. No palpitations. Lungs: No shortness of breath, no cough. GI: No nausea, no vomiting, no diarrhea, no constipation, no abdominal pain : No dysuria, frequency, or urgency. No hematuria. Musculoskeletal: No joint pain , no joint swelling, no extremity edema. Skin: No rash, no itching. Neuro: No headache, no dizziness, no weakness EXAM: General: Awake, alert and oriented. No acute distress. Skin: Skin in warm, dry and intact. Appropriate color for ethnicity. HEENT: The head is normocephalic and atraumatic. Conjunctivae are clear without exudates or hemorrhage. Sclera is non-icteric. EOM are intact. No signs of nystagmus. Eyelids are normal in appearance without swelling or lesions. Oral mucosa is pink and moist Neck: The neck is supple with normal range of motion. No JVD. Cardiac: Heart rate and rhythm are normal. No murmurs, gallops, or rubs are auscultated. Respiratory: No signs of respiratory distress. Lung sounds are clear in all lobes bilaterally without rales, rhonchi, or wheezes. Abdominal: Abdomen is soft, non-tender without distention. Bowel sounds are pre sent and normoactive in all four quadrants. Extremities: Upper and lower extremities are atraumatic in appearance without deformity or edema. Neurological: The patient is awake, alert and oriented to person, place, and time with normal speech. Speech is clear. There is no facial asymmetry. Psychiatric: Appropriate mood and affect. Good judgement and insight Chief Complaint: General Weakness Time Seen by MD: 04:30 Reviewed Notes: Nurses Notes Allergies: Coded Allergies: Tetracycline (Verified Allergy, Intermediate, 08/10/25) rash all over body Ciprofloxacin (Verified Allergy, Unknown, 07/19/25) Moxifloxacin (Verified Allergy, Unknown, 07/19/25) Quinolones (Verified Allergy, Unknown, 07/19/25) Home Meds Active Scripts Sucralfate (CARAFATE) 1 Gm Tab, 1 GM PO BID for 30 Days, #60 TAB Prov:FAWNPEGGYCLIFTON RESIDENT 08/15/25 Pantoprazole Sodium Sesquihydr (Protonix) 40 Mg Tab, 40 MG PO DAILY for 30 Days, #30 TAB Prov:FAWNBRITTANEY MORACLIFTON RESIDENT 08/15/25 Information Source: Patient Mode of Arrival: Wheelchair Past Medical History PAST MEDICAL HISTORY: Anemia, CHF, COPD, High Lipids, HTN, Thyroid Past Medical History (Other): Sepsis, metabolic encephalopathy, upper GI bleed Surgical History: Denies all surgeries Family History Family History: Reviewed,noncontributory to illness Social History Smoker: Non-Smoker Alcohol: Denies ETOH Use Drugs: Methamphetamine, Other (Fentanyl) Lives In: Home Was a procedure done? Was a procedure done?: No Differential Dx Considerations may include: Congestive heart failure, polysubstance abuse, COPD, sepsis X-Ray, Labs, Meds, VS Vital Signs Date Time Temp Pulse Resp B/P (MAP) Pulse Ox O2 Delivery O2 Flow Rate FiO2 08/13/25 08:08 98.9 101 16 122/85 (97) 95 98.9 08/13/25 06:02 98.6 100 16 125/77 (93) 98.6 08/13/25 05:55 Room Air* 0 21 08/13/25 03:48 98.0 122 16 129/76 99 98.0 Lab Test 08/13/25 04:25 Range/Units White Blood Count 13.9 #H 4.4-10.8 10^3/uL Red Blood Count 3.73 L 4.5-5.90 10^6/uL Hemoglobin 10.4 L 13.5-17.5 g/dL Hematocrit 31.6 L 41.0-53.0 % Mean Corpuscular Volume 84.9 80.0-100.0 fL Mean Corpuscular Hemoglobin 27.9 L 28.0-32.0 pg Mean Corpuscular Hemoglobin Concent 32.8 32.0-36.0 g/dL Red Cell Distribution Width 15.3 H 11.8-14.3 % Platelet Count 532 H 140-450 10^3/uL Mean Platelet Volume 7.2 6.9-10.8 fL Neutrophils (%) (Auto) 71.1 37.0-80.0 % Lymphocytes (%) (Auto) 18.9 10.0-50.0 % Monocytes (%) (Auto) 7.8 0.0-12.0 % Eosinophils (%) (Auto) 1.4 0.0-7.0 % Basophils (%) (Auto) 0.8 0.0-2.0 % Neutrophils # (Auto) 9.9 H 1.6-8.6 10 ^3/uL Lymphocytes # (Auto) 2.6 0.4-5.4 10 ^3/uL Monocytes # (Auto) 1.1 0-1.3 10 ^3/uL Eosinophils # (Auto) 0.2 0-0.8 10 ^3/uL Basophils # (Auto) 0.1 0-0.2 10 ^3/uL Nucleated Red Blood Cells 0.1 % Sodium Level 141 136-145 mmol/L Potassium Level 3.6 3.5-5.1 mmol/L Chloride Level 107 98-107 mmol/L Carbon Dioxide Level 22 20-31 mmol/L Anion Gap 12 5-15 Blood Urea Nitrogen 9 9-23 mg/dL Creatinine 0.78 0.700-1.30 mg/dL Glomerular Filtration Rate Calc 104 >90 mL/min BUN/Creatinine Ratio 11.5 10.0-20.0 Serum Glucose 90 74-106 mg/dL Calcium Level 8.4 L 8.7-10.4 mg/dL Time of 1ST Reevaluation: 04:27 Reevaluation 1ST: Unchanged Patient Education/Counseling: Need For Follow Up Family Education/Counseling: No Family Present SEPSIS Sepsis Screen Date sepsis recognized/suspect: Aug 13, 2025 Time Sepsis recognized/suspect: 350 Recent Procedure: No On Antibiotic Therapy: No Respiratory Rate >20: No Heart Rate >90: Yes Temp<36 C (96.8 F) or >38.3 C: No SBP <90 or MAP <65 mmHG: No New Acute Mental Status Change: No Is the patient on CPAP, BIPAP,: No Vital Signs Date Time Temp Pulse Resp B/P (MAP) Pulse Ox O2 Delivery O2 Flow Rate FiO2 08/13/25 08:08 98.9 101 16 122/85 (97) 95 98.9 08/13/25 06:02 98.6 100 16 125/77 (93) 98.6 08/13/25 05:55 Room Air* 0 21 08/13/25 03:48 98.0 122 16 129/76 99 98.0 Laboratory Tests Test 08/13/25 04:25 White Blood Count 13.9 10^3/uL (4.4-10.8) #H Departure 1 Departure Time of Disposition: 04:35 Impression: Primary Impression: CHF exacerbation Disposition: ADMITTED INPATIENT Condition: Stable e-Prescriptions Sucralfate (CARAFATE) 1 Gm Tab 1 GM PO BID for 30 Days, #60 TAB Prov: CLIFTON LUNA RESIDENT 08/15/25 Pantoprazole Sodium Sesquihydr (Protonix) 40 Mg Tab 40 MG PO DAILY for 30 Days, #30 TAB Prov: CLIFTON LUNA RESIDENT 08/15/25 Comments Patient admitted to hospitalist service for further treatment, evaluation and monitoring. Critical Care Note Critical Care Time?: No Stability Stability form required: No Heart Score Heart Score: Heart Score Response (Comments) Value History N/A 0 EKG N/A 0 Age N/A 0 Risk Factors N/A 0 Troponin N/A 0 Total 0 I personally scribed for SEVERINO WALSH MD ([email or web address]) on 08/13/25 at 04:32. Electronically submitted by Francis Rubin ([email or web address]). SEVERINO WALSH MD Aug 13, 2025 04:32
[2025-08-13 05:02] LABS: Hematocrit 31.6 % (41.0-53.0); Hemoglobin 10.4 g/dL (13.5-17.5); Mean Corpuscular Hemoglobin 27.9 pg (28.0-32.0); Mean Corpuscular Volume 84.9 fL (80.0-100.0); Nucleated Red Blood Cells % 0.1 %
[2025-08-13 05:16] LABS: Potassium 3.6 mmol/L (3.5-5.1); Sodium 141 mmol/L (136-145)
[2025-08-13 05:17] LABS: Anion Gap 12 (5-15); Carbon Dioxide 22 mmol/L (20-31)
[2025-08-13 05:22] LABS: BUN/Creatinine Ratio 11.5 (10.0-20.0); Blood Urea Nitrogen 9 mg/dL (9-23); Calcium 8.4 mg/dL (8.7-10.4); Chloride 107 mmol/L (98-107); Glucose 90 mg/dL (74-106)
[2025-08-13] MEDS ORDERED: ACETAMINOPHEN 325 MG TAB PO PRN (09:45)
[2025-08-13] MEDS ORDERED: DOCUSATE SOD 100 MG CAP PO PRN (09:45)
[2025-08-13] MEDS ORDERED: MORPHINE SULFATE INJ 2 MG/ml SYRG IV PRN (09:45)
[2025-08-13] MEDS ORDERED: NITROGLYCERIN 0.4 MG SL TAB SL PRN (09:45)
[2025-08-13] MEDS ORDERED: ONDANSETRON HCL 4 MG/2 ML VIAL IV PRN (09:45)
[2025-08-13] MEDS ORDERED: HYDROcodone-ACET 5/325MG TAB PO PRN (09:45)
[2025-08-13] MEDS ORDERED: IPRATROPIUM BROM 0.5 MG/2.5ML INH SOL NEB PRN (11:00)
[2025-08-13] MEDS ORDERED: ALBUTEROL SULF 2.5 MG/0.5ML(0.5%) NEB SOLN NEB PRN (11:00)
[2025-08-13] MEDS ORDERED: DOXYCYCLINE 100 MG TAB/CAP PO SCH (11:00)
[2025-08-13] MEDS ORDERED: VANCOMYCIN PER PHARMACY 0 MG IV SCH (11:00)
[2025-08-13] MEDS ORDERED: VANCOMYCIN 1.25GM/250ML 250 ML IV ONE (11:00)
--- NOTE | 2025-08-13 11:03 | DVHHP2 ---
History of Present Illness Reason for Visit: Generalized weakness History of Present Illness Bob Srivastava is a 55-year-old male with past medical history of cellulitis, COPD, CHF, GI bleed, polysubstance abuse, pulmonary hypertension, and testicular cancer, who was admitted here on 08/02/2025 and left AMA 08/12/2025 and has now come back to the hospital. Patient states he just started going stir crazy being in the hospital so he left, and when he got home his family was mad at him for leaving and had him come back. When the patient came in on 08/02/2025, he was found down with black vomit and stool around him. He was worked up for GI bleed and acute hypoxic respiratory failure. He was intubated in ICU for multiple days. Diagnosed with upper GI bleed and MRSA in the sputum. Cardiovascular: CHF, HTN, hyperipidemia Pulmonary: COPD, Other (pulmonary hypertension), Pneumonia GI: GI bleed Heme/Onc: Cancer (testicular) Endocrine: Hypothyroidism Past Surgical History: Other (bilateral knees, right shoulder, right eye, right testicle) Smoke: <1 pack per day (Vape) ALCOHOL: occassional Drugs: Other (Methamphetamine and fentanyl) Lives: Friends Domestic Violence: Neg Review of Systems Constitutional: Yes: Weakness, Malaise; No: Fever, Chills, Sweats, Other Eyes: No: Pain, Vision change, Conjunctivae inflammation, Eyelid inflammation, Other, Redness ENT: No: Ear pain, Ear discharge, Nose pain, Nose discharge, Nose congestion, Mouth pain, Mouth swelling, Throat pain, Throat swelling, Other Respiratory: Shortness of breath; No: Cough, Dry, SOB with excertion, Wheezing, Hemoptysis, Pleuritic Pain, Sputum, Wheezing, Other Cardiovascular: No: Chest Pain, Palpitations, Orthopnea, Paroxysmal Noc. Dy spnea, Edema, Lt Headedness, Other Gastrointestinal: No: Nausea, Vomiting, Abdominal Pain, Diarrhea, Constipation, Melena, Hematochezia, Other Genitourinary: No Dysuria, No Frequency, No Incontinence, No Hematuria, No Retention, No Other Musculoskeletal: No: other, neck pain, shoulder pain, arm pain, back pain, hand pain, leg pain, foot pain Skin: No: Rash, Lesions, Jaundice, Bruising, Other Neurological: No: Weakness, Numbness, Incoordination, Change in speech, Confusion, Seizures, Other Allergies: Coded Allergies: Tetracycline (Verified Allergy, Intermediate, 08/10/25) rash all over body Ciprofloxacin (Verified Allergy, Unknown, 07/19/25) Moxifloxacin (Verified Allergy, Unknown, 07/19/25) Quinolones (Verified Allergy, Unknown, 07/19/25) Exam Vital Signs Vital Signs Date Time Temp Pulse Resp B/P (MAP) Pulse Ox O2 Delivery O2 Flow Rate FiO2 08/13/25 08:08 98.9 101 16 122/85 (97) 95 98.9 08/13/25 05:55 Room Air* 0 21 General Appearance: Alert, Oriented X3, mild distress HEENT: Atraumatic, PERRLA Respiratory: Other (Diminished breath sounds) Cardiovascular: Normal S1, Normal S2, No murmurs, Other (ST) Abdominal: Normal bowel sounds, Soft, No tenderness, No hepatospenomegaly Extremities: No clubbing, No cyanosis, Other (bilateral lower extremity edema, redness, decreased pulses) Skin: No significant lesion (bilateral lower extremity edema, redness, decreased pulses) Neuro: Normal speech, Other (geeralzied weakness) Psych/Mental Status: Mental status NL Labs/Xrays Labs Test 08/13/25 04:25 Range/Units White Blood Count 13.9 #H 4.4-10.8 10^3/uL Red Blood Count 3.73 L 4.5-5.90 10^6/uL Hemoglobin 10.4 L 13.5-17.5 g/dL Hematocrit 31.6 L 41.0-53.0 % Mean Corpuscular Volume 84.9 80.0-100.0 fL Mean Corpuscular Hemoglobin 27.9 L 28.0-32.0 pg Mean Corpuscular Hemoglobin Concent 32.8 32.0-36.0 g/dL Red Cell Distribution Width 15.3 H 11.8-14.3 % Platelet Count 532 H 140-450 10^3/uL Mean Platelet Volume 7.2 6.9-10.8 fL Neutrophils (%) (Auto) 71.1 37.0-80.0 % Lymphocytes (%) (Auto) 18.9 10.0-50.0 % Monocytes (%) (Auto) 7.8 0.0-12.0 % Eosinophils (%) (Auto) 1.4 0.0-7.0 % Basophils (%) (Auto) 0.8 0.0-2.0 % Neutrophils # (Auto) 9.9 H 1.6-8.6 10 ^3/uL Lymphocytes # (Auto) 2.6 0.4-5.4 10 ^3/uL Monocytes # (Auto) 1.1 0-1.3 10 ^3/uL Eosinophils # (Auto) 0.2 0-0.8 10 ^3/uL Basophils # (Auto) 0.1 0-0.2 10 ^3/uL Nucleated Red Blood Cells 0.1 % Sodium Level 141 136-145 mmol/L Potassium Level 3.6 3.5-5.1 mmol/L Chloride Level 107 98-107 mmol/L Carbon Dioxide Level 22 20-31 mmol/L Anion Gap 12 5-15 Blood Urea Nitrogen 9 9-23 mg/dL Creatinine 0.78 0.700-1.30 mg/dL Glomerular Filtration Rate Calc 104 >90 mL/min BUN/Creatinine Ratio 11.5 10.0-20.0 Serum Glucose 90 74-106 mg/dL Calcium Level 8.4 L 8.7-10.4 mg/dL CHEST RADIOGRAPH FINDINGS: Lines and Tubes: Right PICC removed. Lungs: Clear Pleura: No effusion. No pneumothorax. Cardiomediastinal contours: Unremarkable Bones: Unremarkable IMPRESSION: 1. No acute cardiopulmonary disease. 2. Right PICC removed SEPSIS Sepsis Screen Date sepsis recognized/suspect: Aug 13, 2025 Time Sepsis recognized/suspect: 0809 Recent Procedure: No On Antibiotic Therapy: No Respiratory Rate >20: No Heart Rate >90: Yes Temp<36 C (96.8 F) or >38.3 C: No SBP <90 or MAP <65 mmHG: No New Acute Mental Status Change: No Is the patient on CPAP, BIPAP,: No Physician Orders Admit (08/13/25 09:34) Code Status (08/13/25 09:34) Hydrocodone-Acet 5/325mg Tab ([place] 5/32 (08/13/25 09:45) Ondansetron Hcl (Zofran) (08/13/25 09:45) Docusate Sodium Capsule (Colace Capsule) (08/13/25 09:45) Fall Risk Precautions In Place QSHIFT (08/13/25 09:34) Complete Blood Count (08/14/25 04:00) Comprehensive Metabolic Panel (08/14/25 04:00) Cardiac Diet-2gna,Lofat,Lochol (08/13/25 Lunch) Pt Request For Service (08/13/25 09:34) Condition: Serious (08/13/25:34) Acetaminophen Tablet (Tylenol Tablet) (08/13/25 09:45) Nitroglycerin Sublingual (Ntrostat Subli (08/13/25 09:45) Morphine Sulfate Injection (08/13/25:45) Stat Ekg For Chest Pain (08/13/25:34) Notify Of Changes From Base (08/13/25:34) Machine Welt Butter For 24 Hours (08/13/25:34) Emergency Dysrhythmia Protocol (08/13/25:34) Rhythm Strips Once Every Shift (08/13/25:34) Oxygen By Nasal Cannula (08/13/25:34) Daily Weight (08/13/25:34) Metronidazole 500mg/100ml (Flagyl 500mg/ (08/13/25 14:00) Doxycycline Tablet (Vibramycin Tablet) (08/13/25 10:00) Vital Signs Date Time Temp Pulse Resp B/P (MAP) Pulse Ox O2 Delivery O2 Flow Rate FiO2 08/13/25 08:08 98.9 101 16 122/85 (97) 95 98.9 08/13/25 06:02 98.6 100 16 125/77 (93) 98.6 08/13/25 05:55 Room Air* 0 21 08/13/25 03:48 98.0 122 16 129/76 99 98.0 Laboratory Tests Test 08/13/25 04:25 White Blood Count 13.9 10^3/uL (4.4-10.8) #H Assessment/Plan Assessment/Plan Assessment: Acute exacerbation of congestive heart failure, Anemia, MRSA pneumonia, Bilateral lower extremities cellulitis, Hyperlipidemia, GERD, History of GI bleed, Mitral valve regurgitation, COPD, Poly substance abuse, Diverticulosis, Hypothyroidism, Pulmonary hypertension, Plan: Admit to Tele, IV antibiotics, Daily weight, Manage/Monitor electrolytes closely, Chest X-ray, Breathing treatments, Supplemental oxygen as needed, Daily PO Protonix, Physical therapy evaluation and treatment, Plan discussed with: Patient My Orders Orders - CESAR RAMIREZ Procedure Category Date Status Time Admit ADMIT 08/13/25 Transmitted 09:34 Code Status CODE 08/13/25 Transmitted 09:34 Hydrocodone-Acet PHA 08/13/25 Logged 5/325mg Tab ([place] 09:45 Ondansetron Hcl PHA 08/13/25 Logged (Zofran) 09:45 Docusate Sodium [facility] 08/13/25 Logged Capsule (Colace 09:45 Fall Risk Precautions [facility] 08/13/[address] 09:34 Complete Blood Count LAB 08/14/25 Verified 04:00 Comprehensive LAB 08/14/25 Verified Metabolic Panel 04:00 Cardiac DIET 08/13/25 Transmitted Diet-2gna,Lofat,Lochol Lunch Pt Request For Service PT 08/13/25 Logged 09:34 Condition: Serious [facility] 08/13/25 In Process 09:34 Acetaminophen Tablet [facility] 08/13/25 Logged (Tylenol Tablet) 09:45 Nitroglycerin [facility] 08/13/25 Logged Sublingual (Ntrostat 09:45 Morphine Sulfate [facility] 08/13/25 Logged Injection 09:45 Stat Ekg For Chest [facility] 08/13/25 In Process Pain 09:34 Notify Of Changes [facility] 08/13/25 In Process From Base 09:34 Machine Welt Butter For [facility] 08/13/25 In Process 24 Hours 09:34 Emergency Dysrhythmia [facility] 08/13/25 In Process Protocol 09:34 Rhythm Strips Once [facility] 08/13/25 In Process Every Shift 09:34 Oxygen By Nasal RT 08/13/25 Transmitted Cannula 09:34 Daily Weight [facility] 08/13/25 In Process 09:34 Metronidazole [facility] 08/13/25 Logged 500mg/100ml (Flagyl 14:00 Doxycycline Tablet [facility] 08/13/25 Logged (Vibramycin Tablet) 10:00 Date of Service: Aug 13, 2025 Billing Provider: CESAR RAMIREZ Common Visit Codes: [id number] INP/OBS CARE (HIGH) CESAR RAMIREZ Aug 13, 2025 11:03
[2025-08-13] MEDS: PANTOPRAZOLE 40 MG TAB PO ONE (11:11)
[2025-08-13] MEDS: VANCOMYCIN 1.5GM/250ML 250 ML IV ONE ×2 (11:15→18:12)
[2025-08-13] MEDS: SUCRALFATE 1 GM TAB PO SCH (11:30)
--- NOTE | 2025-08-13 11:52 | DVH ---
CHEST RADIOGRAPH Indication: shortness of breath Technique: Single frontal view of the chest was obtained Comparison: XY CHEST XRAY 1 VIEW on DOS: 08/10/25, XY CHEST XRAY 1 VIEW on DOS: 08/09/25, XY CHEST XRAY 1 VIEW on DOS: 08/08/25, XY CHEST PORTABLE on DOS: 08/07/25, XY CHEST XRAY 1 VIEW on DOS: 08/07/25, XY CHEST XRAY 1 VIEW on DOS: 08/10/25 FINDINGS: Lines and Tubes: Right PICC removed. Lungs: Clear Pleura: No effusion. No pneumothorax. Cardiomediastinal contours: Unremarkable Bones: Unremarkable IMPRESSION: 1. No acute cardiopulmonary disease. 2. Right PICC removed
[2025-08-13 23:07] LABS: Urine Protein, UAD Negative (Negative)
[2025-08-13 23:13] LABS: Amphetamine Screen, Urine Pos (NEGATIVE); Barbiturate Scree,Urine Neg (NEGATIVE); Benzodiazephine Screen, Urine Pos (NEGATIVE); Cannabinoid Screen, Urine Neg (NEGATIVE); Cocaine Screen, Urine Neg (NEGATIVE); Opiate Scree,Urine Neg (NEGATIVE); Phencyclidine Screen, Urine Neg (NEGATIVE)
[2025-08-14] VITALS (12 sets, daily range): BP systolic 97–118; BP diastolic 55–80; PULSE 86–110; RESP 18–19; TEMP 97.8–99.7; O2SAT 96–100
[2025-08-14] MEDS: VANCOMYCIN 1GM/250ML KIT 250 ML IV SCH (02:07)
[2025-08-14] MEDS: PANTOPRAZOLE 40 MG TAB PO SCH (05:59)
[2025-08-14 06:50] LABS: Hematocrit 26.9 % (41.0-53.0); Hemoglobin 8.7 g/dL (13.5-17.5); Mean Corpuscular Hemoglobin 27.8 pg (28.0-32.0); Mean Corpuscular Volume 85.7 fL (80.0-100.0); Nucleated Red Blood Cells % 0.1 %
[2025-08-14 07:10] LABS: Alanine Aminotransferase 24 U/L (7-40); Alkaline Phosphatase 71 U/L (46-116); Anion Gap 10 (5-15); BUN/Creatinine Ratio 19.2 (10.0-20.0); Blood Urea Nitrogen 14 mg/dL (9-23); Carbon Dioxide 23 mmol/L (20-31); Glucose 87 mg/dL (74-106); Sodium 141 mmol/L (136-145)
[2025-08-14 07:11] LABS: Bilirubin, Total 0.3 mg/dL (0.2-1.0)
[2025-08-14 07:13] LABS: Albumin 2.9 g/dL (3.2-4.8); Calcium 7.8 mg/dL (8.7-10.4); Chloride 108 mmol/L (98-107); Potassium 3.4 mmol/L (3.5-5.1); Total Protein 5.5 g/dL (5.7-8.2)
[2025-08-14] MEDS: POTASSIUM EFFERVESENT TAB 25 MEQ PO ONE (12:57)
--- NOTE | 2025-08-14 16:35 | DVHPNRES ---
Progress Note Date Seen: Aug 14, 2025 Resident Creating Document: LEANNA GONZALEZ RESIDENT Medical Necessity Reason Pt with a Central, PICC or Fol: No Subjective Review of Systems Patient is a 55-year-old male with past medical history of cellulitis, testicular cancer, history of hernia, recurrent pneumonia, diastolic CHF presented to the ED because he states that he is going crazy and his family was mad at him for leaving AMA the last time on 08/12/2025. patient states that he wants to get his medication this time. patient resting was diagnosed with upper GI bleed, MRSA pneumonia. Surgical history: Multiple surgeries on shoulder, knee, hernia repair Family history: Reviewed, noncontributory Personal history: Patient lives alone in a trailer, as per father denied smoking, alcohol use but used oxycodone after surgeries 08/14/2025: Patient seen at bedside. He has no new complaints, is on room air, denies any abdominal pain, nausea, vomiting, blood in stools, diarrhea, headaches, dizziness. Patient does admit to taking alcohol last time he was in the hospital and admits to using meth in the past. Doxycycline p.o., Objective vital signs Vital Sign Date Time Temp Pulse Resp B/P (MAP) Pulse Ox O2 Delivery O2 Flow Rate FiO2 08/14/25 13:00 99.7 99 19 118/80 (93) 100 99.7 08/14/25 10:00 Room Air 0.0 08/14/25 10:00 21 Total Intake and Output 08/13/25 08/13/25 08/14/25 15:00 23:00 07:00 Intake Total 1250 ml Balance 1250 ml medications Current Medications Medications Dose Ordered Sig/[place] Route Start Time Stop Time Status Last Admin Dose Admin Acetaminophen/ Hydrocodone Bitart 1 tab Q4HP PRN PO 08/13/25 09:45 Ondansetron HCl 4 mg Q4HP PRN IV 08/13/25 09:45 Docusate Sodium 100 mg BIDPRN PRN PO 08/13/25 09:45 Acetaminophen 650 mg Q6HP PRN PO 08/13/25 09:45 Nitroglycerin 0.4 mg Q5MINP PRN SL 08/13/25 09:45 Morphine Sulfate 2 mg Q30M PRN IV 08/13/25 09:45 Metronidazole 100 ml @ 100 mls/hr Q8HR IV 08/13/25 14:00 08/14/25 12:57 100 MLS/HR Doxycycline Monohydrate 100 mg Q12H PO 08/13/25 11:00 Hold Albuterol 2.5 mg Q6HPRN PRN NEB 08/13/25 11:00 Ipratropium [place] 0.5 mg Q6HPRN PRN NEB 08/13/25 11:00 Pantoprazole Sodium 40 mg DAILY@0600 PO 08/14/25 06:00 08/14/25 05:59 40 MG Sucralfate 1 gm QIDACHS PO 08/13/25 11:30 08/14/25 11:06 1 GM Vancomycin HCl 0 ml @ 0 mls/hr PER PHARMACY IV 08/13/25 11:00 Vancomycin HCl 250 ml @ 250 mls/hr Q8H IV 08/14/25 02:00 08/14/25 09:10 250 MLS/HR Examination General: Alert oriented to time place and person. HEENT: Normocephalic, atraumatic, moist mucous membranes Respiratory/pulmonary: Clear lungs bilaterally, vesicular murmurs present in almost all lung farr, no associated crackles or wheezes. Cardiovascular: Normal heart sounds S1 and S2 with no associated murmurs Abdomen: Abdomen nondistended, there is no pain to palpation in any of the abdominal quadrants, no palpable masses. Umbilical hernia. Surgical scar Extremities: No bilateral pitting edema Peripheral Pulses: 3+ Radial (R). 3+ Radial (L). 3+ Dorsalis pedis (R). 3+ Dorsalis pedis(L) Skin: Bilateral lower extremity cellulitis, wound on left lower medial side. Neurological: Right eye blind, laboratory and microbiology Laboratory Tests 08/14/25 05:37 Test 08/14/25 05:37 Range/Units Serum Glucose 87 74-106 mg/dL Microbiology Date/Time Source Procedure Growth Status 08/13/25 18:11 Nose MRSA Screen - Final Methicillin Resistant S.aureus Complete 08/13/25 11:46 Blood Blood Culture - Preliminary NO GROWTH AFTER 24 HOURS OF INCUBATION. Resulted Problem List/Assessment/Plan Problem List/Assessment/Plan Cardiology Acute decompensated HFpEF, NYHA Class III. Mitral valve regurgitation, moderate degree. Dyslipidemia - Echo showed EF of 50% with mild diastolic dysfunction, mild LVH, RVSP of 36 Respiratory MRSA nares positive History of COPD -MRSA positive in nares, sputum -p.o. doxycycline q.12 -blood culture negative GI History of upper GI bleed History peptic ulcer disease Colonic diverticulosis Umbilical hernia - EGD done (08/07)- showed 4 cm sliding-type hiatal hernia with acute erosive esophagitis long segment Barretts extending into the distal 8-10 cm of the esophagus from which biopsies were obtained, Moderate gastroduodenitis with multiple erosionsm, There was a 1 cm duodenal bulb ulcer Hai classification C with no visible vessel and another 5 mm pre-pyloric antral gastric ulcer, Otherwise normal examination up to the 2nd and 3rd part of the duodenum with good bile drainage and no active bleeding at this time except for oozing from scope pressure. Renal/electrolytes Hypokalemia - replete potassium as needed Hematology Normocytic normochromic anemia Leukocytosis - monitor labs Endocrine Hypothyroidism SKin/MSK Chronic Lower extremity cellulitis - p.o. doxycycline - wound consult placed Polysubstance abuse UTI showed: Positive for amphetamine, benzo, fentanyl History of testicular cancer DVT Prophylaxis: Not indicated GI Prophylaxis: Protonix Goals of care discussed with the patient for more than 29 minutes: Full code state case discussed with Dr. Ding, RN Plan discussed with: Patient Dietary Evaluation Review Comments: Nutrition Recommendation: 1) James 1 pk BID 2) Monitor PO intake, lab values, weight trend, and I/O Expected Outcomes/Goals: Wound to improve Intake to meet >75% estimated needs FU 3-5 days Date of Service: Aug 14, 2025 Billing Provider: SONIA METZ MD Common Visit Codes: [id number] INP/OBS CARE(HIGH) Secondary Visit Codes: [id number] CARE PLAN 30 MINUTES LEANNA GONZALEZ Aug 14, 2025 16:35 SONIA METZ MD Aug 15, 2025 12:00
[2025-08-14] MEDS ORDERED: DOXYCYCLINE 100 MG TAB/CAP PO SCH (17:12)
[2025-08-14] MEDS ORDERED: VANCOMYCIN PER PHARMACY 0 MG IV SCH (18:00)
[2025-08-14] MEDS: VANCOMYCIN 1.25GM/250ML 250 ML IV SCH (21:17)
[2025-08-15] VITALS (7 sets, daily range): BP systolic 108–124; BP diastolic 69–78; PULSE 69–90; RESP 16–17; TEMP 98.1–98.3; O2SAT 97–99
[2025-08-15 06:34] LABS: Hematocrit 28.0 % (41.0-53.0); Hemoglobin 9.3 g/dL (13.5-17.5); Mean Corpuscular Hemoglobin 28.0 pg (28.0-32.0); Mean Corpuscular Volume 84.6 fL (80.0-100.0); Nucleated Red Blood Cells % 0.0 %
[2025-08-15 07:01] LABS: Alanine Aminotransferase 24 U/L (7-40); Alkaline Phosphatase 74 U/L (46-116); Anion Gap 11 (5-15); BUN/Creatinine Ratio 16.1 (10.0-20.0); Blood Urea Nitrogen 9 mg/dL (9-23); Carbon Dioxide 21 mmol/L (20-31); Glucose 89 mg/dL (74-106); Potassium 3.6 mmol/L (3.5-5.1); Sodium 143 mmol/L (136-145)
[2025-08-15 07:02] LABS: Albumin 3.0 g/dL (3.2-4.8); Calcium 8.1 mg/dL (8.7-10.4); Chloride 111 mmol/L (98-107); Total Protein 5.6 g/dL (5.7-8.2)
[2025-08-15 07:03] LABS: Bilirubin, Total 0.4 mg/dL (0.2-1.0)
[2025-08-15] MEDS ORDERED: SUCR1TAB31 PO (10:17)
[2025-08-15] MEDS ORDERED: PANT40TA2 PO (10:17)
--- NOTE | 2025-08-15 15:54 | DVHDSRES ---
Discharge Summary Date of Admission Resident Creating Document: LEANNA GONZALEZ Aug 13, 2025 at 09:34 Date of Discharge: Aug 15, 2025 Admitting Diagnosis Altered mental status Labs/Diagnostic Data: Laboratory Results Test 08/15/25 05:50 08/14/25 18:31 08/14/25 05:37 08/13/25 22:32 White Blood Count 8.6 10^3/uL (4.4-10.8) Red Blood Count 3.31 10^6/uL (4.5-5.90) Hemoglobin 9.3 g/dL (13.5-17.5) Hematocrit 28.0 % (41.0-53.0) Mean Corpuscular Volume 84.6 fL (80.0-100.0) Mean Corpuscular Hemoglobin 28.0 pg (28.0-32.0) Mean Corpuscular Hemoglobin Concent 33.1 g/dL (32.0-36.0) Red Cell Distribution Width 15.7 % (11.8-14.3) Platelet Count 447 10^3/uL (140-450) Mean Platelet Volume 6.8 fL (6.9-10.8) Neutrophils (%) (Auto) 73.1 % (37.0-80.0) Lymphocytes (%) (Auto) 17.0 % (10.0-50.0) Monocytes (%) (Auto) 6.5 % (0.0-12.0) Eosinophils (%) (Auto) 2.3 % (0.0-7.0) Basophils (%) (Auto) 1.1 % (0.0-2.0) Neutrophils # (Auto) 6.3 10 ^3/uL (1.6-8.6) Lymphocytes # (Auto) 1.5 10 ^3/uL (0.4-5.4) Monocytes # (Auto) 0.6 10 ^3/uL (0-1.3) Eosinophils # (Auto) 0.2 10 ^3/uL (0-0.8) Basophils # (Auto) 0.1 10 ^3/uL (0-0.2) Nucleated Red Blood Cells 0.0 % Sodium Level 143 mmol/L (136-145) Potassium Level 3.6 mmol/L (3.5-5.1) Chloride Level 111 mmol/L (98-107) Carbon Dioxide Level 21 mmol/L (20-31) Anion Gap 11 (5-15) Blood Urea Nitrogen 9 mg/dL (9-23) Creatinine 0.56 mg/dL (0.700-1.30) Glomerular Filtration Rate Calc 115 mL/min (>90) BUN/Creatinine Ratio 16.1 (10.0-20.0) Serum Glucose 89 mg/dL (74-106) Calcium Level 8.1 mg/dL (8.7-10.4) Total Bilirubin 0.4 mg/dL (0.2-1.0) Aspartate Amino Transferase (AST) 17 U/L (13-40) Alanine Aminotransferase (ALT) 24 U/L (7-40) Alkaline Phosphatase 74 U/L (46-116) Total Protein 5.6 g/dL (5.7-8.2) Albumin 3.0 g/dL (3.2-4.8) Random Vancomycin Level 15.7 ug/mL (5-10) Magnesium Level 1.9 mg/dL (1.6-2.6) Urine Color Light-yellow (Yellow) Urine Clarity Clear (Clear) Urine pH 6.0 (5.0-9.0) Urine Specific [place] 1.014 (1.001-1.035) Urine Protein Negative (Negative) Urine Ketones Negative (Negative) Urine Blood Negative /uL (Negative) Urine Nitrite Negative (Negative) Urine Bilirubin Negative (Negative) Urine Urobilinogen Normal mg/dL (Negative) Urine Leukocyte Esterase Negative /uL (Negative) Urine RBC 1 /hpf (0 - 3) Urine Microscopic WBC 1 /HPF (0-3) Urine Squamous Epithelial Cells Few /hpf (<5) Urine Bacteria Few /hpf (None Seen) Urine Mucus Few (None Seen) Urine Glucose Normal mg/dL (Normal) Urine Opiates Screen Neg (NEGATIVE) Urine Fentanyl Screen Pos (NEGATIVE) Urine Barbiturates Screen Neg (NEGATIVE) Urine Phencyclidine Screen Neg (NEGATIVE) Urine Amphetamines Screen Pos (NEGATIVE) Urine Benzodiazepines Screen Pos (NEGATIVE) Urine Cocaine Screen Neg (NEGATIVE) Urine Cannabinoids Screen Neg (NEGATIVE) Test 08/13/25 11:40 Lactic Acid Level 1.9 mmol/L (0.4-2.0) Other Laboratory Tests 08/15/25 05:50 Brief Hx & Hospital Course: Patient is a 55-year-old male with past medical history of cellulitis, testicular cancer, history of hernia, recurrent pneumonia, diastolic CHF presented to the ED because he states that he is going crazy and his family was mad at him for leaving AMA the last time on 08/12/2025. patient states that he wants to get his medication this time. patient resting was diagnosed with upper GI bleed, MRSA pneumonia. Surgical history: Multiple surgeries on shoulder, knee, hernia repair Family history: Reviewed, noncontributory Personal history: Patient lives alone in a trailer, as per father denied smoking, alcohol use but used oxycodone after surgeries Brief hospital course: Patient came to the hospital for chief complaints of altered mental status and wanting medications as he left AMA last time. Patient was recently admitted and left AMA on 08/12/2025. Patient had acute decompensated cardiac failure, dyslipidemia, mitral valve regurgitation. His echo showed EF of 50% with mild diastolic dysfunction, mild LVH, RSVP of 36. Patient had MRSA nares positive for which mupirocin cream was given. Patient had COPD for which chest x-rays were taken and albuterol, ipratropium were given. Blood cultures were negative. Sputum culture negative. Patient had history of upper GI bleed recently and peptic ulcer disease which was shown on EGD done on 08/07/2025 which showed 4 cm sliding-type hiatal hernia with acute erosive esophagitis long segment Barretts extending into the distal 8-10 cm of the esophagus from which biopsies were obtained, Moderate gastroduodenitis with multiple erosionsm, There was a 1 cm duodenal bulb ulcer Hai classification C with no visible vessel and another 5 mm pre-pyloric antral gastric ulcer, Otherwise normal examination up to the 2nd and 3rd part of the duodenum with good bile drainage and no active bleeding at this time except for oozing from scope pressure. Patient has history of umbilical hernia status post repair. Colonic diverticulosis found on CT. Patient had hypokalemia for which potassium was replaced. Patient had normocytic normochromic anemia and leukocytosis for which labs were monitored. Patient had hypothyroidism and is recommended to continue home medication. Patient has chronic lower extremity cellulitis with multiple wounds present at admission. Patient was given IV vancomycin. Wound and wound consult was placed. Patient has history of polysubstance abuse and was found to have taken fentanyl at bedside of the hospital for which nurses had to remove and throw them away. UDS was positive for amphetamines, benzodiazepine, fentanyl. Patient has history of sickle cancer for which he was advised to follow-up with Oncology outpatient. Patient is stable for discharge and is advised to follow- up with discharge Clinic in 1 to 2 weeks. General: Alert oriented to time place and person. HEENT: Normocephalic, atraumatic, moist mucous membranes Respiratory/pulmonary: Clear lungs bilaterally, vesicular murmurs present in almost all lung farr, no associated crackles or wheezes. Cardiovascular: Normal heart sounds S1 and S2 with no associated murmurs Abdomen: Abdomen nondistended, there is no pain to palpation in any of the abdominal quadrants, no palpable masses. Umbilical hernia. Surgical scar Extremities: No bilateral pitting edema Peripheral Pulses: 3+ Radial (R). 3+ Radial (L). 3+ Dorsalis pedis (R). 3+ Dorsalis pedis(L) Skin: Bilateral lower extremity cellulitis, wound on left lower medial side. Neurological: Right eye blind, Patient is to take Protonix p.o. daily, Carafate b.i.d. time spent in discharge planning was 39 mins Operations or Procedures ORDERING PHYSICIAN: CESAR RAMIREZ REQUIREMENTS ANALYST PROCEDURE(s): CXR1 - CHEST XRAY 1 VIEW REASON: shortness of breath ORDER NUMBER(s): [id number], ACCESSION NUMBER(s): [id number] CHEST RADIOGRAPH Indication: shortness of breath Technique: Single frontal view of the chest was obtained Comparison: XY CHEST XRAY 1 VIEW on DOS: 08/10/25, XY CHEST XRAY 1 VIEW on DOS: 08/09/25, XY CHEST XRAY 1 VIEW on DOS: 08/08/25, XY CHEST PORTABLE on DOS: 08/07/25, XY CHEST XRAY 1 VIEW on DOS: 08/07/25, XY CHEST XRAY 1 VIEW on DOS: 08/10/25 FINDINGS: Lines and Tubes: Right PICC removed. Lungs: Clear Pleura: No effusion. No pneumothorax. Cardiomediastinal contours: Unremarkable Bones: Unremarkable IMPRESSION: 1. No acute cardiopulmonary disease. 2. Right PICC removed ATED BY: DMITRY MORELOS MD DICTATED DATE/TIME: 08/13/25 1150 Condition at Discharge: Stable Final Diagnosis/Problems List Acute decompensated HFpEF, NYHA Class III. Mitral valve regurgitation, moderate degree. Dyslipidemia MRSA nares positive History of COPD History of upper GI bleed History peptic ulcer disease Colonic diverticulosis Umbilical hernia Hypokalemia Normocytic normochromic anemia Leukocytosis Hypothyroidism Chronic Lower extremity cellulitis Discharge Disposition: Home with Health Services Discharge Instruct/Medications Diet: Consistent carbohydrate Activity: No Restrictions, As Tolerated Follow Up/Referral: follow up with PCP Medications: take Protonix and carafate as prescribed Scheduled Pantoprazole Sodium Sesquihydr (Protonix), 40 MG PO DAILY Sucralfate (Carafate), 1 GM PO BID Discharge Statement: "Patient was advised to return to the ER or call 911 if any headaches, dizziness, shortness of breath, chest pain, abdominal pain, bleeding, fevers, or worsening of medical condition. Patient was counseled about treatment plan, medications, possible side effects, patientverbalized understanding. All questions were answered to the best of my ability. This discharge took greater then 30 minutes in planning, reviewing documentation, counseling the patient, and discussing with other team members." ASSESSMENT ASSESSMENT Assessment GI bleed Acute decompensated HFpEF, NYHA Class III. Mitral valve regurgitation, moderate degree. Date of Service: Aug 15, 2025 Billing Provider: SONIA METZ MD Common Visit Codes: 14429-BKB/OBS DISCH DAY >30min LEANNA GONZALEZ Aug 15, 2025 15:54 SONIA METZ MD Aug 17, 2025 18:15
== END 2025-08-15 15:05 | disposition home health service (06) | DRG 194 ==
LOC: ER 03:45 → OVERFLOW 09:34 → TELE-CENTR 21:43
PROVIDERS: ADMIT Internal Medicine; ATTEND Internal Medicine
DX: I11.0 Hypertensive heart disease with heart failure (principal); J15.212 Pneumonia due to Methicillin resistant Staphylococcus aureus; G92.8 Other toxic encephalopathy; L89.210 Pressure ulcer of right hip, unstageable; L89.153 Pressure ulcer of sacral region, stage 3; J44.0 Chronic obstructive pulmonary disease with (acute) lower respiratory infection; L03.115 Cellulitis of right lower limb; L03.116 Cellulitis of left lower limb; I27.20 Pulmonary hypertension, unspecified; I50.33 Acute on chronic diastolic (congestive) heart failure; I34.0 Nonrheumatic mitral (valve) insufficiency; E03.9 Hypothyroidism, unspecified; D64.9 Anemia, unspecified; F19.10 Other psychoactive substance abuse, uncomplicated; E78.5 Hyperlipidemia, unspecified; K21.9 Gastro-esophageal reflux disease without esophagitis; K57.30 Diverticulosis of large intestine without perforation or abscess without bleeding; E87.6 Hypokalemia; K42.9 Umbilical hernia without obstruction or gangrene; Z88.1 Allergy status to other antibiotic agents; Z87.891 Personal history of nicotine dependence; Z85.47 Personal history of malignant neoplasm of testis; Z87.11 Personal history of peptic ulcer disease
CPT/HCPCS: 36415; 71045; 80048; 80053; 80202; 80307; 81001; 83605; 83735; 85025; 87040; 87081; 97110; 97116; 97163; G0378; J3490